=== PATIENT | female | born 1990 | race Caucasian/White ===

== ENCOUNTER 2022-04-26 15:45 | Outpatient (CLI) | payer BC, SELFPAY ==
--- OUTSIDE RECORDS SUMMARY | 2022-04-26 15:49 | XMS_ITS | Encounter Summary ---
:1990 Author Organization [facility] Address [address] [place] [address] Care Team Providers Name Role Phone Unavailable Primary Care Provider Unavailable Encounter Details Date Type Department Care Team Description 04/27/2011 Hospital Encounter HX [facility] Milton Newberry M.D. [address] [place] [address] (Wo rk) Social History Tobacco Use Types Packs/Day Years Used Date Smoking Tobacco: Never Assessed Sex Assigned at Date Recorded Not on file documented as of this encounter Progress Notes Milton Newberry M.D. - 04/27/2011 3:29 PM CDT [id number] REASON FOR VISIT Vaginal bleeding and abdominal pain. SUBJECTIVE Iinjqulk-[id number]-vnp female who presents with three day history of abdominal pain in the left lower quadrant and vaginal bleeding. This is the first episode of this nature. The pain is relatively radha the left lower quadrant. It is mildly sharp. She had vaginal bleeding that began three days ago and has decreased over the subsequent two days. It is essentially discontinued now. Her last menstrualperiod was on 04/12/2011 (two weeks ago). She denies any nausea, vomiting, diarrhea, constipation, blood in the stools, dysuria, urinary frequency or gross hematuria. She is sexually active in a monogamous relationship with the same male for the past four years. She is on oral contraceptive therapy with Deonna. She takes this religiously. She has no known history of sexually transmitted infections nordoes her partner. She denies any prior pregnancies. MENSTRUAL HISTORY Menses began at age 15. Frequency is every 28-30 days. Duration is 3-4 days, typically without much pain. Early on in her menstrual history, she did have mild headaches and abdominal cramping and within the first year of having menses was placed on oral contraceptive therapy. Since that time, has essentially been without symptoms until today. FAMILY HISTORY Patient is concerned in that her mother has apparent history of gynecologic cancer with what sounds to be a total abdominal hysterectomy in the past. Patient believes her mother had this surgery in herlate teens or early 20s. She is uncertain of the distinct diagnosis. OBJECTIVE VITAL SIGNS Weight 65.5 kg. Temperature 37.8. Pulse 91. Blood pressure 121/73. GENERAL Alert, oriented female in no acute distress. Nontoxic appearing. CHEST Heart regular rate and rhythm. Lungs clear to auscultation. ABDOMEN Soft. There is mild to moderate tenderness left lower quadrant. No guarding, no rigidity. Positive bowel sounds. No hepatosplenomegaly. GI/ Examination performed with nurse, ELKIN, in the room. Normal external vulva area without lesions. Speculum examination was performed. Cervix is well visualized. There is no blood extruding from the os. Itis a nulliparous cervix. It appears healthy. There is a normal amount of whitish clear vaginal discharge. Vaginal arango appear healthy. On bimanual examination, no cervical motion tenderness. No right adnexal tenderness. There is some mild left adnexal tenderness without finding of mass. Rectal examination deferred. DIAGNOSTICS Quantitative serum beta HCG is <1. Endovaginal ultrasound shows a normal uterus with mildly homogenous myometrium without discrete fibroids. Endometrial stripe measures 4 mm in thickness with no gestational sac in the uterus. Right ovary is normal. Left ovary is normal. There is no free fluid in the pelvis. IMPRESSION AND PLAN Left lower quadrant pain (continued) with vaginal bleeding mid cycle, which is now resolved. Etiology is not consistent with ectopic , given the negative beta HCG and ultrasound. It is somewhat consistent with ruptured ovarian cyst, despite negative free fluid in the pelvis. I did recommend to the patient that she may try intermittent ibuprofen or Tylenol for pain as desired. Given that thisis her first episode, suspicion for endometriosis is somewhat low, but does remain in the differential. Should she have further symptoms in the future, I would recommend hormonal evaluation for dysfunctional uterine bleeding. Should her pain not continue to improve, I recommended repeat evaluation in the next several days to look for bowel, urinary, or torsive pathology. Long discussion was had with the patient. She feels very comfortable and reassured, given the findings and plan. Milton Newberry MD/cjs I reviewed and concur with the history, examination, tests, diagnosis, and plan proposed by Dr. Newberry. Sophie Galeas MD, Preceptor #[id number] cc: Electronically Signed By: MILTON NEWBERRY MD On: 04/28/2011 03:51 PM Modified by and Electronically Signed by: MILTON NEWBERRY MD On: 04/28/2011 03:50 PM Co-Signed By: SOPHIE GALEAS MD On: 04/29/2011 08:20 AM Source: [facility] Document Id: [id number] documented in this encounter Miscellaneous Notes Miscellaneous - Milton Newberry M.D. - 04/27/2011 6:04 PM CDT [place] [address] Visit Information Name: NANCY ALBERTO Current Date: 04/27/2011 18:04:22 Primary Care Provider: MARIA ALEJANDRA BURRELL Your Medications Here is a list of your medications. It is important to take your medications as directed. Use a pillbox or chart to help remind you to take your medications. Please let your doctor or nurse know if you have problems taking your medications. Medication/Strength Dose Route Frequency Indications/Special Instructions/Comments drospirenone-ethinyl estradiol (Deonna oral tablet) 1 tab(s) Oral once a day Your Allergies & Intolerances Substance Reaction Symptoms Category Comments minocycline Bruising Drug minocycline gums turned blue Drug Your Problem List Problem Status Onset Comments Other Specified Intestinal Malabsorption Active 09/11/2006 Irritable Bowel Syndrome Active 02/23/2007 Your Recommendations We want to make sure you get the tests, immunizations, and guidance you need to stay healthy. Here is a customized list of recommendations, based on information we have in your medical record. Your doctor may have additional recommendations for you, based on your personal medical history and risk factors. You can help us by calling us to make an appointment when you are due for your tests. Additional information regarding recommendations: Test/Treatment Last Done Next Due Additional Information Screening Chlamydia every 1 year Females Age 16-24 04/27/2011 Vaccine: Tetanus every 10 years 12/21/2004 12/19/2014 Immunization to help prevent you from getting the serious disease Tetanus (Lockjaw). Your Upcoming Appointments Date Time Location Reason Provider No Appointments found Your Goals/Additional instructions: [facility] Id: [id number] Margaret - Milton Newberry M.D. - 04/27/2011 6:04 PM CDT [place] [address] Visit Information Name: NANCY ALBERTO Current Date: 04/27/2011 18:04:21 Primary Care Provider: MARIA ALEJANDRA BURRELL NANCY ALBERTO has been given the following list of medications: Your Medications It is important to take your medications as directed. Use a pill box or chart to help remind you to take your medications. Please let your doctor or nurse know if you have problems taking your medications. Medication/Strength Dose Route Frequency Indications/Special Instructions/Comments drospirenone-ethinyl estradiol (Deonna oral tablet) 1 tab(s) Oral once a day Additional Information: Yes - Current list of reconciled medications is provided and explained to the patient and/or family, guardian/caregiver. [facility] Document Id: [id number] Margaret - Ofelia Hess L.P.N. 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 Pt states having LT abdomenand pelvic pain. Cold all the time Temperature Core: 37.8C(Converted to: 100.0DegF) Peripheral Pulse Rate: 91/min Systolic Blood Pressure: 121mmHg Diastolic Blood Pressure: 73mmHg NIBP Mean: 89mmHg BP Location: Right upper extremity Heart Rhythm: Regular Oxygen Therapy: Room air Actual Weight: 65.500kg(Converted to: 144lb 6oz) Weight Source: Standing scale Dosing Weight Clinic: 65.50kg OFELIA HESS MA - 04/27/2011 15:48 CDT General Info Information Given By: Patient Preferred Communication Mode: Verbal Languages: Luxembourgish OFELIA HESS MA - 04/27/2011 15:48 CDT Subjective Pain Symptoms: Yes OFELIA HESS MA - 04/27/2011 15:48 CDT Pain Pain Assessment Grid Pain 1 Pain 2 Location: Abdomen Pelvic Laterality: Left Left Intensity: 6 6 Time Pattern: Acute Acute Onset: Gradual Gradual OFELIA HESS MA - 04/27/2011 15:48 CDT OFELIA HESS MA - 04/27/2011 15:48 CDT Dependent Habits Tobacco Use/Currently Using: No Exposure to Tobacco Smoke: Other: NONE OFELIA HESS MA - 04/27/2011 15:48 CDT Tobacco Use Grid Type: Other: NONE OFELIA HESS MA - 04/27/2011 15:48 CDT Allergy Latex Reaction: No OFELIA HESS MA 04/27/2011 15:48 CDT Allergies (Active) minocycline Estimated Onset Date: Unspecified ; Reactions: Bruising, gums turned blue ; Created By: OFELIA HESS MA; Reaction Status: Active ; Category: Drug ; Substance: minocycline ; Type: Allergy ; Updated By: OFELIA HESS MA; Reviewed Date: 04/27/2011 15:46 CDT [facility] Document Id: [id number] documented in this encounter Plan of Treatment Not on filedocumented as of this encounter Visit Diagnoses Not on filedocumented in this encounter
--- OUTSIDE RECORDS SUMMARY | 2022-04-26 15:49 | XMS_ITS | Encounter Summary ---
:1990 Author Organization [facility] Address [address] [place] [address] Care Team Providers Name Role Phone Unavailable Primary Care Provider Unavailable Encounter Details Date Type Department Care Team Description 08/31/2006 Hospital Encounter HX NO MAPPING Social History Tobacco Use Types Packs/Day Years Used Date Smoking Tobacco: Never Assessed Sex Assigned at Date Recorded Not on file documented as of this encounter Plan of Treatment Not on filedocumented as of this encounter Visit Diagnoses Not on filedocumented in this encounter
--- OUTSIDE RECORDS SUMMARY | 2022-04-26 15:49 | XMS_ITS | Clinical Summary ---
:1990 Author Organization [facility] Address [address] [place] [address] Care Team Providers Name Role Phone Neetu Vargas MD Primary Care Provider [phone] Allergies Active Allergy Reactions Severity Noted Date Comments Fructose GI intolerance Medium 01/18/2007 Gluten 01/18/2021 Minocycline Other (see comments), Medium 11/03/2014 bruisi ng Unknown Causes bruising Sulfa Antibiotics Hives 11/03/2014 Sulfamethoxazole-Trimet Shortness of breath High hives hopri Medications Medication Sig Dispensed Refills Start Date End Date Status magnesium oxide Take 400 mg by 0 12/08/2015 Active (MAG-OX) 400 MG mouth every night tablet Cetirizine HCl 10 MG 1 tablet 1 (one) 0 Active capsule time each day multivitamin Take 1 tablet by 30 each 0 01/18/2021 Active () 27-0.8 MG mouth 1 (one) time tablet each day promethazine TAKE 1 TABLET BY 0 02/15/2022 Active (PHENERGAN) 12.5 MG MOUTH EVERY 6 tablet HOURS NEEDED FOR NAUSEA OR VOMITING albuterol HFA Inhale 2 puffs 18 g 3 02/21/2022 Active (PROVENTIL every 6 (six) HFA;VENTOLIN HFA) hours if needed 108 (90 Base) for wheezing MCG/ACT inhalerIndications: Mild intermittent asthma without complication budesonide Inhale 1-2 puffs 2 1 each 3 02/22/2022 3 Active (PULMICORT) 180 (two) times a day MCG/ACT Rinse mouth with inhalerIndications: water after use to Mild intermittent reduce aftertaste asthma without and incidence of complication candidiasis. Do not swallow. Try 1 puff twice daily and if not controlled, then increase to 2 puffs twice daily. Active Problems Problem Noted Date Seasonal allergic conjunctivitis Asthma Last Assessment & Plan: Formatting of th is note might be different from the original. Asthma is doing well currently. Recently had a formulary change, Dulera no longer covered, Advair HFA (Fluticasone/salmeterol) is alternative, however we discussed that this is category ask wi th limited data for safety. She does not believe that she has ever tried an ICS alone inhaler, which has better studied safety data at low to moderate doses. We will try this during , using during seasons of flares as she n ormally would. Similar moderate dose to her prior Dulera component was sent to the pharmacy, budesonide ICS chosen due to formulary coverage. Patient will follow- up if this is not controlling her sympto ms and we can consider use of Advair if needed at that time. Asthma action plan completed today. Allergic rhinitis Overview: Perennial with seasonal flair Acne Estimated Date of Delivery Comments Yes 09/06/2022 Encounters Date Type Specialty Care Team Description 02/21/2022 Office Visit Family Medicine Neetu aVrgas Cons tipation, unspecified constipation type (Primary Dx); MD Patricia Mild intermitte nt asthma without complication 02/15/2022 Telephone Family Medicine Neetu Vargas MD from Last 3 Months Immunizations Name Administration Dates Next Due DTP 04/02/1998, 06/16/1993, 04/14/1993, 02/10/1993 DTaP 04/02/1998, 06/16/1993, 04/14/1993, 02/10/1993 HPV 9-Valent 06/04/2018 HPV, Quadrivalent 01/28/2008, 11/28/2007 HPV, Unspecified 01/28/2008, 11/28/2007 Hep B, Adolescent or Pediatric 06/16/1993, 02/10/1993, 12/18 Hep B, Unspecified 06/16/1993, 02/10/1993 HiB 04/02/1998, 06/17/1994, 06/16/1993, 04/15/1993 Hib (PRP-D) 04/02/1998, 06/17/1994, 06/16/1993, 04/15/1993 IPV 04/02/1998, 06/17/1993, 04/14/1993, 02/10/1993 Influenza (IM) Preservative Free 06/10/2014 Influenza 6mo-49yrs Quad Preservative 06/15/2020, 05/16/2019 , 04/07/2017, Free IM 06/13/2016, 08/27/2015, 05/07/2014, 07/23/2013 Influenza TIV (IM) 05/23/2012, 05/17/2011, 07/12/2010, 04/14/2009, 06/18/2007, 05/25/2006, 05/23/2005, 07/29/2004, 07/11/2003, 06/21/1999, 05/20/1999 Influenza, Quadrivalent 04/05/2018 Influenza, Unspecified 06/05/2017, 08/27/2015, 06/10/2014, 04/14/2009, 06/18/2007, 05/25/2006, 05/23/2005, 07/29/2004, 07/11/2003, 06/21/1999, 05/20/1999 MMR 12/21/2004, 04/02/1998, 06/17/1994 Meningococcal MCV4P 03/13/2008 Pneumococcal Polysaccharide 07/29/2004, 08/07/2003 Pneumococcal, Unspecified 07/29/2004 Td 12/21/2004 Tdap 08/23/2019, 03/30/2011 Family History Medical History Relation Comments Alcohol abuse Father Diabetes Maternal Grandfather Heart disease Maternal Grandfather Hyperlipidemia Maternal Grandfather Hypertension Maternal Grandfather Stroke Maternal Grandfather Hypothyroidism Maternal Grandmother Stroke Maternal Grandmother Hypertension Mother Cervical cancer Paternal Grandmother Hypothyroidism Paternal Grandmother Anxiety disorder Sister Asthma Sister Chiari malformation Sister Depression Sister Early puberty Sister Hydrocephalus Sister Irritable bowel syndrome Sister Tremor Sister Relation Status Comments Father Alive Maternal Grandfather Maternal Grandmother Mother Alive Paternal Grandmother Sister Social History Tobacco Use Types Packs/Day Years Used Date Never Smoker Smokeless Tobacco: Never Used Alcohol Use Standard Drinks/Week Comments Not Currently 0 (1 standard drink = 0.6 oz pure alcoho l) Alcohol Habits Answer Date Recorded How often do you have a drink containing alcohol? Monthly or less 07/04/2018 How many drinks containing alcohol do you have on a 3 or 4 07/04/2018 typical day when you are drinking? How often do you have six or more drinks on one Less than mo nthly 07/04/2018 occasion? Comment: Not asked Social Isolation Answer Date Recorded In a typical week, how many times do you More than three augusta es a week 06/04/2018 talk on the phone with family, friends, or neighbors? How often do you get together with friends Twice a week 06/04/2018 or relatives? How often do you attend catholic or More than 4 times per year 06/04/2018 anglican services? Do you belong to any clubs or Yes 06/04/2018 organizations such as catholic groups, unions, fraternal or athletic groups, or school groups? How often do you attend meetings of the More than 4 times r year 06/04/2018 clubs or organizations you belong to? Are you now , , , Not asked , never or living with a partner? Physical Activity Answer Date Recorded On average, how many days per week do you engage in moderate 0 days 06/04/2018 to strenuous exercise (like walking fast, running, jogging, dancing, swimming, biking, or other activities that cause a light or heavy sweat)? On average, how many minutes do you engage in exercise at No t asked this level? Stress Answer Date Recorded Do you feel stress - tense, restless, nervous, or anxious, N ot at all 06/04/2018 or unable to sleep at night because your mind is troubled all the time - these days? Financial Resource Strain Answer Date Recorded How hard is it for you to pay for the very basics like Not h farzana at all 06/04/2018 food, housing, medical care, and heating? Intimate Partner Violence Answer Date Recorded Within the last year, have you been afraid of your partner o r No 06/04/2018 ex-partner? Within the last year, have you been humiliated or emotionall y No 06/04/2018 abused in other ways by your partner or ex-partner? Within the last year, have you been kicked, hit, slapped, or No 06/04/2018 otherwise physically hurt by your partner or ex-partner? Within the last year, have you been raped or forced to have any No 06/04/2018 kind of sexual activity by your partner or ex-partner? Food Insecurity Answer Date Recorded Within the past 12 months, you worried that your food would Never true 06/04/2018 run out before you got money to buy more. Within the past 12 months, the food you bought just didn't N ever true 06/04/2018 last and you didn't have money to get more. Transportation Needs Answer Date Recorded In the past 12 months, has lack of transportation kept you f rom No 06/04/2018 medical appointments or from getting medications? In the past 12 months, has lack of transportation kept you f rom No 06/04/2018 meetings, work, or getting things needed for daily living? Education Answer Date Recorded What is the highest level of school Bachelor's degree (e.g., BA, AB, 06/04/2018 you have completed or the highest BS) degree you have received? Estimated Date of Delivery Comments Yes 09/06/2022 Sex Assigned at Date Recorded Not on file Last Filed Vital Signs Vital Sign Reading Time Taken Comments Blood Pressure 98/58 02/21/2022 3:27 PM CDT Pulse 99 02/21/2022 3:27 PM CDT Temperature 36.5 ??C (97.7 ??F) 02/21/2022 3:27 PM CDT Respiratory Rate 16 02/21/2022 3:27 PM CDT Oxygen Saturation 99% 02/21/2022 3:27 PM CDT Inhaled Oxygen Concentration - - Weight 86.1 kg (189 lb 12.8 oz) 02/21/2022 3:27 PM CDT Height 161.5 cm (5' 3.58) 02/21/2022 3:27 PM CDT Body Mass Index 33.01 02/21/2022 3:27 PM CDT Plan of Treatment Health Maintenance Due Date Last Done Comments Pap Smear 1990 COVID-19 Vaccine (2 - 07/16/2021 05/21/2021 Booster for Sherri series) Asthma Action Plan 02/21/2023 02/21/2022, 02/21/2022 Asthma Control Test 02/21/2023 02/21/2022 Pneumococcal Vaccine: Aged Out 07/29/2004, 07/29/2004, No longer eligible Pediatrics (0 to 5 Years) 08/07/2003 based on patient's age and At-Risk Patients (6 to to co mplete this topic 64 Years) HPV Vaccines Completed 06/04/2018, 01/28/2008, 01/28/2008, Additional history exists Insurance Payer Benefit Plan / Subscriber ID Effective Dates Phone Addre ss Type Group BCBS OF BCBS OF [id number] [address] [address] [address] [place] [address] (Home) [facility] TALISHA JUNG [id number] Care Teams Paper Mill Superintendent Relationship Specialty Start Date End Date Neetu Vargas MD PCP - General 11/23/[address] [place] [address] [address] [place] [id number]
--- OUTSIDE RECORDS SUMMARY | 2022-04-26 15:49 | XMS_ITS | Encounter Summary ---
:1990 Author Organization [facility] Address [address] [place] [address] Care Team Providers Name Role Phone Unavailable Primary Care Provider Unavailable Encounter Details Date Type Department Care Team Description 06/26/2014 Hospital Encounter HX [facility] Haider Barron M.D. [address] [place] [phone] (Wo rk) Social History Tobacco Use Types Packs/Day Years Used Date Smoking Tobacco: Never Assessed Sex Assigned at Date Recorded Not on file documented as of this encounter Last Filed Vital Signs Vital Sign Reading Time Taken Comments Blood Pressure 126/78 06/26/2014 3:11 PM AN/SYQ 13 NAV/C2 OPERATOR Pulse 92 06/26/2014 3:11 PM AN/SYQ 13 NAV/C2 OPERATOR Temperature - - Respiratory Rate - - Oxygen Saturation - - Inhaled Oxygen Concentration - - Weight 77 kg (169 lb 12.1 oz) 06/26/2014 3:11 PM AN/SYQ 13 NAV/C2 OPERATOR Height 162 cm (5' 3.78) 06/26/2014 3:11 PM AN/SYQ 13 NAV/C2 OPERATOR Body Mass Index 29.34 06/26/2014 3:11 PM AN/SYQ 13 NAV/C2 OPERATOR documented in this encounter Progress Notes Rick Feliciano M.D. - 06/26/2014 2:52 PM CST [id number] CHIEF COMPLAINT/REASON FOR VISIT Cough. HISTORY OF PRESENT ILLNESS Nancy is a 23-year-old female who presents with cough. She does have a history of seasonal allergiesas well as asthma. She states that occasionally she will get URI symptoms, but they usually get better. She reports a cough as well as fatigue for the last month. She also has some aches and pains. Shedenies any significant sore throat other than occasionally with a cough. She did initially have someleft ear pain, which has since resolved. She also states that while this started with sinus-type headaches in the maxillary and frontal sinuses, although those have now improved. Currently, denies any rhinorrhea. She denies any fevers but has felt chilled. She does report the cough seems to be worse th roughout the day. She does have it at bed, which makes it hard for her to sleep, but it does not wake her up at night. She does report usually it is a dry cough but does have some productivity in the morning. She denies any abdominal discomfort and denies any shortness of breath. Denies any changes inbowel or bladder habits. ALLERGIES 1. Minocycline. 2. Sulfadiazine. MEDICATIONS 1. Generic Zyrtec. 2. Advair Diskus. 3. Albuterol inhaler as needed. 4. Singulair. PHYSICAL EXAMINATION VITAL SIGNS: Height is 160 cm, weight is 77.0 kg, temperature is 36.8, pulse is 92, blood pressure is 126/78. She is saturating 100% on room air. GENERAL: She is awake, alert, and oriented x3, in no acute distress. HEENT: Mucous membranes are moist. Extraocular muscles are intact. Posterior oropharynx without any significant erythema. External auditory canals and tympanic membranes are clear bilaterally. Head is atraumatic, normocephalic. NECK: Supple. No significant lymphadenopathy. CARDIOVASCULAR: Regular rate and rhythm. No murmurs, rubs, or gallops. RESPIRATORY: Clear to auscultation bilaterally. No wheezes or crackles. EXTREMITIES: Warm and well perfused. No peripheral clubbing, cyanosis, or edema. IMPRESSION/REPORT/PLAN Nancy is a 23-year-old female with a 1-month history of cough and perhaps fevers, chills, and overall generalized malaise. Cough. I do have some concerns for possible acute bronchitis, viral versus bacterial. Given the timecourse of symptoms lasting at least 1 month, I think treatment with azithromycin 500 mg on day 1, 250 mg on days 2 through 5 would be reasonable. I also recommended benzonatate 100 mg 1 cap by mouth upto 3 times daily as needed for cough. I recommended following up in 1 to 2 weeks if this does not seem to improve her symptoms. At that time, consideration for chest x- ray and potentially further laboratory evaluation may be warranted. Otherwise, I recommended further conservative management with Tylenol, ibuprofen as needed for pain, fevers, and chills. Recommend staying adequately hydrated. Recommended resting when able. She is comfortable with the assessment and plan. I reviewed and concur with the history, examination, tests, diagnosis, and plan proposed by Dr. Rick Feliciano. Judith Landry MD, Preceptor Rick Feliciano M.D./garth Electronically Signed By: RICK FELICIANO MD On: 07/07/2014 07:41 AM Co-Signed By: JUDITH LANDRY MD On: 07/07/2014 08:12 AM Source: [facility] [id number] Document Id: [id number] /SYQ 13 NAV/C2 OPERATOR documented in this encounter Miscellaneous Notes Miscellaneous - Rick Feliciano M.D. - 06/26/2014 3:45 PM CST Ambulatory Patient Summary [address] [id number] Visit Information Name: NANCY ALBERTO [facility] Number: [id number] Current Date: 06/26/2014 15:45:15 Physicians Attending Provider: RICK FELICIANO MD Primary Care Provider: PCP, UNASSIGNED - NANCY BARR has been given the following list of follow-up instructions, medication list, and patient education materials: Follow-up Instructions Your Medications Here is a list of your medications. It is important to take your medications as directed. Use a pillbox or chart to help remind you to take your medications. Please let your doctor or nurse know if you have problems taking your medications. Medication/Strength How to Take Indications/Special Instructions/Comments/Notes for Patient Medication Changes/Routing albuterol (albuterol CFC free 90 mcg/inh inhalation aerosol) 2 puff(s), Inhalation, every 4 hours asneeded for Shortness of breath / Wheezing azithromycin (azithromycin 250 mg oral tablet) 2 tablets on day 1, then 1 tablet on days 2-5, Oral, as directed x 5 day(s) New Routed to [address] [id number] benzonatate (benzonatate 100 mg oral capsule) 1 cap, Oral, three times a day x 7 day(s) New Routed to [address] [id number] cetirizine (ZyrTEC) Oral, once a day drospirenone-ethinyl estradiol (Deonna oral tablet) 1 Tablet(s), Oral, once a day montelukast (Singulair 10 mg oral tablet) 1 Tablet(s), Oral, every evening Stop Taking the Following Medications: Medication list as of 06-26-14 15:45 Attention: If you have any medications at home that are not on this list, DO NOT take them until youcontact your provider for clarification. Give a copy of your medication list to your primary care provider. Update your medication list any time medications or doses are changed and carry your medication list at all times in case of emergency. Electronically Signed By: RICK FELICIANO MD Signed On:26-JUN-2014 15:45:09 Your Allergies & Intolerances Substance Reaction Symptoms Category Comments minocycline Bruising Drug minocycline gums turned blue Drug sulfADIAZINE hives Drug Your Problem List Problem Status Onset Comments Carbohydrate Intolerance Active 09/11/2006 Irritable Bowel Syndrome Active 02/23/2007 Your Upcoming Appointments Date Time Location Provider No Appointments found Attention: Contact your local Clinic if further appointment detail needed. Your Goals/Additional instructions: Source: [facility] POWERCHART Document Id: [id number] /SYQ 13 NAV/C2 OPERATOR Miscellaneous - Rick Feliciano M.D. - 06/26/2014 3:45 PM CST Ambulatory Discharge Medication List [address] [id number] Visit Information Name: NANCY ALBERTO [facility] Number: [id number] Visit Date: 06/26/2014 15:45:14 Attending Provider: RICK FELICIANO MD Primary Care Provider: PCP, UNASSIGNED - NANCY BARR has been given the following list of medications: Your Medications It is important to take your medications as directed. Use a pill box or chart to help remind you to take your medications. Please let your doctor or nurse know if you have problems taking your medications. Medication/Strength How to Take Indications/Special Instructions/Comments/Notes for Patient Medication Changes/Routing albuterol (albuterol CFC free 90 mcg/inh inhalation aerosol) 2 puff(s), Inhalation, every 4 hours asneeded for Shortness of breath / Wheezing azithromycin (azithromycin 250 mg oral tablet) 2 tablets on day 1, then 1 tablet on days 2-5, Oral, as directed x 5 day(s) New Routed to [address] [id number] benzonatate (benzonatate 100 mg oral capsule) 1 cap, Oral, three times a day x 7 day(s) New Routed to [address] [id number] cetirizine (ZyrTEC) Oral, once a day drospirenone-ethinyl estradiol (Deonna oral tablet) 1 Tablet(s), Oral, once a day montelukast (Singulair 10 mg oral tablet) 1 Tablet(s), Oral, every evening Stop Taking the Following Medications: Medication list as of 06-26-14 15:45 Attention: If you have any medications at home that are not on this list, DO NOT take them until youcontact your provider for clarification. Give a copy of your medication list to your primary care provider. Update your medication list any time medications or doses are changed and carry your medication list at all times in case of emergency. Electronically Signed By: RICK FELICIANO MD Signed On:26-JUN-2014 15:45:09 Additional Information: Source: [facility] POWERCHART Document Id: [id number] /SYQ 13 NAV/C2 OPERATOR Miscellaneous - Conversion, Historical Provider Ser - 06/26/2014 3:11 PM AN/SYQ 13 NAV/C2 OPERATOR Adult Endless Belt Finisher Intake/History Adult Endless Belt Finisher Intake/History Entered On: 06/26/2014 15:14 AN/SYQ 13 NAV/C2 OPERATOR Performed On: 06/26/2014 15:11 AN/SYQ 13 NAV/C2 OPERATOR by ALPHONSO POLANCO LPN Intake SpO2 : 100 % Oxygen Therapy : Room air ALPHONSO POLANCO LPN - 06/26/2014 15:14 AN/SYQ 13 NAV/C2 OPERATOR Chief Complaint : cough, congestion, tired and achy, headache: Hx of asthmas Onset of Symptoms : 1 month Temperature Core : 36.8 DegC(Converted to: 98.2 DegF) Peripheral Pulse Rate : 92 /min Systolic Blood Pressure : 126 mmHg Diastolic Blood Pressure : 78 mmHg NIBP Mean : 94 mmHg BP Location : Right upper extremity Blood Pressure Cuff Size : Regular Height : 162 cm(Converted to: 5 ft 4 inch(es), 64 inch(es)) Actual Weight : 77.0 kg(Converted to: 169 lb 12 oz) Weight Source : Standing scale Dosing Weight Clinic : 77 kg Clinic BSA : 1.86 Body Mass Index : 29.34 kg/m2 ALPHONSO POLANCO LPN - 06/26/2014 15:11 AN/SYQ 13 NAV/C2 OPERATOR General Info Information Given By : Patient Preferred Communication Mode : Verbal Languages : Bruneian Is Patient Female and 13-50 no hysterectomy : Yes Status : Patient denies Are you ? : No ALPHONSO POLANCO LPN - 06/26/2014 15:11 AN/SYQ 13 NAV/C2 OPERATOR Subjective Pain Symptoms : No ALPHONSO POLANCO LPN - 06/26/2014 15:11 AN/SYQ 13 NAV/C2 OPERATOR Dependent Habits Tobacco Use/Currently Using : No Exposure to Tobacco Smoke : Other: NONE Smoking Status : Never smoker ALPHONSO POLANCO LPN - 06/26/2014 15:11 AN/SYQ 13 NAV/C2 OPERATOR Tobacco Use Grid Type : Other: NONE ALPHONSO POLANCO LPN - 06/26/2014 15:11 AN/SYQ 13 NAV/C2 OPERATOR Caffeine Use Grid Caffeine Use : Current Type : Coffee Frequency : Weekly ALPHONSO POLANCO LPN - 06/26/2014 15:11 AN/SYQ 13 NAV/C2 OPERATOR Recreational Drug Use Grid Drug Use : None SHERRI ALPHONSOKARI Montejo LPN - 06/26/2014 15:11 AN/SYQ 13 NAV/C2 OPERATOR ID Screen Travel Within Last 21 Days : No SHERRI ALPHONSO Montejo LPN - 06/26/2014 15:11 AN/SYQ 13 NAV/C2 OPERATOR Source: [facility] [employer] Document Id: [id number] AN/SYQ 13 NAV/C2 OPERATOR!4 documented in this encounter Plan of Treatment Not on filedocumented as of this encounter Visit Diagnoses Not on filedocumented in this encounter
--- OUTSIDE RECORDS SUMMARY | 2022-04-26 15:49 | XMS_ITS | Encounter Summary ---
:1990 Author Organization [facility] Address [address] [place] [address] Care Team Providers Name Role Phone Unavailable Primary Care Provider Unavailable Encounter Details Date Type Department Care Team Description 09/08/2006 Hospital Encounter HX NO MAPPING Social History Tobacco Use Types Packs/Day Years Used Date Smoking Tobacco: Never Assessed Sex Assigned at Date Recorded Not on file documented as of this encounter Plan of Treatment Not on filedocumented as of this encounter Visit Diagnoses Not on filedocumented in this encounter
--- OUTSIDE RECORDS SUMMARY | 2022-04-26 15:49 | XMS_ITS | Encounter Summary ---
:1990 Author Organization [facility] Address [address] [place] [address] Care Team Providers Name Role Phone Unavailable Primary Care Provider Unavailable Encounter Details Date Type Department Care Team Description 09/30/2007 Hospital Encounter HX NO MAPPING Social History Tobacco Use Types Packs/Day Years Used Date Smoking Tobacco: Never Assessed Sex Assigned at Date Recorded Not on file documented as of this encounter Plan of Treatment Not on filedocumented as of this encounter Visit Diagnoses Not on filedocumented in this encounter
--- OUTSIDE RECORDS SUMMARY | 2022-04-26 15:49 | XMS_ITS | Encounter Summary ---
:1990 Author Organization [facility] Address [address] [place] [address] Care Team Providers Name Role Phone Unavailable Primary Care Provider Unavailable Encounter Details Date Type Department Care Team Description 07/07/2006 - 07/08/2006 Hospital Encounter HX NO MAPPING Social History Tobacco Use Types Packs/Day Years Used Date Smoking Tobacco: Never Assessed Sex Assigned at Date Recorded Not on file documented as of this encounter Plan of Treatment Not on filedocumented as of this encounter Visit Diagnoses Not on filedocumented in this encounter
--- OUTSIDE RECORDS SUMMARY | 2022-04-26 15:49 | XMS_ITS | Encounter Summary ---
:1990 Author Organization [facility] Address [address] [place] [address] Care Team Providers Name Role Phone Unavailable Primary Care Provider Unavailable Reason for Visit Reason Onset Date Comments Outpatient COVID-19 Testing 10/26/2020 Encounter Details Date Type Department Care Team Description 10/26/2020 External Outreach Department of Family Post, Ji Aguayo, Contact With [facility] Medicine, [facility] [address] M.D. (Suspected) Exposure Street Professional [address] To COVID-19 (Primary Building in [place], [place] Dx) [place] [phone] [address] [phone] [place], [place] (Work) [phone] Social History Tobacco Use Types Packs/Day Years Used Date Smoking Tobacco: Never Sex Assigned at Date Recorded Not on file documented as of this encounter Progress Notes Liliana Milligan R.N. - 10/26/2020 8:59 AM CDT Encounter created for COVID-19 screening. documented in this encounter Miscellaneous Notes Result Encounter Note - Lenore Jama APRN, C.N.P., M.S. - 10/27/2020 7:39 AM CDT The patient has been notified and provided guidance by letter, which has been sent by portal or by mail. They have been instructed to follow up with their primary care provider as needed. If the PCP has questions about managing the patient, they may: Call the [place] [facility] Team Doc of the Day Send an inbasket to P [facility] COVID-[address] a Covid Care e-consult documented in this encounter Plan of Treatment Not on filedocumented as of this encounter Procedures Procedure Name Priority Date/Time Associated Comments Diagnosis SARS CORONAVIRUS 2 Routine 10/26/2020 10:40 Contact With And R esults for this PCR DETECT, V AM CDT (Suspected) procedure are in Exposure To the results COVID-19 section. documented in this encounter Results (ABNORMAL) SARS Coronavirus 2 PCR Detect, V Asymptomatic (10/26/2020 10:40 AM CDT) [facility] Method Time Signature SARS-CoV-2 Swab, 10/26/2020 [facility] Specimen Nasopharynx 10:28 PM Source CDT SARS-CoV-2 Detected (A) Undetected 10/26/2020 [facility] RNA by PCR 10:28 PM CDT Comment: SARS-CoV-2 RNA present. ----ADDITIONAL INFORMATION---- This RT-PCR test using the nicolette SARS-Co V-2 assay ([employer] performed on the nicolette 6800/8800 S ystem has received Emergency Use Authorization (EUA) by the U.S. Food and Drug Administration, and is modified from the gear grinder's instructions wit h a bridging study. Performance characteristics were verified by [facility] inic in a manner consistent with CLIA requirements. Fact sheets for this Emergency Use Autho rization (EUA) assay can be found at the following links: For Healthcare Providers: https://www.fd a.gov/media/664556/download For Patients: https://www.fda.gov/media/ 169536/download Specimen Anatomical Collection Method Collection Time Receive d Time (Source) Location / / Volume Laterality Varies 10/26/2020 10:40 10/26/2020 2:08 (Nasopharynx) AM CDT PM CDT Ji Merida M.D. LAB MICROBIOLOGY - GENERAL O RDPRASHANT Performing Organization Address City/State/ZIP Code Phon e Number [facility] [address] [place] [address] SUPPORT [facility] [place] [address] Laboratory Medicine and Pathology [address] [place] documented in this encounter Visit Diagnoses Diagnosis Contact With And (Suspected) Exposure To COVID-19 - Primary documented in this encounter Additional Health Concerns Infection Onset Date Last Indicated Resolved Time COVID19 Pending 10/26/2020 10/26/2020 10/26/2020 10:28 PM CDT documented as of this encounter
--- OUTSIDE RECORDS SUMMARY | 2022-04-26 15:49 | XMS_ITS | Encounter Summary ---
:1990 Author Organization [facility] Address [address] [place] [address] Care Team Providers Name Role Phone Unavailable Primary Care Provider Unavailable Encounter Details Date Type Department Care Team Description 08/11/2006 Hospital Encounter HX NO MAPPING Social History Tobacco Use Types Packs/Day Years Used Date Smoking Tobacco: Never Assessed Sex Assigned at Date Recorded Not on file documented as of this encounter Plan of Treatment Not on filedocumented as of this encounter Visit Diagnoses Not on filedocumented in this encounter
--- OUTSIDE RECORDS SUMMARY | 2022-04-26 15:49 | XMS_ITS | Encounter Summary ---
:1990 Author Organization [facility] Address [address] [place] [address] Care Team Providers Name Role Phone Unavailable Primary Care Provider Unavailable Encounter Details Date Type Department Care Team Description 07/05/2006 - 07/06/2006 Hospital Encounter HX [facility] Social History Tobacco Use Types Packs/Day Years Used Date Smoking Tobacco: Never Assessed Sex Assigned at Date Recorded Not on file documented as of this encounter Plan of Treatment Not on filedocumented as of this encounter Visit Diagnoses Not on filedocumented in this encounter
--- OUTSIDE RECORDS SUMMARY | 2022-04-26 15:49 | XMS_ITS | Encounter Summary ---
:1990 Author Organization [facility] Address [address] [place] [address] Care Team Providers Name Role Phone Unavailable Primary Care Provider Unavailable Encounter Details Date Type Department Care Team Description 08/12/2006 Hospital Encounter HX NO MAPPING Social History Tobacco Use Types Packs/Day Years Used Date Smoking Tobacco: Never Assessed Sex Assigned at Date Recorded Not on file documented as of this encounter Plan of Treatment Not on filedocumented as of this encounter Visit Diagnoses Not on filedocumented in this encounter
--- OUTSIDE RECORDS SUMMARY | 2022-04-26 15:49 | XMS_ITS | Encounter Summary ---
:1990 Author Organization [facility] Address [address] [place] [address] Care Team Providers Name Role Phone Unavailable Primary Care Provider Unavailable Encounter Details Date Type Department Care Team Description 10/26/2020 Admin Visit Department of Family Medicine, [address] [phone] Social History Tobacco Use Types Packs/Day Years Used Date Smoking Tobacco: Never Sex Assigned at Date Recorded Not on file documented as of this encounter Plan of Treatment Not on filedocumented as of this encounter Visit Diagnoses Not on filedocumented in this encounter Additional Health Concerns Infection Onset Date Last Indicated Resolved Time COVID19 Pending 10/26/2020 10/26/2020 10/26/2020 10:28 PM CDT documented as of this encounter
--- OUTSIDE RECORDS SUMMARY | 2022-04-26 15:49 | XMS_ITS | Encounter Summary ---
:1990 Author Organization [facility] Address [address] [place] [address] Care Team Providers Name Role Phone Unavailable Primary Care Provider Unavailable Encounter Details Date Type Department Care Team Description 06/22/2001 Hospital Encounter HX [facility] Jocelyne Reinoso M.D. [address] [place] [address], [place] [address] (Wo rk) Social History Tobacco Use Types Packs/Day Years Used Date Smoking Tobacco: Never Assessed Sex Assigned at Date Recorded Not on file documented as of this encounter Plan of Treatment Not on filedocumented as of this encounter Visit Diagnoses Not on filedocumented in this encounter
--- OUTSIDE RECORDS SUMMARY | 2022-04-26 15:49 | XMS_ITS | Encounter Summary ---
:1990 Author Organization [facility] Address [address] [place] [address] Care Team Providers Name Role Phone Unavailable Primary Care Provider Unavailable Encounter Details Date Type Department Care Team Description 07/03/2006 - 07/04/2006 Hospital Encounter HX NO MAPPING Social History Tobacco Use Types Packs/Day Years Used Date Smoking Tobacco: Never Assessed Sex Assigned at Date Recorded Not on file documented as of this encounter Plan of Treatment Not on filedocumented as of this encounter Visit Diagnoses Not on filedocumented in this encounter
--- OUTSIDE RECORDS SUMMARY | 2022-04-26 15:49 | XMS_ITS | Encounter Summary ---
:1990 Author Organization [facility] Address [address] [place] [address] Care Team Providers Name Role Phone Unavailable Primary Care Provider Unavailable Encounter Details Date Type Department Care Team Description 04/28/2007 Hospital Encounter HX NO MAPPING Social History Tobacco Use Types Packs/Day Years Used Date Smoking Tobacco: Never Assessed Sex Assigned at Date Recorded Not on file documented as of this encounter Plan of Treatment Not on filedocumented as of this encounter Visit Diagnoses Not on filedocumented in this encounter
--- OUTSIDE RECORDS SUMMARY | 2022-04-26 15:49 | XMS_ITS | Encounter Summary ---
:1990 Author Organization [facility] Address [address] [place] [address] Care Team Providers Name Role Phone Unavailable Primary Care Provider Unavailable Reason for Visit Reason Comments COVID Nurse Line Encounter Details Date Type Department Care Team Description 10/26/2020 Clinical Communication Division of Lenore Marquez COVI D Nurse Line [facility] Internal R.N. Medicine, [facility] in [place], [place] [address] [place] [address] Social History Tobacco Use Types Packs/Day Years Used Date Smoking Tobacco: Never Sex Assigned at Date Recorded Not on file documented as of this encounter Miscellaneous Notes Telephone Encounter - Lenore Marquez, R.N. - 10/26/2020 8:12 AM CDT COVID-19 Nurse Line Screening Known Exposure 10/17 Quarantine 10/31 Asymptomatic Testing required for work ASSESSMENT Region Select appropriate region: : [place] Age Pathway Select approprite pathway: : Adult Have you had close contact* with a person who has a LABORATORY CONFIRMED case of COVID-19 in the past 14 days?: Yes- provide quarantine instructions unless exceptions met. (Continue Screening)(Aunt) In the last 48 hours, have you had a fever* OR symptoms that are unrelated to a preexisting illness?: No symptoms noted (Continue Screening) Have you tested positive for COVID-19 in the last 90 days?: No (Continue Screening) Have you been advised to undergo testing or are you requesting testing?: Yes, COVID-19 testing recommended (End Screening) Have you received a COVID-19 vaccine in the last 72 hours? : No vaccine received (Continue Screening) Do you have any of the following urgent symptoms?: No urgent symptoms noted (Continue Screening) Have you tested positive for COVID-19 in the last 45 days?: No (Continue Screening) Are ALL the following criteria met: age between 18 to 75 yrs, main symptom is a sore throat with duration of 24 hrs to 7 days, onset of sore throat not associated with new upper respiratory symptoms*? : No, COVID testing is recommended (End Screening) Testing Recommendation Endpoint Is testing recommended? : Recommended to test PLAN Endpoint recommendation: Screening negative, testing not indicated at this time and Provided instruction to quarantine for 14 days from the last contact exposure to a confirmed COVID-19 case and testing is recommended. The best time to test is 5-7 days after last contact with an infected individual inorder to have the best chance of detecting infection. If you are unsure of your last contact, or would like testing now, we can perform testing now. Even if your test is negative, you should continue to follow official public health quarantine recommendations. Contact your primary care team with any new symptoms. Care Points: -Wash hands frequently with soap and water for at least 20 seconds -If soap and water are not available, use a hand food critic -Avoid touching your eyes, nose and mouth. -Clean and disinfect high-touch surfaces routinely. -Wear a mask over your nose and mouth. A cloth face cover is not a substitute for social distancing -Continue to keep about 6 feet between yourself and others. -Avoid public areas and public transportation. -Find new ways to connect with family and friends, get support and share feelings. -Seek emergent care if any of the following occur Trouble breathing Bluish lips or face Persistent pain or pressure in the chest New confusion or inability to rouse. -Notify your regular care provider of any new or worsening symptoms. Exposure Carepoints: Continue to quarantine for 14 days from your last known exposure to someone with a laboratory confirmed case of COVID-19 regardless of a negative test result unless otherwise directed. If you have completed your COVID-19 vaccination series greater than 2 weeks ago and within the past 90 days, you do not need to quarantine as long as you remain asymptomatic. Regardless of vaccination status, If you remain asymptomatic and wish to be tested it is recommended that you wait 5-7 daysafter the exposure before testing unless otherwise directed. Testing is recommended if you become symptomatic at any point. Education: Patient/caregiver able to teach back Patient agreeable to plan of care: Yes The following references were used: [facility] novel coronavirus (COVID- 19) resources Nursing judgement documented in this encounter Plan of Treatment Not on filedocumented as of this encounter Visit Diagnoses Not on filedocumented in this encounter
--- OUTSIDE RECORDS SUMMARY | 2022-04-26 15:49 | XMS_ITS | Encounter Summary ---
:[address] [facility] Address [address] [place] [address] Care Team Providers Name Role Phone Unavailable Primary Care Provider Unavailable Encounter Details Date Type Department Care Team Description 08/01/2006 - 08/02/2006 Hospital Encounter HX NO MAPPING Social History Tobacco Use Types Packs/Day Years Used Date Smoking Tobacco: Never Assessed Sex Assigned at Date Recorded Not on file documented as of this encounter Plan of Treatment Not on filedocumented as of this encounter Visit Diagnoses Not on filedocumented in this encounter
--- OUTSIDE RECORDS SUMMARY | 2022-04-26 15:49 | XMS_ITS | Encounter Summary ---
:1990 Author Organization [facility] Address [address] [place] [address] Care Team Providers Name Role Phone Unavailable Primary Care Provider Unavailable Encounter Details Date Type Department Care Team Description 12/01/2020 Orders Only RST PCP [facility] Elan Lainez Jr., M.D. [address] [place] [address] Niko Bernabe [place] [phone] (Wo rk) Social History Tobacco Use Types Packs/Day Years Used Date Smoking Tobacco: Never Sex Assigned at Date Recorded Not on file documented as of this encounter Plan of Treatment Not on filedocumented as of this encounter Visit Diagnoses Not on filedocumented in this encounter
--- OUTSIDE RECORDS SUMMARY | 2022-04-26 15:49 | XMS_ITS | Encounter Summary ---
:1990 Author Organization [facility] Address [address] [place] [address] Care Team Providers Name Role Phone Unavailable Primary Care Provider Unavailable Encounter Details Date Type Department Care Team Description 07/04/2006 - 07/06/2006 Hospital Encounter HX NO MAPPING Social History Tobacco Use Types Packs/Day Years Used Date Smoking Tobacco: Never Assessed Sex Assigned at Date Recorded Not on file documented as of this encounter Plan of Treatment Not on filedocumented as of this encounter Visit Diagnoses Not on filedocumented in this encounter
--- OUTSIDE RECORDS SUMMARY | 2022-04-26 15:49 | XMS_ITS | Encounter Summary ---
:1990 Author Organization [facility] Address [address] [place] [address] Care Team Providers Name Role Phone Unavailable [...]
--- OUTSIDE RECORDS SUMMARY | 2022-04-26 15:49 | XMS_ITS | Encounter Summary ---
:1990 Author Organization [facility] Address [address] [place] [address] Care Team Providers Name Role Phone Unavailable Primary Care Provider Unavailable Encounter Details Date Type Department Care Team Description 10/20/2007 Hospital Encounter HX NO MAPPING Social History Tobacco Use Types Packs/Day Years Used Date Smoking Tobacco: Never Assessed Sex Assigned at Date Recorded Not on file documented as of this encounter Plan of Treatment Not on filedocumented as of this encounter Visit Diagnoses Not on filedocumented in this encounter
--- OUTSIDE RECORDS SUMMARY | 2022-04-26 15:49 | XMS_ITS | Encounter Summary ---
:1990 Author Organization [facility] Address [address] [place] [address] Care Team Providers Name Role Phone Unavailable Primary Care Provider Unavailable Encounter Details Date Type Department Care Team Description 11/12/2014 Hospital Encounter HX [facility] Sa carlos Strange P.A.-C. [address] [place] [address] [phone] (Wo rk) Social History Tobacco Use Types Packs/Day Years Used Date Smoking Tobacco: Never Assessed Sex Assigned at Date Recorded Not on file documented as of this encounter Last Filed Vital Signs Vital Sign Reading Time Taken Comments Blood Pressure 122/92 11/12/2014 9:49 AM CDT Pulse - - Temperature - - Respiratory Rate - - Oxygen Saturation - - Inhaled Oxygen Concentration - - Weight 72 kg (158 lb 11.7 oz) 11/12/2014 9:49 AM CDT Height 162 cm (5' 3.78) 11/12/2014 9:49 AM CDT Body Mass Index 27.43 11/12/2014 9:49 AM CDT documented in this encounter H&P Notes Sanford Bird, P.APauline-Ford - 11/12/2014 9:34 AM CDT [id number] CHIEF COMPLAINT/REASON FOR VISIT Annual exam. 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 Cecilio would like her contraception refilled. She on Deonna 3 mg-0.03 mg tablets. The control is working very well for her and she takes it on a regular basis. Cecilio is also being treated for urinary tract infection. It was significant enough that she had visible blood in the urine. She is somewhat nauseous on the Cipro that she is taking, but overall is doing okay and feels quite a bit better after using the Cipro. She has 2 days left of the medication. She is not currently taking her magnesium because of this, and because of that is constipated, therefore she is drinking a lot of coffee and is somewhat wired. Otherwise, she has no complaints or concerns. 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 PAST MEDICAL/SURGICAL HISTORY PAST MEDICAL HISTORY: Seasonal allergies. Asthma. Irritable bowel syndrome. PAST SURGICAL HISTORY: Tonsils and adenoids. PAST OBSTETRICS/GYNECOLOGIC HISTORY: She is nulliparous and has not had an exam and denies any othersexually transmitted infections. SOCIAL HISTORY She denies any tobacco or other drug use. She has alcohol about 1 to 2 times per month. 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 FAMILY HISTORY Reviewed and updated in the electronic medical record. REVIEW OF SYSTEMS Cecilio denies headaches, chest pain, shortness of breath, nausea, vomiting with the exception of somenausea with the Cipro, blood in her stool or urine, except recently with the urinary tract infection. PHYSICAL EXAMINATION GENERAL: This is a pleasant female, in no acute distress, who is awake, alert, and answering appropriately. VITAL SIGNS: Her height is 162. Her weight is 72 kg. Her BMI is 27.43. Blood pressure is 122/92. PHQ-9 had a score of 0. HEENT: Head is atraumatic with no scleral icterus. NECK: Supple without lymphadenopathy or thyromegaly. LUNGS: Clear to auscultation bilaterally. HEART: Regular rate and rhythm. BREASTS: Symmetric bilaterally with no palpable masses or galactorrhea. ABDOMEN: Soft, nondistended, nontender with positive bowel sounds. Negative Atkinson sign. GYNECOLOGIC: External genitalia is within normal limits. Vaginal mucosa is moist with rugation. Pap,wet prep, gonorrhea, and Chlamydia were obtained. Bimanual exam reveals midline mobile uterus that is anteflexed. No other palpable masses. IMPRESSION/REPORT/PLAN Benign gynecologic exam, contraceptive management. PLAN: Regarding health maintenance. A Pap was obtained today. We will get a cholesterol and blood sugar screen. STI screening was completed. Patient is going to be checking on her tetanus vaccination. Because she is in school, I suspect that she is up-to-date, but she is going to check at home, and she received a flu vaccination at school. With regard to her control it was refilled for 1 year. Moses Adams/garth Electronically Signed By: SANFORD BIRD PA-C On: 12/17/2014 04:15 PM Source: [facility] MHSDOLBEYNONRADSYS Document Id: [id number] documented in this encounter Miscellaneous Notes Miscellaneous - Brianna Tiwari C.M.A. - 01/13/2016 9:53 AM CDT Med Management Document Contains Addenda Addendum by SANFORD BIRD PA-C on January 13, 2016 12:14:27 CDT From: SANFORD BIRD PA-C Sent: 01/13/2016 12:14:27 CDT Subject: RE:Med Management Approved with modifications: Order:drospirenone-ethinyl estradiol (Deonna 3 mg-0.03 mg oral tablet) 1 tab(s) PO Daily Qty: 30 tab(s) Refills: 1 Substitutions Allowed Route To Pharmacy - [id number] Signed by SANFORD BIRD PA-C 01/13/2016 12:14:17 From: BRIANNA TIWARI MA To: SANFORD BIRD PA-C; Sent: 01/13/2016 09:53:31 CDT Subject: Med Management On hold pending signature Order:drospirenone-ethinyl estradiol (Deonna 3 mg-0.03 mg oral tablet) 1 tab(s) PO Daily Qty: 30 tab(s) Refills: 0 Substitutions Allowed Route To Pharmacy - [id number] Caller is: ( x ) Patient ( ) Mother ( ) Father ( ) Spouse ( ) Daughter ( ) Son ( x ) Pharmacy ( ) Other: Provider: Pharmacy: Name of Medications Needing Refill: Last Refill Date: Additional Information:pt is requesting a refill and has 3 pills left. She has moved and I told her to make an apt for an annual exam GERARD in her new area in order to get future meds. She last saw you in 11/12/14. (she's hoping to get enough pills to just get her through until she sees her new provider.) Please advise. 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 - 01/23/2015 11:15 AM CDT *Phone Message Document Contains Addenda Addendum by SANFORD BIRD PA-C on 23 January 2015 12:17:37 CDT From: SANFORD BIRD PA-C To: [facility] Obstetrics/Gynecology Nurse; Sent: 01/23/2015 12:17:37 CDT Subject: RE: *Phone Message thx From: ANUM JIMÉNEZ RN ([facility] Obstetrics/Gynecology Nurse) To: SANFORD BIRD PA-C; Sent: 01/23/2015 11:15:19 CDT Subject: *Phone Message Caller is: ( x ) Patient ( ) Mother ( ) Father ( ) Spouse ( ) Daughter ( ) Son ( ) Pharmacy ( ) Other: Physician: [facility] Patient MRN #: Reason for Call: ? UTI Message: Patient raj today and states she recently had a UTI in November when she saw Sanford Bird for her annual exam. She states she believes she has another UTI. She states since yesturday she has been having burning with urination, and frequency with hesitation to void. Also has noted blood in urine. She states she was up all night with discomfort. She states that Sanford told her she could just call and she would give her a script. Patient is currently out of town in [place]. I paged Sanford who states being that her sx we would treat with Cipro 250mg po BID for 5 days. Script was sent in for Patient. I did advise that if this happens again, Sanford will want to have a urinalysis and culture completed before we prescribe meds. Also advised that if the antibiotic doesn't help to call back as there might be a bacteria that isn't sensative to cipro. Patient understands instruction. FYI Advice/Action: Source used: ( ) Verbalizes understanding of instructions ( ) Instructed to call back if symptoms worsen or do not resolve ( ) Refused to see provider ( ) Appointment Scheduled ( ) OK to leave message on voice mail ( ) Patient told to expect return call: ( ) today ( ) tomorrow ( ) next work day ( ) Patient's email ( ) Patient told physician out of office, will call upon return call on ( ) ( ) Patient told physician out of office, routed to other physician ( ) Other ( ) Call back telephone number ( ) Call back cell phone number ( ) Source: [facility] POWERCHART Document Id: [id number] Miscellaneous - Pelon Sanford Kody Aguayo - 11/21/2014 12:24 PM CDT Custom Result Letter 21 November 2014 CECILIO ALBERTO [id number] [place] [address] [id number] Dear CECILIO ALBERTO, I hope this letter finds that you are doing well. I am pleased to report that your Pap test isnormal, a repeat Pap test would be recommended in 3 years. Although the pap test is not advised yearly, I would recommend a yearly physical to receive a complete exam, review medical concerns, and discuss ivanna mmendations. Please follow up with me as previously discussed and sooner if you have any concerns. Thank you for trusting your health care to [facility]etrics and Gyne[facility]; improving our quality and service is our highest priority for your care. We are closely monitoring our service to you. If you dont think you could rate us in the highest category of care we would truly like to know what we could do better. Feel free to contact us directly with any concerns at [phone]. Thank you for allowing me to participate in your health care. 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 Source: [employer] Document Id: [id number] Miscellaneous - Sanford Bird P.A.-C. - 11/13/2014 1:32 PM CDT Custom Result Letter 13 November 2014 CECILIO ALBERTO [address] [place] [address] [id number] Dear CECILIO ALBERTO, I hope this letter finds that you are doing well. Your Chlamydia and Gonorrhea cultures were both negative. Thank you for trusting your health care to [facility]; improving our quality and service is our highest priority for your care. We are closely monitoring our service to you. If you dont think you could rate us in the highest category of care we would truly like to know what we could do better. Feel free to contact us directly with any concerns at [phone]. Thank you for allowing me to participate in your health care. Result Name Current Result Chlamydia DNA Probe 11/12/2014 GC by Nucleic Acid Amplification 11/12/2014 Sincerely, SANFORD PELON [address] [place], [place] [id number] Electronic Signature Electronically Signed By: SANFORD BIRD PA-C On: 13 November 2014 This document has images extracted. Source: [employer] Document Id: [id number] Miscellaneous - Sanford Bird P.A.-C. - 11/12/2014 1:05 PM CDT Ambulatory Patient Summary [facility] [address] [place], [place] [phone] Visit Information Name: LIANAEMPERATRIZ CECILIO ERIN [facility] Number: [id number] Current Date: 11/12/2014 13:05:12 Physicians Attending Provider: SANFORD BIRD PA-C Primary Care Provider: PCP, UNASSIGNED - CECILIO BARR ERIN has been given the following list of [...] asneeded for Shortness of breath / Wheezing cetirizine (ZyrTEC) Oral, once a day ciprofloxacin (Cipro 500 mg oral tablet) 1 Tablet(s), Oral, two times a day drospirenone-ethinyl estradiol (Deonna 3 mg-0.03 mg oral tablet) 1 Tablet(s), Oral, once a day Routelane Garcia [address] [place], [place] [id number] [facility] Prescription ([facility] Prescription) magnesium 3 tabs at bedtime daily. montelukast (Singulair 10 mg oral tablet) 1 Tablet(s), Oral, every evening Stop Taking the Following Medications: Medication list as of 11-12-14 13:05 Attention: If you have any medications at home that are not on this list, DO NOT take them until youcontact your provider for clarification. Give a copy of your medication list to your primary care provider. Update your medication list any time medications or doses are changed and carry your medication list at all times in case of emergency. 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 LTO_cholesterol Cholesterol Test Also known as Blood cholesterol, total cholesterol Related tests HDL, LDL, Triglycerides, Lipid profile Why get tested? To screen for risk of developing heart disease When to get tested? Adults should be tested once every five years or more frequently if you are being treated for high cholesterol. Sample required A blood sample drawn from a vein in the arm or a fingerstick Note: If you are having this test performed as part of the Lipid profile, you will need to fast for at least 12 hours before the sample is collected. Test Sample What is being tested? Cholesterol is a substance (a steroid) that is essential for life. It forms the membranes for cells in all organs and tissues in your body. It is used to make hormones that are essential for development, growth and reproduction. It forms bile acids that are needed to absorb nutrients from food. A small amount of your bodys cholesterol circulates in the blood in complex particles called lipoproteins. These lipoproteins include some particles that carry excess cholesterol away for disposal and some particles that deposit cholesterol in tissues and organs. The test for cholesterol measures all cholesterol (good and bad) that is carried in the blood by lipoproteins. How is the sample collected for testing? Most often a blood sample is collected from a vein in your arm. Sometimes cholesterol is measured using a drop of blood collected by puncturing the skin on a finger. A fingerstick sample is typically used when cholesterol is being measured on a portable testing device - for example at a health fair. The Test How is it used? Cholesterol is different from most tests in that it is not used to diagnose or monitor a disease butis used to estimate risk of developing a disease - specifically heart disease. Because high blood cholesterol has been associated with hardening of the arteries, heart disease and a raised risk of from heart attacks, cholesterol testing is considered a routine part of preventive health care. When is it ordered? Cholesterol testing is recommended as a screening test to be done on all adults at least once every five years. It is frequently done in conjunction with a routine physical exam. It is usually ordered in combination with other tests including HDL, LDL, and triglycerides - often called a lipid profile. Cholesterol is tested at more frequent intervals (often several times per year) in patients who havebeen prescribed diet and/or drugs to lower their cholesterol. The test is used to track how well these measures are succeeding in lowering cholesterol to desired levels and in turn lowering the risk of developing heart disease. What does the test result mean? In a routine setting where testing is done to screen for risk, the test results are grouped in threecategories of risk: ?? Desirable : A cholesterol below 200 mg/dL (5.18 mmol/L) is considered desirable and reflects a low risk of heart disease. ?? Borderline high: A cholesterol of 200 to 240 mg/dL (5.18 to 6.22 mmol/L) is considered to reflectmoderate risk. Your doctor may decide to order a lipid profile to see if your high cholesterol is bad cholesterol or good cholesterol. Depending on the results of the lipid profile (and any other risk factors you may have) your doctor will decide what to do. ?? High Risk: A cholesterol above 240 mg/dL (6.22 mmol/L) is considered high risk. Your doctor may order a lipid profile (as well as other tests) to try to determine the cause of your high cholesterol.Once the cause is known, an appropriate treatment will be prescribed. In a treatment setting, testing is used to see how much cholesterol is decreasing as a result of treatment. The goal for the amount of change or the final (target) value will be set by your doctor. Thetarget value is usually based on LDL. Is there anything else I should know? Cholesterol should be measured when a person is healthy. Blood cholesterol is temporarily low duringacute illness, immediately following a heart attack, or during stress (like from surgery or an accident). You should wait at least 6 weeks after any illness to have cholesterol measured. There is some debate about whether very low cholesterol is bad. Low cholesterol (less than 100 mg/dL(2.59 mmol/L)) is often seen when there is an existing problem like malnutrition, liver disease, or cancer. However there is no evidence that low cholesterol causes any of these problems. Cholesterol is high during . Women should wait at least six weeks after the baby is born tohave cholesterol measured. Some drugs that are known to increase cholesterol levels include anabolic steroids, beta blockers, epinephrine, oral contraceptives, and vitamin D. Common Questions 1. Who should have a cholesterol screening test? All adults over the age of 20 should have a cholesterol test, preferably as part of a lipid profile,at least once every five years. 2. What causes high cholesterol? High cholesterol may be the result of an inherited disease or it may result from a diet high in saturated fats. For many people it is caused by a combination of both a high fat diet and an inherited tendency towards high cholesterol. 3. What treatments are recommended if my levels are too high? The preferred treatment is to adopt a diet that is low in saturated fats. A low- fat diet will usually lower cholesterol about 8%. If diet cannot lower cholesterol enough, drugs are often recommended. Sometimes two different drugs are used together to treat people with extremely high cholesterol levels. The drug of choice differs for different people. There are several classes of drugs that are commonly used. These include bile acid sequenstrants, niacin, HMG-Co reductase inhibitors and fibrates. Your doctor will need to take into account your individual situation before prescribing any cholesterol-lowering drug. 4. What is my risk of a heart attack if I have high cholesterol? High cholesterol increases your risk of a heart attack. The higher the cholesterol, the higher the risk. However, many other factors also affect your risk of a heart attack, such as smoking, diabetes, age, and high blood pressure. 5. I haven't changed my diet or exercise pattern but my cholesterol has gone up since the last time it was tested. Why? Cholesterol levels fluctuate over time. The measured cholesterol level may differby as much as 10% from one month to another. It may go up sometimes or it may go down sometimes. These changes are called biological variation and they represent normal variability inherent in human metabolism. 6. My doctor told me I had a high cholesterol test but instead of treating me he told me to wait a few months and test it again. Why? Cholesterol levels fluctuate over time. A single measurement of cholesterol may not always reflect the usual cholesterol level. For this reason, it is advisable to have at least two different measurements several weeks to several months apart before beginning any kind of treatment. Treatment is basedon the average value. <http://labtestsonline.org/pr/staywell.html> ??[id number] [employer] This document has images extracted. Please consider using [employer] for all your patient education needs. Source: [facility] POWERCHART Document Id: [id number] Miscellaneous - Sanford Bird P.A.-C. - 11/12/2014 1:05 PM CDT Ambulatory Discharge Medication List [address] [phone] Visit Information Name: CECILIO ALBERTO [facility] Number: [id number] Visit Date: 11/12/2014 13:05:11 Attending Provider: SANFORD BIRD PA-C Primary Care Provider: PCP, UNASSIGNED - CECILIO BARR has been given the following list [...] asneeded for Shortness of breath / Wheezing cetirizine (ZyrTEC) Oral, once a day ciprofloxacin (Cipro 500 mg oral tablet) 1 Tablet(s), Oral, two times a day drospirenone-ethinyl estradiol (Denona 3 mg-0.03 mg oral tablet) 1 Tablet(s), Oral, once a day [facility] [address] [place], [place] [id number] Misc Prescription ([facility] Prescription) magnesium 3 tabs at bedtime daily. montelukast (Singulair 10 mg oral tablet) 1 Tablet(s), Oral, every evening Stop Taking the Following Medications: Medication list as of 11-12-14 13:05 Attention: If you have any medications at home that are not on this list, DO NOT take them until youcontact your provider for clarification. Give a copy of your medication list to your primary care provider. Update your medication list any time medications or doses are changed and carry your medication list at all times in case of emergency. Electronically Signed By: SANFORD BIRD PA-C Signed On:12-NOV-2014 10:00:55 Additional Information: Source: [facility] POWERCHART Document Id: [id number] Miscellaneous - Sanford Bird P.A.-C. - 11/12/2014 11:15 AM CDT Custom Result Letter 12 November 2014 CECILIO ALBERTO [id number] [place] [id number] Dear CECILIO ALBERTO, I hope this letter finds that you are doing well. Your vaginal culture came back negative for infection. Your Gonorrhea and Chlamydia Screen are still pending. Your cholesterol and blood sugar results are excellent. Cholesterol should be repeated in 5 years, and blood sugar in 3 years. Please follow up with me if you have any concerns, or in 1 year for an annual exam. Thank you for trusting your health care to [facility]; improving our quality and service is our highest priority for your care. We are closely monitoring our service to you. If you dont think you could rate us in the highest category of care we would truly like to know what we could do better. Feel free to contact us directly with any concerns at [phone]. Thank you for allowing me to participate in your health care. Result Name Current Result Normal Range Glucose Fasting (mg/dL) 91 11/12/2014 70 - 99 Cholesterol (mg/dL) 137 11/12/2014 - <200 Trig (mg/dL) 90 11/12/2014 - <150 HDL (mg/dL) 71 11/12/2014 >40 - Non HDL Cholesterol (mg/dL) 66 11/12/2014 - <130 LDL Calculated (mg/dL) 48 11/12/2014 - <100 Chol/HDL Ratio 1.93 11/12/2014 CHD Risk Factor CHD CHOLESTEROL/HDL RATIO 11/12/2014 Wet Prep 11/12/2014 Sincerely, SANFORD BIRD [address] [place] [id number] Electronic Signature Electronically Signed By: SANFORD BIRD PA-C On: 12 November 2014 This document has images extracted. Source: [facility] [employer]RegistryCHART Document Id: [id number] Margaret - Nathalie Asencio - 11/12/2014 10:30 AM CDT School Excuse 12 November 2014 CECILIO ALBERTO [address] [place] [id number] Dear CECILIO ALBERTO, You were examined in my office on: 11/12/14 To return to school today: ( _ ) Yes ( _ ) No To return to regular activity: ( _ ) Yes ( _ ) No To have modified activity: ( _ ) Yes ( _ ) No As follows: ( _ ) No contact sports ( _ ) May do upper body activities ( _ ) May do lower body activities ( _ ) May do walking program ( _ ) No physical activity ( _ ) Other: _ Duration of activity restriction: ( _ ) Days ( _ ) Weeks ( _ ) Months ( _ ) Other: _ Physical Therapy referral: ( _ ) Yes ( _ ) No School Medication / Procedure Form completed: ( _ ) Yes ( _ ) Not necessary Notes: _ pt seen today for doctors appt, can return after appt Sincerely, NATHALIE ASENCIO Electronic Signature Electronically Signed By: NATHALIE ASENCIO MA On: 12 November 2014 This document has images extracted. Source: [facility] [employer]CHART Document Id: [id number] Margaret - Brianna Tiwari C.MMarla - 11/12/2014 9:52 AM CDT PHQ-9 PHQ-9 Entered On: 11/12/2014 9:52 CDT Performed On: 11/12/2014 9:52 CDT by BRIANNA TIWARI MA PHQ-9 Little interest or pleasure in doing things : Not at all Feeling down, depressed, or hopeless : Not at all Trouble falling or staying asleep, or sleeping too much : Not at all Feeling tired or having little energy : Not at all Poor appetite or overeating : Not at all Feeling bad about yourself or that you are a failure : Not at all Trouble concentrating on things : Not at all Moving or speaking slowly; restless or fidgety : Not at all Thoughts that you would be better off /hurting self : Not at all PHQ-9 Calculated Score : 0 BRIANNA TIWARI MA - 11/12/2014 9:52 CDT Source: [facility] [employer]un[employer] Document Id: [id number] CDT!12 Miscellaneous - Brianna Tiwari, C.MPaulineAPauline - 11/12/2014 9:49 AM CDT 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 Entered On: 11/12/2014 9:51 CDT Performed On: 11/12/2014 9:49 CDT by BRIANNA TIWARI MA Intake Chief Complaint : annual LMP Date : 10/18/14 Systolic Blood Pressure : 122 mmHg Diastolic Blood Pressure : 92 mmHg (>HHI) NIBP Mean : 102 mmHg BP Location : Left upper extremity Blood Pressure Cuff Size : Regular Height : 162 cm(Converted to: 5 ft 4 inch(es), 64 inch(es)) Actual Weight : 72 kg(Converted to: 158 lb 12 oz) Weight Source : Standing scale Dosing Weight Clinic : 72 kg Clinic BSA : 1.8 Body Mass Index : 27.43 kg/m2 BRIANNA TIWARI MA - 11/12/2014 9:49 CDT General Info Information Given By : Patient Languages : Malay Is Patient Female and 13-50 no hysterectomy : Yes Status : Patient denies Are you ? : No BRIANNA TIWARI MA - 11/12/2014 9:49 CDT Subjective Pain Symptoms : No LOGANWALDEMAR BRIANNA Mckeon MA - 11/12/2014 9:49 CDT Dependent Habits Tobacco Use/Currently Using : No Exposure to Tobacco Smoke : Other: NONE Smoking Status : Never smoker LOGANWALDEMARBRYANNAOlivier Mckeon MA - 11/12/2014 9:49 CDT Tobacco Use Grid Type : Other: NONE DIANNA BRIANNA Mckeon MA - 11/12/2014 9:49 CDT Caffeine Use Grid Caffeine Use : Current Type : Coffee Frequency : Daily BRIANNA TIWARI MA - 11/12/2014 9:49 CDT Recreational Drug Use Grid Drug Use : None BRIANNA TIWARI MA - 11/12/2014 9:49 CDT ID Screen Travel Within Last 21 Days : No Contact with someone with Ebola : No BRIANNA TIWARI MA - 11/12/2014 9:49 CDT Source: [employer] Document Id: [id number] CDT!41 Miscellaneous - Brianna Tiwari CPaulineMMarla - 11/12/2014 9:49 AM CDT Health Assessment Health Assessment Entered On: 11/12/2014 9:52 CDT Performed On: 11/12/2014 9:49 CDT by BRIANNA TIWARI IN Health Assessment Complete Health Assessment Complete or Modified : Annual Health Assessment Annual Health Assessment Completed : Yes BRIANNA TIWARI MA - 11/12/2014 9:49 CDT Nutrition Nutrition Risk Factors by History Adult : None LOGANWALDEMAR BRIANNA Mckeon MA - 11/12/2014 9:49 CDT Functional Current Daily Living Assistance : None BRIANNA TIWARI MA - 11/12/2014 9:49 CDT Dependent Habits Tobacco Use/Currently Using : No Exposure to Tobacco Smoke : Other: NONE Smoking Status : Never smoker BRIANNA TIWARI MA - 11/12/2014 9:49 CDT Tobacco Use Grid Type : Other: NONE BRIANNA TIWARI MA - 11/12/2014 9:49 CDT Caffeine Use Grid Caffeine Use : Current Type : Coffee Frequency : Weekly BRIANNA TIWARI MA - 11/12/2014 9:49 CDT Recreational Drug Use Grid Drug Use : None BRIANNA TIWARI MA - 11/12/2014 9:49 CDT Psychosocial Domestic Abuse Concerns : None Behavioral Health Screen/Safety Assmt : No Yazidi Preference : BRIANNA Cabrera [place] - 11/12/2014 9:49 CDT Advance Directive Advanced Directives : No Advance Directive Additional Information : No BRIANNA TIWARI MA - 11/12/2014 9:49 CDT Educ Needs Learning Style Preference Adult Grid Patient : None Family : None BRIANNA TIWARI ROHAN - 11/12/2014 9:49 CDT Source: [facility] [employer]un[employer] Document Id: [id number] CDT!34 documented in this encounter Plan of Treatment Not on filedocumented as of this encounter Procedures Procedure Name Priority Date/Time Associated Comments Diagnosis PATHOLOGY SAND CUTTER OPERATOR Routine 11/12/2014 11:34 Results fo r this CYTOLOGY AM CDT procedure are i n the results section. LIPID PANEL, S Routine 11/12/2014 10:35 Results f or this AM CDT procedure are i n the results section. GLUCOSE, FASTING, S/P Routine 11/12/2014 10:35 Re sults for this AM CDT procedure are i n the results section. CHLAMYDIA/GONORRHOEAE Routine 11/12/2014 10:31 Re sults for this AMPLIFIED RNA AM CDT procedure are in the results section. CHLAMYDIA TRACHOMATIS Routine 11/12/2014 10:31 Re sults for this AMPLIFIED RNA AM CDT procedure are in the results section. WET PREP EXAM, Routine 11/12/2014 10:31 Results f or this UROGENITAL AM CDT procedure are i n the results section. documented in this encounter Results Pathology SAND CUTTER OPERATOR Cytology (11/12/2014 11:34 AM CDT) Specimen (Source) Anatomical Collection Method Collection Time Re ceived Time Location / / Volume Laterality 11/12/2014 11:34 AM CDT Narrative SANDRA RAMACHANDRAN - 11/20/2014 1:27 PM CDT (NOTE) Patient Name: CECILIO ALBERTO MR#: [id number] Location: ??OBGYN Date Reported: ??11/20/2014 13:27 Specimen #[id number] Clinical History None Given CLINICAL INFORMATION Menstrual History: Routine Pap Source: Sure[facility] Liquid Based Pap Test - Vaginal /Cervical/Endocervical Final Diagnosis [facility] Liquid Based Pap Test - Vaginal /Cervical/Endocervical: Satisfactory for evaluation. Negative for intraepithelial lesion or m alignancy. Pertinent clinical information not provi ded (LMP, patient history, etc.). Electronically Signed Out By Diane Sin N, CT(ASCP) Date Reported:11/20/2014 13:27 [facility] [address] [facility], ??[place] [address] CPT Code(s) A: 04392 Historical Provider LAB PAP COPATH ORDERABLES Performing Organization Address [facility]/ZIP Code Phon e Number MISYS [place] [address] [place] [address] MISYS [place] Glucose, Fasting (11/12/2014 10:35 AM CDT) P athologist Signature Glucose, 91 70 - 99 MISYS [place] Fasting, S MGDL Comment: PERFORMED AT [facility], [address] [place], [place] [address] [place] [address] Specimen (Source) Anatomical Collection Method Collection Time Re ceived Time Location / / Volume Laterality Blood 11/12/2014 10:35 AM CDT Sanford Bird P.A.-C. LAB BLOOD NON ADD-ON Performing Organization Address [facility] Phon e Number MISYS [place] [address] [place] [address] MISYS [place] Lipid Panel (11/12/2014 10:35 AM CDT) Analysis Performed At Patho logist Time Signature Cholesterol, Total 137 <200 MGDL MISYS [place] HX HDL 71 >40 MGDL MISYS [place] Cholesterol, 66 <130 MGDL MISYS Non-HDL, [place] Calculated Triglycerides 90 <150 MGDL MISYS [place] Calculated LDL 48 <100 MGDL MISYS [place] Total 1.93 MISYS Cholesterol/HDL [place] Ratio Comment: PERFORMED AT [facility], [address] [place] [address] [address] [place] [address] HXCHD Risk Factor CHD CHOLESTEROL/HDL RATIO MISYS [place] Comment: RISK FACTOR ?MALES ? FEMAL ES 0.5 X AVERAGE ?3.43 ? 3 .27 1.0 X AVERAGE ?4.97 ? 4 .44 2.0 X AVERAGE ?9.55 ? 7 .05 3.0 X AVERAGE ? 23.39 ?11. 04 Specimen (Source) Anatomical Collection Method Collection Time Re ceived Time Location / / Volume Laterality Blood 11/12/2014 10:35 AM CDT Sanford Bird P.A.-C. LAB BLOOD ADD-ON Performing Organization Address [facility] Phon e Number MISYS [place] [address] [place] [address] MISYS [place] Chlamydia / Gonorrhoeae Amplified RNA (11/12/2014 10:31 AM CDT) Component Value Ref Test Analysis Performed At [facility] Flavours Range Method Time Signature HX GC by Nucleic NEGATIVE FOR MISYS Acid NEISSERIA [place] Amplification GONORRHOEAE BY NUCLEIC ACID AMPLIFICATION HXGC Specimen CERVICAL MISYS Description [place] Comment This result MISYS field has been [place] intentionally left blank. Specimen (Source) Anatomical Collection Method Collection Time Re ceived Time Location / / Volume Laterality Cervix/Endocervix 11/12/2014 10:31 AM CDT Sanford Bird P.A.-C. LAB MICROBIOLOGY - GENERAL O RDERABLES Performing Organization Address [facility] Phon e Number MISYS [place] [address] [place] [address] MISYS [place] Chlamydia Trachomatis Amplified RNA (11/12/2014 10:31 AM CDT) Component Value Ref Test Analysis Performed At [facility] gist Range Method Time Signature HXChlamydia by NEGATIVE FOR MISYS Nucleic Acid CHLAMYDIA [place] Amplification TRACHOMATIS BY NUCLEIC ACID AMPLIFICATION HXChlamydia CERVICAL MISYS Specimen [place] Description Comment This result MISYS field has been [place] intentionally left blank. Specimen (Source) Anatomical Collection Method Collection Time Re ceived Time Location / / Volume Laterality Cervix/Endocervix 11/12/2014 10:31 AM CDT [facility] Bird P.A.-C. LAB MICROBIOLOGY - GENERAL O RDERABLES Performing Organization Address [facility] Phon e Number MISYS [place] [address] [place] [address] MISYS [place] Wet Prep Exam, Urogenital (11/12/2014 10:31 AM CDT) [facility] Method Time Signature HXSPECIMAN VAGINAL MISYS DESCRIPTION [place] HXWet Prep NO CLUE CELLS MISYS SEEN [place] HXWet Prep NO TRICHOMONAS MISYS SEEN [place] HXWet Prep NO YEAST SEEN MISYS [place] HXWet Prep PERFORMED AT [facility], [address] [place] [address] S., [facility] [address] CULTURE REPORT FINAL MISYS STATUS 11/12/2014 [place] Specimen (Source) Anatomical Collection Method Collection Time Re ceived Time Location / / Volume Laterality Vagina 11/12/2014 10:31 AM CDT Sanford Bird P.A.-C. LAB MICROBIOLOGY - GENERAL O [place] Performing Organization Address [facility] Phon e Number MISYS [place] [address] [place] [address] MISYS [place] documented in this encounter Visit Diagnoses Not on filedocumented in this encounter
--- OUTSIDE RECORDS SUMMARY | 2022-04-26 15:49 | XMS_ITS | Encounter Summary ---
:1990 Author Organization [facility] Address [address] [place] [address] Care Team Providers Name Role Phone Unavailable Primary Care Provider Unavailable Encounter Details Date Type Department Care Team Description 06/09/2006 Hospital Encounter HX NO MAPPING Social History Tobacco Use Types Packs/Day Years Used Date Smoking Tobacco: Never Assessed Sex Assigned at Date Recorded Not on file documented as of this encounter Plan of Treatment Not on filedocumented as of this encounter Visit Diagnoses Not on filedocumented in this encounter
--- OUTSIDE RECORDS SUMMARY | 2022-04-26 15:49 | XMS_ITS | Encounter Summary ---
:1990 Author Organization [facility] Address [address] [place] [address] Care Team Providers Name Role Phone Unavailable Primary Care Provider Unavailable Encounter Details Date Type Department Care Team Description 04/27/2011 Hospital Encounter HX [facility] Melecio Jack M.D. Social History Tobacco Use Types Packs/Day Years Used Date Smoking Tobacco: Never Assessed Sex Assigned at Date Recorded Not on file documented as of this encounter Plan of Treatment Not on filedocumented as of this encounter Procedures Procedure Name Priority Date/Time Associated Comments Diagnosis US PELVIS Routine 04/27/2011 5:15 PM Results f or this TRANSABDOMINAL CDT procedure are in the results section. documented in this encounter Results US Pelvis Transabdominal (04/27/2011 5:15 PM CDT) Anatomical Region Laterality Modality Pelvis N/A Ultrasound Specimen (Source) Anatomical Collection Method Collection Time Re ceived Time Location / / Volume Laterality 04/27/2011 5:15 PM CDT Addenda Addendum by Provider, Stephan Patterson 04/27/2011 5:15 PM CDT RAD^^^LASF ACCIDENT INVESTIGATOR 04/27/2011 17:15:00 Impressions 04/27/2011 5:36 PM CDT ?? Uterus is normal in size measuring 6.7 x 2.7 x 4.6 cm. Mildly ?? inhomogeneous myometrium, no discrete fi broids. The endometrial ?? stripe measures 4 mm in thickness. No ge stational sac in the uterus. Right ovary is normal in appearance julienne uring 2.7 x 1.4 x 1.7 cm. ?? Left ovary is normal in appearance measu ring 2.3 x 1.2 x 2 cm. No free fluid in the pelvis. Transcribed by: ??[id number] on Apr 27 2011 ??5:49P ?? Read by: ? TOMASZ DURAN (MORY) R ??on Apr 27 2011 ??5:49P ?? Signed by: TOMASZ STEIN (MORY) on 2010 ??5:49P ? Narrative 04/27/2011 5:36 PM CDT INDICATION: ??LOWER LEFT QUAD PAIN, BLEEDING ACCESSION No: ? [id number] DATE OF EXAM: Apr 27 2011 ??17:36 EXAM CODE and DESCRIPTION: F1U ?? 8859 - ?? US TRANSVAGINAL(NON-OB) RESULT: Pelvic ultrasound 04/27/2011. ?? Transabdominal and transvaginal imaging. ?? Procedure Note Tomasz Stein M.D. / Provider, Paulie olsen M.D. - 12/28/2016 INDICATION: LOWER LEFT QUAD PAIN, BLEEDI NG ACCESSION No: [id number] DATE OF EXAM: Apr 27 2011 17:36 EXAM CODE and DESCRIPTION: F1U 8859 - US TRANSVAGINAL(NON-OB) RESULT: Pelvic ultrasound 04/27/2011. Transabdominal and transvaginal imaging. IMPRESSION: Uterus is normal in size measuring 6.7 x 2.7 x 4.6 cm. Mildly inhomogeneous myometrium, no discrete fi broids. The endometrial stripe measures 4 mm in thickness. No ge stational sac in the uterus. Right ovary is normal in appearance julienne uring 2.7 x 1.4 x 1.7 cm. Left ovary is normal in appearance measu ring 2.3 x 1.2 x 2 cm. No free fluid in the pelvis. Transcribed by: [id number] on Apr 27 2011 5: 49P Read by: TOMASZ STEIN (MORY) on Apr 27 2011 5:49P Signed by: TOMASZ STEIN (MORY) on 2010 5:49P Tomasz Stein M.D. IMG US PROCEDURES documented in this encounter Visit Diagnoses Not on filedocumented in this encounter
--- OUTSIDE RECORDS SUMMARY | 2022-04-26 15:49 | XMS_ITS | Encounter Summary ---
:1990 Author Organization [facility] Address [address] [place] [address] Care Team Providers Name Role Phone Unavailable Primary Care Provider Unavailable Encounter Details Date Type Department Care Team Description 11/23/2011 Hospital Encounter HX [facility] Provider, Histori lima Social History Tobacco Use Types Packs/Day Years Used Date Smoking Tobacco: Never Assessed Sex Assigned at Date Recorded Not on file documented as of this encounter Last Filed Vital Signs Vital Sign Reading Time Taken Comments Blood Pressure 119/58 11/23/2011 8:30 PM CDT Pulse 99 11/23/2011 8:30 PM CDT Temperature - - Respiratory Rate 20 11/23/2011 8:30 PM CDT Oxygen Saturation - - Inhaled Oxygen Concentration - - Weight - - Height - - Body Mass Index - - documented in this encounter Discharge Summaries Conversion, Historical Provider Ser - 11/23/2011 9:24 PM CDT ED Discharge Instructions [address] [address] Name: CECILIO ALBERTO Date of : 1990 12:00 PM Visit Date: 11/23/2011 8:17 PM Address: [address] [facility] [id number] Primary Care Provider: MARIA ALEJANDRA BURRELL IMPORTANT: [facility] in [place] would like to thank you for allowing us to assist you with your healthcare needs. We examined and treated you today on an emergency basis only. This was not a substitute for, or an effort to provide, complete medical care. If you had any cultures, special tests, or x-rays performed during your visit, your final reports will be reviewed and we will contact you if there are any new or significant findings other than what was discussed with you during your visit today. You have received patient education materials and information regarding your injury/illness. Follow these instructions and take all medications as prescribed. Ifsamina, ( CECILIO ALBERTO ), have any problems that we have not discussed, please call or visit your doctor right away. If you cannot reach your doctor, return to the Emergency Department. If you are being transferred to another facility your follow up plan of care will be determined by the receiving facility. Chief Complaint: Throat pain - Adult; THROAT PAIN, BODY ACHES, LIGHT HEADED & HEADACHE Follow-Up Instructions: With: Address: When: MARIA ALEJANDRA BURRELL [address] [place], [place] [id number] Business (1) Within As Needed Comments: If symptoms worsen Patient Education Materials: [id number] ALLERGIC REACTION,GENERALIZED [Other] You are having an allergic reaction. This may cause an itchy rash, dizziness, fainting, trouble breathing or swallowing, and swelling of the face or other parts of the body. This can be caused by exposure to something in your surroundings that you have become sensitive to. This could be due to medicine or food. This could also be due to something you put on your skin or inyour hair or something in the air. Often it is not possible to find out exactly what has caused yourreaction. The goal of today's treatment is to relieve symptoms. The rash will usually fade over several days, but can sometimes last up to two weeks. HOME CARE: 1) If you know what you are allergic to, avoid it because future reactions could be worse than this one. 2) Avoid tight clothing and anything that heats up your skin (hot showers/baths, direct sunlight) since heat will make itching worse. 3) An ice pack will relieve local areas of intense itching and redness. Lanacaine cream or Solarcaine spray (or other product containing benzocaine, available without a prescription) will reduce the itching. 4) Oral Benadryl (diphenhydramine) is an antihistamine available at drug and grocery stores. Unless a prescription antihistamine was given, Benadryl may be used to reduce itching if large areas of the skin are involved. Use lower doses during the daytime and higher doses at bedtime since the drug may make you sleepy. [NOTE: Do not use Benadryl if you have glaucoma or if you are a man with trouble urinating due to an enlarged prostate.] Claritin (loratidine) is an antihistamine that causes less drowsiness and is a good alternative for daytime use. FOLLOW UP with your doctor or this facility in two days if your symptoms do not continue to improve.If you had a severe reaction today, or if you have had several mild-moderate allergic reactions in the past, ask your doctor about allergy testing to find out what you are allergic to. If your reactionincluded dizziness, fainting or trouble breathing or swallowing, ask your doctor about carrying an Allergy Kit (injectable epinephrine) for home use. GET PROMPT MEDICAL ATTENTION if any of the following occur: -- Trouble breathing or swallowing -- New or worse swelling in the face, eyelids, lips, mouth, tongue or throat -- Dizziness, weakness or fainting ?? [id number] [employer], [address] [place] [address]. All rights reserved. This information is not intended as a substitute for professional medical care. Always follow your healthcare professional's instructions. [id number] PHARYNGITIS: STREP [Presumed] Your illness has the signs of a strep throat infection. Strep throat is a contagious illness. It is spread by coughing, kissing or by touching others after touching your mouth or nose. Symptoms includethroat pain worse with swallowing, aching all over, headache and fever. You will be treated with an a ntibiotic, which should make you start to feel better within 1-2 days. HOME CARE: 1. Rest at home and drink plenty of fluids to avoid dehydration. 2. No school or work for the first two days on antibiotics. You will not be contagious after this time, and if you are feeling better, you can return to school or work. 3. Take your antibiotics for a full 10 days, even if you feel better after the first few days of treatment. This is very important to prevent complications from the strep infection (such as heart or kidney disease). 4. Children: Use acetaminophen (Tylenol) for fever, fussiness or discomfort. In infants over six months of age, you may use ibuprofen (Children's Motrin) instead of Tylenol. [NOTE: If your child has chronic liver or kidney disease or ever had a stomach ulcer or GI bleeding, talk with your doctor before using these medicines.] (Aspirin should never be used in anyone under 18 years of age who is ill with a fever. It may cause severe liver damage.) Adults: You may use acetaminophen (Tylenol) or ibuprofen (Motrin, Advil) to control pain or fever, unless another medicine was prescribed for this. [NOTE: If you have chronic liver or kidney disease orever had a stomach ulcer or GI bleeding, talk with your doctor before using these medicines.] 5. Throat lozenges or sprays (Chloraseptic and others) will reduce pain. Gargling with warm salt water will also reduce throat pain. Dissolve 1/2 teaspoon of salt in 1 glass of warm water. This is especially useful just before meals. FOLLOW UP with your doctor or as directed by our staff if you are not improving over the next week. GET PROMPT MEDICAL ATTENTION if any of the following occur: ?? Fever over 100.5??F (38.0??C) oral, or over 101.5??F (38.6??C) rectal for more than three days ?? New or worsening ear pain, sinus pain or headache ?? Painful lumps in the back of your neck ?? Unable to swallow liquids or open your mouth wide due to throat pain ?? Trouble breathing or noisy breathing ?? Muffled voice New rash ?? [id number] [employer], [address] [place] [address], [place] [address]. All rights reserved. This information is not intended as a substitute for professional medical care. Always follow your healthcare professional's instructions. ED Tests and Procedures: Order Status Discharge Prescriptions & Home Medications: Medication/Strength Dose Route Frequency Indications/Special Instructions/Comments penicillin V potassium (penicillin V potassium 500 mg oral tablet) 500 mg Oral two times a day for 10 Days drospirenone-ethinyl estradiol (Deonna oral tablet) 1 tab(s) Oral once a day Comment: Attention: If you have any medications at home not on this list, DO NOT take them until you contact your provider for clarification. IMPORTANT: I, ( CECILIO ALBERTO ), have received the above patient education materials/instructions and have verbalized understanding. My questions have been answered. I understand I may receive a follow-up call from the Emergency Department staff regarding my health. If seen for an occupational injury or illness, I understand that work-related medical information may be released to my employer or employers lifeline representatives. I understand that restrictions apply both on and off duty, but do not prevent me from performing reasonable self-cares or prescribed exercises. If you are a patient that is being discharged from the Emergency Department after receiving narcotics or other medications that may impair your judgment you may be a risk to yourself or others if you operate a motor vehicle. We recommend that you arrange a ride home with a responsible alliance party. Patient Signature Date/Time Responsible Person Signature (as appropriate)/Relationship Date/Time CECILIO ALBERTO or Responsible Person has received this information and tells me that all questions have been answered. Provider Signature Date/Time IMPORTANT: I, ( CECILIO ALBERTO ), have received the above patient education materials/instructions and have verbalized understanding. My questions have been answered. I understand I may receive a follow-up call from the Emergency Department staff regarding my health. If seen for an occupational injury or illness, I understand that work-related medical information may be released to my employer or employers lifeline representatives. I understand that restrictions apply both on and off duty, but do not prevent me from performing reasonable self-cares or prescribed exercises. If you are a patient that is being discharged from the Emergency Department after receiving narcotics or other medications that may impair your judgment you may be a risk to yourself or others if you operate a motor vehicle. We recommend that you arrange a ride home with a responsible alliance party. Patient Signature Date/Time Responsible Person Signature (as appropriate)/Relationship Date/Time CECILIO ALBERTO or Responsible Person has received this information and tells me that all questions have been answered. Provider Signature Date/Time This document has images extracted. Please consider using [employer] for all your patient education needs. Source: [employer] Document Id: [id number] Conversion, Historical Provider Ser - 11/23/2011 9:24 PM CDT ED Depart Summary [facility] Emergency Department Clinical Discharge Summary PERSON INFORMATION Name BETOCECILIO LEAL Age 20 Years 1990 12:00 PM Sex Female Language Malaysian PCP MARIA ALEJANDRA BURRELL Marital Status Single Visit Id Visit Reason Throat pain - Adult; THROAT PAIN, BODY ACHES, LIGHT HEADED & HEADACHE Specialty Enc Type Emergency Med Service Emergency Medicine Referred by Track Group [facility] ED/FT Discharge 11/23/2011 9:24 PM Tracking Id [id number] Checkout 11/23/2011 9:24 PM Checkin 11/23/2011 8:17 PM Acuity 4 -Less Urgent Dispo Type * Discharged to Home or Self Care Arrival 11/23/2011 8:17 PM Reg Status LOS 000 01:07 Address: [address] [facility] [id number] Comment: PROVIDER INFORMATION Provider Role Provider Contact Time HALIMA CAICEDO ED Provider 11/23/11 20:36 WILIAN MORTON FURNITURE CRATER Nurse 11/23/11 20:54 DIAGNOSIS Comment: ORDERS INFORMATION Start Time Order Type Status Stop Time Provider 11/23/2011 9:18 PM Discharge Patient Patient Care Ordered 11/23/2011 9:18 PM HALIMA CAICEDO PATIENT EDUCATION INFORMATION Instructions: ALLERGIC REACTION, Other (General); PHARYNGITIS, Strep (Presumed) Follow up: With: Address: When: MARIA ALEJANDRA BURRELL [address] [place] [address] Business (1) Within As Needed Comments: If symptoms worsen Source: [employer] Document Id: [id number] documented in this encounter Nursing Notes Conversion, Historical Provider Ser - 11/23/2011 9:24 PM CDT ED Pain Assessment ED Pain Assessment Entered On: 11/23/2011 21:24 CDT Performed On: 11/23/2011 21:24 CDT by WILIAN MORTON RN Pain Assessment Pain Symptoms : Yes Pain Medication Requested : No WILIAN MORTON RN - 11/23/2011 21:24 CDT Source: [employer] Document Id: [id number] CDT!4 Conversion, Historical Provider Ser - 11/23/2011 8:58 PM CDT ED Primary Assessment ED Primary Assessment Entered On: 11/23/2011 20:59 CDT Performed On: 11/23/2011 20:58 CDT by WILIAN MORTON RN Reason For Visit Problems(Active) Carbohydrate Intolerance Name of Problem: Carbohydrate Intolerance ; Onset Date: 09/2006 ; Classification: Medical ; Code: 1231 ; Contributor System: OWA_HPP_SYS ; Last Updated: 02/23/2007 0:00 CDT ; Life Cycle Date: 09/11/2006 ; Life Cycle Status: Active ; Vocabulary: ICD-9-CM Irritable Bowel Syndrome Name of Problem: Irritable Bowel Syndrome ; Onset Date: 02/2007 ; Classification: Medical ; Code: 1231 ; Contributor System: RevertA_HPP_SYS ; Last Updated: 05/16/2007 0:00 CDT ; Life Cycle Date: 02/23/2007 ; Life Cycle Status: Active ; Vocabulary: ICD-9-CM Diagnoses(Active) Throat pain - Adult Date: 11/23/2011 ; Diagnosis Type: Reason For Visit ; Confirmation: Complaint of; Clinical Dx: Throat pain - Adult ; Classification: Medical ; Clinical Service: Emergency medicine ; Code: PNED ; Probability: 0 ; Diagnosis Code: [id number] Pain Assessment Pain Symptoms : Yes WILIAN MORTON RN - 11/23/2011 20:58 CDT Pain Pain Assessment Grid Pain 1 Pain 2 Location : Throat Head Laterality : Bilateral Intensity : 3 Onset : Gradual Comments (Comment: sore throat. pink, not swollen [WILIAN MORTON RN - 11/23/2011 20:58 CDT] ) WILIAN MORTON RN - 11/23/2011 20:58 CDT WILIAN MORTON RN - 11/23/2011 20:58 CDT Allergy Allergies (Active) minocycline Estimated Onset Date: Unspecified ; Reactions: Bruising, gums turned blue ; Created By: EMILY HESS MA; Reaction Status: Active ; Category: Drug ; Substance: minocycline ; Type: Allergy ; Updated By: EMILY HESS MA; Reviewed Date: 04/27/2011 15:46 CDT Respiratory Airway : Patent Respirations : Unlabored Respiratory Pattern : Regular WILIAN MORTON RN - 11/23/2011 20:58 CDT Neurological Level of Consciousness : Alert Orientation : Oriented x 3 Characteristics of Speech : Appropriate for age NONAWILIAN Shah Farzad RN - 11/23/2011 20:58 CDT Gastrointestinal Nutrition ED : Adequate NONAANGELIA ShahOlivier Panda RN - 11/23/2011 20:58 CDT EENT Eye EENT Grid Eyes, Bilateral Symptoms : Pain NONAANGELIA ShahOlivier Panda RN - 11/23/2011 20:58 CDT Source: [employer] Document Id: [id number] CDT!26 documented in this encounter ED Notes Conversion, Historical Provider Ser - 11/23/2011 9:24 PM CDT ED Disposition Summary ED Disposition Summary Entered On: 11/23/2011 21:24 CDT Performed On: 11/23/2011 21:24 CDT by WILIAN MORTON RN ED Disposition Summary Accompanied By : Alone Mode of Discharge : Ambulatory Transportation : Private vehicle Printed Discharge Instructions Given to Patient : Yes WILIAN MORTON RN - 11/23/2011 21:24 CDT Source: [employer] Document Id: [id number] CDT!6 Conversion, Historical Provider Ser - 11/23/2011 9:17 PM CDT Throat pain - Adult Patient: CECILIO ALBERTO Age: 20 years Sex: Female : 1990 Author: HALIMA CAICEDO Attachments: None Basic Information Time seen: Date & time 11/23/2011 21:18:00. History source: Patient. Arrival mode: Walking. History limitation: None. Additional information:: Chief Complaint from Nursing Triage Note : Chief Complaint Description. 11/23/2011 20:30 CDT Chief Complaint Description approx 2 days of sore throat, body aches, headache,light headed at times when standing. Hot and cold at times. Eating/drinking . No nausea/vomiting History of Present Illness The patient presents with sore throat and strep pharyngitis. The course/duration of symptoms is constant and worsening. Location: Bilateral pharynx. The degree at present is moderate. Exacerbating factors consist of speaking swallowing. Review of Systems ENMT symptoms: Ear pain, sore throat, nasal congestion, no sinus pain. Respiratory symptoms: no shortness of breath Cardiovascular symptoms: no syncope Gastrointestinal symptoms: no nausea no vomiting. Neurologic symptoms: Headache, no dizziness. Health Status Allergies: . Allergic Reactions (Selected) Severity not Documented Minocycline- Bruising and gums turned blue. Medications: (Selected). Documented Medications Documented Deonna oral tablet: 1 tab(s), PO, Daily Past Medical/ Family/ Social History Surgical history: Surgical history. No active procedure history items have been selected or recorded. Physical Examination Vital signs: Vital Signs. 11/23/2011 20:30 CDT Temperature Core 37 C Peripheral Pulse Rate 99 /min Respiratory Rate 20 /min SpO2 100 % Systolic Blood Pressure 119 mmHg Diastolic Blood Pressure 58 mmHg Mean Arterial Pressure 78 mmHg General: Alert. moderate distress. Skin: Warm. dry. Eye: Pupils are equal, round and reactive to light Ears, nose, mouth and throat: dull opaque bilaterally, pharynx with moderate erythema uvula midline Neck: Supple Cardiovascular: Regular rate and rhythm Respiratory: Lungs are clear to auscultation. respirations are non-labored. breath sounds are equal.Symmetrical chest wall expansion. Neurological: Alert and oriented to person, place, time, and situation Psychiatric: Cooperative. appropriate mood & affect. Medical Decision Making Differential Diagnosis:Streptococcal pharyngitis. Impression and Plan Discharge plan Condition: Stable. Dispositioned: To home. Prescriptions: Prescription Finance Intern. Patient Care: Discharge Patient (Order Processing): 11/23/2011 21:18 CDT, Once Pharmacy: penicillin V potassium 500 mg oral tablet (Ordered): 500 mg, 1 tab(s), PO, 2xDay, 20 tab(s) Patient was given the following educational materials: PHARYNGITIS, Strep (Presumed). Limitations: No work, No school. Follow up with: MARIA ALEJANDRA BURRELL Within As Needed If symptoms worsen, MARIA ALEJANDRA BURRELL Within As Needed If symptoms worsen. Counseled: Patient, Family, Regarding diagnostic results, Regarding treatment plan, Regarding prescription, Patient indicated understanding of instructions. Electronically Signed By: HALIMA CAICEDO On: 11/23/2011 10:46 PM Modified by and Electronically Signed by: HALIMA CAICEDO On: 11/23/2011 10:46 PM Source: [facility] POWERCHART Document Id: [id number]} Ruby Dobson RRadha - 11/23/2011 8:30 PM CDT ED Triage Assessment ED Triage Assessment Entered On: 11/23/2011 20:34 CDT Performed On: 11/23/2011 20:30 CDT by RUBY DOBSON RN Reason For Visit Problems(Active) Carbohydrate Intolerance Name of Problem: Carbohydrate Intolerance ; Onset Date: 09/2006 ; Classification: Medical ; Code: 1231 ; Contributor System: OWA_HPP_SYS ; Last Updated: 02/23/2007 0:00 CDT ; Life Cycle Date: 09/11/2006 ; Life Cycle Status: Active ; Vocabulary: ICD-9-CM Irritable Bowel Syndrome Name of Problem: Irritable Bowel Syndrome ; Onset Date: 02/2007 ; Classification: Medical ; Code: 1231 ; Contributor System: OWA_HPP_SYS ; Last Updated: 05/16/2007 0:00 CDT ; Life Cycle Date: 02/23/2007 ; Life Cycle Status: Active ; Vocabulary: ICD-9-CM Diagnoses(Active) Throat pain - Adult Date: 11/23/2011 ; Diagnosis Type: Reason For Visit ; Confirmation: Complaint of; Clinical Dx: Throat pain - Adult ; Classification: Medical ; Clinical Service: Emergency medicine ; Code: PNED ; Probability: 0 ; Diagnosis Code: [id number] Triage Chief Complaint Description : approx 2 days of sore throat, body aches, headache, light headed at times when standing. Hot and cold at times. Eating/drinking . No nausea/vomiting Information Given By : Patient Accompanied By : Alone Mode of Arrival ED : Private vehicle Track : Medical Languages : Malaysian Vital Signs Assessed : Yes RUBY DOBSON RN - 11/23/2011 20:30 CDT Vital Signs Temperature Core : 37C(Converted to: 98.6DegF) Peripheral Pulse Rate : 99/min Respiratory Rate : 20/min Systolic Blood Pressure : 119mmHg Diastolic Blood Pressure : 58mmHg NIBP Mean : 78mmHg SpO2 : 100% RUBY DOBSON RN - 11/23/2011 20:30 CDT Pain Assessment Pain Symptoms : Yes RUBY DOBSON RN - 11/23/2011 20:30 CDT Pain Pain Assessment Grid Pain 1 Pain 2 Location : Throat Head Intensity : 8 8 RUBY DOBSON RN - 11/23/2011 20:30 CDT RUBY DOBSON RN - 11/23/2011 20:30 CDT BRAEDEN DCP GENERIC CODE Tracking Acuity : 4 -Less Urgent Tracking Group : [facility] ED/FT RUBY DOBSON RN - 11/23/2011 20:30 CDT Allergy Allergies (Active) minocycline Estimated Onset Date: Unspecified ; Reactions: Bruising, gums turned blue ; Created By: EMILY HESS MA; Reaction Status: Active ; Category: Drug ; Substance: minocycline ; Type: Allergy ; Updated By: EMILY HESS MA; Reviewed Date: 04/27/2011 15:46 CDT [facility] Document Id: [id number] CDT!31 documented in this encounter Plan of Treatment Not on filedocumented as of this encounter Visit Diagnoses Not on filedocumented in this encounter
--- OUTSIDE RECORDS SUMMARY | 2022-04-26 15:49 | XMS_ITS | Encounter Summary ---
:1990 [facility] Address [address] [place] [address] Care Team Providers Name Role Phone Unavailable Primary Care Provider Unavailable Encounter Details Date Type Department Care Team Description 11/29/2012 Hospital Encounter HX [facility] Danny Vazquez P.A.-C. [address] [place] [address] [phone] (Wo rk) Social History Tobacco Use Types Packs/Day Years Used Date Smoking Tobacco: Never Assessed Sex Assigned at Date Recorded Not on file documented as of this encounter Last Filed Vital Signs Vital Sign Reading Time Taken Comments Blood Pressure 117/77 11/29/2012 3:12 PM CDT Pulse 86 11/29/2012 3:12 PM CDT Temperature - - Respiratory Rate 20 11/29/2012 3:12 PM CDT Oxygen Saturation - - Inhaled Oxygen Concentration - - Weight - - Height - - Body Mass Index - - documented in this encounter Discharge Summaries Conversion, Historical Provider Ser - 11/29/2012 3:45 PM CDT ED Discharge Instructions [address] [address] Name: CECILIO ALBERTO Date of : 1990 12:00 AM Visit Date: 11/29/2012 3:02 PM [facility] Number: [id number] Address: [address] [place] [address] [phone] Primary Care Provider: MARIA ALEJANDRA BURRELL IMPORTANT: [facility] would like to thank you for allowing [...] instructions and take all medications as prescribed. Ifyou, ( CECILIO ALBERTO ), have any problems that we have not discussed, please call or visit your doctor right away. If you cannot reach your doctor, return to the Emergency Department. If you are being transferred to another facility your follow up plan of care will be determined by the receiving facility. Chief Complaint: Upper respiratory infection; ALLERGIES, COLD, ASTHMA, FEELING BAD Follow-Up Instructions: With: Address: When: MARIA ALEJANDRA BURRELL [address] [place] [phone] Business (1) Within As Needed Comments: Patient Education Materials: [id number] SEASONAL ALLERGY Seasonal Allergy is also called Hay Fever. It may occur after a person is exposed to pollens released from grasses, weeds, trees and shrubs. This type of allergy occurs during the spring and summer when the pollen contacts the lining of the nose, eyes, eyelids, sinuses and throat. This causes histamine to be released from the tissues. This may produce a watery discharge from the eyes or nose. Violent sneezing, nasal congestion, post-nasal drip, itching of the eyes, nose, throat and mouth, scratchy throat, and dry cough may also occur. HOME CARE: Seasonal allergy cannot be cured, but symptoms can be reduced by these measures: 1) Avoid or reduce exposure to the allergen as much as you can: -- Stay indoors on hot windy days of pollen season. -- Keep windows and doors closed. -- Use an air conditioner with an electrostatic filter. 2) DECONGESTANT pills and sprays (Sudafed, NeoSynephrine, Afrin) reduce tissue swelling and watery discharge. If you use the sprays too much, the symptoms may get worse. Do not use these more often than recommended. Do not use decongestants in children unless advised by your doctor. 3) ANTIHISTAMINES block the release of histamine during the allergic response. They work better whentaken BEFORE symptoms develop. Unless a prescription antihistamine was prescribed, you may take Claritin (loratadine). This is an xuqs-dsa-jjascfz non-sedating antihistamine. It does not make you drowsy. 4) STEROID nasal sprays (Beconase, Vancenase, Nasalide) or oral steroids (Prednisone) may also be prescribed. These help to reduce the local inflammation that adds to the allergic response. 5) If you have ASTHMA, pollen season may make your asthma symptoms worse. It is important that you use your asthma medicines as directed during this time to prevent or treat attacks. Some persons with ASTHMA have asthma symptoms that get worse when they take ANTIHISTAMINES. This is due to the drying effect on the lungs. If you notice this, stop the antihistamines, drink extra fluids and notify your doctor. 6) If you have sinus congestion or drainage, a saline nasal rinse may give relief. A saline nasal rinse lessens the swelling and clears excess mucus. This allows sinuses to drain. Prepackaged kits are sold at most drug stores. These contain pre-mixed salt packets and an irrigation device. FOLLOW UP with your doctor or as directed by our staff if your symptoms do not improve with the treatment advised. GET PROMPT MEDICAL ATTENTION if any of the following occur: -- Facial, ear or sinus pain; colored drainage from the nose -- Severe headache -- Fever over 100.0?? F (37.8?? C) -- Wheezing or trouble breathing (If you know you have asthma, return if your asthma symptoms do notrespond to the usual doses of your medicine) -- Cough with lots of colored sputum (mucus) ?? [id number] [employer], [address] [place] [address], [place] [address]. All rights reserved. This information is not intended as a substitute for professional medical care. Always follow your healthcare professional's instructions. 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 I understand that restrictions apply both on [...] arrange a ride home with a responsible green party. Patient Signature or Responsible Alliance Party/Relationship Date Time CECILIO ALBERTO or Responsible Person has received this information and tells me that all questions have been answered. Provider Signature Date Time IMPORTANT: I, ( CECILIO ALBERTO ), have received the above patient education materials/instructions and have verbalized understanding. My questions have been answered. I understand I may receive a follow-up call from the Emergency Department staff regarding my health. If seen for an occupational injury or illness, I understand that work-related medical information may be released to my employer or employers software sales representative. I understand that restrictions apply both on [...] arrange a ride home with a responsible green party. Patient Signature or Responsible Alliance Party/Relationship Date Time CECILIO ALBERTO or Responsible Person has received this information and tells me that all questions have been answered. Provider Signature Date Time This document has images extracted. Please consider using [employer] for all your patient education needs. Source: [facility] Document Id: [id number] Conversion, Historical Provider Ser - 11/29/2012 3:45 PM CDT ED Depart Summary [facility] Emergency Department Clinical Discharge Summary PERSON INFORMATION Name CECILIO ALBERTO Age 21 Years 1990 12:00 AM Sex Female Language Guatemalan PCP MARIA ALEJANDRA BURRELL Marital Status Single Visit Id Visit Reason Upper respiratory infection; ALLERGIES, COLD, ASTHMA, FEELING BAD Specialty Enc Type Emergency Med Service Emergency Medicine Referred by Track Group [facility] ED/FT Discharge 11/29/2012 3:45 PM Tracking Id [id number] Checkout 11/29/2012 3:45 PM Checkin 11/29/2012 3:02 PM Acuity 4 -Less Urgent Dispo Type * Discharged to Home or Self Care Arrival 11/29/2012 3:02 PM Reg Status LOS 000 00:43 Address: [address] [place] [address] [phone] Comment: PROVIDER INFORMATION Provider Role Provider Contact Time AUGUSTO ANAYA COUNTER INTELLIGENCE Nurse 11/29/12 15:08 DANYELL VAZQUEZ PA-C ED Provider 11/29/12 15:22 DIAGNOSIS Comment: ORDERS INFORMATION Start Time Order Type Status Stop Time Provider 11/29/2012 3:38 PM Discharge Patient Patient Care Ordered 11/29/2012 3:38 PM DANYELL VAZQUEZ PA-C PATIENT EDUCATION INFORMATION Instructions: SEASONAL ALLERGY Follow up: With: Address: When: MARIA ALEJANRDA BURRELL [address] [address] Business (1) Within As Needed Comments: Source: [facility] Document Id: [id number] documented in this encounter Nursing Notes Conversion, Historical Provider Ser - 11/29/2012 3:20 PM CDT ED Primary Assessment Document Has Been Updated ED Primary Assessment Entered On: 11/29/2012 15:21 CDT Performed On: 11/29/2012 15:20 CDT by AUGUSTO ANAYA RN Reason For Visit (As Of: 11/29/2012 15:21:01 CDT) Problems(Active) Carbohydrate Intolerance (ICD-9-CM :579.8 ) Name of Problem: Carbohydrate Intolerance ; Onset Date: 09/2006 ; Classification: Medical ; Code: 579.8 ; Contributor System: OWA_HPP_SYS ; Last Updated: 02/23/2007 0:00 CDT ; Life Cycle Date: 09/11/2006 ; Life Cycle Status: Active ; Vocabulary: ICD-9-CM Irritable Bowel Syndrome (ICD-9-CM :564.1 ) Name of Problem: Irritable Bowel Syndrome ; Onset Date: 02/2007 ; Classification: Medical ; Code: 564.1 ; Contributor System: OWA_HPP_SYS ; Last Updated: 05/16/2007 0:00 CDT ; Life Cycle Date: 02/23/2007 ; Life Cycle Status: Active ; Vocabulary: ICD-9-CM Diagnoses(Active) Upper respiratory infection Date: 11/29/2012 ; Diagnosis Type: Reason For Visit ; Confirmation: Complaint of ; Clinical Dx: Upper respiratory infection ; Classification: Medical ; Clinical Service: Emergency medicine ; Code: PNED ; Probability: 0 ; Diagnosis Code: [id number] Triage Mode of Arrival ED : Private vehicle Track : Medical Languages : Guatemalan AUGUSTO ANAYA RN - 11/29/2012 15:20 CDT Pain Assessment Pain Symptoms : Yes AUGUSTO ANAYA RN - 11/29/2012 15:20 CDT Respiratory Airway : Patent Respirations : Unlabored Respiratory Pattern : Regular Respiratory Detailed Assessment : Yes AUGUSTO ANAYA RN - 11/29/2012 15:20 CDT Resp Detailed Respiratory Patient Stated Symptoms : None Respiratory Note : t has had sinus pain see triage note. w/p/d. steady gait. AUGUSTO ANAYA RN - 11/29/2012 15:20 CDT Cardiovascular Heart Rhythm : Regular Skin Color : Normal for ethnicity Skin Description : Dry Skin Temperature : Warm AUGUSTO ANAYA RN - 11/29/2012 15:20 CDT Neurological Last Well Time Known : Not applicable Level of Consciousness : Alert Orientation : Oriented x 3 Characteristics of Speech : Appropriate for age AUGUSTO ANAYA RN - 11/29/2012 15:20 CDT ED Psychosocial Affect/Behavior : Calm Domestic Abuse Concerns : None AUGUSTO ANAYA RN - 11/29/2012 15:20 CDT Gastrointestinal Nutrition ED : Adequate AUGUSTO ANAYA RN - 11/29/2012 15:20 CDT Musculoskeletal Fall Prevention Education Provided : Yes AUGUSTO ANAYA RN - 11/29/2012 15:20 CDT Social Habits Tobacco Use/Currently Using : No Exposure to Tobacco Smoke : Other: NONE Smoking Status : Unknown if ever smoke AUGUSTO ANAYA RN - 11/29/2012 15:20 CDT Tobacco Use Grid Type : Other: NONE AUGUSTO ANAYA RN - 11/29/2012 15:20 CDT [facility] Document Id: [id number] CDT!39 documented in this encounter ED Notes Conversion, Yesenia Provider Ser - 11/29/2012 3:42 PM CDT ED Disposition Summary ED Disposition Summary Entered On: 11/29/2012 15:43 CDT Performed On: 11/29/2012 15:42 CDT by AUGUSTO ANAYA RN ED Disposition Summary Accompanied By : Alone Mode of Discharge : Ambulatory Transportation : Private vehicle Printed Discharge Instructions Given to Patient : Yes Patient Status at Discharge from ED : AUGUSTO Reese Lisa RN - 11/29/2012 15:42 CDT Source: [facility] Document Id: [id number] CDT!7 Yogesh Madrigal R.N. - 11/29/2012 3:12 PM CDT ED Triage Assessment Document Has Been Updated ED Triage Assessment Entered On: 11/29/2012 15:17 CDT Performed On: 11/29/2012 15:12 CDT by YOGESH MADRIGAL RN Reason For Visit (As Of: 11/29/2012 15:17:02 CDT) Problems(Active) Carbohydrate Intolerance (ICD-9-CM :579.8 ) Name of Problem: Carbohydrate Intolerance ; Onset Date: 09/2006 ; Classification: Medical ; Code: 579.8 ; Contributor System: OWA_HPP_SYS ; Last Updated: 02/23/2007 0:00 CDT ; Life Cycle Date: 09/11/2006 ; Life Cycle Status: Active ; Vocabulary: ICD-9-CM Irritable Bowel Syndrome (ICD-9-CM :564.1 ) Name of Problem: Irritable Bowel Syndrome ; Onset Date: 02/2007 ; Classification: Medical ; Code: 564.1 ; Contributor System: OWA_HPP_SYS ; Last Updated: 05/16/2007 0:00 CDT ; Life Cycle Date: 02/23/2007 ; Life Cycle Status: Active ; Vocabulary: ICD-9-CM Diagnoses(Active) Upper respiratory infection Date: 11/29/2012 ; Diagnosis Type: Reason For Visit ; Confirmation: Complaint of ; Clinical Dx: Upper respiratory infection ; Classification: Medical ; Clinical Service: Emergency medicine ; Code: PNED ; Probability: 0 ; Diagnosis Code: [id number] Triage Chief Complaint Description : Pt c/o runny nose, cough and congestion for a few weeks. c/o frequent headaches and the chills. Hx. of asthma, but denies SOB. Stated I did need my rescue inhaler last week though. Information Given By : Patient Mode of Arrival ED : Private vehicle Track : Medical Languages : Guatemalan Vital Signs Assessed : Yes GCS Assessed : Yes YOGESH MADRIGAL RN - 11/29/2012 15:12 CDT Vital Signs Temperature Core : 36.8 DegC(Converted to: 98.2 DegF) Peripheral Pulse Rate : 86 /min Respiratory Rate : 20 /min Systolic Blood Pressure : 117 mmHg Diastolic Blood Pressure : 77 mmHg NIBP Mean : 90 mmHg BP Location : Right upper extremity SpO2 : 100 % YOGESH MADRIGAL RN - 11/29/2012 15:12 CDT [place] Coma Eye Opening Response [place] : Spontaneously Best Verbal Response [place] : Oriented Best Motor Response [place] : Obeys simple commands [place] Coma Score : 15 YOGESH MADRIGAL RN - 11/29/2012 15:12 CDT Pain Assessment Pain Symptoms : Yes YOGESH MADRIGAL RN - 11/29/2012 15:12 CDT Pain Pain Assessment Grid Pain 1 Location : Head Intensity : 7 YOGESH MADRIGAL RN - 11/29/2012 15:12 CDT BRAEDEN DCP GENERIC CODE Tracking Acuity : 4 -Less Urgent Tracking Group : [facility] ED/FT YOGESH MADRIGAL RN - 11/29/2012 15:12 CDT Allergy (As Of: 11/29/2012 15:17:02 CDT) Allergies (Active) minocycline Estimated Onset Date: Unspecified ; Reactions: Bruising, gums turned blue ; Created By: EMILY HESS MA; Reaction Status: Active ; Category: Drug ; Substance: minocycline ; Type: Allergy ; Updated By: EMILY HESS MA; Reviewed Date: 11/23/2011 21:17 CDT sulfADIAZINE Estimated Onset Date: Unspecified ; Reactions: hives ; Created By: YOGESH MADRIGAL RN; Reaction Status: Active ; Category: Drug ; Substance: sulfADIAZINE ; Type: Allergy ; Updated By: YOGESH MADRIGAL RN; Reviewed Date: 11/29/2012 15:16 CDT Source: [facility] Document Id: [id number] CDT!34 Danyell Vazquez P.A.-C. - 11/29/2012 3:02 PM CDT 1-16EUCC MR# [id number] [facility] DATE: 11/29/2012 PRIMARY CARE PROVIDER PCP, JENNIFER LEONARD CHIEF COMPLAINT/REASON FOR VISIT This is 21-year-old female with a chief complaint of cough, congestion, and runny nose. She says that she feels like her allergies are flaring up. HISTORY OF PRESENT ILLNESS She says normally she takes nslp-zuj-ydwerxp Zyrtec but sometimes has to come in and get additional medication to help control her allergies now that the allergy season is starting. Denies nausea, vomiting. Denies fevers. PHYSICAL EXAMINATION GENERAL: Well-developed female, alert and oriented, pleasant. HEAD: Nasal passage is erythematous and boggy, decreased patency. She does sound congested. Oropharynx pink. Tongue moist. TMs pearly ayala. NECK: Neck soft without lymphadenopathy. [id number] CHEST: Lungs clear to auscultation. Heart regular rate. SKIN: Skin is warm and dry without diaphoresis, lesion or rash. IMPRESSION/REPORT/PLAN IMPRESSION: Seasonal allergies. PLAN: Continue her oral Zyrtec, and we will start her also on Flonase nasal spray, 2 sprays each nostril daily over the course of a month. Follow up with her primary for further evaluation and workup as deemed necessary. Danyell Vazquez PA-C//lynnette #[id number] cc: Electronically Signed By: DANYELL VAZQUEZ PA-C On: 12/08/2012 01:57 PM Source: [facility] Document Id: [id number] documented in this encounter Plan of Treatment Not on filedocumented as of this encounter Visit Diagnoses Not on filedocumented in this encounter
--- OUTSIDE RECORDS SUMMARY | 2022-04-26 15:49 | XMS_ITS | Clinical Summary ---
:1990 Author Organization [facility] Address [address] [place] [address] Care Team Providers Name Role Phone Unavailable Primary Care Provider Unavailable Source Comments Patient records contain information from all sites at [facility]. For routine questions regarding patient records, call [phone] during business hours, M-F 8:00 AM - 5:00 PM Central Time. Record requests for emergency care only can be directed to [phone] at any time.[facility] Immunizations Name Administration Dates Next Due 4vHPV (discontinued) 01/28/2008, 11/28/2007 DTaP (Infanrix, Tripedia) 04/02/1998 Influenza, Unspecified 04/14/2009, 06/18/2007, 05/25/2006, 05/23/2005, 07/29/2004, 07/11/2003, 06/21/1999, 05/20/1999 MCV4 (Menactra) 03/13/2008 MMR 12/21/2004 PPSV23 07/29/2004 Td (Adult), adsorbed 12/21/2004 influenza vaccine quad 07/23/2013 (FLUZONE/FLUARIX) (6 months and older)(PF) Family History Medical History Relation Name Comments Coronary artery disease Grandfather maternal Diabetes Grandfather maternal Ovarian cancer Grandmother paternal Polycystic ovarian syndrome Mother Hydrocephalus Sister Relation Name Status Comments Grandfather maternal Grandmother paternal Mother Sister Social History Tobacco Use Types Packs/Day Years Used Date Smoking Tobacco: Never Sex Assigned at Date Recorded Not on file Last Filed Vital Signs Vital Sign Reading Time Taken Comments Blood Pressure 122/92 11/12/2014 9:49 AM CDT Pulse 92 06/26/2014 3:11 PM RESORT KEEPER Temperature - - Respiratory Rate 20 11/29/2012 3:12 PM CDT Oxygen Saturation - - Inhaled Oxygen Concentration - - Weight 72 kg (158 lb 11.7 oz) 11/12/2014 9:49 AM CDT Height 162 cm (5' 3.78) 11/12/2014 9:49 AM CDT Body Mass Index 27.43 11/12/2014 9:49 AM CDT Plan of Treatment Health Maintenance Due Date Last Done Comments HIV Screening 1990 Hepatitis C Screening 1990 COVID-19 Vaccine (#1) 06/12/1993 Cervical Cancer Screening 11/12/2017 11/12/2014 DTaP,Tdap,and Td Vaccines 03/30/2021 03/30/2011, 12/21/2004 , (6 - Td or Tdap) 12/21/2004, Additional history exists Depression Screening 08/07/2021 (Annual PHQ-2) Influenza Vaccine (#1) 2022 04/05/2018, 06/05/2017, 04/07/2017, Additional history exists Hepatitis B Vaccines Completed 06/16/1993, 02/10/1993, 1990, Additional history exists Pneumococcal vaccine (0-64 Aged Out 07/29/2004, 4, No longer eligible years) 08/07/2003 based on patient 's age to complete this topic Insurance Payer Benefit Plan Subscriber ID Effective Phone Address Typ e / Group Dates NORA MELENDEZ [id number] 2019-Pres [phone] [place] [id number] [place] [id number]
--- OUTSIDE RECORDS SUMMARY | 2022-04-26 15:49 | XMS_ITS | Encounter Summary ---
:1990 Author Organization [facility] Address [address] [place] [address] Care Team Providers Name Role Phone Neetu Vargas MD Primary Care Provider Reason for Visit Reason Comments Establish Care Medication check Encounter Details Date Type Department Care Team Description 02/21/2022 Office Visit Clark Poyen, Constipation, unspecified co nstipation type (Primary Dx); [address] Neetu Gomez MD Mild intermittent [place] [address] [address] [facility] [address] [place] [address] Social History Tobacco Use Types Packs/Day Years [...] or relatives? How often do you attend jehovah's witness or More than 4 times per year 06/04/2018 pentecostalism services? Do you belong to any clubs or Yes 06/04/2018 organizations such as jehovah's witness groups, unions, fraternal or athletic groups, or school groups? How often do you attend meetings of the More than 4 times pe r year 06/04/2018 clubs or organizations you [...] the highest BS) degree you have received? Sex Assigned at Date Recorded Not on [...] Mass Index 33.01 02/21/2022 3:27 PM CDT documented in this encounter Progress Notes Neetu Vargas MD - 02/21/2022 3:20 PM CDT Subjective Patient ID: Nancy Ferris is a 31 y.o. female here for: Chief Complaint Patient presents with ??? Establish Care Medication check Patient presents today for medication check. She is 12 weeks , following with a [facility]. She has been struggling with some morning sickness throughout the day for which she has been prescribed Phenergan. Occasional constipation due to , when she treats this with magnesium oxide, she then develops diarrhea which seems to make her morning sickness vomiting worse. Today she is here to discuss her chronic asthma medications. She feels like her asthma is fairly well controlled, score 21 today. She uses her albuterol inhaler when needed, which has been rare lately. Usually her asthma is worse in the fall in the spring during allergy season. She only uses Dulera when needed during the seasons, and she stopped when found out she was . Symptoms are occasionally triggered by humidity/heat. Objective Physical Exam Constitutional: Appearance: Normal appearance. HENT: Head: Normocephalic and atraumatic. Eyes: Conjunctiva/sclera: Conjunctivae normal. Pupils: Pupils are equal, round, and reactive to light. Cardiovascular: Rate and Rhythm: Normal rate and regular rhythm. Heart sounds: Normal heart sounds. Pulmonary: Effort: Pulmonary effort is normal. Breath sounds: Normal breath sounds. Skin: General: Skin is warm and dry. Neurological: General: No focal deficit present. Mental Status: She is alert. Psychiatric: Mood and Affect: Mood normal. Behavior: Behavior normal. Assessment/Plan Problem List Items Addressed This Visit Pulmonary and Pneumonias Asthma Asthma is doing well currently. Recently had a formulary change, Dulera no longer covered, Advair HFA (Fluticasone/salmeterol) is alternative, however we discussed that this is category ask with limited data for safety. She does not believe that she has ever tried an ICS alone inhaler, which has better studied safety data at low to moderate doses. We will try this during , using during seasons of flares as she normally would. Similar moderate dose to her prior Dulera component was sent to the pharmacy, budesonide ICS chosen due to formulary coverage. Patient will follow-up if this is not controlling her symptoms and we can consider use of Advair if needed at that time. Asthma action plan completed today. Relevant Medications albuterol HFA (PROVENTIL HFA;VENTOLIN HFA) 108 (90 Base) MCG/ACT inhaler budesonide (PULMICORT) 180 MCG/ACT inhaler Other Visit Diagnoses Constipation, unspecified constipation type - Primary Recommend half capful of MiraLAX daily to keep stools more balanced, can still use mag if needed butgoal would be to have soft easy bowel movements every 1 to 2 days during without having diarrhea to worsen vomiting. documented in this encounter Miscellaneous Notes Assessment & Plan Note - Neetu Vargas MD - 02/22/2022 12:33 PM CDT Associated Problem(s): Asthma Asthma is doing well currently. Recently had a formulary change, Dulera no longer covered, Advair HFA (Fluticasone/salmeterol) is alternative, however we discussed that this is category ask with limited data for safety. She does not believe that she has ever tried an ICS alone inhaler, whichhas better studied safety data at low to moderate doses. We will try this during , using during seasons of flares as she normally would. Similar moderate dose to her prior Dulera component was sent to the pharmacy, budesonide ICS chosen due to formulary coverage. Patient will follow-up if this is not controlling her symptoms and we can consider use of Advair if needed at that time.Asthma action plan completed today. documented in this encounter Plan of Treatment Not on filedocumented as of this encounter Visit Diagnoses Diagnosis Constipation, unspecified constipation t ype - Primary Mild intermittent asthma without complic ation documented in this encounter Care Teams Doffer Relationship Specialty Start Date End Date Neetu Vargas MD PCP - General 11/23/[address] [place] [phone] documented as of this encounter
--- OUTSIDE RECORDS SUMMARY | 2022-04-26 15:49 | XMS_ITS | Clinical Summary ---
:1990 Author Organization [facility] [place] [address] Care Team Providers Name Role Phone Myla Beltran Primary Care Provider [phone] Allergies Active Allergy Reactions Severity Noted Date Comments Fructose GI Upset 01/18/2007 Minocycline Ecchymosis 09/27/2006 Sulfa (Sulfonamide Rash, Other - Describe 06/05/2017 Bruising on gums Antibiotics) In Comment Field Medications Medication Sig Dispensed Refills Start Date End Date Status PONSTEL 250 MG 2 pills at onset 50 0 03/20/2007 Active CAPIndications: of cramps, 1 pill Dysmenorrhea every 6 hours as needed for painful periods, max 6 days ZYRTEC 10 MG take 1 tablet 90 3 03/20/2007 Ac tive TABIndications: (10mg) by oral Allergic rhinitis, route once daily cause unspecified as needed for allergies MAGNESIUM GLUCONATE 0 10/15/2007 Active 500 MG TAB PROAIR HFA 90 One puff every 4 2 6 04/03/2008 Active MCG/ACTUATION AEROSOL to 6 hours as INHALERIndications: needed Unspecified asthma(493.90) fluticasone (50 mcg Inhale 1 Byron 1 Bottle 0 06/05/2017 Active per actuation) nasal into both nostrils solution (FLONASE) once daily. drospirenone-ethinyl Take 1 tablet by 84 tablet 3 06/05/2017 Active estradiol (JUDY) mouth once daily. 3-0.03 mg tabletIndications: Encounter for other contraceptive management montelukast Take 1 tablet by 90 tablet 3 06/05/2017 Active (SINGULAIR) 10 mg mouth once daily. tabletIndications: Chronic seasonal allergic rhinitis, unspecified trigger mometasone-formoterol Inhale 1 Puff by 3 Inhaler 1 06/05/2017 Active (DULERA) 100-5 mouth once daily. mcg/actuation inhalerIndications: Chronic seasonal allergic rhinitis, unspecified trigger Active Problems Problem Noted Date Subluxation of patella, acquired 10/31/2008 Dysmenorrhea 03/20/2007 Headache(784.0) 03/20/2007 Irritable bowel syndrome 10/01/2006 Overview: slow transit, fructose intolerance ([facility]) Unspecified asthma(493.90) 10/01/2006 Other acne 06/15/2006 Allergic rhinitis, cause unspecified 06/15/2006 Immunizations Name Administration Dates Next Due DTP 04/02/1998, 06/16/1993, 04/14/1993, 02/10/1993 DTaP 04/02/1998, 06/16/1993, 04/14/1993, 02/10/1993 HIB PRP-D (ProHIBIT) 04/02/1998, 06/17/1994, 06/16/1993, 04/15/1993 Hepatitis B (Peds) 06/16/1993, 02/10/1993, 1992 Hepatitis B, Unspecified 06/16/1993, 02/10/1993 Hib Conjugate, Unspecified 04/02/1998, 06/17/1994, 3, 04/15/1993 Human Papilloma Virus Vaccine 01/28/2008, 11/28/2007 Human Papilloma Virus Vaccine, 01/28/2008, 11/28/2007 Unspecified Inactivated Polio Vaccine 04/02/1998, 06/17/1993, 04/14/1993 , 02/10/1993 Influenza Virus, Unspecified 08/27/2015, 06/10/2014 Influenza, IIV3 (Age 6-35 mos) 06/10/2014 Influenza, IIV3 (Age >=3 years) 05/23/2012, 05/17/2011, 12/01/2010, 04/14/2009, 06/18/2007, 05/25/2006, 05/23/2005, 07/29/2004, 07/11/2003, 06/21/1999, 05/20/1999 Influenza, IIV4 06/13/2016, 08/27/2015, 05/07/2014, 07/23/2013 Influenza, IIV4 (=>6mos) MDV 06/05/2017 MMR 12/21/2004, 04/02/1998, 06/17/1994 Meningococcal Vaccine (Menactra) 03/13/2008 Pneumococcal Poly,23-Valent 07/29/2004, 08/07/2003 (Pneumovax) Pneumococcal, Unspecified 07/29/2004 Td (Age >=7 Years) 12/21/2004 Tdap 03/30/2011 Family History Medical History Relation Name Comments Diabetes Maternal Grandfather Other Mother PCOS Other Sister 2 PRECOCIOUS PUBER TY AND ARACHNOID CYST and hydrocephalus Relation Name Status Comments Father Alive Maternal Grandfather Alive Maternal Grandmother Alive Mother Alive Paternal Grandfather Alive Paternal Grandmother Alive Sister 1 Alive x1 Sister 2 Social History Tobacco Use Types Packs/Day Years Used Date Never Smoker Smokeless Tobacco: Never Used Tobacco Cessation: Counseling Given: Yes Alcohol Use Standard Drinks/Week Comments Yes 0 (1 standard drink = 0.6 oz pure alcoho l) casual use Alcohol Habits Answer Date Recorded How often do you have a drink containing alcohol? Not asked How many drinks containing alcohol do you have on a typical Not asked day when you are drinking? How often do you have six or more drinks on one occasion? No t asked Comment: casual use 06/05/2017 Sex Assigned at Date Recorded Not on file Obstetrics History Last Filed Vital Signs Vital Sign Reading Time Taken Comments Blood Pressure 126/84 06/05/2017 4:25 PM CDT Pulse 83 06/05/2017 4:25 PM CDT Temperature 36.4 ??C (97.6 ??F) 06/05/2017 4:25 PM CDT Respiratory Rate 12 03/20/2007 11:14 AM CDT Oxygen Saturation 100% 06/05/2017 4:25 PM CDT Inhaled Oxygen Concentration - - Weight 82.2 kg (181 lb 3.2 oz) 06/05/2017 4:25 PM CDT Height 161.3 cm (5' 3.5) 06/05/2017 4:25 PM CDT Body Mass Index 31.59 06/05/2017 4:25 PM CDT Plan of Treatment Health Maintenance Due Date Last Done Comments COVID-19 vaccine series (#1) 06/12/1993 Hepatitis C screening for age 0512/10/2010 18-79 Depression screening for age 12+ 02/01/2017 02/02/2016 BMI (ht and wt on same day) for 06/05/2018 06/05/2017, 01/06 age 18+ Pap test for age 21-65 06/05/2020 06/05/2017 Tetanus booster 03/30/2021 03/30/2011, 12/21/2004 Influenza for age 9-49 04/07/2022 06/05/2017, 06/13/2016, 08/27/2015, Additional history exists Tdap Completed 03/30/2011 Results Not on filefrom Last 3 Months Insurance Payer Benefit Plan / Subscriber ID Effective Dates Phone Addre ss Type Group BLUE [employer]OSS BLUE CROSS OF [id number] 2017-Present [address] [place] [address] BLUE [employer]OSS BLUE CROSS OF [id number] 2020-Presen [address] [place] [address] [phone] ([address]) TALISHA WELLER [id number] Care Teams Internet Marketing Executive Relationship Specialty Start Date End Date Myla Beltran PA PCP - General Family Practice 01/25/16 [address] [place] [address]
--- OUTSIDE RECORDS SUMMARY | 2022-04-26 15:49 | XMS_ITS | Encounter Summary ---
:1990 Author Organization [facility] Address [address] [place] [address] Care Team Providers Name Role Phone Unavailable Primary Care Provider Unavailable Reason for Visit Reason Comments COVID Inquiry Encounter Details Date Type Department Care Team Description 10/26/2020 Clinical Communication Central Appointment [facility] Office in [address] [address] Social History Tobacco Use Types Packs/Day Years Used Date Smoking Tobacco: Never Sex Assigned at Date Recorded Not on file documented as of this encounter Miscellaneous Notes Telephone Encounter - Massiel Schultz - 10/26/2020 8:03 AM CDT What is the purpose of the call?: Requesting Testing Only Request Testing In the past 14 days are any of the following symptoms new to you and not related to an existing health condition?: New cough, New shortness of breath, New headache Because of symptoms, transfer patient to: : [facility] COVID Nurse Line (End Screening) In the past 14 days have you had close contact* with a person who has a LABORATORY CONFIRMED case ofCOVID-19?: Yes exposure noted. [facility] patient, instruct to quarantine, testing indicated (End Screening) Symptom Onset Date of symptom onset: 10/19/20 Testing Recommendation [facility] Is testing recommended? : Transferred to nursing call line Plan: [facility]point recommendation: Transferred to Nursing/COVID Line/Care Team *Reminder if sending patient for testing in [facility] or [facility], route encounter to the correct testing pool. documented in this encounter Plan of Treatment Not on filedocumented as of this encounter Visit Diagnoses Not on filedocumented in this encounter
--- OUTSIDE RECORDS SUMMARY | 2022-04-26 15:49 | XMS_ITS | Encounter Summary ---
:1990 Author Organization [facility] Address [address] [place] [address] Care Team Providers Name Role Phone Unavailable Primary Care Provider Unavailable Encounter Details Date Type Department Care Team Description 08/16/2006 Hospital Encounter HX NO MAPPING Social History Tobacco Use Types Packs/Day Years Used Date Smoking Tobacco: Never Assessed Sex Assigned at Date Recorded Not on file documented as of this encounter Plan of Treatment Not on filedocumented as of this encounter Visit Diagnoses Not on filedocumented in this encounter
--- OUTSIDE RECORDS SUMMARY | 2022-04-26 15:50 | XMS_ITS | Encounter Summary ---
:1990 Author Organization [facility] Address [address] [place] [address] Care Team Providers Name Role Phone Heidi Corona MD Primary Care Provider Unavailable Reason for Visit Reason Onset Date Comments ACT and PHQ-9 questionaires 11/23/2020 Encounter Details Date Type Department Care Team Description 11/23/2020 Telephone Heidi Loco ACT and PHQ-[address] [place] [address] MD [place] [address] Social History Tobacco Use Types Packs/Day Years Used Date Never Smoker Smokeless Tobacco: Never Used Alcohol Use Standard Drinks/Week Comments Yes 0 [...] or relatives? How often do you attend mandaen or More than 4 times per year 06/04/2018 baptism services? Do you belong to any clubs or Yes 06/04/2018 organizations such as mandaen groups, unions, fraternal or athletic groups, or [...] this encounter Miscellaneous Notes Telephone Encounter - Bethanie Barber MA - 01/20/2021 11:27 AM CDT PHQ-9 performed over the phone, results 0. Screenings in chart filled out to reflect this. Telephone Encounter - Bethanie Barber MA - 01/19/2021 10:46 AM CDT Patient in on 01/18/2021, ACT performed at time of visit, but not the PHQ-9 for a follow up screeningdue to a telephone visit for depression in 05/2020. Left message for patient to call us back to do over the phone with her. Telephone Encounter - Jessika Galvan - 12/21/2020 8:42 AM CDT Pt scheduled apt on 01/18 Telephone Encounter - Evangelina Lake RN - 12/15/2020 1:58 PM CDT PHQ-9 and ACT forms mailed to the patient-Pt to let us know if another provider is following her depression and asthma Telephone Encounter - Evangelina Lake RN - 11/30/2020 9:15 AM CDT Left message for patient to see my chart message or return call to fill out PHQ- 9 and ACT. Pt also needs address updated. documented in this encounter Plan of Treatment Not on filedocumented as of this encounter Visit Diagnoses Not on filedocumented in this encounter Care Teams Ship Unloader Relationship Specialty Start Date End Date Heidi Corona MD PCP - General Family Medicine 03/23/20 documented as of this encounter
--- OUTSIDE RECORDS SUMMARY | 2022-04-26 15:50 | XMS_ITS | Encounter Summary ---
:1990 Author Organization [facility] Address [address] [place] [address] Care Team Providers Name Role Phone Neetu Vargas MD Primary Care Provider [phone] Reason for Visit Reason Onset Date Comments Dulera 100-5MCG/ACT aerosol 01/12/2022 Med pa Encounter Details Date Type Department Care Team Description 01/12/2022 Telephone [place] Nusrat Vargas 100-5MCG/ACT [address] Neetu Gomez MD aerosol (Med pa) [place], [place] [address] [address] [place] [address] (Wo rk) Social History Tobacco Use Types [...] or relatives? How often do you attend episcopalian or More than 4 times per year 06/04/2018 pentecostal services? Do you belong to any clubs or Yes 06/04/2018 organizations such as episcopalian groups, unions, fraternal or athletic groups, or [...] this encounter Miscellaneous Notes Telephone Encounter - Kailee Kerns RN - 02/08/2022 9:31 AM CDT LMTRC to establish care and discuss other option for Dulera that is no longer covered by her insurance. Telephone Encounter - Nadiya Teixeira - 02/04/2022 10:39 AM CDT No response from patient. Please advise. Telephone Encounter - Nadiya Teixeira - 01/26/2022 10:50 AM CDT lmtc Telephone Encounter - Kailee Kerns RN - 01/24/2022 1:51 PM CDT Please call patient to schedule asthma check and pap, need to discuss alternative to Dulera inhaler. Telephone Encounter - Kailee Kerns RN - 01/13/2022 8:11 AM CDT LMTRC. Telephone Encounter - Joan Cee RN - 01/12/2022 10:15 AM CDT LMTRC on secured voicemail. Telephone Encounter - Nancy Mata LPN - 01/12/2022 8:12 AM CDT Images from the original note were not included. Per insurance, this has been denied. Telephone Encounter - Nadia Tsai MA - 01/12/2022 6:14 AM CDT Dulera 100-5MCG/ACT aerosol ?? BIN: [id number] PCN: claimcr GROUP: [id number] PLAN: [employer] PHONE: [phone] ID: [id number] ?? PA completed per [facility], sent to plan. [place]: [id number] documented in this encounter Plan of Treatment Not on filedocumented as of this encounter Visit Diagnoses Not on filedocumented in this encounter Care Teams Hydroblaster Relationship Specialty Start Date End Date Neetu Vargas MD PCP - General 11/23/[address] [place] [phone] documented as of this encounter
--- OUTSIDE RECORDS SUMMARY | 2022-04-26 15:50 | XMS_ITS | Encounter Summary ---
:1990 Author Organization [facility] Address [address] [place] [address] Care Team Providers Name Role Phone Meghan Hernandez PA-C Primary Care Provider Encounter Details Date Type Department Care Team Description 11/09/2018 Abstract SE Family Med Meghan Hernandez PA-C [address] [facility] [address] [place] [address] [place] [address] (Wo rk) Social History Tobacco Use Types [...] or relatives? How often do you attend taoist or More than 4 times per year 06/04/2018 restoration services? Do you belong to any clubs or Yes 06/04/2018 organizations such as taoist groups, unions, fraternal or athletic groups, or [...] on filedocumented in this encounter Care Teams E Business Specialist Relationship Specialty Start Date End Date Meghan Hernandez PA-C PCP - General Family Medicine 05/03/18 03/22/[address] [place] [address] documented as of this encounter
--- OUTSIDE RECORDS SUMMARY | 2022-04-26 15:50 | XMS_ITS | Encounter Summary ---
:1990 Author Organization [facility] Address [address] [place] [address] Care Team Providers Name Role Phone Meghan Hernandez PA-C Primary Care Provider Encounter Details Date Type Department Care Team Description 07/17/2018 Lab [place] Abnormal blood chemistry dea t [address] [place] [address] Social History Tobacco Use Types Packs/Day Years [...] or relatives? How often do you attend worship or More than 4 times per year 06/04/2018 episcopalian services? Do you belong to any clubs or Yes 06/04/2018 organizations such as worship groups, unions, fraternal or athletic groups, or [...] encounter Procedures Procedure Name Priority Date/Time Associated Diagnosis Comme nts HEPATIC FUNCTION Routine 07/17/2018 3:37 PM Abnormal blood Res ults for this PANEL HVAC REFRIGERATION TECHNICIAN chemistry test procedure are in the results section. documented in this encounter Results (ABNORMAL) Liver panel (07/17/2018 3:37 PM HVAC REFRIGERATION TECHNICIAN) Analysis Performed At Patho logist Time Signature Total Protein 7.7 6.3 - 8.2 07/18/2018 [place] g/dL 12:55 PM [facility] Albumin, Serum 4.7 3.5 - 5.0 07/18/2018 [place] g/dL 12:55 PM [facility] Total Bilirubin <0.7 0.1 - 1.0 07/18/2018 [place] mg/dL 12:55 PM [facility] Bilirubin, <0.1 0.0 - 0.3 07/18/2018 [place] Direct mg/dL 12:55 PM [facility] AST 32 8 - 43 U/L 07/18/2018 [place] 12:55 PM [facility] Alkaline 51 38 - 128 07/18/2018 [place] Phosphatase U/L 12:55 PM [facility] ALT (SGPT) 71 (H) 25 - 45 07/18/2018 [place] U/L 12:55 PM [facility] Comment: . Specimen Anatomical Collection Method Collection Time Receive d Time (Source) Location / / Volume Laterality Blood 07/17/2018 3:37 PM 8 HVAC REFRIGERATION TECHNICIAN 12:32 PM HVAC REFRIGERATION TECHNICIAN Meghan Hernandez PA-C LAB BLOOD ORDERABLES Performing Organization Address City/State/ZIP Code Phon e Number [facility] [address] [place] [address] documented in this encounter Visit Diagnoses Diagnosis Abnormal blood chemistry test documented in this encounter Care Teams Internal Salesperson Relationship Specialty Start Date End Date Meghan Hernandez PA-C PCP - General Family Medicine 05/03/18 03/22/[address] [place] [address] documented as of this encounter
--- OUTSIDE RECORDS SUMMARY | 2022-04-26 15:50 | XMS_ITS | Encounter Summary ---
:1990 Author Organization [facility] Address [address] [place] [address] Care Team Providers Name Role Phone Heidi Corona MD Primary Care Provider Unavailable Reason for Visit Reason Onset Date Comments medication prior auth. 01/19/2021 Dulera 100-5MCG/A CT aerosol Encounter Details Date Type Department Care Team Description 01/19/2021 Telephone Heidi Loco, medication prior auth. [address] [facility] CHAN (Dulera 100-5MCG/[place] [address] aerosol) [phone] Social History Tobacco Use Types Packs/Day Years [...] or relatives? How often do you attend restoration or More than 4 times per year 06/04/2018 mormon services? Do you belong to any clubs or Yes 06/04/2018 organizations such as restoration groups, unions, fraternal or athletic groups, or [...] this encounter Miscellaneous Notes Telephone Encounter - Nadia Tsai MA - 01/19/2021 6:15 AM CDT PA approved through 01/19/2022. Pharmacy notified. PA # [id number]. Telephone Encounter - Nadia Tsai MA - 01/19/2021 6:08 AM CDT Nusrat 100-5MCG/ACT aerosol BIN: [id number] PCN: claimcr GROUP: [id number] PLAN: [employer] PHONE: [phone] ID: [id number] PA [facility], sent to plan. [place]: [id number] documented in this encounter Plan of Treatment Not on filedocumented as of this encounter Visit Diagnoses Not on filedocumented in this encounter Care Teams Collision Worker Relationship Specialty Start Date End Date Heidi Corona MD PCP - General Family Medicine 03/23/20 documented as of this encounter
--- OUTSIDE RECORDS SUMMARY | 2022-04-26 15:50 | XMS_ITS | Encounter Summary ---
:1990 Author Organization [facility] Address [address] [place] [address] Care Team Providers Name Role Phone Heidi Corona MD Primary Care Provider Unavailable Reason for Visit Reason Comments Asthma Encounter Details Date Type Department Care Team Description 01/18/2021 Office Visit Heidi Loco Mild intermittent asthma wit hout complication (Primary Dx); [address] Hitesh Ayala MD Iron deficiency anemia, unsp ecified iron deficiency anemia type; [place] [address] Diabetes mellitus screening; [phone] Family history of thyroid disease Social History Tobacco Use Types Packs/Day Years [...] or relatives? How often do you attend spiritism or More than 4 times per year 06/04/2018 yazidi services? Do you belong to any clubs or Yes 06/04/2018 organizations such as spiritism groups, unions, fraternal or athletic groups, or [...] Sign Reading Time Taken Comments Blood Pressure 100/64 01/18/2021 8:20 AM CDT Pulse 88 01/18/2021 8:20 AM CDT Temperature 36.7 ??C (98 ??F) 01/18/2021 8:20 AM CDT Respiratory Rate 16 01/18/2021 8:20 AM CDT Oxygen Saturation 99% 01/18/2021 8:20 AM CDT Inhaled Oxygen Concentration - - Weight 82.9 kg (182 lb 12.2 oz) 01/18/2021 8:20 AM CDT Height 162 cm (5' 3.78) 01/18/2021 8:20 AM CDT Body Mass Index 31.59 01/18/2021 8:20 AM CDT documented in this encounter Progress Notes Heidi Corona MD - 01/18/2021 8:20 AM CDT Estab Patient Visit Subjective Patient ID: Nancy Ferris is a 30 y.o. female. Chief Complaint Patient presents with ??? Asthma HPI Patient is a 30-year-old P1 who presents for follow-up. This is her first odai-qx-utvg visit as we had met via telehealth visit a year ago. She has asthma and here to discuss that. Also, has had some mood symptoms that have been improving. She shares with me that her daughter, Rosendo, is now 15 months and she says that her mood symptoms did gradually improve after she talk to me over a year ago. She says she is feeling better now with less anxiety. 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 She shares with me that she and her will be planning another in the near future. She gets her OB care through [facility] and planning to have her IUD removed this summer. She says that her breathing has been overall good in the last year but admits in the last several weeks it has worsened which she cites the hot weather and activity outdoors as triggering factors. She was diagnosed with asthma when she did sports and it was initially exercise-induced. She was on Dulera which she stopped during her and has not resumed it. She has needed her albuterol inhalermore lately and using at least once a week. She is also limiting her activity because of the tightness in her chest. She has never been hospitalized for her asthma but has had bronchitis and pneumonia in the past. Current Outpatient Medications on File Prior to Visit Medication Sig Dispense Refill ??? albuterol HFA (PROVENTIL HFA;VENTOLIN HFA) 108 (90 Base) MCG/ACT inhaler Inhale 2 puffs every 6 (six) hours if needed for wheezing 18 g 3 ??? Cetirizine HCl (ZyrTEC ALLERGY) 10 MG capsule 1 tablet 1 (one) time each day ??? cholecalciferol, vitamin D3, 5,000 Units tablet tablet ??? fluticasone (FLONASE) 50 MCG/ACT nasal spray Administer 1 spray into affected nostril(s) if needed ??? magnesium oxide (MAG-OX) 400 MG tablet Take 400 mg by mouth every night ??? Lactobacillus (ACIDOPHILUS PROBIOTIC) tablet Take by mouth 1 (one) time each day ??? Mefenamic Acid (PONSTEL) 250 MG capsule Take 1 tablet by mouth 2 (two) times a day if needed (menstrual cramps) 30 each 0 ??? mometasone-formoterol (DULERA 100) 100-5 MCG/ACT inhaler Inhale 2 puffs 2 (two) times a day Rinse mouth with water after use to reduce aftertaste and incidence of candidiasis. Do not swallow. (Patient not taking: Reported on 01/18/2021) 13 g 11 ??? montelukast (SINGULAIR) 10 MG tablet Take 1 tablet (10 mg total) by mouth daily 90 tablet 3 ??? Multiple Vitamins-Minerals (MULTIVITAMIN ADULT EXTRA C) chewable tablet Chew 2 tablets 1 (one) time each day No current facility-administered medications on file prior to visit. Sulfamethoxazole-trimethoprim, Fructose, Minocycline, Gluten, and Sulfa antibiotics The following portions of the patient's chart were reviewed in this encounter and updated as appropriate: Tobacco Allergies Meds Med Hx Surg Hx OB Status Fam Hx Review of Systems See HPI. Objective Physical Exam Blood pressure 100/64, pulse 88, temperature 36.7 ??C (98 ??F), temperature source Temporal, resp. rate 16, height 1.62 m (5' 3.78), weight 82.9 kg (182 lb 12.2 oz), SpO2 99 %, not currently . Generally, well-appearing not in acute distress. Pupils equal round reactive to light, sclera nonicteric. Oropharynx is clear. Neck is supple without lymphadenopathy or thyromegaly. Heart regular rate and rhythm without murmurs rubs or gallops. Lungs clear to auscultation bilaterally. Lower extremities without edema. Intact pedal pulses. ACT equals 20 Assessment/Plan Diagnoses and all orders for this visit: Mild intermittent asthma without complication - albuterol HFA (PROVENTIL HFA;VENTOLIN HFA) 108 (90 Base) MCG/ACT inhaler; Inhale 2 puffs every 6 (six) hours if needed for wheezing - mometasone-formoterol (DULERA 100) 100-5 MCG/ACT inhaler; Inhale 2 puffs 2 (two) times a day [place] with water after use to reduce aftertaste and incidence of candidiasis. Do not swallow. Iron deficiency anemia, unspecified iron deficiency anemia type - CBC Branch Off w/Diff; Future Diabetes mellitus screening - Comprehensive metabolic panel; Future Family history of thyroid disease - TSH; Future We discussed resuming Dulera during the warmer season as she has had difficulty recently. I refilledDulera and albuterol inhaler. She will also have labs done today for rechecking iron deficiency anemia that she had during . She remains on a vitamin. Also family history of thyroid disease and with planning to get in the near future, we will recheck that today. Also will check fasting glucose metabolic panel. I will send her a message via SMART regarding the lab results. I urged her to follow-up and discuss with her OB about her anxiety. Discussed that this can happen again but it with good support and monitoring, can reduce this risk. This dictation was created with voice recognition software and therefore may contain errors that went unnoticed. There are no Patient Instructions on file for this visit. documented in this encounter Plan of Treatment Not on filedocumented as of this encounter Results Comprehensive metabolic panel (01/18/2021 9:14 AM CDT) athologist Signature Total Protein 7.7 6.3 - 8.2 01/18/2021 [place] g/dL 1:08 PM [facility] Albumin, Serum 4.5 3.5 - 5.0 01/18/2021 [place] g/dL 1:08 PM [facility] Total Bilirubin <0.7 0.1 - 1.0 01/18/2021 [place] mg/dL 1:08 PM [facility] AST 25 8 - 43 U/L 01/18/2021 [place] 1:08 PM [facility] Alkaline 53 38 - 128 01/18/2021 [place] Phosphatase U/L 1:08 PM [facility] ALT (SGPT) 18 0 - 34 U/L 01/18/2021 [place] 1:08 PM [facility] Sodium 139 135 - 145 01/18/2021 [place] mEq/L 1:08 PM [facility] Potassium 4.4 3.5 - 5.1 01/18/2021 [place] mEq/L 1:08 PM [facility] Chloride 106 98 - 107 01/18/2021 [place] mEq/L 1:08 PM [facility] CO2 28 22 - 29 01/18/2021 [place] mmol/L 1:08 PM [facility] BUN 16 5 - 25 01/18/2021 [place] mg/dL 1:08 PM [facility] Creatinine 0.7 0.4 - 1.2 01/18/2021 [place] mg/dL 1:08 PM [facility] Glucose 96 70 - 100 01/18/2021 [place] mg/dL 1:08 PM [facility] Calcium, Total,S 9.5 8.4 - 10.2 01/18/2021 [place] mg/dL 1:08 PM [facility] Fasting? Yes 01/18/2021 [place] 9:14 AM [facility] Specimen Anatomical Collection Method Collection Time Receive d Time (Source) Location / / Volume Laterality Blood 01/18/2021 9:14 AM 1 CDT 12:27 PM CDT Heidi Corona MD LAB BLOOD ORDERABLES Performing Organization Address [facility] Phon e Number [facility] [address] [place] [address] TSH (01/18/2021 9:14 AM CDT) athologist Signature TSH, Sensitive 3.00 0.46 - 01/18/2021 [place] [facility] 4.68 mIU/L 1:37 PM CDT [facility] Comment: The results from this or any other diagn ostic test should be used and interpreted only in the context of the overall clinical picture. Biotin levels in serum remain elevated f or up to 24 hours after oral or intravenous biotin adminis tration and may interfere with this assay to produce unr eliable results. Heterophilic antibodies in serum or plas ma samples may cause interference in immunoassays. ??Exposure to animal antigens, either in the environment or as part of treatment or imaging procedures, may have circulating anti-an imal antibodies present. These antibodies may interfere with the assay reagents to produce unreliable results. ??Results which are inconsistent with clinical observations indicate the need for additional testing. Specimen Anatomical Collection Method Collection Time Receive d Time (Source) Location / / Volume Laterality Blood 01/18/2021 9:14 AM 1 CDT 12:27 PM CDT Heidi Corona MD LAB BLOOD ORDERABLES Performing Organization Address City/[facility]/ZIP Code Phon e Number [facility] [address] [place] [phone] CBC Branch Off w/Diff (01/18/2021 9:14 AM CDT) athologist Signature WBC 4.3 3.5 - 10.5 01/18/2021 [facility] [place] K/uL 9:57 AM CDT LAB RBC 4.19 3.90 - 01/18/2021 [facility] [place] 5.00 M/uL 9:57 AM CDT LAB Hemoglobin 13.1 12.0 - 01/18/2021 [facility] [place] 15.5 g/dL 9:57 AM CDT LAB Hematocrit 39.2 35.0 - 01/18/2021 [facility] [place] 44.0 % 9:57 AM CDT LAB Platelets 248 150 - 450 01/18/2021 [facility] [place] K/uL 9:57 AM CDT LAB MCV 93.6 81.6 - 01/18/2021 [facility] [place] 98.3 fL 9:57 AM CDT LAB MCH 31.3 26.0 - 01/18/2021 [facility] [place] 32.0 pg 9:57 AM CDT LAB MCHC 33.4 32.0 - 01/18/2021 [facility] [place] 36.0 g/dL 9:57 AM CDT LAB RDW 12.6 11.9 - 01/18/2021 [facility] [place] 15.5 % 9:57 AM CDT LAB Lymphocytes % 34.6 % 01/18/2021 [facility] [place] 9:57 AM CDT LAB Mid-size Cells 11.1 % 01/18/2021 [facility] [place] 9:57 AM CDT LAB Granulocytes/Omar 54.3 % 01/18/2021 [facility] [place] O trophils 9:57 AM CDT LAB Lymphocytes 1.5 0.9 - 2.9 01/18/2021 [facility] [place] Absolute K/uL 9:57 AM CDT LAB MIDS Absolute 0.5 0.4 - 1.5 01/18/2021 [facility] [place] K/uL 9:57 AM CDT LAB Granulocytes/Omar 2.3 1.7 - 7.0 01/18/2021 [facility] O trophils K/uL 9:57 AM CDT LAB Absolute Specimen Anatomical Collection Method Collection Time Receive d Time (Source) Location / / Volume Laterality Blood 01/18/2021 9:14 AM 9:14 CDT AM CDT Heidi Corona MD LAB BLOOD ORDERABLES Performing Organization Address City/State/ZIP Code Phon e Number [facility] [place] [facility] [address] [place] [place] [address] documented in this encounter Visit Diagnoses Diagnosis Mild intermittent asthma without complic ation - Primary Iron deficiency anemia, unspecified iron deficiency anemia type Diabetes mellitus screening Screening for diabetes mellitus Family history of thyroid disease Family history of other endocrine and me tabolic diseases documented in this encounter Care Teams [employer] Superintendent Relationship Specialty Start Date End Date Heidi Corona MD PCP - General Family Medicine 03/23/20 documented as of this encounter
--- OUTSIDE RECORDS SUMMARY | 2022-04-26 15:50 | XMS_ITS | Encounter Summary ---
:1990 Author Organization [facility] Address [address] [place] [address] Care Team Providers Name Role Phone Heidi Corona MD Primary Care Provider Unavailable Encounter Details Date Type Department Care Team Description 01/18/2021 [place] Borderline abnormal thyroid function test (Primary Dx); [address] Diabetes mellitus screening; [place] [address] Family history of thyroid di sease; [phone] Iron deficiency anemia, unspecified iron deficiency anemia type Social History Tobacco Use Types Packs/Day Years [...] or relatives? How often do you attend anglican or More than 4 times per year 06/04/2018 taoism services? Do you belong to any clubs or Yes 06/04/2018 organizations such as anglican groups, unions, fraternal or athletic groups, or [...] Procedure Name Priority Date/Time Associated Comments Diagnosis ADD-ON TEST REQUEST Routine 01/18/2021 1:42 Borderline abnorma l Results for this PM CDT thyroid function procedure a re in test the results section. GLOMERULAR FILTRATION Routine 01/18/2021 9:14 Diabetes mellitu s Results for this RATE AM CDT screening procedure are i n the results section. THYROPEROXIDASE (TPO) Routine 01/18/2021 9:14 Res ults for this AB AM CDT procedure are i n the results section. CBC BRANCH OFFICE Routine 01/18/2021 9:14 Iron deficiency Resu lts for this W/DIFF AM CDT anemia, unspecified procedur e are in iron deficiency the results anemia type section. TSH Routine 01/18/2021 9:14 Family history of Results for this AM CDT thyroid disease procedure ar e in the results section. COMPREHENSIVE METABOLIC Routine 01/18/2021 9:14 Diabetes melli tus Results for this PANEL AM CDT screening procedure are i n the results section. documented in this encounter Results Add-On Test Request (01/18/2021 1:42 PM CDT) Patholo gist Method Time Signature Add-on Testing SEE BELOW 01/18/2021 [place] 2:48 PM CDT [facility] Comment: TPO added. Specimen Anatomical Collection Method Collection Time Receive d Time (Source) Location / / Volume Laterality 01/18/2021 1:42 PM 1:42 CDT PM CDT Heidi Corona MD LAB BLOOD ORDERABLES Performing Organization Address City/State/ZIP Code Phon e Number [facility] [address] [place] [address] Thyroperoxidase (TPO) Ab (01/18/2021 9:14 AM CDT) Analysis Performed At Path logist Time Signature Thyroid 0.3 <9.0 IU/mL 01/19/2021 [facility] 9:35 AM CDT LABORATORIES (TPO) Ab Comment: Test Performed by: [facility] [address] [place], [place] [address] Neurology Technologist: Nash Torres M.D. Ph. D.; CLIA# [id number] Specimen Anatomical Collection Method Collection Time Receive d Time (Source) Location / / Volume Laterality 01/18/2021 9:14 AM 2:51 CDT PM CDT Heidi Corona MD LAB BLOOD ORDERABLES Performing Organization Address City/State/ZIP Code Phon e Number [facility] see result attachment for specific address Glomerular filtration rate (GFR) (01/18/2021 9:14 AM CDT) athologist Signature GFR >60 01/18/2021 [facility] 1:08 PM CDT [facility] >60 01/18/2021 [facility] Stateless GFR 1:08 PM CDT [facility] Comment: GFR calculated from serum creatinine v alue Chronic Kidney Disease less than 60 mL/m in/1.73 m2 Kidney Failure less than 15 mL/min/1.73 m2 Note: effective 12/20/06 IDMS-Traceable MDRD Study Equation used. Specimen Anatomical Collection Method Collection Time Receive d Time (Source) Location / / Volume Laterality 01/18/2021 9:14 AM 9:14 CDT AM CDT Heidi Corona MD LAB BLOOD ORDERABLES Performing Organization Address City/State/ZIP Code Phon e Number [facility] [address] [place] [phone] CBC Branch Off w/Diff (01/18/2021 9:14 AM CDT) athologist Signature WBC 4.3 3.5 - 10.5 01/18/2021 [facility] [place] K/uL 9:57 AM CDT LAB RBC 4.19 3.90 - 01/18/2021 [facility] [place] 5.00 M/uL 9:57 AM CDT LAB Hemoglobin 13.1 12.0 - 01/18/2021 [facility] [place] 15.5 g/dL 9:57 AM CDT LAB Hematocrit 39.2 35.0 - 01/18/2021 [facility] [place] 44.0 % 9:57 AM CDT LAB Platelets 248 150 - 450 01/18/2021 [facility] [place] K/uL 9:57 AM CDT LAB MCV 93.6 81.6 - 01/18/2021 [facility] [place] 98.3 fL 9:57 AM CDT LAB MCH 31.3 26.0 - 01/18/2021 [facility] [place] 32.0 pg 9:57 AM CDT LAB MCHC 33.4 32.0 - 01/18/2021 [facility] [place] 36.0 g/dL 9:57 AM CDT LAB RDW 12.6 11.9 - 01/18/2021 [facility] [place] 15.5 % 9:57 AM CDT LAB Lymphocytes % 34.6 % 01/18/2021 [facility] 9[facility]57 AM CDT LAB Mid-size Cells 11.1 % 01/18/2021 [facility] [place] 9:57 AM CDT LAB Granulocytes/Omar 54.3 % 01/18/2021 [facility] O trophils 9:57 AM CDT LAB Lymphocytes 1.5 0.9 - 2.9 01/18/2021 [facility] [place] Absolute K/uL 9:57 AM CDT LAB MIDS Absolute 0.5 0.4 - 1.5 01/18/2021 [facility] K/uL 9:57 AM CDT LAB Granulocytes/Omar 2.3 1.7 - 7.0 01/18/2021 [facility] O trophils K/uL 9:57 AM CDT LAB Absolute Specimen Anatomical Collection Method Collection Time Receive d Time (Source) Location / / Volume Laterality Blood 01/18/2021 9:14 AM 9:14 CDT AM CDT Heidi Corona MD LAB BLOOD ORDERABLES Performing Organization Address City/State/ZIP Code Phon e Number [facility] [address] [place] [address] [place] [address] TSH (01/18/2021 9:14 AM CDT) P athologist Signature TSH, Sensitive 3.00 0.46 - [...] / Volume Laterality Blood 01/18/2021 9:14 AM CDT 12:27 PM CDT Heidi Corona MD LAB BLOOD ORDERABLES Performing Organization Address City/State/ZIP Code Phon e Number [facility] [address] [place] [address] Comprehensive metabolic panel (01/18/2021 9:14 AM CDT) athologist Signature Total Protein 7.7 6.3 - 8.2 01/18/2021 [place] g/dL 1:[address] [facility] Albumin, Serum 4.5 3.5 - 5.0 01/18/2021 [place] g/dL 1:[address] [facility] Total Bilirubin <0.7 0.1 - 1.0 01/18/2021 [place] mg/dL 1:[address] [facility] AST 25 8 - 43 U/L 01/18/2021 [place] 1:[address] [facility] Alkaline 53 38 - 128 01/18/2021 [place] Phosphatase U/L 1:[address] [facility] ALT (SGPT) 18 0 - 34 U/L 01/18/2021 [place] 1:[address] [facility] Sodium 139 135 - 145 01/18/2021 [place] mEq/L 1:[address] [facility] Potassium 4.4 3.5 - 5.1 01/18/2021 [place] mEq/L 1:[address] [facility] Chloride 106 98 - 107 01/18/2021 [place] mEq/L 1:[address] [facility] CO2 28 22 - 29 01/18/2021 [place] mmol/L 1:[address] [facility] BUN 16 5 - 25 01/18/2021 [place] mg/dL 1:[address] [facility] Creatinine 0.7 0.4 - 1.2 01/18/2021 [place] mg/dL 1:[address] [facility] Glucose 96 70 - 100 01/18/2021 [place] mg/dL 1:[address] [facility] Calcium, Total,S 9.5 8.4 - 10.2 01/18/2021 [place] mg/dL 1:[address] [facility] Fasting? Yes 01/18/2021 [place] 9:[address] [facility] Specimen Anatomical Collection Method Collection Time Receive d Time (Source) Location / / Volume Laterality Blood 01/18/2021 9:14 AM CDT 12:27 PM CDT Heidi Corona MD LAB BLOOD ORDERABLES Performing Organization Address City/State/ZIP Code Phon e Number [facility] [address] [place] [address] documented in this encounter Visit Diagnoses Diagnosis Borderline abnormal thyroid function dea t - Primary Diabetes mellitus screening Screening for diabetes mellitus Family history of thyroid disease Family history of other endocrine and me tabolic diseases Iron deficiency anemia, unspecified iron deficiency anemia type documented in this encounter Care Teams Building Maintenance Worker Relationship Specialty Start Date End Date Hiedi Corona MD PCP - General Family Medicine 03/23/20 documented as of this encounter
--- OUTSIDE RECORDS SUMMARY | 2022-04-26 15:50 | XMS_ITS | Encounter Summary ---
:1990 Author Organization [facility] Address [address] [place] [address] Care Team Providers Name Role Phone Meghan Hernandez PA-C Primary Care Provider Reason for Visit Reason Onset Date Comments test results 07/09/2018 Encounter Details Date Type Department Care Team Description 07/09/2018 Telephone Meghan Dean PA-C test results [address] [place] [address] [place] [address] [place] [address] [phone] (Wo rk) Social History Tobacco Use Types [...] or relatives? How often do you attend holiness or More than 4 times per year 06/04/2018 religion services? Do you belong to any clubs or Yes 06/04/2018 organizations such as holiness groups, unions, fraternal or athletic groups, or [...] this encounter Miscellaneous Notes Telephone Encounter - Beatrice Villalobos LPN - 07/20/2018 12:41 PM CST Pt informed of the above. CATION ANALYST Telephone Encounter - Arti Preston MA - 07/20/2018 12:04 PM CST LMTCB CATION ANALYST Telephone Encounter - Dennys Garcia MD - 07/20/2018 10:45 AM CST If a cyst burst, then pain usually improves. Ovarian cysts usually don't lead to heavy menses. Sounds like she has a resolved viral gastroenteritis with diarrhea, hot/cold sxs. CATION ANALYST Telephone Encounter - Arti Preston MA - 07/10/2018 3:39 PM CST Pt calls back stating she is still having severe pain that starts in her right abdomen and moves around to her lower back. She is still having diarrhea but states it is getting better. She did get her menses this morning. She states it is very heavy with clotting. She also feels that she goes back andforth between hot and cold. She remembers Meghan mentioned a possible ovarian cyst and wonders if that could be the reasoning for her clotting and if a cyst burst, would she still have the pain? Please advise. CATION ANALYST Telephone Encounter - Arti Preston MA - 07/10/2018 1:42 PM CST Left detailed message. CATION ANALYST Telephone Encounter - Dennys Garcia MD - 07/10/2018 1:11 PM CST Please notify pt that her CT was normal. Some fluid in her colon consistent with the diarrhea she was experiencing. CATION ANALYST Telephone Encounter - Amparo Vargas MA - 07/10/2018 12:25 PM CST Please review lab and CT results and advise in PCP absence. CATION ANALYST Telephone Encounter - Mary Ansari - 07/09/2018 3:20 PM CST Pt calling for test results. 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 CATION ANALYST documented in this encounter Plan of Treatment Not on filedocumented as of this encounter Visit Diagnoses Not on filedocumented in this encounter Care Teams Director Of Content And Programming Relationship Specialty Start Date End Date Meghan Hernandez PA-C PCP - General Family Medicine 05/03/18 03/22/[address] [place] [address] documented as of this encounter
--- OUTSIDE RECORDS SUMMARY | 2022-04-26 15:50 | XMS_ITS | Encounter Summary ---
:1990 Author Organization [facility] Address [address] [place] [address] Care Team Providers Name Role Phone Heidi Corona MD Primary Care Provider Unavailable Reason for Visit Reason Onset Date Comments Survey 01/19/2021 Encounter Details Date Type Department Care Team Description 01/19/2021 Telephone [place] Heidi Corona MD Survey [address] [place] [address] Social History Tobacco Use Types Packs/Day Years [...] or relatives? How often do you attend yazdanism or More than 4 times per year 06/04/2018 samaritan services? Do you belong to any clubs or Yes 06/04/2018 organizations such as yazdanism groups, unions, fraternal or athletic groups, or [...] Encounter - Bethanie Barber MA - 01/20/2021 3:42 PM CDT Contacted patient on separate telephone encounter. Completed call. Telephone Encounter - Felipa Kendall - 01/19/2021 3:55 PM CDT Patient returned call about taking a survey. Please call patient back tomorrow. documented in this encounter Plan of Treatment Not on filedocumented as of this encounter Visit Diagnoses Not on filedocumented in this encounter Care Teams Plasterer Helper Relationship Specialty Start Date End Date Heidi Corona MD PCP - General Family Medicine 03/23/20 documented as of this encounter
--- OUTSIDE RECORDS SUMMARY | 2022-04-26 15:50 | XMS_ITS | Encounter Summary ---
:1990 Author Organization [facility] Address [address] [place] [address] Care Team Providers Name Role Phone Neetu Vargas MD Primary Care Provider Encounter Details Date Type Department Care Team Description 02/15/2022 Telephone [place] Neetu Vargas, [address] [place] [address] [address] [place], [place] [address] [place] [address] [address] [place] [phone] (Wo rk) Social History Tobacco Use Types [...] or relatives? How often do you attend orthodox or More than 4 times per year 06/04/2018 mormon services? Do you belong to any clubs or Yes 06/04/2018 organizations such as orthodox groups, unions, fraternal or athletic groups, or [...] this encounter Miscellaneous Notes Telephone Encounter - Perla Russo - 02/15/2022 12:35 PM CDT Patient has appt. On 02/21 Telephone Encounter - Neda Franklin RN - 02/15/2022 12:29 PM CDT Due for annual exam and med refill. Was seen by Dr Corona and switched automatically to Dr Vargas. Can change if desired. Can discuss if labs needed at visit. documented in this encounter Plan of Treatment Not on filedocumented as of this encounter Visit Diagnoses Not on filedocumented in this encounter Care Teams Seam Rubbing Machine Operator Relationship Specialty Start Date End Date Neetu Vargas MD PCP - General 11/23/[address] [place] [phone] documented as of this encounter
--- OUTSIDE RECORDS SUMMARY | 2022-04-26 15:50 | XMS_ITS | Encounter Summary ---
:1990 Author Organization [facility] Address [address] [place] [address] Care Team Providers Name Role Phone Heidi Corona MD Primary Care Provider Unavailable Encounter Details Date Type Department Care Team Description 11/05/2020 Orders Only [facility] Heidi Corona MD [address] [place], [place] [id number] Social History Tobacco Use Types Packs/Day Years [...] or relatives? How often do you attend uatsdin or More than 4 times per year 06/04/2018 jehovah's witness services? Do you belong to any clubs or Yes 06/04/2018 organizations such as uatsdin groups, unions, fraternal or athletic groups, or [...] on filedocumented in this encounter Care Teams Stone Rougher Relationship Specialty Start Date End Date Heidi Corona MD PCP - General Family Medicine 03/23/20 documented as of this encounter
--- OUTSIDE RECORDS SUMMARY | 2022-04-26 15:50 | XMS_ITS | Encounter Summary ---
:1990 Author Organization [facility] Address [address] [place] [address] Care Team Providers Name Role Phone Meghan Hernandez PA-C Primary Care Provider Encounter Details Date Type Department Care Team Description 07/04/2018 Lab [facility] [address] [place] [address] Social History Tobacco Use Types Packs/Day Years [...] or relatives? How often do you attend congregational or More than 4 times per year 06/04/2018 taoist services? Do you belong to any clubs or Yes 06/04/2018 organizations such as congregational groups, unions, fraternal or athletic groups, or [...] on filedocumented in this encounter Care Teams Aviation Manager Relationship Specialty Start Date End Date Meghan Hernandez PA-C PCP - General Family Medicine 05/03/18 03/22/20 [address] [facility] [place] [phone] documented as of this encounter
--- OUTSIDE RECORDS SUMMARY | 2022-04-26 15:50 | XMS_ITS | Encounter Summary ---
:1990 Author Organization [facility] Address [address] [place] [address] Care Team Providers Name Role Phone Meghan Hernandez PA-C Primary Care Provider Encounter Details Date Type Department Care Team Description 07/05/2018 Lab [place] Diarrhea, unspecified type [address] [place] [address] Social History Tobacco Use Types Packs/Day Years [...] or relatives? How often do you attend jew or More than 4 times per year 06/04/2018 pentecostalism services? Do you belong to any clubs or Yes 06/04/2018 organizations such as jew groups, unions, fraternal or athletic groups, or [...] Procedure Name Priority Date/Time Associated Comments Diagnosis OVA AND PARASITE, Routine 07/04/2018 7:00 Diarrhea, Results for this CONCENTRATE & SMEAR, PM LABOR DELIVERY SPECIALIST unspecified type pro cedure are in MICROSCOPY, FECES the result s section. GIARDIA / Routine 07/04/2018 7:00 Diarrhea, Results for this CRYPTOSPORIDIUM PM LABOR DELIVERY SPECIALIST unspecified type procedur e are in ANTIGENS, FECES the results section. CLOSTRIDIUM DIFFICILE Routine 07/04/2018 7:00 Diarrhea, Res ults for this TOXIN PM LABOR DELIVERY SPECIALIST unspecified type procedure a re in the results section. STOOL CULTURE Routine 07/04/2018 7:00 Diarrhea, Results for this PM LABOR DELIVERY SPECIALIST unspecified type procedure a re in the results section. documented in this encounter Results Stool culture (07/04/2018 7:00 PM [facility] [[email or web address] gist Method Time Signature Stool Culture Negative for Salmonella, Shigella, Campy lobacter, E coli O157:H7, 07/08/2018 [place] Yersinia. Negative for other Shiga toxin producing E. coli . 7:09 AM [facility] . [facility] (Expected result is negative in the absence of Shiga toxin p roducing E. coli). Specimen Anatomical Collection Method Collection Time Receive d Time (Source) Location / / Volume Laterality Stool 07/04/2018 7:00 PM 8 LABOR DELIVERY SPECIALIST 12:31 PM LABOR DELIVERY SPECIALIST Narrative [facility] - 09/2017 7:09 AM LABOR DELIVERY SPECIALIST Patient does not have an Amoxicillin or PCN allergy Meghan Hernandez PA-C LAB MICROBIOLOGY - GENERAL O RDERABLES Performing Organization Address City/State/ZIP Code Phon e Number [facility] [address] [place] [address] Parasitic Evaluation (07/04/2018 7:00 PM [facility] [[email or web address] P athologist Signature Ova + Parasite =- 07/07/2018 [facility] Exam 10:02 AM [facility] [[email or web address]] LABORATORIES Comment: SOURCE: STOOL PARASITIC EXAMINATION ?FINAL No parasites seen. Cryptosporidium, Cyclospora, and microsp oridia are not readily detected by this method. Single negative specimen does not rule o ut parasitic infection. Test Performed by: [facility] [address] [place] [address] Source STOOL 07/05/2018 1:45 PM LABOR DELIVERY SPECIALIST [facility] Specimen Anatomical Collection Method Collection Time Receive d Time (Source) Location / / Volume Laterality Stool 07/04/2018 7:00 PM 8 1:47 LABOR DELIVERY SPECIALIST PM LABOR DELIVERY SPECIALIST Meghan BURROWSC LAB BODY FLUIDS AND STOOLS O RDERABLES Performing Organization Address City/State/ZIP Code Phon e Number [facility] see result attachment for specific address Clostridium difficile toxin (07/04/2018 7:00 PM LABOR DELIVERY SPECIALIST) Analysis Performed At Patho logist Time Signature Toxigenic C. NEGATIVE Negative 07/06/2018 [place] Diff 4:56 PM [facility] Comment: Test performed using Subblime GeneXpert (real-time PCR targeting the Toxin B gen e) Specimen Anatomical Collection Method Collection Time Receive d Time (Source) Location / / Volume Laterality Stool 07/04/2018 7:00 PM 8 LABOR DELIVERY SPECIALIST 12:47 PM LABOR DELIVERY SPECIALIST Meghan MARTI-C LAB BODY FLUIDS AND STOOLS O RDERABLES Performing Organization Address City/[facility]/ZIP Code Phon e Number [facility] [address] [place] [phone] Cryptosporidium/Giardia antigen, feces (07/04/2018 7:00 PM LABOR DELIVERY SPECIALIST) Patholo gist Method Time Signature Cryptosporidium NEGATIVE Negative 07/06/2018 [place] 4:07 PM [facility] Comment: . Giardia lamblia NEGATIVE Negative 07/06/2018 4:07 PM C [facility] Comment: . Specimen Anatomical Collection Method Collection Time Receive d Time (Source) Location / / Volume Laterality Stool 07/04/2018 7:00 PM 8 LABOR DELIVERY SPECIALIST 12:31 PM LABOR DELIVERY SPECIALIST Meghan MARTI-C LAB BODY FLUIDS AND STOOLS O RDERABLES Performing Organization Address City/State/ZIP Code Phon e Number [facility] [address] [place] [address] documented in this encounter Visit Diagnoses Diagnosis Diarrhea, unspecified type documented in this encounter Care Teams Viscosity Worker Relationship Specialty Start Date End Date Meghan Hernandez PA-C PCP - General Family Medicine 05/03/18 03/22/[address] [place] [phone] documented as of this encounter
--- OUTSIDE RECORDS SUMMARY | 2022-04-26 15:50 | XMS_ITS | Encounter Summary ---
:1990 Author Organization [facility] Address [address] [place] [address] Care Team Providers Name Role Phone Heidi Corona MD Primary Care Provider Unavailable Encounter Details Date Type Department Care Team Description 03/25/2020 Telemedicine Heidi Loco mood disturbance (Primary Dx); [address] Hitesh Ayala MD Mild intermittent [place] [address] Social History Tobacco Use Types Packs/Day Years [...] or relatives? How often do you attend yarsani or More than 4 times per year 06/04/2018 hindu services? Do you belong to any clubs or Yes 06/04/2018 organizations such as yarsani groups, unions, fraternal or athletic groups, or [...] documented as of this encounter Progress Notes Heidi Corona MD - 03/25/2020 10:20 AM CDT Estab Patient Telehealth Subjective Patient ID: Nancy Ferris is a 29 y.o. female. No chief complaint on file. HPI Patient is a 29-year-old P1 who presents for telehealth visit for follow-up of asthma and also to discuss some mood symptoms. She is 5 months and is noticed in the last few weeks that she has had more anxiety, tearfulness and feeling guilty and worried. She says that things have been stressful because of planning for the upcoming school year. 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 Her daughter, Rosendo, has been healthy though has had frequent visits to regional operations director for some possible allergies. She is doing fine. However, mom has had some anxiety related to not only work but also possible move and her , Henry, works long hours. She says she is sleeping about 6 hours per night which she says is better than earlier when her daughter was more frequent breast-feeding. She does say that she has difficulty falling asleep because that is whenher mind turns on and she has worries about things. She also feels bad if she does not get houseworkdone. She has no prior history of mental health concerns aside from some normal stress around the time of start of school. Her sister does have some anxiety however. Patient has never taken medication for mood symptoms. She says her asthma has been well controlled and she did not take her controller inhaler during her . However, her symptoms tend to flare in the late summer, early spring so she would like a refill of that. She has been avoiding potential allergens as she is mostly been staying at home and says she is only used her albuterol inhaler couple times in the last several weeks. Current Outpatient Medications on File Prior to Visit Medication Sig Dispense Refill ??? Cetirizine HCl (ZyrTEC ALLERGY) 10 MG capsule 1 tablet 1 (one) time each day ??? magnesium oxide (MAG-OX) 400 MG tablet Take 400 mg by mouth every night ??? fluticasone (FLONASE) 50 MCG/ACT nasal spray Administer 1 spray into affected nostril(s) if needed ??? Lactobacillus (ACIDOPHILUS PROBIOTIC) tablet Take by mouth 1 (one) time each day ??? Mefenamic Acid (PONSTEL) 250 MG capsule Take 1 tablet by mouth 2 (two) times a day if needed (menstrual cramps) 30 each 0 ??? montelukast (SINGULAIR) 10 MG tablet Take 1 tablet (10 mg total) by mouth daily 90 tablet 3 ??? Multiple Vitamins-Minerals (MULTIVITAMIN ADULT EXTRA C) chewable tablet Chew 2 tablets 1 (one) time each day No current facility-administered medications on file prior to visit. Sulfamethoxazole-trimethoprim; Fructose; and Minocycline The following portions of the patient's chart were reviewed in this encounter and updated as appropriate: Meds Review of Systems See HPI. Objective Physical Exam not currently . Patient is currently pumping breast milk. PHQ 9 equals 5, traci 7 equals 5. She denies suicidal or homicidal ideation. She is visible through the camera and she has times when she is somewhat tearful but thought processis logical and linear. Her mood and affect are congruent. Assessment/Plan Diagnoses and all orders for this visit: mood disturbance Mild intermittent asthma without complication - mometasone-formoterol (DULERA 100) 100-5 MCG/ACT inhaler; Inhale 2 puffs 2 (two) times a day [place] with water after use to reduce aftertaste and incidence of candidiasis. Do not swallow. - albuterol HFA (PROVENTIL HFA;VENTOLIN HFA) 108 (90 Base) MCG/ACT inhaler; Inhale 2 puffs every 6 (six) hours if needed for wheezing I am concerned about patient's mood as this has been onset in the period and I think given the duration of her symptoms, she is certainly at risk for depression and I discussed the importance of her having adequate sleep and we discussed that ideally she would be sleeping 8 to 9 hours per night. She feels that she could try to do this as she has support systems in place. Discussed that if her mood symptoms worsen or certainly she is not sleeping, would consider medication but would have to consider with the fact that she is pumping breast milk and feeding that to her 5-month-old . She is not too keen on the idea of medication at this time. I would like to see her back in follow-up in 2 weeks. I renewed her asthma medications and she has been stable as far as asthma but was not able to examine her lungs today. 20 minutes spent with patient with 15 minutes spent counseling and/or coordinating care. We discussed self-care as far as ways to address mood symptoms and also reasons to follow-up. This dictation was created with voice recognition software and therefore may contain errors that went unnoticed. There are no Patient Instructions on file for this visit. documented in this encounter Plan of Treatment Not on filedocumented as of this encounter Visit Diagnoses Diagnosis mood disturbance - Primary Mild intermittent asthma without complic ation documented in this encounter Care Teams Business Operations Manager Relationship Specialty Start Date End Date Heidi Corona MD PCP - General Family Medicine 03/23/20 documented as of this encounter
--- OUTSIDE RECORDS SUMMARY | 2022-04-26 15:50 | XMS_ITS | Encounter Summary ---
:1990 Author Organization [facility] Address [address] [place] [address] Care Team Providers Name Role Phone Meghan Hernandez PA-C Primary Care Provider Encounter Details Date Type Department Care Team Description 07/15/2018 Orders Only Meghan Dean, Abnormal blood [address] [place] GARCIA chemistry test (Primary [place] [address] [address] [place]) [phone] [place] [phone] Social History Tobacco Use Types Packs/Day Years [...] More than 4 times per year 06/04/2018 presybeterian services? Do you belong to any clubs [...] documented as of this encounter Progress Notes Meghan Hernandez PA-C - 07/15/2018 5:53 PM CST Please advise patient her stool tests for culture, O&P, Cdiff, Giardia, Cryptosporidium, TSH, and lipids were all normal. Her C14 showed mild elevations in AST and ALT. Recommend LFT panel. Is she still having symptoms? OGRAPHER Sergio Wasserman RN - 07/15/2018 5:53 PM CST LMTCB OGRAPHER Kar Batres LPN - 07/15/2018 5:53 PM CST LMTCB at home number. OGRAPHER Arti Preston MA - 07/15/2018 5:53 PM CST Pt notified and agrees. She is not having pain as often but is still having light headedness and diarrhea. She is having a BM about 1 hr after eating every meal. Pt will try to come in tomorrow for LFTpanel. OGRAPHER documented in this encounter Plan of Treatment Not on filedocumented as of this encounter Results (ABNORMAL) Liver panel (07/17/2018 3:37 PM ETHNOGRAPHER) Analysis Performed At Patho logist Time Signature Total Protein 7.7 6.3 - 8.2 07/18/2018 [place] g/dL 12:55 PM [facility] Albumin, Serum 4.7 3.5 - 5.0 07/18/2018 [place] g/dL 12:55 PM [facility] Total Bilirubin <0.7 0.1 - 1.0 07/18/2018 [place] mg/dL 12:55 PM [facility] Bilirubin, <0.1 0.0 - 0.3 07/18/2018 [place] Direct mg/dL 12:55 PM [facility] AST 32 8 - 43 U/L 07/18/2018 [place] 12:55 PM [facility] Alkaline 51 38 - 128 07/18/2018 [place] Phosphatase U/L 12:55 PM [facility] ALT (SGPT) 71 (H) 25 - 45 07/18/2018 [place] U/L 12:55 PM [facility] Comment: . Specimen Anatomical Collection Method Collection Time Receive d Time (Source) Location / / Volume Laterality Blood 07/17/2018 3:37 PM 8 ETHNOGRAPHER 12:32 PM ETHNOGRAPHER Meghan Hernandez PA-C LAB BLOOD ORDERABLES Performing Organization Address City/State/ZIP Code Phon e Number [facility] [address] [place] [phone] documented in this encounter Visit Diagnoses Diagnosis Abnormal blood chemistry test - Primary documented in this encounter Care Teams Donor Services Specialist Relationship Specialty Start Date End Date Meghan Hernandez PA-C PCP - General Family Medicine 05/03/18 03/22/[address] [place] [phone] documented as of this encounter
--- OUTSIDE RECORDS SUMMARY | 2022-04-26 15:51 | XMS_ITS | Encounter Summary ---
:1990 Author Organization [facility] Address [address] [place] [address] Care Team Providers Name Role Phone Meghan Hernandez PA-C Primary Care Provider Reason for Visit Reason Comments Annual Exam Encounter Details Date Type Department Care Team Description 06/04/2018 Office Visit Meghan Dean Well adult exam (Primary Dx) ; [address] JEREMIAH Aguayo PA-C Immunization due; [place] [phone] Encounter for lipid screenin g for cardiovascular disease; [phone] Abnormal laboratory test result; [place] Moderate persis tent asthma without complication; [id number] Dysmenorrhea Social History Tobacco Use Types Packs/Day Years [...] or relatives? How often do you attend baptism or More than 4 times per year 06/04/2018 uatsdin services? Do you belong to any clubs or Yes 06/04/2018 organizations such as baptism groups, unions, fraternal or athletic groups, or [...] Sign Reading Time Taken Comments Blood Pressure 110/72 06/04/2018 4:02 PM CDT Pulse 88 06/04/2018 4:02 PM CDT Temperature 36.8 ??C (98.2 ??F) 06/04/2018 4:02 PM CDT Respiratory Rate 16 06/04/2018 4:02 PM CDT Oxygen Saturation - - Inhaled Oxygen Concentration - - Weight 84.3 kg (185 lb 12.8 oz) 06/04/2018 4:02 PM CDT Height 161.8 cm (5' 3.7) 06/04/2018 4:02 PM CDT Body Mass Index 32.19 06/04/2018 4:02 PM CDT documented in this encounter Progress Notes KAIA Womack - 06/04/2018 4:00 PM CDT Well Adult - Estab Well Adult - Estab Subjective Patient ID: Nancy Alberto is a 27 y.o. female. Chief Complaint Patient presents with ??? Annual Exam HPI 27-year-old female, new to myself but having been seen by other providers and [facility], is in today for physical examination. She has some questions in regards to conception. 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 LMP 05/30/2018 Patient was previously on Julissa. She has been off of it over the last month. She uses for contraception as well as control of her acne. She is thinking of conceiving a child. She has been with her partner for 11 years. She has no history of abnormal Paps or STDs. Last Pap outside facility 2017. Current Outpatient Medications: ??? albuterol HFA (PROAIR HFA) 108 (90 Base) MCG/ACT inhaler, Inhale 2 puffs if needed for wheezing Every 4-6 hours, Disp: 18 g, Rfl: 1 ??? Cetirizine HCl (ZyrTEC ALLERGY) 10 MG capsule, 1 tablet 1 (one) time each day, Disp: , Rfl: ??? fluticasone (FLONASE) 50 MCG/ACT nasal spray, Administer 1 spray into affected nostril(s) if needed, Disp: , Rfl: ??? Lactobacillus (ACIDOPHILUS PROBIOTIC) tablet, Take by mouth 1 (one) time each day, Disp: , Rfl: ??? magnesium oxide (MAG-OX) 400 MG tablet, Take 400 mg by mouth every night, Disp: , Rfl: ??? Mefenamic Acid (PONSTEL) 250 MG capsule, Take 1 tablet by mouth 2 (two) times a day if needed (menstrual cramps), Disp: 30 each, Rfl: 0 ??? mometasone-formoterol (DULERA) 100-5 MCG/ACT inhaler, Inhale 2 puffs 2 (two) times a day, Disp: 13 g, Rfl: 11 ??? montelukast (SINGULAIR) 10 MG tablet, Take 1 tablet (10 mg total) by mouth daily, Disp: 90 tablet, Rfl: 3 ??? Multiple Vitamins-Minerals (MULTIVITAMIN ADULT EXTRA C) chewable tablet, Chew 2 tablets 1 (one) time each day, Disp: , Rfl: Allergies as of 06/04/2018 - Reviewed 06/04/2018 Allergen Reaction Noted ??? Sulfamethoxazole-trimethoprim Shortness of breath ??? Fructose GI intolerance 01/18/2007 ??? Minocycline Other (see comments) Patient Active Problem List Diagnosis Date Noted ??? Seasonal allergic conjunctivitis ??? Asthma ??? Allergic rhinitis ??? Acne Past Medical History: Diagnosis Date ??? Acne ??? Allergic rhinitis Perennial with seasonal flair ??? Asthma ??? History of varicella childhood ??? IBS (irritable bowel syndrome) alternating constipation and diarrhea ??? Puberty Menarche age 13 ??? Seasonal allergic conjunctivitis Past Surgical History: Procedure Laterality Date ??? TONSILLECTOMY ??? WISDOM TOOTH EXTRACTION x 4 Family History Problem Relation Age of Onset ??? Hypertension Mother ??? Alcohol abuse Father ??? Asthma Sister ??? Hydrocephalus Sister ??? Chiari malformation Sister ??? Early puberty Sister ??? Tremor Sister ??? Anxiety disorder Sister ??? Depression Sister ??? Irritable bowel syndrome Sister ??? Diabetes Maternal Grandfather ??? Heart disease Maternal Grandfather ??? Hyperlipidemia Maternal Grandfather ??? Hypertension Maternal Grandfather ??? Stroke Maternal Grandfather ??? Stroke Maternal Grandmother ??? Hypothyroidism Maternal Grandmother ??? Hypothyroidism Paternal Grandmother ??? Cervical cancer Paternal Grandmother Social History Socioeconomic History ??? Marital status: Life Partner Spouse name: Josh ??? Number of children: 0 ??? Years of education: None ??? Highest education level: Bachelor's degree (e.g., BA, AB, BS) Social Needs ??? Financial resource strain: Not hard at all ??? Food insecurity - worry: Never true ??? Food insecurity - inability: Never true ??? Transportation needs - medical: No ??? 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 Smoking status: Never Smoker ??? Smokeless tobacco: Never Used Substance and Sexual Activity ??? Alcohol use: Yes Frequency: Monthly or less Drinks per session: 3 or 4 Binge frequency: Less than monthly ??? Drug use: No ??? Sexual activity: Yes Partners: Male Other Topics Concern ??? None Social History Narrative ??? None Review of Systems Completed and negative other than some headaches from her allergies and around her menstrual cycle. Immunization History Administered Date(s) Administered ??? DTP 02/10/1993, 04/14/1993, 06/16/1993, 04/02/1998 ??? DTaP 02/10/1993, 04/14/1993, 06/16/1993, 04/02/1998 ??? HPV 9-Valent 06/04/2018 ??? HPV, Quadrivalent 11/28/2007, 01/28/2008 ??? HPV, Unspecified 11/28/2007, 01/28/2008 ??? Hep B, Adolescent or Pediatric 1992, 02/10/1993, 06/16/1993 ??? Hep B, Unspecified 02/10/1993, 06/16/1993 ??? HiB 04/15/1993, 06/16/1993, 06/17/1994, 04/02/1998 ??? Hib (PRP-D) 04/15/1993, 06/16/1993, 06/17/1994, 04/02/1998 ??? IPV 02/10/1993, 04/14/1993, 06/17/1993, 04/02/1998 ??? Influenza (IM) Preservative Free 06/10/2014 ? ? Influenza (IM)>3yr Quadrivalent Preservative Free 07/23/2013, 05/07/2014, 08/27/2015, 06/13/2016, 04/07/2017 ??? Influenza TIV (IM) 05/20/1999, 06/21/1999, 07/11/2003, 07/29/2004, 05/23/2005, 05/25/2006, 06/18/2007, 04/14/2009, 07/12/2010, 05/17/2011, 05/23/2012 ??? Influenza, Quadrivalent 04/05/2018 ??? Influenza, Unspecified 06/10/2014, 08/27/2015, 06/05/2017 ??? MMR 06/17/1994, 04/02/1998, 12/21/2004 ??? Meningococcal MCV4P 03/13/2008 ??? Pneumococcal Polysaccharide 08/07/2003, 07/29/2004 ??? Pneumococcal, Unspecified 07/29/2004 ??? Td 12/21/2004 ??? Tdap 03/30/2011 Health Maintenance Topic Date Due ??? Pap Smear 1992 Objective Visit Vitals BP 110/72 (BP Location: Left arm, Patient Position: Sitting) Pulse 88 Temp 36.8 ??C (98.2 ??F) (Temporal) Resp 16 Ht 1.618 m (5' 3.7) Wt 84.3 kg (185 lb 12.8 oz) BMI 32.19 kg/m?? Smoking Status Never Smoker BSA 1.95 m?? Physical Exam GENERAL: Alert, well-developed, well-groomed woman, no acute distress. HEENT: Sclerae and conjunctivae are clear without erythema, no discharge. External canals and TMs are clear bilaterally. Nasal mucosa clear. Oropharynx clear. NECK: Without adenopathy, no thyromegaly, nodules, or bruits. HEART: Regular rate and rhythm, no murmur. Normal S1 and S2. No S3 or S4. LUNGS: Clear to auscultation, no adventitious breath sounds. BREASTS: Symmetric, nontender, without mass, galactorrhea or skin changes. Axilla nontender without mass. ABDOMEN: Soft, nontender and nondistended. No HSM, masses, or bruits. GENITOURINARY: Normal female external genitalia. BUS normal. Vaginal mucosa unremarkable. Cervix nulliparous, no erythema or lesions. Uterus anteverted, normal size, no nodularity or tenderness. Adnexanontender without mass. RECTAL: With good rectal tone. No palpable lesions in the rectal mucosa. EXTREMITIES: Lower extremities are without edema. Assessment/Plan Diagnoses and all orders for this visit: Well adult exam Immunization due - HPV vaccine 9-valent IM Encounter for lipid screening for cardiovascular disease - Lipid panel; Future Abnormal laboratory test result - TSH; Future Moderate persistent asthma without complication - albuterol HFA (PROAIR HFA) 108 (90 Base) MCG/ACT inhaler; Inhale 2 puffs if needed for wheezing Every 4-6 hours - mometasone-formoterol (DULERA) 100-5 MCG/ACT inhaler; Inhale 2 puffs 2 (two) times a day - montelukast (SINGULAIR) 10 MG tablet; Take 1 tablet (10 mg total) by mouth daily Dysmenorrhea - Mefenamic Acid (PONSTEL) 250 MG capsule; Take 1 tablet by mouth 2 (two) times a day if needed (menstrual cramps) Patient will sign an MILTON to obtain her previous Pap smear. Encouraged her on healthy diet regular physical activity. Discussed insurance she is on a vitamin that contains folic acid and B supplements. HPV 30 immunization administered today. She will return fasting for lipid panel. At that time we willalso obtain a TSH as she had this elevated and testing a year ago. All questions answered. documented in this encounter Plan of Treatment Not on filedocumented as of this encounter Results Lipid panel (07/04/2018 1:00 PM INTERNATIONAL OPERATIONS MANAGER) P athologist Signature Cholesterol 140 0 - 199 07/05/2018 [facility] mg/dL 1:53 PM INTERNATIONAL OPERATIONS MANAGER [facility] Comment: Recommended by National Cholesterol Education Program (ATP III) -------- Cholesterol Ranges -------- <200 ? Desirable 200-239 ? Borderline high >=240 ? High Triglycerides 49 0 - 149 mg/dL 07/05/2018 1:[address] [facility] Comment: -------- TRIG Ranges -------- <150 ?Normal 150-199 ? Borderline high 200-499 ? High >=500 ? Very high HDL 60 40 - 60 mg/dL 07/05/2018 1:53 PM [facility] Comment: -------- HDL Ranges -------- <40 ?Low 40-59 ?Normal >=60 ? Optimal LDL Calculated 70 0 - 99 mg/dL 07/05/2018 1:[address] [facility] Comment: -------- LDL Ranges -------- <100 ? Optimal 100-129 ?Near optimal/above op timal 130-159 ?Borderline high 160-189 ?High >=190 ?Very high Specimen Anatomical Collection Method Collection Time Receive d Time (Source) Location / / Volume Laterality Blood 07/04/2018 1:00 PM 8 1:02 INTERNATIONAL OPERATIONS MANAGER PM INTERNATIONAL OPERATIONS MANAGER Meghan Hernandez PA-C LAB BLOOD ORDERABLES Performing Organization Address City/State/ZIP Code Phon e Number [facility] [address] [place] [address] TSH (07/04/2018 1:00 PM INTERNATIONAL OPERATIONS MANAGER) athologist Signature TSH, Sensitive 2.30 0.46 - 07/05/2018 [facility] 4.68 mIU/L 4:31 PM [email or web address] Comment: The results from this [...] (Source) Location / / Volume Laterality Blood 07/04/2018 1:00 PM 8 1:03 INTERNATIONAL OPERATIONS MANAGER PM INTERNATIONAL OPERATIONS MANAGER Meghan Hernandez PA-C LAB BLOOD ORDERABLES Performing Organization Address City/State/ZIP Code Phon e Number [facility] [address] [place] [address] documented in this encounter Visit Diagnoses Diagnosis Well adult exam - Primary Routine general medical examination at a health care facility Immunization due Encounter for lipid screening for cardio vascular disease Abnormal laboratory test result Other abnormal clinical finding Moderate persistent asthma without compl ication Dysmenorrhea documented in this encounter Care Teams Laborer Plumbing Relationship Specialty Start Date End Date Meghan Hernandez PA-C PCP - General Family Medicine 05/03/18 03/22/20 [address] [place] [address] documented as of this encounter
--- OUTSIDE RECORDS SUMMARY | 2022-04-26 15:51 | XMS_ITS | Encounter Summary ---
:1990 Author Organization [facility] Address [address] [place] [address] Care Team Providers Name Role Phone Meghan Hernandez PA-C Primary Care Provider Encounter Details Date Type Department Care Team Description 07/04/2018 Lab [facility] OP Lab RLQ abdominal pain [address] [place] [address] Social History Tobacco Use Types [...] or relatives? How often do you attend anabaptism or More than 4 times per year 06/04/2018 orthodoxy services? Do you belong to any clubs or Yes 06/04/2018 organizations such as anabaptism groups, unions, fraternal or athletic groups, or [...] Procedure Name Priority Date/Time Associated Comments Diagnosis GLOMERULAR Routine 07/04/2018 2:04 PM RLQ abdominal pain Res ults for this FILTRATION RATE FOREST LAW AND POLICY PROFESSOR procedure ar e in the results section. CREATININE, SERUM Routine 07/04/2018 2:04 PM RLQ abdominal rodolfo n Results for this FOREST LAW AND POLICY PROFESSOR procedure are i n the results section. documented in this encounter Results Glomerular filtration rate (GFR) (07/04/2018 2:04 PM FOREST LAW AND POLICY PROFESSOR) athologist Signature GFR >60 07/04/2018 [facility] 3:08 PM FOREST LAW AND POLICY PROFESSOR CENTER [facility] >60 07/04/2018 [facility] [place] GFR 3:08 PM [facility] Comment: GFR calculated from serum creatinine v alue Chronic Kidney Disease less than 60 mL/m in/1.73 m2 Kidney Failure less than 15 mL/min/1.73 m2 Note: effective 12/20/06 IDMS-Traceable MDRD Study Equation used. Specimen Anatomical Collection Method Collection Time Receive d Time (Source) Location / / Volume Laterality 07/04/2018 2:04 PM 8 2:04 FOREST LAW AND POLICY PROFESSOR PM FOREST LAW AND POLICY PROFESSOR Meghan Hernandez PA-C LAB BLOOD ORDERABLES Performing Organization Address City/[facility]/ZIP Code Phon e Number [facility] [address] [place], [place] [id number] Creatinine, Serum (07/04/2018 2:04 PM FOREST LAW AND POLICY PROFESSOR) athologist Signature Creatinine 0.6 0.4 - 1.2 07/04/2018 [facility] mg/dL 3:08 PM FOREST LAW AND POLICY PROFESSOR [facility]ENTER [facility] Specimen Anatomical Collection Method Collection Time Receive d Time (Source) Location / / Volume Laterality Blood 07/04/2018 2:04 PM 8 2:04 FOREST LAW AND POLICY PROFESSOR PM FOREST LAW AND POLICY PROFESSOR Meghan Hernandez PA-C LAB BLOOD ORDERABLES Performing Organization Address City/[facility]/ZIP Code Phon e Number [facility] [address] [place] [phone] documented in this encounter Visit Diagnoses Diagnosis RLQ abdominal pain Abdominal pain, right lower quadrant documented in this encounter Care Teams Antique Collector Relationship Specialty Start Date End Date Meghan Hernandez PA-C PCP - General Family Medicine 05/03/18 03/22/[address] [place] [phone] documented as of this encounter
--- OUTSIDE RECORDS SUMMARY | 2022-04-26 15:51 | XMS_ITS | Encounter Summary ---
:1990 Author Organization [facility] Address [address] [place] [address] Care Team Providers Name Role Phone Meghan Hernandez PA-C Primary Care Provider Reason for Referral Imaging (Routine) - Closed Specialty Diagnoses / Procedures Referred By Contact Refer red To Contact Radiology Diagnoses RLQ abdominal pain Meghan Hernandez PA-C Procedures CT abdomen pelvis w and wo IV contrast [address] [place] [address] Referral ID Status Reason Start Date Expiration Date Visits Requ ested Visits Authorized [id number] Closed 07/04/2018 12/31/2018 1 1 WASHER Reason for Visit Reason Comments Abdominal Pain Back Pain Encounter Details Date Type Department Care Team Description 07/04/2018 Office Visit Meghan Dean, RLQ abdominal pain (Primary Dx); [address] JEREMIAH GARCIA Diarrhea, unspecified type [place] [id number] [phone] [place] [address] Social History Tobacco Use [...] or relatives? How often do you attend zoroastrian or More than 4 times per year 06/04/2018 jewish services? Do you belong to any clubs or Yes 06/04/2018 organizations such as zoroastrian groups, unions, fraternal or athletic groups, or [...] Sign Reading Time Taken Comments Blood Pressure 110/68 07/04/2018 12:37 PM SKIN WASHER Pulse 72 07/04/2018 12:37 PM SKIN WASHER Temperature 37.3 ??C (99.2 ??F) 07/04/2018 12:37 PM SKIN WASHER Respiratory Rate 12 07/04/2018 12:37 PM SKIN WASHER Oxygen Saturation - - Inhaled Oxygen Concentration - - Weight 82.5 kg (181 lb 12.8 oz) 07/04/2018 12:37 PM SKIN WASHER Height - - Body Mass Index 31.5 06/04/2018 4:02 PM CDT documented in this encounter Progress Notes Meghan Hernandez PA-C - 07/04/2018 1:20 PM CST Estab Patient Visit Subjective Patient ID: Nancy Alberto is a 27 y.o. female. Chief Complaint Patient presents with ??? Abdominal Pain ??? Back Pain HPI 27 year old female in for a evaluation of acute abdominal pain and diarrhea. On 06/27/2018, did not feel overall very well. On 06/28/2018, developed abd pain, bloating, decreased appetite, loose stools. Pain naggy 5/10 ranging to sharp 10/10. Pain progressively getting worse. Stools now watery. Now with chills. Eating minimal. No family or friends with similar symptoms. No recent travel. No urine or upper respiratory symptoms. LMP 05/30/2018. Off OCP. Uses condoms. Home preg test x 2 are both negative. Current Outpatient Medications: ??? albuterol HFA (PROAIR [...] day, Disp: , Rfl: Allergies as of 07/04/2018 - Reviewed 07/04/2018 Allergen Reaction Noted ??? Sulfamethoxazole-trimethoprim Shortness of [...] TONSILLECTOMY ??? WISDOM TOOTH EXTRACTION x 4 Objective Visit Vitals BP 110/68 (BP Location: Right arm, Patient Position: Sitting) Pulse 72 Temp 37.3 ??C (99.2 ??F) (Temporal) Resp 12 Wt 82.5 kg (181 lb 12.8 oz) ? No BMI 31.50 kg/m?? OB Status Having periods Smoking Status Never Smoker BSA 1.93 m?? Physical Exam Constitutional: She appears well-developed and well-nourished. She appears distressed. Appears uncomfortable HENT: Head: Normocephalic. Right Ear: Tympanic membrane and external ear normal. Left Ear: Tympanic membrane and external ear normal. Nose: Nose normal. Mouth/Throat: Oropharynx is clear and moist. Eyes: Conjunctivae are normal. Right eye exhibits no discharge. Left eye exhibits no discharge. Neck: Normal range of motion. No thyromegaly present. Cardiovascular: Normal rate, regular rhythm and normal heart sounds. Exam reveals no gallop and no friction rub. No murmur heard. Pulmonary/Chest: Effort normal and breath sounds normal. No respiratory distress. She has no wheezes. Abdominal: Soft. She exhibits no distension and no mass. There is tenderness (Most in RLQ. Referred pain from LLQ to RLQ.). There is guarding (mild). There is no rebound. No hernia. Lymphadenopathy: She has no cervical adenopathy. Skin: Skin is warm and dry. She is not diaphoretic. No pallor. CBC today reviewed. Assessment/Plan Diagnoses and all orders for this visit: RLQ abdominal pain - Comprehensive metabolic panel; Future - CBC Branch Off w/Diff; Future - CT abdomen pelvis w and wo IV contrast; Future - , urine; Future - Creatinine, Serum; Future Diarrhea, unspecified type - Stool culture; Future - Parasitic Evaluation; Future - Clostridium difficile toxin; Future - Cryptosporidium/Giardia antigen, feces; Future Other orders - CT abdomen pelvis w IV contrast To the abdomen was unremarkable. Patient did do stool studies. Increase fluid intake. Further follow-up pending test results. WASHER documented in this encounter Plan of Treatment Not on filedocumented as of this encounter Procedures Procedure Name Priority Date/Time Associated Diagnosis Comme nts CT ABDOMEN PELVIS W STAT 07/04/2018 3:43 PM Re sults for this CONTRAST SKIN WASHER procedure are i n the results section. documented in this encounter Results Cryptosporidium/Giardia antigen, feces (07/04/2018 7:00 PM SKIN WASHER) Patholo gist Method Time Signature Cryptosporidium NEGATIVE Negative 07/06/2018 [place] 4:07 PM [facility] Comment: . Giardia lamblia NEGATIVE Negative 07/06/2018 4:07 PM C [facility] Comment: . Specimen Anatomical Collection Method Collection Time Receive d Time (Source) Location / / Volume Laterality Stool 07/04/2018 7:00 PM 8 SKIN WASHER 12:31 PM SKIN WASHER Meghan Hernandez PA-C LAB BODY FLUIDS AND STOOLS O RDERABLES Performing Organization Address City/State/ZIP Code Phon e Number [facility] [address] [place] [phone] Clostridium difficile toxin (07/04/2018 7:00 PM SKIN WASHER) Analysis Performed At Patho logist Time Signature Toxigenic C. NEGATIVE Negative 07/06/2018 [place] Diff 4:56 PM [facility] Comment: Test performed using [employer] GeneXpert (real-time PCR targeting the Toxin B gen e) Specimen Anatomical Collection Method Collection Time Receive d Time (Source) Location / / Volume Laterality Stool 07/04/2018 7:00 PM 8 SKIN WASHER 12:47 PM SKIN WASHER Meghan Hernandez PA-C LAB BODY FLUIDS AND STOOLS O RDERABLES Performing Organization Address City/State/ZIP Code Phon e Number [facility] [address] [place] [address] Parasitic Evaluation (07/04/2018 7:00 PM SKIN WASHER) P athologist Signature Ova + Parasite =- 07/07/2018 [facility] 10:02 AM [facility] Comment: SOURCE: STOOL PARASITIC EXAMINATION ?FINAL No parasites seen. Cryptosporidium, Cyclospora, and microsp oridia are not readily detected by this method. Single negative specimen does not rule o ut parasitic infection. Test Performed by: [facility] [address] [place] [address] Source STOOL 07/05/2018 1:45 PM SKIN WASHER [facility] Specimen Anatomical Collection Method Collection Time Receive d Time (Source) Location / / Volume Laterality Stool 07/04/2018 7:00 PM 8 1:47 SKIN WASHER PM SKIN WASHER Meghan Hernandez PA-C LAB BODY FLUIDS AND STOOLS O RDPRASHANT Performing Organization Address City/State/ZIP Code Phon e Number [facility] see result attachment for specific address Stool culture (07/04/2018 7:00 PM SKIN WASHER) [facility] gist Method Time Signature Stool Culture Negative for Salmonella, Shigella, Campy lobacter, E coli O157:H7, 07/08/2018 [place] Yersinia. Negative for other Shiga toxin producing E. coli . 7:09 AM [facility] (Expected result is negative in the absence of Shiga toxin p roducing E. coli). Specimen Anatomical Collection Method Collection Time Receive d Time (Source) Location / / Volume Laterality Stool 07/04/2018 7:00 PM 8 SKIN WASHER 12:31 PM SKIN WASHER Narrative [facility] - 09/2017 7:09 AM SKIN WASHER Patient does not have an Amoxicillin or PCN allergy Meghan Hernandez PA-C LAB MICROBIOLOGY - GENERAL O [place] Performing Organization Address City/[facility]/ZIP Code Phon e Number [facility] [address] [place] [id number] abdomen pelvis w IV contrast (07/04/2018 3:43 PM SKIN WASHER) Anatomical Region Laterality Modality Body Computed Tomography Specimen (Source) Anatomical Collection Method Collection Time Re ceived Time Location / / Volume Laterality 07/04/2018 3:43 PM SKIN WASHER Impressions 07/04/2018 4:09 PM SKIN WASHER IMPRESSION: Normal appendix. Fluid in the left colon consistent with diarrheal illness. Remainder of the exam is unremarkable. These findings were called to Meghan Adam at 4:07 p.m. on July 04, 2018. Please note that all CT scans at this [facility] use dose modulation, iterative reconstruction, and/or weight- based dosing when appropriate to reduce radiation dose to as low as reaso nably achievable. Dictated by Hortensia Larose MD @ Jul 04 2018 ??4:09PM Signed by Dr. Hortensia Larose @ Jul 04 2018 ??4:09PM Narrative 07/04/2018 4:09 PM SKIN WASHER INDICATION: Decreased appetite, right lower quadrant pain TECHNIQUE: CT abdomen and pelvis acquired with oral contrast and 94 cc Omnipaque 350 IV contrast. COMPARISON: May 04, 2011 ?? FINDINGS: Lower chest: Unremarkable. ?? Liver: Unremarkable. ?? Spleen: Unremarkable. ?? Pancreas: Unremarkable. ?? Gallbladder and bile ducts: Unremarkable . ?? Adrenal glands: Unremarkable. ?? Kidneys: Unremarkable. ?? GI tract: Oral contrast reaches the mid ascending colon. Appendix is normal. There is some fluid within other wagner normal appearing descending and sigmoid colon. Vascular structures: Unremarkable. ?? Lymph nodes: Unremarkable. ?? Miscellaneous: Unremarkable. ??No free a ir or significant free fluid. ?? Pelvic Organs: Unremarkable. ?? Bones: Unremarkable for age. ?? Procedure Note Hortensia Larose MD - 07/04/2018Formattin g of this note might be different from the original. INDICATION: Decreased appetite, right lower quadrant pain TECHNIQUE: CT abdomen and pelvis acquired with oral contrast and 94 cc Omnipaque 350 IV contrast. COMPARISON: May 04, 2011 FINDINGS: Lower chest: Unremarkable. Liver: Unremarkable. Spleen: Unremarkable. Pancreas: Unremarkable. Gallbladder and bile ducts: Unremarkable . Adrenal glands: Unremarkable. Kidneys: Unremarkable. GI tract: Oral contrast reaches the mid ascending colon. Appendix is normal. There is some fluid within other wagner normal appearing descending and sigmoid colon. Vascular structures: Unremarkable. Lymph nodes: Unremarkable. Miscellaneous: Unremarkable. No free air or significant free fluid. Pelvic Organs: Unremarkable. Bones: Unremarkable for age. IMPRESSION: Normal appendix. Fluid in the left colon consistent with diarrheal illness. Remainder of the exam is unremarkable. These findings were called to Meghan Adam at 4:07 p.m. on July 04, 2018. Please note that all CT scans at this [facility] use dose modulation, iterative reconstruction, and/or weight- based dosing when appropriate to reduce radiation dose to as low as reaso nably achievable. Dictated by Hortensia Larose MD @ Jul 04 2018 4:09PM Signed by Dr. Hortensia Larose @ Jul 04 2018 4:09PM Meghan Hernandez PA-C IMG CT PROCEDURES Creatinine, Serum (07/04/2018 2:04 PM SKIN WASHER) athologist Signature Creatinine 0.6 0.4 - 1.2 07/04/2018 [facility] mg/dL 3:08 PM [facility] Specimen Anatomical Collection Method Collection Time Receive d Time (Source) Location / / Volume Laterality Blood 07/04/2018 2:04 PM 8 2:04 SKIN WASHER PM SKIN WASHER Meghan Hernandez PA-C LAB BLOOD ORDERABLES Performing Organization Address City/State/ZIP Code Phon e Number [facility] [address] [place] [phone] , urine (07/04/2018 1:17 PM SKIN WASHER) athologist Signature NEGATIVE Negative 07/04/2018 [facility] Test, Urine 1:20 PM [facility] Specimen Anatomical Collection Method Collection Time Receive d Time (Source) Location / / Volume Laterality Urine 07/04/2018 1:17 PM 8 1:18 SKIN WASHER PM SKIN WASHER Meghan Hernandez PA-C LAB URINE ORDERABLES Performing Organization Address City/State/ZIP Code Phon e Number [facility] [address] [place] [address] CBC Branch Off w/Diff (07/04/2018 1:00 PM SKIN WASHER) athologist Signature WBC 5.5 3.5 - 10.5 07/04/2018 [facility] K/uL 1:10 PM [facility] RBC 4.27 3.90 - 07/04/2018 [facility] 5.00 M/uL 1:10 PM [facility] Hemoglobin 12.8 12.0 - 07/04/2018 [facility] 15.5 g/dL 1:10 PM [facility] Hematocrit 38.3 35.0 - 07/04/2018 [facility] 44.0 % 1:10 PM [facility] Platelets 248 150 - 450 07/04/2018 [facility] K/uL 1:10 PM [facility] MCV 89.7 81.6 - 07/04/2018 [facility] 98.3 fL 1:10 PM [facility] MCH 30.0 26.0 - 07/04/2018 [facility] 32.0 pg 1:10 PM [facility] MCHC 33.4 32.0 - 07/04/2018 [facility] 36.0 g/dL 1:10 PM [facility] RDW 12.0 11.9 - 07/04/2018 [facility] 15.5 % 1:10 PM [facility] Lymphocytes % 40.0 18.0 - 07/04/2018 [facility] 45.0 % 1:10 PM [facility] Mid-size Cells 9.6 3.3 - 10.1 07/04/2018 [facility] % 1:10 PM [facility] Granulocytes/Omar 50.4 45.8 - 07/04/2018 [facility] trophils 73.7 % 1:10 PM [facility] Lymphocytes 2.2 0.9 - 2.9 07/04/2018 [facility] Absolute K/uL 1:10 PM [facility] MIDS Absolute 0.5 0.2 - 0.8 07/04/2018 [facility] K/uL 1:10 PM [facility] Granulocytes/Omar 2.8 2.1 - 8.7 07/04/2018 [facility] trophils K/uL 1:10 PM [facility] Absolute Specimen Anatomical Collection Method Collection Time Receive d Time (Source) Location / / Volume Laterality Blood 07/04/2018 1:00 PM 8 1:03 SKIN WASHER PM SKIN WASHER Meghan Hernandez PA-C LAB BLOOD ORDERABLES Performing Organization Address City/State/ZIP Code Phon e Number [facility] [address] [place] [address] (ABNORMAL) Comprehensive metabolic panel (07/04/2018 1:00 PM SKIN WASHER) [facility] gist Method Time Signature Total Protein 8.2 6.3 - 8.2 07/05/2018 [place] g/dL 1:53 PM [facility] Albumin, Serum 5.0 3.5 - 5.0 07/05/2018 [place] g/dL 1:53 PM [facility] Total Bilirubin <0.7 0.1 - 1.0 07/05/2018 [place] mg/dL 1:53 PM [facility] AST 59 (H) 8 - 43 U/L 07/05/2018 [place] 1:53 PM [facility] Alkaline 56 38 - 128 07/05/2018 [place] Phosphatase U/L 1:53 PM [facility] ALT (SGPT) 148 (H) 25 - 45 07/05/2018 [place] U/L 1:53 PM [facility] Comment: . Sodium 140 135 - 145 mEq/L 07/05/2018 1:53 PM [facility] Potassium 4.0 3.5 - 5.1 mEq/L 07/05/2018 1:53 PM [facility] Chloride 104 98 - 107 mEq/L 07/05/2018 1:53 PM [facility] CO2 24 22 - 29 mmol/L 07/05/2018 1:53 PM [facility] BUN 9 5 - 25 mg/dL 07/05/2018 1:53 PM [facility] Creatinine 0.6 0.4 - 1.2 mg/dL 07/05/2018 1:53 PM [facility] Glucose 90 70 - 100 mg/dL 07/05/2018 1:53 PM [facility] Calcium, Total,S 9.6 8.4 - 10.2 mg/dL 07/05/2018 1:53 PM [facility] Fasting? Yes 07/04/2018 1:03 PM [facility] Specimen Anatomical Collection Method Collection Time Receive d Time (Source) Location / / Volume Laterality Blood 07/04/2018 1:00 PM 8 1:02 SKIN WASHER PM SKIN WASHER Meghan Hernandez PA-C LAB BLOOD ORDERABLES Performing Organization Address City/State/ZIP Code Phon e Number [facility] [address] [place] [address] documented in this encounter Visit Diagnoses Diagnosis RLQ abdominal pain - Primary Abdominal pain, right lower quadrant Diarrhea, unspecified type Diarrhea, unspecified type documented in this encounter Care Teams Cisco Network Architect Relationship Specialty Start Date End Date Meghan Hernandez PA-C PCP - General Family Medicine 05/03/18 03/22/[address] [place] [address] documented as of this encounter
--- OUTSIDE RECORDS SUMMARY | 2022-04-26 15:51 | XMS_ITS | Encounter Summary ---
:1990 Author Organization [facility] Address [address] [place] [address] Care Team Providers Name Role Phone Meghan Hernandez PA-C Primary Care Provider Reason for Visit Imaging (Routine) - Closed Specialty Diagnoses / Procedures Referred By Contact Refer red To Contact Radiology Diagnoses RLQ abdominal pain Meghan Hernandez PA-C Procedures CT abdomen pelvis w and wo IV contrast [address] [place] [address] Referral ID Status Reason Start Date Expiration Date Visits Requ ested Visits Authorized [id number] Closed 07/04/2018 12/31/2018 1 1 Encounter Details Date Type Department Care Team Description 07/04/2018 Hospital Encounter [facility] Hospital CT Scan [address] [place], [place] [id number] Social History Tobacco Use Types Packs/Day Years [...] or relatives? How often do you attend sabianist or More than 4 times per year 06/04/2018 denominational services? Do you belong to any clubs or Yes 06/04/2018 organizations such as sabianist groups, unions, fraternal or athletic groups, or [...] on file documented as of this encounter Medications at Time of Discharge Medication Sig Dispensed Refills Start Date End Date Cetirizine HCl 10 MG 1 tablet 1 (one) time 0 capsule each day magnesium oxide (MAG-OX) Take 400 mg by mouth 0 0 12/08/2015 400 MG tablet every night albuterol HFA (PROAIR Inhale 2 puffs if 18 g 1 018 03/25/2020 HFA) 108 (90 Base) needed for wheezing MCG/ACT Every 4-6 hours inhalerIndications: Moderate persistent asthma without complication fluticasone (FLONASE) 50 Administer 1 spray 0 01/18/2021 MCG/ACT nasal spray into affected nostril(s) if needed Lactobacillus Take by mouth 1 (one) 0 01/18/2021 (ACIDOPHILUS PROBIOTIC) time each day tablet Mefenamic Acid (PONSTEL) Take 1 tablet by 30 each 0 06/0401/18/2021 250 MG mouth 2 (two) times a capsuleIndications: day if needed Dysmenorrhea (menstrual cramps) mometasone-formoterol Inhale 2 puffs 2 13 g 11 06/04/20 18 03/25/2020 (DULERA) 100-5 MCG/ACT (two) times a day inhalerIndications: Moderate persistent asthma without complication montelukast (SINGULAIR) Take 1 tablet (10 mg 90 tablet 3 01/18/2021 10 MG tabletIndications: total) by mouth daily Moderate persistent asthma without complication Multiple Chew 2 tablets 1 0 01/19/20 21 Vitamins-Minerals (one) time each day (MULTIVITAMIN ADULT EXTRA C) chewable tablet documented as of this encounter Plan of Treatment Not on filedocumented as of this encounter Procedures Procedure Name Priority Date/Time Associated Diagnosis Comme nts CT ABDOMEN PELVIS W STAT 07/04/2018 3:43 PM Re sults for this CONTRAST METAL ROLLING MILL OPERATOR procedure are i n the results section. documented in this encounter Results CT abdomen pelvis w IV contrast (07/04/2018 3:43 PM METAL ROLLING MILL OPERATOR) Anatomical Region Laterality Modality Body Computed Tomography Specimen (Source) Anatomical Collection Method Collection Time Re ceived Time Location / / Volume Laterality 07/04/2018 3:43 PM METAL ROLLING MILL OPERATOR Impressions 07/04/2018 4:09 PM METAL ROLLING MILL OPERATOR IMPRESSION: Normal appendix. Fluid in the left colon consistent with diarrheal illness. Remainder of the exam is unremarkable. These findings were called to Meghan Adam at 4:07 p.m. on July 04, 2018. Please note that all CT scans at this [facility] use dose modulation, iterative reconstruction, and/or weight- based dosing when appropriate to reduce radiation dose to as low as reaso nably achievable. Dictated by Hortensia Larose MD @ Jul 04 2018 ??4:09PM Signed by Dr. Hortensia Larose @ Jul 04 2018 ??4:09PM Narrative 07/04/2018 4:09 PM METAL ROLLING MILL OPERATOR INDICATION: Decreased appetite, right lower quadrant pain [...] note that all CT scans at this fa cility use dose modulation, iterative reconstruction, and/or weight- based dosing when appropriate to reduce radiation dose to as low as reaso nably achievable. Dictated by Hortensia Larose MD @ Jul 04 2018 4:09PM Signed by Dr. Hortensia Larose @ Jul 04 2018 4:09PM Meghan Hernandez PA-C IMG CT PROCEDURES documented in this encounter Visit Diagnoses Not on filedocumented in this encounter Care Teams Gyroscopic Instrument Tester Relationship Specialty Start Date End Date Meghan Hernandez PA-C PCP - General Family Medicine 05/03/18 03/22/20 [address] [place] [address] documented as of this encounter
--- OUTSIDE RECORDS SUMMARY | 2022-04-26 15:51 | XMS_ITS | Encounter Summary ---
:1990 Author Organization [facility] Address [address] [place] [address] Care Team Providers Name Role Phone Meghan Hernandez PA-C Primary Care Provider Encounter Details Date Type Department Care Team Description 07/04/2018 Lab [facility] RLQ abdominal pain; [address] [place] Encounter for lipid screenin g for cardiovascular disease; [place] [address] Abnormal laboratory test res ult [phone] Social History Tobacco Use Types Packs/Day Years [...] or relatives? How often do you attend scientologist or More than 4 times per year 06/04/2018 confucianist services? Do you belong to any clubs or Yes 06/04/2018 organizations such as scientologist groups, unions, fraternal or athletic groups, or [...] Name Priority Date/Time Associated Diagnosis Comme nts , URINE Routine 07/04/2018 1:17 RLQ abdominal pain Re sults for this PM WEB ENGINEER procedure are i n the results section. GLOMERULAR FILTRATION Routine 07/04/2018 1:00 RLQ abdominal pa in Results for this RATE PM WEB ENGINEER procedure are i n the results section. CBC BRANCH OFFICE Routine 07/04/2018 1:00 RLQ abdominal pain R esults for this W/DIFF PM WEB ENGINEER procedure are i n the results section. TSH Routine 07/04/2018 1:00 Abnormal laboratory Resul ts for this PM WEB ENGINEER test result procedure are i n the results section. LIPID PANEL Routine 07/04/2018 1:00 Encounter for lipid Resul ts for this PM WEB ENGINEER screening for procedure are in cardiovascular disease the r esults section. COMPREHENSIVE Routine 07/04/2018 1:00 RLQ abdominal pain Resul ts for this METABOLIC PANEL PM WEB ENGINEER procedure ar e in the results section. documented in this encounter Results , urine (07/04/2018 1:17 PM WEB ENGINEER) athologist Signature NEGATIVE Negative 07/04/2018 [facility] Test, Urine 1:20 PM [facility] Specimen Anatomical Collection Method Collection Time Receive d Time (Source) Location / / Volume Laterality Urine 07/04/2018 1:17 PM 8 1:18 WEB ENGINEER PM WEB ENGINEER Meghan Hernandez PA-C LAB URINE ORDERABLES Performing Organization Address City/State/ZIP Code Phon e Number [facility] [address] [address] Glomerular filtration rate (GFR) (07/04/2018 1:00 PM WEB ENGINEER) athologist Signature GFR >60 07/05/2018 [facility] 1:53 PM [facility] >60 07/05/2018 [facility] Dominican GFR 1:53 PM [facility] Comment: GFR calculated from serum creatinine v alue Chronic Kidney Disease less than 60 mL/m in/1.73 m2 Kidney Failure less than 15 mL/min/1.73 m2 Note: effective 12/20/06 IDMS-Traceable MDRD Study Equation used. Specimen Anatomical Collection Method Collection Time Receive d Time (Source) Location / / Volume Laterality 07/04/2018 1:00 PM 8 1:00 WEB ENGINEER PM WEB ENGINEER Meghan Hernandez PA-C LAB BLOOD ORDERABLES Performing Organization Address [facility] e Number [facility] [address] [place] [id number] TSH (07/04/2018 1:00 PM WEB ENGINEER) athologist Signature TSH, Sensitive 2.30 0.46 - 07/05/2018 [facility] 4.68 mIU/L 4:31 PM [facility] Comment: The results from this [...] Laterality Blood 07/04/2018 1:00 PM 8 1:03 WEB ENGINEER PM WEB ENGINEER Meghan Hernandez PA-C LAB BLOOD ORDERABLES Performing Organization Address City/[facility] Phon e Number [facility] [address] [place] [address] Lipid panel (07/04/2018 1:00 PM WEB ENGINEER) athologist Signature Cholesterol 140 0 - 199 07/05/2018 [facility] mg/dL 1:53 PM [facility] Comment: Recommended by National Cholesterol Education Program (ATP III) -------- Cholesterol Ranges -------- <200 ? Desirable 200-239 ? Borderline high >=240 ? High Triglycerides 49 0 - 149 mg/dL 07/05/2018 1:53 PM [facility] Comment: -------- TRIG Ranges -------- <150 ?Normal 150-199 ? Borderline high 200-499 ? High >=500 ? Very high HDL 60 40 - 60 mg/dL 07/05/2018 1:53 PM [facility] Comment: -------- HDL Ranges -------- <40 ?Low 40-59 ?Normal >=60 ? Optimal LDL Calculated 70 0 - 99 mg/dL 07/05/2018 1:53 PM [facility] Comment: -------- LDL Ranges -------- <100 ? Optimal 100-129 ?Near optimal/above op timal 130-159 ?Borderline high 160-189 ?High >=190 ?Very high Specimen Anatomical Collection Method Collection Time Receive d Time (Source) Location / / Volume Laterality Blood 07/04/2018 1:00 PM 8 1:02 WEB ENGINEER PM WEB ENGINEER Meghan Hernandez PA-C LAB BLOOD ORDERABLES Performing Organization Address City/State/ZIP Code Phon e Number [facility] [address] [place] [address] (ABNORMAL) Comprehensive metabolic panel (07/04/2018 1:00 PM WEB ENGINEER) [facility] gist Method Time Signature Total Protein 8.2 6.3 - 8.2 07/05/2018 [place] g/dL 1:53 PM [facility] Albumin, Serum 5.0 3.5 - 5.0 07/05/2018 [place] g/dL 1:53 PM [facility] Total Bilirubin <0.7 0.1 - 1.0 07/05/2018 [place] mg/dL 1:53 PM [facility] AST 59 (H) 8 - 43 U/L 07/05/2018 [place] 1:53 PM [facility] Alkaline 56 38 - 128 07/05/2018 [place] Phosphatase U/L 1:53 PM [facility] ALT (SGPT) 148 (H) 25 - 45 07/05/2018 [place] U/L 1:53 PM [facility] Comment: . Sodium 140 135 - 145 mEq/L 07/05/2018 1:53 PM [facility] Potassium 4.0 3.5 - 5.1 mEq/L 07/05/2018 1:53 PM [facility] Chloride 104 98 - 107 mEq/L 07/05/2018 1:53 PM [facility] CO2 24 22 - 29 mmol/L 07/05/2018 1:53 PM [facility] BUN 9 5 - 25 mg/dL 07/05/2018 1:53 PM [facility] Creatinine 0.6 0.4 - 1.2 mg/dL 07/05/2018 1:53 PM [facility] Glucose 90 70 - 100 mg/dL 07/05/2018 1:53 PM [facility] Calcium, Total,S 9.6 8.4 - 10.2 mg/dL 07/05/2018 1:53 PM [facility] Fasting? Yes 07/04/2018 1:03 PM [facility] Specimen Anatomical Collection Method Collection Time Receive d Time (Source) Location / / Volume Laterality Blood 07/04/2018 1:00 PM 8 1:02 WEB ENGINEER PM WEB ENGINEER Meghan Hernandez PA-C LAB BLOOD ORDERABLES Performing Organization Address City/State/ZIP Code Phon e Number [facility] [address] [place] [address] CBC Branch Off w/Diff (07/04/2018 1:00 PM [facility]) P athologist Signature WBC 5.5 3.5 - 10.5 07/04/2018 [facility] K/uL 1:10 PM [facility] RBC 4.27 3.90 - 07/04/2018 [facility] 5.00 M/uL 1:10 PM [facility] Hemoglobin 12.8 12.0 - 07/04/2018 [facility] 15.5 g/dL 1:10 PM [facility] Hematocrit 38.3 35.0 - 07/04/2018 [facility] 44.0 % 1:10 PM [facility] Platelets 248 150 - 450 07/04/2018 [facility] K/uL 1:10 PM [facility] MCV 89.7 81.6 - 07/04/2018 [facility] 98.3 fL 1:10 PM [facility] MCH 30.0 26.0 - 07/04/2018 [facility] 32.0 pg 1:10 PM [facility] MCHC 33.4 32.0 - 07/04/2018 [facility] 36.0 g/dL 1:10 PM [facility] RDW 12.0 11.9 - 07/04/2018 [facility] 15.5 % 1:10 PM [facility] Lymphocytes % 40.0 18.0 - 07/04/2018 [facility] 45.0 % 1:10 PM [facility] Mid-size Cells 9.6 3.3 - 10.1 07/04/2018 [facility] % 1:10 PM [facility] Granulocytes/Omar 50.4 45.8 - 07/04/2018 [facility] trophils 73.7 % 1:10 PM [facility] Lymphocytes 2.2 0.9 - 2.9 07/04/2018 [facility] Absolute K/uL 1:10 PM [facility] MIDS Absolute 0.5 0.2 - 0.8 07/04/2018 [facility] K/uL 1:10 PM [facility] Granulocytes/Omar 2.8 2.1 - 8.7 07/04/2018 [facility] trophils K/uL 1:10 PM [facility] Absolute Specimen Anatomical Collection Method Collection Time Receive d Time (Source) Location / / Volume Laterality Blood 07/04/2018 1:00 PM 8 1:03 WEB ENGINEER PM WEB ENGINEER Meghan Hernandez PA-C LAB BLOOD ORDERABLES Performing Organization Address City/State/ZIP Code Phon e Number [facility] [address] [place] [address] documented in this encounter Visit Diagnoses Diagnosis RLQ abdominal pain Abdominal pain, right lower quadrant Encounter for lipid screening for cardio vascular disease Abnormal laboratory test result Other abnormal clinical finding documented in this encounter Care Teams Road Freight Brake Coupler Relationship Specialty Start Date End Date Meghan Hernandez PA-C PCP - General Family Medicine 05/03/18 03/22/[address] [facility] [place] [address] documented as of this encounter
--- OUTSIDE RECORDS SUMMARY | 2022-04-26 15:51 | XMS_ITS | Encounter Summary ---
:1990 Author Organization [facility] Address [address] [place] [address] Care Team Providers Name Role Phone Meghan Hernandez PA-C Primary Care Provider Encounter Details Date Type Department Care Team Description 05/30/2018 Abstract Meghan Dean PA-C [address] [place] [address] [place] [address] [place] [address] [phone] (Wo rk) Social History Tobacco Use Types Packs/Day Years Used Date Never Assessed Alcohol Habits Answer Date Recorded How often [...] or relatives? How often do you attend christianity or More than 4 times per year 06/04/2018 nondenominational services? Do you belong to any clubs or Yes 06/04/2018 organizations such as christianity groups, unions, fraternal or athletic groups, or [...] or getting things needed for daily living? Sex Assigned at Date Recorded Not on file documented as of this encounter Plan of Treatment Not on filedocumented as of this encounter Visit Diagnoses Not on filedocumented in this encounter Care Teams Dermatology Physician Assistant Relationship Specialty Start Date End Date Meghan Hernandez PA-C PCP - General Family Medicine 05/03/18 03/22/[address] [place] [address] documented as of this encounter
--- NOTE | 2022-04-26 16:00 | CRLHL7_ITS ---
For Patients: As a result of the Century Cures Act, medical imaging exams and procedure reports are released immediately into your electronic medical record. You may view this report before your referring provider. If you have questions, please contact your health care provider. INDICATION: Evaluate anatomy. COMPARISON: 01.26.22 TECHNIQUE: Real time ayala scale imaging of the fetus was performed as well as color Doppler analysis of the umbilical vessels. FINDINGS: Sonographic imaging demonstrates a single living intrauterine gestation. Fetus demonstrates a regular cardiac rate of 146 beats per minute. Fetus has a breech position. The placenta lies posteriorly without evidence of placenta previa. The edge of the placenta is located 5.9 cm from the internal cervical os. Amniotic fluid volume appears normal. Single deepest vertical pocket: 4.8 cm. The cervix is closed and measures 3.7 cm in length. The composite ultrasound gestational age is calculated at 21 weeks 0 days with an estimated sonographic due date of 09/06/2022. The estimated weight is 433 grams which lies at the 75th %. The following biometric measurements were obtained: Biparietal diameter: 4.7 cm/20 weeks 2 days 20th% Head circumference: 18.2 cm/20 weeks 4 days 24th% Abdominal circumference: 17.3 cm/22 weeks 2 days 82nd% Femur length: 3.5 cm/21 weeks 0 days 43rd% The HC/AC ratio measures: 1.05 range (1.06-1.25) On anatomic survey, there is a normal appearance of the cerebral ventricles, cavum septi pellucidi, cisterna magna and cerebellum. The nose, lips, and facial profile appear normal. The cervical, thoracic and lumbar spine are well visualized and appear normal. There is a normal four-chamber heart view and the left and right ventricular outflow tracts appear normal. The diaphragm and stomach appear normal. The kidneys and bladder also appear normal. There is a normal three-vessel cord and cord insertion site. The four extremities appear normal. IMPRESSION: Normal OB ultrasound exam with concordance of clinical and sonographic dating. No intrinsic abnormalities noted on anatomic survey. Dictated by Tuan Gutierrez MD @ 04/27/2022 9:22:47 AM (Electronically Signed)
== END 2022-04-26 15:46 | disposition home or self-care (01) ==
LOC: US 15:45
PROVIDERS: Visit Provider Obstetrics & Gynecology
DX: Z34.92 Encounter for supervision of normal pregnancy, unspecified, second trimester (principal); Z3A.21 21 weeks gestation of pregnancy
CPT/HCPCS: 76805

== ENCOUNTER 2022-06-14 15:16 | Outpatient (CLI) | payer BC, SELFPAY ==
--- OUTSIDE RECORDS SUMMARY | 2022-06-14 15:18 | XMS_ITS | Encounter Summary ---
:1990 Author Organization [facility] Address [address] [place] [address] Care Team Providers Name Role Phone Meghan Hernandez PA-C Primary Care Provider Encounter Details Date Type Department Care Team Description 07/04/2018 Lab [facility] [address] [place] [address] Social History Tobacco Use Types [...] or relatives? How often do you attend rastafari or More than 4 times per year 06/04/2018 episcopal services? Do you belong to any clubs or Yes 06/04/2018 organizations such as rastafari groups, unions, fraternal or athletic groups, or [...] on filedocumented in this encounter Care Teams Print Room Worker Relationship Specialty Start Date End Date Meghan Hernandez PA-C PCP - General Family Medicine 05/03/18 03/22/20 [address] [facility] [place] [place] [phone] documented as of this encounter
--- OUTSIDE RECORDS SUMMARY | 2022-06-14 15:18 | XMS_ITS | Encounter Summary ---
:1990 Author Organization [facility] Address [address] [place] [address] Care Team Providers Name Role Phone Heidi Corona MD Primary Care Provider Unavailable Reason for Visit Reason Comments Asthma Encounter Details Date Type Department Care Team Description 01/18/2021 Office Visit Heidi Loco Mild intermittent asthma wit hout complication (Primary Dx); [address] Hitesh Ayala MD Iron deficiency anemia, unsp ecified iron deficiency anemia type; [place] [address] Diabetes mellitus screening; [phone] Family history of thyroid disease Social History [...] or relatives? How often do you attend mosque or More than 4 times per year 06/04/2018 samaritan services? Do you belong to any clubs or Yes 06/04/2018 organizations such as mosque groups, unions, fraternal or athletic groups, or [...] presents for follow-up. This is her first [id number] visit as we had met via telehealth [...] future. She gets her OB care through [facility] and planning to have her IUD removed [...] I will send her a message via [employer] regarding the lab results. I urged her [...] - 8.2 01/18/2021 [place] g/dL 1:08 PM [facility] Albumin, Serum 4.5 3.5 - 5.0 01/18/2021 [place] g/dL 1:08 PM [facility] Total Bilirubin <0.7 0.1 - 1.0 01/18/2021 [place] mg/dL 1:08 PM [facility] AST 25 8 - 43 U/L 01/18/2021 [place] 1:08 PM [facility] Alkaline 53 38 - 128 01/18/2021 [place] Phosphatase U/L 1:08 PM [facility] ALT (SGPT) 18 0 - 34 U/L 01/18/2021 [place] 1:08 PM [facility] Sodium 139 135 - 145 01/18/2021 [place] mEq/L 1:08 PM [facility] Potassium 4.4 3.5 - 5.1 01/18/2021 [place] mEq/L 1:08 PM [facility] Chloride 106 98 - 107 01/18/2021 [place] mEq/L 1:08 PM [facility] CO2 28 22 - 29 01/18/2021 [place] mmol/L 1:08 PM [facility] BUN 16 5 - 25 01/18/2021 [place] mg/dL 1:08 PM [facility] Creatinine 0.7 0.4 - 1.2 01/18/2021 [place] mg/dL 1:08 PM [facility] Glucose 96 70 - 100 01/18/2021 [place] mg/dL 1:08 PM [facility] Calcium, Total,S 9.5 8.4 - 10.2 01/18/2021 [place] mg/dL 1:08 PM [facility] Fasting? Yes 01/18/2021 [place] 9:14 AM [facility] Specimen Anatomical Collection Method Collection Time Receive d Time (Source) Location / / Volume Laterality Blood 01/18/2021 9:14 AM 1 CDT 12:27 PM CDT Heidi Corona MD LAB BLOOD ORDERABLES Performing Organization Address [facility] Phon e Number [facility] [address] [place] [phone] TSH (01/18/2021 9:14 AM CDT) athologist Signature [...] MD LAB BLOOD ORDERABLES Performing Organization Address City/[facility]/ZIP Code Phon e Number [facility] [address] [place] [address] CBC Branch Off w/Diff (01/18/2021 9:14 AM CDT) athologist Signature WBC 4.3 3.5 - 10.5 01/18/2021 [facility] K/uL 9:57 AM CDT LAB RBC 4.19 3.90 - 01/18/2021 [facility] 5.00 M/uL 9:57 AM CDT LAB Hemoglobin 13.1 12.0 - 01/18/2021 [facility] 15.5 g/dL 9:57 AM CDT LAB Hematocrit 39.2 35.0 - 01/18/2021 [facility] 44.0 % 9:57 AM CDT LAB Platelets 248 150 - 450 01/18/2021 [facility] K/uL 9:57 AM CDT LAB MCV 93.6 81.6 - 01/18/2021 [facility] 98.3 fL 9:57 AM CDT LAB MCH 31.3 26.0 - 01/18/2021 [facility] 32.0 pg 9:57 AM CDT LAB MCHC 33.4 32.0 - 01/18/2021 [facility] 36.0 g/dL 9:57 AM CDT LAB RDW 12.6 11.9 - 01/18/2021 [facility] 15.5 % 9:57 AM CDT LAB Lymphocytes % 34.6 % 01/18/2021 [facility] 9:57 AM CDT LAB Mid-size Cells 11.1 % 01/18/2021 [facility] 9:57 AM CDT LAB Granulocytes/Omar 54.3 % 01/18/2021 [facility] O trophils 9:57 AM CDT LAB Lymphocytes 1.5 0.9 - 2.9 01/18/2021 [facility] Absolute K/uL 9:57 AM CDT LAB MIDS Absolute 0.5 0.4 - 1.5 01/18/2021 [facility] K/uL 9:57 AM CDT LAB Granulocytes/Omar 2.3 1.7 - 7.0 01[facility]18[facility]20[facility] troph[facility] K/uL 9:57 AM CDT LAB Absolute Specimen Anatomical Collection Method Collection Time Receive d Time (Source) Location / / Volume Laterality Blood 01/18/2021 9:14 AM 9:14 CDT AM CDT Heidi Corona MD LAB BLOOD ORDERABLES Performing Organization Address City/State/ZIP Code Phon e Number [facility] [address] [place] [address] documented in this encounter Visit Diagnoses Diagnosis Mild intermittent asthma without complic ation - Primary Iron deficiency anemia, unspecified iron deficiency anemia type Diabetes mellitus screening Screening for diabetes mellitus Family history of thyroid disease Family history of other endocrine and me tabolic diseases documented in this encounter Care Teams Product Safety Lead Relationship Specialty Start Date End Date Heidi Corona MD PCP - General Family Medicine 03/23/20 documented as of this encounter
--- OUTSIDE RECORDS SUMMARY | 2022-06-14 15:18 | XMS_ITS | Encounter Summary ---
:1990 Author Organization [facility] Address [address] [place] [address] Care Team Providers Name Role Phone Heidi Corona MD Primary Care Provider Unavailable Reason for Visit Reason Onset Date Comments medication prior auth. 01/19/2021 Dulera 100-5MCG/A CT aerosol Encounter Details Date Type Department Care Team Description 01/19/2021 Telephone Heidi Loco, medication prior auth. [address] [facility] CHAN (Dulera 100-5MCG/[place] [address] aerosol) [phone] Social History Tobacco Use Types Packs/Day Years [...] or relatives? How often do you attend latter day or More than 4 times per year 06/04/2018 amish services? Do you belong to any clubs or Yes 06/04/2018 organizations such as latter day groups, unions, fraternal or athletic groups, or [...] approved through 01/19/2022. Pharmacy notified. PA # [id number]. Telephone Encounter - Nadia Tsai MA - 01/19/2021 6:08 AM CDT Nusrat 100-5MCG/ACT aerosol BIN: [id number] PCN: [id number] GROUP: [id number] PLAN: [id number] PHONE: [phone] ID: [id number] PA completed per [facility], sent to plan. [place]: [id number] documented in this encounter Plan of Treatment Not on filedocumented as of this encounter Visit Diagnoses Not on filedocumented in this encounter Care Teams Information Technology Assistant Relationship Specialty Start Date End Date Heidi Corona MD PCP - General Family Medicine 03/23/20 documented as of this encounter
--- OUTSIDE RECORDS SUMMARY | 2022-06-14 15:18 | XMS_ITS | Encounter Summary ---
:1990 Author Organization [facility] Address [address] [place] [address] Care Team Providers Name Role Phone Meghan Hernandez PA-C Primary Care Provider Reason for Visit Reason Onset Date Comments test results 07/09/2018 Encounter Details Date Type Department Care Team Description 07/09/2018 Telephone Meghan Dean PA-C test results [address] [place] [address] [place] [address] [place] [address] [phone] (Wo rk) Social History Tobacco Use Types [...] or relatives? How often do you attend muslim or More than 4 times per year 06/04/2018 gnosticism services? Do you belong to any clubs or Yes 06/04/2018 organizations such as muslim groups, unions, fraternal or athletic groups, or [...] for the very basics like Not h farazna at all 06/04/2018 food, housing, medical care, [...] PM CST Pt informed of the above. WARE SALES EXECUTIVE Telephone Encounter - Arti Preston MA - 07/20/2018 12:04 PM CST LMTCB WARE SALES EXECUTIVE Telephone Encounter - Dennys Garcia MD - 07/20/2018 10:45 AM CST If a cyst burst, then pain usually improves. Ovarian cysts usually don't lead to heavy menses. Sounds like she has a resolved viral gastroenteritis with diarrhea, hot/cold sxs. WARE SALES EXECUTIVE Telephone Encounter - Arti Preston MA - [...] she still have the pain? Please advise. WARE SALES EXECUTIVE Telephone Encounter - Arti Preston MA - 07/10/2018 1:42 PM CST Left detailed message. WARE SALES EXECUTIVE Telephone Encounter - Dennys Garcia MD - 07/10/2018 1:11 PM CST Please notify pt that her CT was normal. Some fluid in her colon consistent with the diarrhea she was experiencing. WARE SALES EXECUTIVE Telephone Encounter - Amparo Vargas MA - 07/10/2018 12:25 PM CST Please review lab and CT results and advise in PCP absence. WARE SALES EXECUTIVE Telephone Encounter - Mary Ansari - 07/09/2018 3:20 PM CST Pt calling for test results. 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 WARE SALES EXECUTIVE documented in this encounter Plan of Treatment Not on filedocumented as of this encounter Visit Diagnoses Not on filedocumented in this encounter Care Teams Senior Director Creative Services Relationship Specialty Start Date End Date Meghan Hernandez PA-C PCP - General Family Medicine 05/03/18 03/22/[address] [place] [address] documented as of this encounter
--- OUTSIDE RECORDS SUMMARY | 2022-06-14 15:18 | XMS_ITS | Encounter Summary ---
:1990 Author Organization [facility] Address [address] [place] [address] Care Team Providers Name Role Phone Heidi Corona MD Primary Care Provider Unavailable Reason for Visit Reason Onset Date Comments Survey 01/19/2021 Encounter Details Date Type Department Care Team Description 01/19/2021 Telephone [place] Heidi Corona MD Survey [address] [place] [address] Social History Tobacco Use Types Packs/Day Years [...] or relatives? How often do you attend episcopal or More than 4 times per year 06/04/2018 voodoo services? Do you belong to any clubs or Yes 06/04/2018 organizations such as episcopal groups, unions, fraternal or athletic groups, or [...] on filedocumented in this encounter Care Teams Utility Helicopter Repairer Relationship Specialty Start Date End Date Heidi Corona MD PCP - General Family Medicine 03/23/20 documented as of this encounter
--- OUTSIDE RECORDS SUMMARY | 2022-06-14 15:18 | XMS_ITS | Encounter Summary ---
:1990 Author Organization [facility] Address [address] [place] [address] Care Team Providers Name Role Phone Meghan Hernandez PA-C Primary Care Provider Encounter Details Date Type Department Care Team Description 07/04/2018 Lab [facility] OP Lab RLQ abdominal pain [address] [place] [address] Social History Tobacco Use Types [...] More than 4 times per year 06/04/2018 spiritism services? Do you belong to any clubs [...] pain Res ults for this FILTRATION RATE EARLY EDUCATION TEACHER procedure ar e in the results section. CREATININE, SERUM Routine 07/04/2018 2:04 PM RLQ abdominal rodolfo n Results for this EARLY EDUCATION TEACHER procedure are i n the results section. documented in this encounter Results Glomerular filtration rate (GFR) (07/04/2018 2:04 PM EARLY EDUCATION TEACHER) athologist Signature GFR >60 07/04/2018 [facility] 3:08 PM EARLY EDUCATION TEACHER CENTER LAB[facility]ATORY >60 07/04/2018 [facility] Swazi GFR 3:08 PM [facility] Comment: GFR calculated from serum creatinine v alue Chronic Kidney Disease less than 60 mL/m in/1.73 m2 Kidney Failure less than 15 mL/min/1.73 m2 Note: effective 12/20/06 IDMS-Traceable MDRD Study Equation used. Specimen Anatomical Collection Method Collection Time Receive d Time (Source) Location / / Volume Laterality 07/04/2018 2:04 PM 8 2:04 EARLY EDUCATION TEACHER PM EARLY EDUCATION TEACHER Meghan Hernandez PA-C LAB BLOOD ORDERABLES Performing Organization Address City/Va Hospital/ZIP Code Phon e Number [facility] [address] [place], [place] [id number] Creatinine, Serum (07/04/2018 2:04 PM EARLY EDUCATION TEACHER) athologist Signature Creatinine 0.6 0.4 - 1.2 07/04/2018 [facility] mg/dL 3:08 PM EARLY EDUCATION TEACHER CENTER LAB[facility]ATORY Specimen Anatomical Collection Method Collection Time Receive d Time (Source) Location / / Volume Laterality Blood 07/04/2018 2:04 PM 8 2:04 EARLY EDUCATION TEACHER PM EARLY EDUCATION TEACHER Meghan Hernandez PA-C LAB BLOOD ORDERABLES Performing Organization Address City/Va Hospital/ZIP Code Phon e Number [facility] [address] [place] [address] documented in this encounter Visit Diagnoses Diagnosis RLQ abdominal pain Abdominal pain, right lower quadrant documented in this encounter Care Teams Lead Nuclear Medicine Technologist Relationship Specialty Start Date End Date Meghan Hernandez PA-C PCP - General Family Medicine 05/03/18 03/22/[address] [place] [address] documented as of this encounter
--- OUTSIDE RECORDS SUMMARY | 2022-06-14 15:18 | XMS_ITS | Clinical Summary ---
:1990 Author Organization [facility] Address [address] [place] [address] Care Team Providers Name Role Phone Neetu Vargas MD Primary Care Provider [phone] Allergies Active Allergy Reactions Severity Noted Date [...] Estimated Date of Delivery Comments Yes 09/06/2022 Immunizations Name Administration Dates Next Due DTP [...] ss Type Group BCBS OF BCBS OF [id number] 2019-[place] [address] [place] [address] (Home) [facility] [place] JUNG [address] Care Teams Morphologist Relationship Specialty Start Date End Date Neetu Vargas MD PCP - General 11/23/[address] [place] [address] [address] [place] [address]
--- OUTSIDE RECORDS SUMMARY | 2022-06-14 15:18 | XMS_ITS | Encounter Summary ---
:1990 Author Organization [facility] Address [address] [place] [address] Care Team Providers Name Role Phone Meghan Hernandez PA-C Primary Care Provider Encounter Details Date Type Department Care Team Description 07/04/2018 Lab [place] RLQ abdominal pain; [address] DANIELS Encounter for lipid screenin g for cardiovascular disease; [place] [address] Abnormal laboratory test res ult [phone] Social History Tobacco Use Types Packs/Day Years [...] More than 4 times per year 06/04/2018 muslim services? Do you belong to any clubs [...] abdominal pain Re sults for this PM FITNESS SALES ASSOCIATE procedure are i n the results section. GLOMERULAR FILTRATION Routine 07/04/2018 1:00 RLQ abdominal pa in Results for this RATE PM FITNESS SALES ASSOCIATE procedure are i n the results section. CBC BRANCH OFFICE Routine 07/04/2018 1:00 RLQ abdominal pain R esults for this W/DIFF PM FITNESS SALES ASSOCIATE procedure are i n the results section. TSH Routine 07/04/2018 1:00 Abnormal laboratory Resul ts for this PM FITNESS SALES ASSOCIATE test result procedure are i n the results section. LIPID PANEL Routine 07/04/2018 1:00 Encounter for lipid Resul ts for this PM FITNESS SALES ASSOCIATE screening for procedure are in cardiovascular disease the r esults section. COMPREHENSIVE Routine 07/04/2018 1:00 RLQ abdominal pain Resul ts for this METABOLIC PANEL PM FITNESS SALES ASSOCIATE procedure ar e in the results section. documented in this encounter Results , urine (07/04/2018 1:17 PM FITNESS SALES ASSOCIATE) athologist Signature NEGATIVE Negative 07/04/2018 [facility] Test, Urine 1:20 PM FITNESS SALES ASSOCIATE CLINIC LAB Specimen Anatomical Collection Method Collection Time Receive d Time (Source) Location / / Volume Laterality Urine 07/04/2018 1:17 PM 8 1:18 FITNESS SALES ASSOCIATE PM FITNESS SALES ASSOCIATE Meghan Hernandez PA-C LAB URINE ORDERABLES Performing Organization Address City/State/ZIP Code Phon e Number [facility] [address] [place] [address] Glomerular filtration rate (GFR) (07/04/2018 1:00 PM FITNESS SALES ASSOCIATE) athologist Signature GFR >60 07/05/2018 [facility] 1:53 PM FITNESS SALES ASSOCIATE CENTER LAB[facility]ATORY >60 07/05/2018 [facility] Maltese GFR 1:53 PM FITNESS SALES ASSOCIATE [facility] Comment: GFR calculated from serum creatinine v alue Chronic Kidney Disease less than 60 mL/m in/1.73 m2 Kidney Failure less than 15 mL/min/1.73 m2 Note: effective 12/20/06 IDMS-Traceable MDRD Study Equation used. Specimen Anatomical Collection Method Collection Time Receive d Time (Source) Location / / Volume Laterality 07/04/2018 1:00 PM 8 1:00 FITNESS SALES ASSOCIATE PM FITNESS SALES ASSOCIATE Meghan Hernandez PA-C LAB BLOOD ORDERABLES Performing Organization Address [facility] e Number [facility] [address] [place] [address] TSH (07/04/2018 1:00 PM FITNESS SALES ASSOCIATE) athologist Signature TSH, Sensitive 2.30 0.46 - 07/05/2018 [facility] 4.68 mIU/L 4:31 PM FITNESS SALES ASSOCIATE [facility] Comment: The results from this [...] Laterality Blood 07/04/2018 1:00 PM 8 1:03 FITNESS SALES ASSOCIATE PM FITNESS SALES ASSOCIATE Meghan Hernandez PA-C LAB BLOOD ORDERABLES Performing Organization Address City/[facility] Phon e Number [facility] [address] [place] [address] Lipid panel (07/04/2018 1:00 PM FITNESS SALES ASSOCIATE) athologist Signature Cholesterol 140 0 - 199 07/05/2018 [facility] mg/dL 1:53 PM FITNESS SALES ASSOCIATE [facility] Comment: Recommended by National Cholesterol Education Program (ATP III) -------- Cholesterol Ranges -------- <200 ? Desirable 200-239 ? Borderline high >=240 ? High Triglycerides 49 0 - 149 mg/dL 07/05/2018 1:53 PM [facility] Comment: -------- TRIG Ranges -------- <150 ?Normal 150-199 ? Borderline high 200-499 ? High >=500 ? Very high HDL 60 40 - 60 mg/dL 07/05/2018 1:53 PM [facility] Comment: -------- HDL Ranges -------- <40 ?Low 40-59 ?Normal >=60 ? Optimal LDL Calculated 70 0 - 99 mg/dL 07/05/2018 1:53 PM [facility] Comment: -------- LDL Ranges -------- <100 ? Optimal 100-129 ?Near optimal/above op timal 130-159 ?Borderline high 160-189 ?High >=190 ?Very high Specimen Anatomical Collection Method Collection Time Receive d Time (Source) Location / / Volume Laterality Blood 07/04/2018 1:00 PM 8 1:02 FITNESS SALES ASSOCIATE PM FITNESS SALES ASSOCIATE Meghan Hernandez PA-C LAB BLOOD ORDERABLES Performing Organization Address City/State/ZIP Code Phon e Number [facility] [address] [place] [address] (ABNORMAL) Comprehensive metabolic panel (07/04/2018 1:00 PM FITNESS SALES ASSOCIATE) [facility] gist Method Time Signature Total Protein 8.2 6.3 - 8.2 07/05/2018 [facility] g/dL 1:53 PM [facility] Albumin, Serum 5.0 3.5 - 5.0 07/05/2018 [facility] g/dL 1:53 PM [facility] Total Bilirubin <0.7 0.1 - 1.0 07/05/2018 [facility] mg/dL 1:53 PM [facility] AST 59 (H) 8 - 43 U/L 07/05/2018 [facility] 1:53 PM [facility] Alkaline 56 38 - 128 07/05/2018 [facility] Phosphatase U/L 1:53 PM [facility] ALT (SGPT) 148 (H) 25 - 45 07/05/2018 [facility] U/L 1:53 PM [facility] Comment: . Sodium 140 135 - 145 mEq/L 07/05/2018 1:53 PM [facility] Potassium 4.0 3.5 - 5.1 mEq/L 07/05/2018 1:53 PM [facility] Chloride 104 98 - 107 mEq/L 07/05/2018 1:53 PM [facility] CO2 24 22 - 29 mmol/L 07/05/2018 1:53 PM [facility] BUN 9 5 - 25 mg/dL 07/05/2018 1:53 PM [facility] Creatinine 0.6 0.4 - 1.2 mg/dL 07/05/2018 1:53 PM [facility] Glucose 90 70 - 100 mg/dL 07/05/2018 1:53 PM [facility] Calcium, Total,S 9.6 8.4 - 10.2 mg/dL 07/05/2018 1:53 PM [facility] Fasting? Yes 07/04/2018 1:03 PM [facility] Specimen Anatomical Collection Method Collection Time Receive d Time (Source) Location / / Volume Laterality Blood 07/04/2018 1:00 PM 8 1:02 FITNESS SALES ASSOCIATE PM FITNESS SALES ASSOCIATE Meghan Hernandez PA-C LAB BLOOD ORDERABLES Performing Organization Address City/State/ZIP Code Phon e Number [facility] [address] [place] [address] CBC Branch Off w/Diff (07/04/2018 1:00 PM [facility]) P athologist Signature WBC 5.5 3.5 - 10.5 07/04/2018 [facility] K/uL 1:10 PM [facility] RBC 4.27 3.90 - 07/04/2018 [facility] 5.00 M/uL 1:10 PM FITNESS SALES ASSOCIATE CLINIC LAB Hemoglobin 12.8 12.0 - 07/04/2018 [facility] 15.5 g/dL 1:10 PM FITNESS SALES ASSOCIATE [facility] LAB Hematocrit 38.3 35.0 - 07/04/2018 [facility] 44.0 % 1:10 PM FITNESS SALES ASSOCIATE CLINIC LAB Platelets 248 150 - 450 07/04/2018 [facility] K/uL 1:10 PM FITNESS SALES ASSOCIATE CLINIC LAB MCV 89.7 81.6 - 07/04/2018 [facility] 98.3 fL 1:10 PM FITNESS SALES ASSOCIATE CLINIC LAB MCH 30.0 26.0 - 07/04/2018 [facility] 32.0 pg 1:10 PM FITNESS SALES ASSOCIATE [facility] LAB MCHC 33.4 32.0 - 07/04/2018 [facility] 36.0 g/dL 1:10 PM [facility] SALES ASSOCIATE [facility] LAB RDW 12.0 11.9 - 07/04/2018 [facility] 15.5 % 1:10 PM [facility] SALES ASSOCIATE [facility] LAB Lymphocytes % 40.0 18.0 - 07/04/2018 [facility] 45.0 % 1:10 PM FITNESS SALES ASSOCIATE CLINIC LAB Mid-size Cells 9.6 3.3 - 10.1 07/04/2018 [facility] % 1:10 PM FITNESS SALES ASSOCIATE [facility]IN[facility] LAB Granulocytes/Omar 50.4 45.8 - 07/04/2018 [facility] trophils 73.7 % 1:10 PM [facility] SALES ASSOCIATE [facility]IN[facility] LAB Lymphocytes 2.2 0.9 - 2.9 07/04/2018 [facility] Absolute K/uL 1:10 PM [facility] SALES ASSOCIATE [facility]IN[facility] LAB MIDS Absolute 0.5 0.2 - 0.8 07/04/2018 [facility] K/uL 1:10 PM FITNESS SALES ASSOCIATE [facility]IN[facility] LAB Granulocytes/Omar 2.8 2.1 - 8.7 07/04/2018 [facility] trophils K/uL 1:10 PM FITNESS SALES ASSOCIATE [facility]IN[facility] LAB Absolute Specimen Anatomical Collection Method Collection Time Receive d Time (Source) Location / / Volume Laterality Blood 07/04/2018 1:00 PM 8 1:03 FITNESS SALES ASSOCIATE PM FITNESS SALES ASSOCIATE Meghan Hernandez PA-C LAB BLOOD ORDERABLES Performing Organization Address City/State/ZIP Code Phon e Number [facility] [address] [place] [address] documented in this encounter Visit Diagnoses Diagnosis RLQ abdominal pain Abdominal pain, right lower quadrant Encounter for lipid screening for cardio vascular disease Abnormal laboratory test result Other abnormal clinical finding documented in this encounter Care Teams Pottery Striper Relationship Specialty Start Date End Date Meghan Hernandez PA-C PCP - General Family Medicine 05/03/18 03/22/[address] [facility] [place] [address] documented as of this encounter
--- OUTSIDE RECORDS SUMMARY | 2022-06-14 15:18 | XMS_ITS | Encounter Summary ---
:1990 Author Organization [facility] Address [address] [place] [address] Care Team Providers Name Role Phone Meghan Hernandez PA-C Primary Care Provider Encounter Details Date Type Department Care Team Description 07/17/2018 Lab Nate Abnormal blood chemistry dea t [address] [place] [address] Social History Tobacco Use Types Packs/Day Years [...] or relatives? How often do you attend scientology or More than 4 times per year 06/04/2018 shinto services? Do you belong to any clubs or Yes 06/04/2018 organizations such as scientology groups, unions, fraternal or athletic groups, or [...] Abnormal blood Res ults for this PANEL HUMAN SERVICES WORKER chemistry test procedure are in the results section. documented in this encounter Results (ABNORMAL) Liver panel (07/17/2018 3:37 PM HUMAN SERVICES WORKER) Analysis Performed At Patho logist Time Signature Total Protein 7.7 6.3 - 8.2 07/18/2018 [facility] g/dL 12:55 PM [facility] Albumin, Serum 4.7 3.5 - 5.0 07/18/2018 [place] g/dL 12:55 PM [facility] Total Bilirubin <0.7 0.1 - 1.0 07/18/2018 [place] mg/dL 12:55 PM [facility] Bilirubin, <0.1 0.0 - 0.3 07/18/2018 [facility] Direct mg/dL 12:55 PM [facility] AST 32 8 - 43 U/L 07/18/2018 [facility] 12:55 PM [facility] Alkaline 51 38 - 128 07/18/2018 [place] Phosphatase U/L 12:55 PM [facility] ALT (SGPT) 71 (H) 25 - 45 07/18/2018 [place] U/L 12:55 PM [facility] Comment: . Specimen Anatomical Collection Method Collection Time Receive d Time (Source) Location / / Volume Laterality Blood 07/17/2018 3:37 PM 8 HUMAN SERVICES WORKER 12:32 PM HUMAN SERVICES WORKER Meghan Hernandez PA-C LAB BLOOD ORDERABLES Performing Organization Address City/State/ZIP Code Phon e Number [facility] [address] [place] [address] documented in this encounter Visit Diagnoses Diagnosis Abnormal blood chemistry test documented in this encounter Care Teams Director Radio Relationship Specialty Start Date End Date Meghan Hernandez PA-C PCP - General Family Medicine 05/03/18 03/22/[address] [place] [address] documented as of this encounter
--- OUTSIDE RECORDS SUMMARY | 2022-06-14 15:18 | XMS_ITS | Encounter Summary ---
:1990 Author Organization [facility] Address [address] [place] [address] Care Team Providers Name Role Phone Neetu Vargas MD Primary Care Provider [phone] Reason for Visit Reason Comments Establish Care Medication check Encounter Details Date Type Department Care Team Description 02/21/2022 Office Visit [place], Constipation, unspecified co nstipation type (Primary Dx); [address] Neetu Gomez MD Mild intermittent asthma without [place], [place] [address] [address] [facility] [address] [place] [address] Social History Tobacco Use Types [...] or relatives? How often do you attend cheondoism or More than 4 times per year 06/04/2018 mandaen services? Do you belong to any clubs or Yes 06/04/2018 organizations such as cheondoism groups, unions, fraternal or athletic groups, or [...] is 12 weeks , following with a [facility]. She has been struggling with some morning [...] ation documented in this encounter Care Teams Fruit Loader Relationship Specialty Start Date End Date Neetu Vargas MD PCP - General 11/23/[address] [place] [address] documented as of this encounter
--- OUTSIDE RECORDS SUMMARY | 2022-06-14 15:18 | XMS_ITS | Encounter Summary ---
:1990 Author Organization [facility] Address [address] [place] [address] Care Team Providers Name Role Phone Heidi Corona MD Primary Care Provider Unavailable Encounter Details Date Type Department Care Team Description 01/18/2021 Lab [place] Borderline abnormal thyroid function test (Primary Dx); [address] Diabetes mellitus screening; [place] [address] Family history of thyroid di sease; [phone] Iron deficiency anemia, unspecified iron deficiency anemia [...] or relatives? How often do you attend amish or More than 4 times per year 06/04/2018 mormonism services? Do you belong to any clubs or Yes 06/04/2018 organizations such as amish groups, unions, fraternal or athletic groups, or [...] Time Signature Add-on Testing SEE BELOW 01/18/2021 [place] 2:48 PM CDT [facility] Comment: TPO added. Specimen Anatomical Collection Method Collection Time Receive d Time (Source) Location / / Volume Laterality 01/18/2021 1:42 PM 1:42 CDT PM CDT Heidi Corona MD LAB BLOOD ORDERABLES Performing Organization Address City/State/ZIP Code Phon e Number [facility] [address] [place] [address] Thyroperoxidase (TPO) Ab (01/18/2021 9:14 AM CDT) Analysis Performed At Path logist Time Signature Thyroid 0.3 <9.0 IU/mL 01/19/2021 [facility] 9:35 AM CDT LABORATORIES (TPO) Ab Comment: Test Performed by: [facility] [address] [place], [place] [address] Gas Utility Worker: Nash Torres M.D. Ph. D.; CLIA# [id number] Specimen Anatomical Collection Method Collection Time Receive d Time (Source) Location / / Volume Laterality 01/18/2021 9:14 AM 2:51 CDT PM CDT Heidi Corona MD LAB BLOOD ORDERABLES Performing Organization Address City/State/ZIP Code Phon e Number [facility] see result attachment for specific address Glomerular filtration rate (GFR) (01/18/2021 9:14 AM CDT) athologist Signature GFR >60 01/18/2021 [facility] 1:08 PM CDT CENTER LAB[facility]ATORY >60 01/18/2021 [facility] [place] GFR 1:08 PM CDT CENTER LABORATORY Comment: [...] Organization Address City/State/ZIP Code Phon e Number [facility] [address] [place] [phone] CBC Branch Off w/Diff (01/18/2021 9:14 AM CDT) athologist Signature WBC 4.3 3.5 - 10.5 01/18/2021 [facility] [place] K/uL 9:57 AM CDT LAB RBC 4.19 3.90 - 01/18/2021 [facility] [place] 5.00 M/uL 9:57 AM CDT LAB Hemoglobin 13.1 12.0 - 01/18/2021 [facility] [place] 15.5 g/dL 9:57 AM CDT LAB Hematocrit 39.2 35.0 - 01/18/2021 [facility] [place] 44.0 % 9:57 AM CDT LAB Platelets 248 150 - 450 01/18/2021 [facility] [place] K/uL 9:57 AM CDT LAB MCV 93.6 81.6 - 01/18/2021 [facility] 98.3 fL 9:57 AM CDT LAB MCH 31.3 26.0 - 01/18/2021 [facility] [place] 32.0 pg 9:57 AM CDT LAB MCHC 33.4 32.0 - 01/18/2021 [facility] 36.0 g/dL 9:57 AM CDT LAB RDW 12.6 11.9 - 01/18/2021 [facility] 15.5 % 9:57 AM CDT LAB Lymphocytes % 34.6 % 01/18/2021 [facility] 9:57 AM CDT LAB Mid-size Cells 11.1 % 01/18/2021 [facility] 9:57 AM CDT LAB Granulocytes/Omar 54.3 % 01/18/2021 [facility] O trophils 9:57 AM CDT LAB Lymphocytes 1.5 0.9 - 2.9 01/18/2021 [facility] Absolute K/uL 9:57 AM CDT LAB MIDS Absolute 0.5 0.4 - 1.5 01/18/2021 [facility] K/uL 9:57 AM CDT LAB Granulocytes/Omar 2.3 1.7 - 7.0 01/18/2021 [facility] O trophils K/uL 9:57 AM CDT LAB Absolute Specimen Anatomical Collection Method Collection Time Receive d Time (Source) Location / / Volume Laterality Blood 01/18/2021 9:14 AM 9:14 CDT AM CDT Heidi Corona MD LAB BLOOD ORDERABLES Performing Organization Address City/State/ZIP Code Phon e Number [facility] [place] [facility] [address] [place] [address] [place] [address] TSH (01/18/2021 9:14 AM CDT) P athologist [...] Organization Address City/State/ZIP Code Phon e Number [facility] [address] [place] [address] Comprehensive metabolic panel (01/18/2021 9:14 AM CDT) [...] Organization Address City/State/ZIP Code Phon e Number [facility] [address] [place] [address] documented in this encounter Visit Diagnoses Diagnosis Borderline abnormal thyroid function dea t - Primary Diabetes mellitus screening Screening for diabetes mellitus Family history of thyroid disease Family history of other endocrine and me tabolic diseases Iron deficiency anemia, unspecified iron deficiency anemia type documented in this encounter Care Teams Automotive Electrical Fitter Relationship Specialty Start Date End Date Heidi Corona MD PCP - General Family Medicine 03/23/20 documented as of this encounter
--- OUTSIDE RECORDS SUMMARY | 2022-06-14 15:18 | XMS_ITS | Encounter Summary ---
:1990 Author Organization [facility] Address [address] [place] [address] Care Team Providers Name Role Phone Meghan Hernandez PA-C Primary Care Provider Reason for Visit Imaging (Routine) - Closed Specialty Diagnoses / Procedures Referred By Contact Refer red To Contact Radiology Diagnoses RLQ abdominal pain Meghan Hernandez PA-C Procedures CT abdomen pelvis w and wo IV contrast [address] [place] [address] Referral ID Status Reason Start Date Expiration Date Visits Requ ested Visits Authorized [id number] Closed 07/04/2018 12/31/2018 1 1 Encounter Details Date Type Department Care Team Description 07/04/2018 Hospital Encounter [facility] CT Scan [address] [place], [place] [address] Social History Tobacco Use Types Packs/Day Years [...] or relatives? How often do you attend judaism or More than 4 times per year 06/04/2018 faith services? Do you belong to any clubs or Yes 06/04/2018 organizations such as judaism groups, unions, fraternal or athletic groups, or [...] 0 12/08/2015 400 MG tablet every night fluticasone (FLONASE) 50 Administer 1 spray 0 01/18/2021 MCG/ACT nasal spray into affected nostril(s) if needed albuterol HFA (PROAIR Inhale 2 puffs if 18 g 1 018 03/25/2020 HFA) 108 (90 Base) needed for wheezing MCG/ACT Every 4-6 hours inhalerIndications: Moderate persistent asthma without complication Lactobacillus Take by mouth 1 (one) 0 [...] 3:43 PM Re sults for this CONTRAST COMMUNITY DEVELOPMENT TECHNICIAN procedure are i n the results section. documented in this encounter Results CT abdomen pelvis w IV contrast (07/04/2018 3:43 PM COMMUNITY DEVELOPMENT TECHNICIAN) Anatomical Region Laterality Modality Body Computed Tomography Specimen (Source) Anatomical Collection Method Collection Time Re ceived Time Location / / Volume Laterality 07/04/2018 3:43 PM COMMUNITY DEVELOPMENT TECHNICIAN Impressions 07/04/2018 4:09 PM COMMUNITY DEVELOPMENT TECHNICIAN IMPRESSION: Normal appendix. Fluid in the left colon consistent with diarrheal illness. Remainder of the exam is unremarkable. These findings were called to Meghan Adam at 4:07 p.m. on July 04, 2018. Please note that all CT scans at this [facility] use dose modulation, iterative reconstruction, and/or weight- based dosing when appropriate to reduce radiation dose to as low as reaso nably achievable. Dictated by Hortensia Larose MD @ Jul 04 2018 ??4:09PM Signed by Dr. Hortensia Larose @ Jul 04 2018 ??4:09PM Narrative 07/04/2018 4:09 PM COMMUNITY DEVELOPMENT TECHNICIAN INDICATION: Decreased appetite, right lower quadrant pain [...] on filedocumented in this encounter Care Teams Vineyard Supervisor Relationship Specialty Start Date End Date Meghan Hernandez PA-C PCP - General Family Medicine 05/03/18 03/22/20 [address] [place] [address] documented as of this encounter
--- OUTSIDE RECORDS SUMMARY | 2022-06-14 15:18 | XMS_ITS | Encounter Summary ---
:1990 Author Organization [facility] Address [address] [place] [address] Care Team Providers Name Role Phone Meghan Hernandez PA-C Primary Care Provider Encounter Details Date Type Department Care Team Description 11/09/2018 Abstract SE Family Med Meghan Hernandez PA-C [address] [facility] [address] [place] [address] [place] [address] (Wo rk) Social History Tobacco Use Types [...] or relatives? How often do you attend pentecostal or More than 4 times per year 06/04/2018 caodaism services? Do you belong to any clubs or Yes 06/04/2018 organizations such as pentecostal groups, unions, fraternal or athletic groups, or [...] on filedocumented in this encounter Care Teams Oracle Database Architect Relationship Specialty Start Date End Date Meghan Hernandez PA-C PCP - General Family Medicine 05/03/18 03/22/[address] [place] [address] documented as of this encounter
--- OUTSIDE RECORDS SUMMARY | 2022-06-14 15:18 | XMS_ITS | Encounter Summary ---
:1990 Author Organization [facility] Address [address] [place] [address] Care Team Providers Name Role Phone Meghan Hernandez PA-C Primary Care Provider Encounter Details Date Type Department Care Team Description 07/05/2018 Lab [place] Diarrhea, unspecified type [address] [place] [address] Social History Tobacco Use Types Packs/Day Years [...] More than 4 times per year 06/04/2018 sikh services? Do you belong to any clubs [...] Results for this CONCENTRATE & SMEAR, PM MANAGER TECHNICAL SALES unspecified type pro cedure are in MICROSCOPY, FECES the result s section. GIARDIA / Routine 07/04/2018 7:00 Diarrhea, Results for this CRYPTOSPORIDIUM PM MANAGER TECHNICAL SALES unspecified type procedur e are in ANTIGENS, FECES the results section. CLOSTRIDIUM DIFFICILE Routine 07/04/2018 7:00 Diarrhea, Res ults for this TOXIN PM MANAGER TECHNICAL SALES unspecified type procedure a re in the results section. STOOL CULTURE Routine 07/04/2018 7:00 Diarrhea, Results for this PM MANAGER TECHNICAL SALES unspecified type procedure a re in the results section. documented in this encounter Results Stool culture (07/04/2018 7:00 PM [facility]) [facility] gist Method Time Signature Stool Culture Negative for Salmonella, Shigella, Campy lobacter, E coli O157:H7, 07/08/2018 [facility] Yersinia. Negative for other Shiga toxin producing E. coli . 7:09 AM [facility] . [facility] (Expected result is negative in the absence of Shiga toxin p roducing E. coli). Specimen Anatomical Collection Method Collection Time Receive d Time (Source) Location / / Volume Laterality Stool 07/04/2018 7:00 PM 8 MANAGER TECHNICAL SALES 12:31 PM MANAGER TECHNICAL SALES Narrative [facility] - 09/2017 7:09 AM MANAGER TECHNICAL SALES Patient does not have an Amoxicillin or PCN allergy Meghan Hernandez PA-C LAB MICROBIOLOGY - GENERAL O RDERABLES Performing Organization Address City/State/ZIP Code Phon e Number [facility] [address] [place] [address] Parasitic Evaluation (07/04/2018 7:00 PM [facility]) P athologist Signature Ova + Parasite =- 07/07/2018 [facility] Exam 10:02 AM [facility] Comment: SOURCE: STOOL PARASITIC EXAMINATION ?FINAL No parasites seen. Cryptosporidium, Cyclospora, and microsp oridia are not readily detected by this method. Single negative specimen does not rule o ut parasitic infection. Test Performed by: [facility] [address] [place] [address] Source STOOL 07/05/2018 1:45 PM MANAGER TECHNICAL SALES [facility] Specimen Anatomical Collection Method Collection Time Receive d Time (Source) Location / / Volume Laterality Stool 07/04/2018 7:00 PM 8 1:47 MANAGER TECHNICAL SALES PM MANAGER TECHNICAL SALES Meghan BURROWSC LAB BODY FLUIDS AND STOOLS O RDERABLES Performing Organization Address City/State/ZIP Code Phon e Number [facility] see result attachment for specific address Clostridium difficile toxin (07/04/2018 7:00 PM MANAGER TECHNICAL SALES) Analysis Performed At Patho logist Time Signature Toxigenic C. NEGATIVE Negative 07/06/2018 [facility] Diff 4:56 PM [facility] Comment: Test performed using [employer] GeneXpert (real-time PCR targeting the Toxin B gen e) Specimen Anatomical Collection Method Collection Time Receive d Time (Source) Location / / Volume Laterality Stool 07/04/2018 7:00 PM 8 MANAGER TECHNICAL SALES 12:47 PM MANAGER TECHNICAL SALES Meghan MARTI-C LAB BODY FLUIDS AND STOOLS O RDERABLES Performing Organization Address City/[facility]/ZIP Code Phon e Number [facility] [address] [place] [phone] Cryptosporidium/Giardia antigen, feces (07/04/2018 7:00 PM MANAGER TECHNICAL SALES) Patholo gist Method Time Signature Cryptosporidium NEGATIVE Negative 07/06/2018 [facility] 4:07 PM [facility] Comment: . Giardia lamblia NEGATIVE Negative 07/06/2018 4:07 PM [facility] Comment: . Specimen Anatomical Collection Method Collection Time Receive d Time (Source) Location / / Volume Laterality Stool 07/04/2018 7:00 PM 8 MANAGER TECHNICAL SALES 12:31 PM MANAGER TECHNICAL SALES Meghan MARTI-C LAB BODY FLUIDS AND STOOLS O RDERABLES Performing Organization Address City/State/ZIP Code Phon e Number [facility] [address] [place] [address] documented in this encounter Visit Diagnoses Diagnosis Diarrhea, unspecified type documented in this encounter Care Teams Wood Piler Relationship Specialty Start Date End Date Meghan Hernandez PA-C PCP - General Family Medicine 05/03/18 03/22/[address] [place] [address] [place] [address] documented as of this encounter
--- OUTSIDE RECORDS SUMMARY | 2022-06-14 15:18 | XMS_ITS | Encounter Summary ---
:1990 Author Organization [facility] Address [address] [place] [address] Care Team Providers Name Role Phone Neetu Vargas MD Primary Care Provider [phone] Reason for Visit Reason Onset Date Comments Dulera 100-5MCG/ACT aerosol 01/12/2022 Med pa Encounter Details Date Type Department Care Team Description 01/12/2022 Telephone [place] Nusrat Vargas 100-5MCG/ACT [address] Neetu Gomez MD aerosol (Med pa) [place], [place] [address] [address] [place] [address] (Wo rk) Social History Tobacco [...] or relatives? How often do you attend sabianism or More than 4 times per year 06/04/2018 jehovah's witness services? Do you belong to any clubs or Yes 06/04/2018 organizations such as sabianism groups, unions, fraternal or athletic groups, or [...] AM CDT Dulera 100-5MCG/ACT aerosol ?? BIN: [id number] PCN: [id number] GROUP: [id number] PLAN: [id number] PHONE: [phone] ID: [id number] ?? PA completed per [facility], sent to plan. [place]: [id number] documented in this encounter Plan of Treatment Not on filedocumented as of this encounter Visit Diagnoses Not on filedocumented in this encounter Care Teams Seed Potato Arranger Relationship Specialty Start Date End Date Neetu Vargas MD PCP - General 11/23/[address] [place] [phone] documented as of this encounter
--- OUTSIDE RECORDS SUMMARY | 2022-06-14 15:18 | XMS_ITS | Encounter Summary ---
:1990 Author Organization [facility] Address [address] [place] [address] Care Team Providers Name Role Phone Neetu Vargas MD Primary Care Provider Encounter Details Date Type Department Care Team Description 02/15/2022 Telephone [place] Neetu Vargas, [address] [place] [address] [address] [place], [place] [address] [place] [address] [address] [place] [phone] (Wo rk) Social History Tobacco Use Types [...] or relatives? How often do you attend hinduism or More than 4 times per year 06/04/2018 yazdanism services? Do you belong to any clubs or Yes 06/04/2018 organizations such as hinduism groups, unions, fraternal or athletic groups, or [...] on filedocumented in this encounter Care Teams Lock Technician Relationship Specialty Start Date End Date Neetu Vargas MD PCP - General 11/23/[address] [place] [phone] documented as of this encounter
--- OUTSIDE RECORDS SUMMARY | 2022-06-14 15:18 | XMS_ITS | Encounter Summary ---
:1990 Author Organization [facility] Address [address] [place] [address] Care Team Providers Name Role Phone Heidi Corona MD Primary Care Provider Unavailable Encounter Details Date Type Department Care Team Description 03/25/2020 Telemedicine Heidi Loco mood disturbance (Primary Dx); [address] Hitesh Ayala MD Mild intermittent [place] [address] Social History Tobacco Use Types Packs/Day Years [...] More than 4 times per year 06/04/2018 lutheran services? Do you belong to any clubs [...] the upcoming school year. 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 Her daughter, Rosendo, has been healthy though has had frequent visits to ways operator for some possible allergies. She is doing [...] milk and feeding that to her 5-month-old infant. She is not too keen on the [...] ation documented in this encounter Care Teams Circular Knitter Relationship Specialty Start Date End Date Heidi Corona MD PCP - General Family Medicine 03/23/20 documented as of this encounter
--- OUTSIDE RECORDS SUMMARY | 2022-06-14 15:18 | XMS_ITS | Encounter Summary ---
:1990 Author Organization [facility] Address [address] [place] [address] Care Team Providers Name Role Phone Heidi Corona MD Primary Care Provider Unavailable Encounter Details Date Type Department Care Team Description 11/05/2020 Orders Only SE Family Med Heidi Corona MD [address] [place], [place] [address] Social History Tobacco Use Types Packs/Day Years [...] or relatives? How often do you attend restorationist or More than 4 times per year 06/04/2018 restorationist services? Do you belong to any clubs or Yes 06/04/2018 organizations such as restorationist groups, unions, fraternal or athletic groups, or [...] on filedocumented in this encounter Care Teams Casino Accountant Relationship Specialty Start Date End Date Heidi Corona MD PCP - General Family Medicine 03/23/20 documented as of this encounter
--- OUTSIDE RECORDS SUMMARY | 2022-06-14 15:18 | XMS_ITS | Encounter Summary ---
:1990 Author Organization [facility] Address [address] [place] [address] Care Team Providers Name Role Phone Heidi Corona MD Primary Care Provider Unavailable Reason for Visit Reason Onset Date Comments ACT and PHQ-9 questionaires 11/23/2020 Encounter Details Date Type Department Care Team Description 11/23/2020 Telephone Heidi Loco ACT and PHQ-[address] [place] [address] [place] [address] Social History Tobacco Use Types Packs/Day Years [...] on filedocumented in this encounter Care Teams Airbrush Artist Relationship Specialty Start Date End Date Heidi Corona MD PCP - General Family Medicine 03/23/20 documented as of this encounter
--- OUTSIDE RECORDS SUMMARY | 2022-06-14 15:18 | XMS_ITS | Encounter Summary ---
:1990 Author Organization [facility] Address [address] [place] [address] Care Team Providers Name Role Phone Meghan Hernandez PA-C Primary Care Provider Encounter Details Date Type Department Care Team Description 07/15/2018 Orders Only Meghan Dean, Abnormal blood [address] [place] GARCIA chemistry test (Primary [place] [address] [address]) [phone] [place] [phone] Social History Tobacco Use Types Packs/Day Years [...] More than 4 times per year 06/04/2018 hoahaoism services? Do you belong to any clubs [...] LFT panel. Is she still having symptoms? E WATER OPERATOR Sergio Wasserman RN - 07/15/2018 5:53 PM CST LMTCB E WATER OPERATOR Kar Batres LPN - 07/15/2018 5:53 PM CST LMTCB at home number. E WATER OPERATOR Arti Preston MA - 07/15/2018 5:53 PM CST Pt notified and agrees. She is not having pain as often but is still having light headedness and diarrhea. She is having a BM about 1 hr after eating every meal. Pt will try to come in tomorrow for LFTpanel. E WATER OPERATOR documented in this encounter Plan of Treatment Not on filedocumented as of this encounter Results (ABNORMAL) Liver panel (07/17/2018 3:37 PM WASTE WATER OPERATOR) Analysis Performed At Patho logist Time Signature Total Protein 7.7 6.3 - 8.2 07/18/2018 [place] g/dL 12:55 PM [facility]AST[facility] WATER [facility] Albumin, Serum 4.7 3.5 - 5.0 07/18/2018 [place] g/dL 12:55 PM [facility] Total Bilirubin <0.7 0.1 - 1.0 07/18/2018 [place] mg/dL 12:55 PM [facility] Bilirubin, <0.1 0.0 - 0.3 07/18/2018 [place] Direct mg/dL 12:55 PM [facility] AST 32 8 - 43 U/L 07/18/2018 [place] 12:55 PM [facility] Alkaline 51 38 - 128 07/18/2018 [place] Phosphatase U/L 12:55 PM [facility] ALT (SGPT) 71 (H) 25 - 45 07/18/2018 [place] U/L 12:55 PM [facility] Comment: . Specimen Anatomical Collection Method Collection Time Receive d Time (Source) Location / / Volume Laterality Blood 07/17/2018 3:37 PM 8 WASTE WATER OPERATOR 12:32 PM WASTE WATER OPERATOR Meghan Hernandez PA-C LAB BLOOD ORDERABLES Performing Organization Address City/State/ZIP Code Phon e Number [facility] [address] [place] [phone] documented in this encounter Visit Diagnoses Diagnosis Abnormal blood chemistry test - Primary documented in this encounter Care Teams Credit Analyst Relationship Specialty Start Date End Date Meghan Hernandez PA-C PCP - General Family Medicine 05/03/18 03/22/[address] [place] [address] documented as of this encounter
--- OUTSIDE RECORDS SUMMARY | 2022-06-14 15:18 | XMS_ITS | Encounter Summary ---
:1990 Author Organization [facility] Address [address] [place] [address] Care Team Providers Name Role Phone Meghan Hernandez PA-C Primary Care Provider Reason for Referral Imaging (Routine) - Closed Specialty Diagnoses / Procedures Referred By Contact Refer red To Contact Radiology Diagnoses RLQ abdominal pain Meghan Hernandez PA-C Procedures CT abdomen pelvis w and wo IV contrast [address] [place] [address] Referral ID Status Reason Start Date Expiration Date Visits Requ ested Visits Authorized [id number] Closed 07/04/2018 12/31/2018 1 1 AIN WORKER Reason for Visit Reason Comments Abdominal Pain Back Pain Encounter Details Date Type Department Care Team Description 07/04/2018 Office Visit Meghan Dean, RLQ abdominal pain (Primary Dx); [address] JEREMIAH GARCIA Diarrhea, unspecified type [place] [phone] [place] [address] Social History [...] or relatives? How often do you attend jain or More than 4 times per year 06/04/2018 [employer] services? Do you belong to any clubs or Yes 06/04/2018 organizations such as jain groups, unions, fraternal or athletic groups, or [...] Comments Blood Pressure 110/68 07/04/2018 12:37 PM CURTAIN WORKER Pulse 72 07/04/2018 12:37 PM CURTAIN WORKER Temperature 37.3 ??C (99.2 ??F) 07/04/2018 12:37 PM CURTAIN WORKER Respiratory Rate 12 07/04/2018 12:37 PM CURTAIN WORKER Oxygen Saturation - - Inhaled Oxygen Concentration - - Weight 82.5 kg (181 lb 12.8 oz) 07/04/2018 12:37 PM CURTAIN WORKER Height - - Body Mass Index 31.5 [...] fluid intake. Further follow-up pending test results. AIN WORKER documented in this encounter Plan of Treatment Not on filedocumented as of this encounter Procedures Procedure Name Priority Date/Time Associated Diagnosis Comme nts CT ABDOMEN PELVIS W STAT 07/04/2018 3:43 PM Re sults for this CONTRAST CURTAIN WORKER procedure are i n the results section. documented in this encounter Results Cryptosporidium/Giardia antigen, feces (07/04/2018 7:00 PM CURTAIN WORKER) Patholo gist Method Time Signature Cryptosporidium NEGATIVE Negative 07/06/2018 [place] 4:07 PM [facility] Comment: . Giardia lamblia NEGATIVE Negative 07/06/2018 4:07 PM [facility] Comment: . Specimen Anatomical Collection Method Collection Time Receive d Time (Source) Location / / Volume Laterality Stool 07/04/2018 7:00 PM 8 CURTAIN WORKER 12:31 PM CURTAIN WORKER Meghan Hernandez PA-C LAB BODY FLUIDS AND STOOLS O RDERABLES Performing Organization Address City/State/ZIP Code Phon e Number [facility] [address] [place] [phone] Clostridium difficile toxin (07/04/2018 7:00 PM CURTAIN WORKER) Analysis Performed At Patho logist Time Signature Toxigenic C. NEGATIVE Negative 07/06/2018 [place] Diff 4:56 PM [facility] Comment: Test performed using [place] GeneXpert (real-time PCR targeting the Toxin B gen e) Specimen Anatomical Collection Method Collection Time Receive d Time (Source) Location / / Volume Laterality Stool 07/04/2018 7:00 PM 8 CURTAIN WORKER 12:47 PM CURTAIN WORKER Meghan Hernandez PA-C LAB BODY FLUIDS AND STOOLS O RDERABLES Performing Organization Address City/State/ZIP Code Phon e Number [facility] [address] [place] [address] Parasitic Evaluation (07/04/2018 7:00 PM CURTAIN WORKER) P athologist Signature Ova + Parasite =- 07/07/2018 [facility] Ex[facility] 10:02 AM [facility] Comment: SOURCE: STOOL PARASITIC EXAMINATION ?FINAL No parasites seen. Cryptosporidium, Cyclospora, and microsp oridia are not readily detected by this method. Single negative specimen does not rule o ut parasitic infection. Test Performed by: [facility] [address] [place] [address] Source STOOL 07/05/2018 1:45 PM CURTAIN WORKER [facility] Specimen Anatomical Collection Method Collection Time Receive d Time (Source) Location / / Volume Laterality Stool 07/04/2018 7:00 PM 8 1:47 CURTAIN WORKER PM CURTAIN WORKER Meghan Hernandez PA-C LAB BODY FLUIDS AND STOOLS O RDPRASHANT Performing Organization Address City/State/ZIP Code Phon e Number [facility] see result attachment for specific address Stool culture (07/04/2018 7:00 PM CURTAIN WORKER) [facility] Method Time Signature Stool Culture Negative for Salmonella, Shigella, Campy lobacter, E coli O157:H7, 07/08/2018 [place] Yersinia. Negative for other Shiga toxin producing E. coli . 7:09 AM [facility] . [facility] (Expected result is negative in the absence of Shiga toxin p roducing E. coli). Specimen Anatomical Collection Method Collection Time Receive d Time (Source) Location / / Volume Laterality Stool 07/04/2018 7:00 PM 8 CURTAIN WORKER 12:31 PM CURTAIN WORKER Narrative [facility] - 09/2017 7:09 AM CURTAIN WORKER Patient does not have an Amoxicillin or PCN allergy Meghan Hernandez PA-C LAB MICROBIOLOGY - GENERAL O [place] Performing Organization Address City/[facility]/ZIP Code Phon e Number [facility] [address] [place] [phone] abdomen pelvis w IV contrast (07/04/2018 3:43 PM CURTAIN WORKER) Anatomical Region Laterality Modality Body Computed Tomography Specimen (Source) Anatomical Collection Method Collection Time Re ceived Time Location / / Volume Laterality 07/04/2018 3:43 PM CURTAIN WORKER Impressions 07/04/2018 4:09 PM CURTAIN WORKER IMPRESSION: Normal appendix. Fluid in the left colon consistent with diarrheal illness. Remainder of the exam is unremarkable. These findings were called to Meghan Adam at 4:07 p.m. on July 04, 2018. Please note that all CT scans at this [facility] use dose modulation, iterative reconstruction, and/or weight- based dosing when appropriate to reduce radiation dose to as low as reaso nably achievable. Dictated by Hortensia Larose MD @ Jul 04 2018 ??4:09PM Signed by Dr. Hortensia Larose @ Jul 04 2018 ??4:09PM Narrative 07/04/2018 4:09 PM CURTAIN WORKER INDICATION: Decreased appetite, right lower quadrant pain [...] note that all CT scans at this [facility] use dose modulation, iterative reconstruction, and/or weight- based dosing when appropriate to reduce radiation dose to as low as reaso nably achievable. Dictated by Hortensia Larose MD @ Jul 04 2018 4:09PM Signed by Dr. Hortensia Larose @ Jul 04 2018 4:09PM Meghan Hernandez PA-C IMG CT PROCEDURES Creatinine, Serum (07/04/2018 2:04 PM CURTAIN WORKER) athologist Signature Creatinine 0.6 0.4 - 1.2 07/04/2018 [facility] mg/dL 3:08 PM [facility] Specimen Anatomical Collection Method Collection Time Receive d Time (Source) Location / / Volume Laterality Blood 07/04/2018 2:04 PM 8 2:04 CURTAIN WORKER PM CURTAIN WORKER Meghan Hernandez PA-C LAB BLOOD ORDERABLES Performing Organization Address City/State/ZIP Code Phon e Number [facility] [address] [place] [phone] , urine (07/04/2018 1:17 PM CURTAIN WORKER) athologist Signature NEGATIVE Negative 07/04/2018 [facility] Test, Urine 1:20 PM [facility] Specimen Anatomical Collection Method Collection Time Receive d Time (Source) Location / / Volume Laterality Urine 07/04/2018 1:17 PM 8 1:18 CURTAIN WORKER PM CURTAIN WORKER Meghan Hernandez PA-C LAB URINE ORDERABLES Performing Organization Address City/State/ZIP Code Phon e Number [facility] [address] [place] [address] CBC Branch Off w/Diff (07/04/2018 1:00 PM CURTAIN WORKER) athologist Signature WBC 5.5 3.5 - 10.5 07/04/2018 [facility] K/uL 1:10 PM [facility] RBC 4.27 3.90 - 07/04/2018 [facility] 5.00 M/uL 1:10 PM [facility] Hemoglobin 12.8 12.0 - 07/04/2018 [facility] 15.5 g/dL 1:10 PM [facility] Hematocrit 38.3 35.0 - 07/04/2018 [facility] 44.0 % 1:10 PM [facility] Platelets 248 150 - 450 07/04/2018 [facility] K/uL 1:10 PM [facility] MCV 89.7 81.6 - 07/04/2018 [facility] 98.3 fL 1:10 PM [facility] MCH 30.0 26.0 - 07/04/2018 [facility] 32.0 pg 1:10 PM [facility] MCHC 33.4 32.0 - 07/04/2018 [facility] 36.0 g/dL 1:10 PM [facility] RDW 12.0 11.9 - 07/04/2018 [facility] 15.5 % 1:10 PM [facility] Lymphocytes % 40.0 18.0 - 07/04/2018 [facility] 45.0 % 1:10 PM [facility] Mid-size Cells 9.6 3.3 - 10.1 07/04/2018 [facility] % 1:10 PM [facility] Granulocytes/Omar 50.4 45.8 - 07/04/2018 [facility] trophils 73.7 % 1:10 PM [facility] Lymphocytes 2.2 0.9 - 2.9 07/04/2018 [facility] Absolute K/uL 1:10 PM [facility] MIDS Absolute 0.5 0.2 - 0.8 07/04/2018 [facility] K/uL 1:10 PM [facility] Granulocytes/Omar 2.8 2.1 - 8.7 07/04/2018 [facility] trophils K/uL 1:10 PM [facility] Absolute Specimen Anatomical Collection Method Collection Time Receive d Time (Source) Location / / Volume Laterality Blood 07/04/2018 1:00 PM 8 1:03 CURTAIN WORKER PM CURTAIN WORKER Meghan Hernandez PA-C LAB BLOOD ORDERABLES Performing Organization Address City/State/ZIP Code Phon e Number [facility] [address] [place] [address] (ABNORMAL) Comprehensive metabolic panel (07/04/2018 1:00 PM CURTAIN WORKER) [facility] Method Time Signature Total Protein 8.2 6.3 - 8.2 07/05/2018 [place] g/dL 1:53 PM [facility] Albumin, Serum 5.0 3.5 - 5.0 07/05/2018 [place] g/dL 1:53 PM [facility] Total Bilirubin <0.7 0.1 - 1.0 07/05/2018 [place] mg/dL 1:53 PM [facility] AST 59 (H) 8 - 43 U/L 07/05/2018 [place] 1:53 PM [facility] Alkaline 56 38 - 128 07/05/2018 [place] Phosphatase U/L 1:53 PM [facility] ALT (SGPT) 148 (H) 25 - 45 07/05/2018 [place] U/L 1:53 PM [facility] Comment: . Sodium 140 135 - 145 mEq/L 07/05/2018 1:53 PM [facility] Potassium 4.0 3.5 - 5.1 mEq/L 07/05/2018 1:53 PM [facility] Chloride 104 98 - 107 mEq/L 07/05/2018 1:[address] [facility] CO2 24 22 - 29 mmol/L 07/05/2018 1:[address] [facility] BUN 9 5 - 25 mg/dL 07/05/2018 1:53 PM [facility] Creatinine 0.6 0.4 - 1.2 mg/dL 07/05/2018 1:53 PM [facility] Glucose 90 70 - 100 mg/dL 07/05/2018 1:[address] [facility] Calcium, Total,S 9.6 8.4 - 10.2 mg/dL 07/05/2018 1:53 PM [facility] Fasting? Yes 07/04/2018 1:03 PM [facility] Specimen Anatomical Collection Method Collection Time Receive d Time (Source) Location / / Volume Laterality Blood 07/04/2018 1:00 PM 8 1:02 CURTAIN WORKER PM CURTAIN WORKER Meghan Hernandez PA-C LAB BLOOD ORDERABLES Performing Organization Address City/State/ZIP Code Phon e Number [facility] [address] [place] [address] documented in this encounter Visit Diagnoses Diagnosis RLQ abdominal pain - Primary Abdominal pain, right lower quadrant Diarrhea, unspecified type Diarrhea, unspecified type documented in this encounter Care Teams Certified Pest Control Technician Relationship Specialty Start Date End Date Meghan Hernandez PA-C PCP - General Family Medicine 05/03/18 03/22/[address] [place] [address] documented as of this encounter
--- OUTSIDE RECORDS SUMMARY | 2022-06-14 15:19 | XMS_ITS | Encounter Summary ---
:1990 Author Organization [facility] Address [address] [place] [address] Care Team Providers Name Role Phone Unavailable Primary Care Provider Unavailable Reason for Visit Reason Comments COVID Inquiry Encounter Details Date Type Department Care Team Description 10/26/2020 Clinical Communication Central Appointment AndiedRUSS estrada Office in [facility] [address] [place], [place] [phone] Social History Tobacco Use Types Packs/Day Years [...] Because of symptoms, transfer patient to: : [facility] (End Screening) In the past 14 days have you had close contact* with a person who has a LABORATORY CONFIRMED case ofCOVID-19?: Yes exposure noted. [place] patient, instruct to quarantine, testing indicated (End Screening) Symptom Onset Date of symptom onset: 10/19/20 Testing Recommendation Endpoint Is testing recommended? : Transferred to nursing call line Plan: Endpoint recommendation: Transferred to Nursing/COVID Line/Care Team *Reminder if sending patient for testing in [facility] or [facility], route encounter to the correct testing pool. documented in this encounter Plan of Treatment Not on filedocumented as of this encounter Visit Diagnoses Not on filedocumented in this encounter
--- OUTSIDE RECORDS SUMMARY | 2022-06-14 15:19 | XMS_ITS | Clinical Summary ---
:1990 Author Organization [facility] Address [address] [place] [address] Care Team Providers Name Role Phone Unavailable Primary Care Provider Unavailable Source Comments Patient records contain information from all sites at [facility]. For routine questions regarding patient records, call [phone] during business hours, M-F 8:00 AM - 5:00 PM Central Time. 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
--- OUTSIDE RECORDS SUMMARY | 2022-06-14 15:19 | XMS_ITS | Encounter Summary ---
:1990 Author Organization [facility] Address [address] [place] [address] Care Team Providers Name Role Phone Unavailable Primary Care Provider Unavailable Encounter Details Date Type Department Care Team Description 11/12/2014 Hospital Encounter HX [facility] Sa carlos Strange P.A.-C. [address] [address] [phone] (Wo rk) Social History Tobacco Use [...] documented in this encounter H&P Notes Sanford Bird PTomi - 11/12/2014 9:34 AM CDT [id number] CHIEF COMPLAINT/REASON FOR VISIT Annual exam. HISTORY OF PRESENT ILLNESS This is a 23-year-old, nulliparous female, who presents today for an annual ELECTRICIAN YARD exam. Cecilio would like her contraception refilled. [...] screen and this will be her first ELECTRICIAN YARD exam. PAST MEDICAL/SURGICAL HISTORY PAST MEDICAL HISTORY: Seasonal allergies. Asthma. Irritable bowel syndrome. PAST SURGICAL HISTORY: Tonsils and adenoids. PAST OBSTETRICS/GYNECOLOGIC HISTORY: She is nulliparous and has not had an exam and denies any othersexually transmitted infections. SOCIAL HISTORY She denies any tobacco or other drug use. She has alcohol about 1 to 2 times per month. 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 FAMILY HISTORY Reviewed and updated in [...] BIRD PA-C On: 12/17/2014 04:15 PM Source: [facility] MHSDOLBEYNONRADSYS Document Id: [id number] documented in this encounter Miscellaneous Notes Miscellaneous [...] 1 Substitutions Allowed Route To Pharmacy - [facility] [address] Signed by SANFORD BIRD PA-C 01/13/2016 12:14:17 From: BRIANNA TIWARI MA To: SANFORD BIRD PA-C; Sent: 01/13/2016 09:53:31 CDT Subject: Med Management On hold pending signature Order:drospirenone-ethinyl estradiol (Deonna 3 mg-0.03 mg oral tablet) 1 tab(s) PO Daily Qty: 30 tab(s) Refills: 0 Substitutions Allowed Route To Pharmacy - [facility] [address] Caller is: ( x ) Patient ( [...] Call to Pharmacy ( ) Patient will cook pickled meat Script ( ) Mail Rx to Patient Source: [facility] POWERCHART Document Id: [id number] Telephone Encounter - Anum Jiménez R.N. - 01/23/2015 11:15 AM CDT *Phone Message Document Contains Addenda Addendum by SANFORD BIRD PA-C on 23 January 2015 12:17:37 CDT From: SANFORD BIRD PA-C To: [facility] Obstetrics/Gynecology Nurse; Sent: 01/23/2015 12:17:37 CDT Subject: RE: *Phone Message thx From: ANUM JIMÉNEZ RN ([facility] Obstetrics/Gynecology Nurse) To: SANFORD BIRD PA-C; Sent: [...] Patient is currently [place] of town in [place]. I paged Sanford who states being that [...] back cell phone number ( ) Source: [facility] [employer]unch[employer] Fun Document Id: [id number] Miscellaneous - BirdNattyah Kody Aguayo - 11/21/2014 12:24 PM CDT Custom Result Letter 21 November 2014 CECILIO ALBERTO [address] [place] [address] [id number] Dear CECILIO ALBERTO, I hope this letter [...] you for trusting your health care to [facility] Obstetrics and Gynecology; improving our quality and service is our highest priority for your care. We are closely monitoring our service to you. If you dont think you could rate us in the highest category of care we would truly like to know what we could do better. Feel free to contact us directly with any concerns at [phone]. Thank you for allowing me to participate in your health care. Result Name Current Result ELECTRICIAN YARD Cytology 11/12/2014 Sincerely, SANFORD PELON [address] [place] [address] [id number] Electronic Signature Electronically Signed By: SANFORD BIRD PA-C On: 21 November 2014 This document has images extracted. Source: [employer] Document Id: [id number] Miscellaneous - Sanford Bird P.A.-C. - 11/13/2014 1:32 PM CDT Custom Result Letter 13 November 2014 CECILIO ALBERTO [address] [place] [address] [id number] Dear CECILIO ALBERTO, I hope this letter finds that you are doing well. Your Chlamydia and Gonorrhea cultures were both negative. Thank you for trusting your health care to [facility] Obstetrics and Gynecology; improving our quality and service is our highest priority for your care. We are closely monitoring our service to you. If you dont think you could rate us in the highest category of care we would truly like to know what we could do better. Feel free to contact us directly with any concerns at [phone]. Thank you for allowing me to participate in your health care. Result Name Current Result Chlamydia DNA Probe 11/12/2014 GC by Nucleic Acid Amplification 11/12/2014 Sincerely, SANFORD PELON [address] [place] [address] [id number] Electronic Signature Electronically Signed By: SANFORD BIRD PA-C On: 13 November 2014 This document has images extracted. Source: [employer] Document Id: [id number] Miscellaneous - Sanford Bird P.A.-C. - 11/12/2014 1:05 PM CDT Ambulatory Patient Summary [facility] [address] [facility] [place] [phone] Visit Information Name: BETOCECILIO LEAL [facility] Number: [id number] Current Date: 11/12/2014 13:05:12 Physicians Attending Provider: SANFORD BIRD PA-C Primary Care Provider: PCP, UNASSIGNED - AISHA ALBERTOCECILIO has been given the following list of [...] tablet) 1 Tablet(s), Oral, once a day Routedto Jose [address] [place], [place] [id number] [facility] Prescription ([facility] Prescription) magnesium 3 tabs at bedtime daily. [...] Treatment is basedon the average value. <http://labtestsonline.org/pr/staywell.html> ??6510-3489 [employer] [employer] This document has images extracted. Please consider using [employer] for all your patient education needs. Source: [facility] POWERCHART Document Id: [id number] Miscellaneous - Sanford Bird P.A.-C. - 11/12/2014 1:05 PM CDT Ambulatory Discharge Medication List [address] [phone] Visit Information Name: CECILIO ALBERTO [facility] Number: [id number] Visit Date: 11/12/2014 13:05:11 Attending [...] tablet) 1 Tablet(s), Oral, once a day [facility] [address] [place], [place] [id number] Misc Prescription (Misc Prescription) magnesium 3 tabs at bedtime daily. [...] PA-C Signed On:12-NOV-2014 10:00:55 Additional Information: Source: [facility] POWERCHART Document Id: [id number] Miscellaneous - Sanford Bird P.A.-C. - 11/12/2014 11:15 AM CDT Custom Result Letter 12 November 2014 CECILIO ALBERTO [address] [place] [address] [id number] Dear CECILIO ALBERTO, I hope this letter [...] you for trusting your health care to [facility] Obstetrics and Gynecology; improving our quality and service is our highest priority for your care. We are closely monitoring our service to you. If you dont think you could rate us in the highest category of care we would truly like to know what we could do better. Feel free to contact us directly with any concerns at [phone]. Thank you for allowing me to participate [...] 11/12/2014 Wet Prep 11/12/2014 Sincerely, SANFORD BIRD [address] [place] [address], [place] [address] Electronic Signature Electronically Signed By: SANFODR BIRD PA-C On: 12 November 2014 This document has images extracted. Source: [facility] TX. com. cnCHART Document Id: [id number] Margaret - Nathalie Asencio - 11/12/2014 10:30 AM CDT School Excuse 12 November 2014 CECILIO ALBERTO [address] [place] [address] [id number] Dear CECILIO ALBERTO, You were examined in [...] 2014 This document has images extracted. Source: [facility] [place]. com. cnCHART Document Id: [id number] Margaret - Brianna Tiwari C.M.A. - 11/12/2014 9:52 AM CDT PHQ-9 PHQ-9 [...] TIWARI MA - 11/12/2014 9:52 CDT Source: [facility] [employer] Document Id: [id number] CDT!12 Miscellaneous - Brianna Tiwari, C.M.A. 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 : No BRIANNA TIWARI MA - 11/12/2014 9:49 CDT Subjective Pain Symptoms : No LOGANWALDEMARBRYANNAOlivier Mckeon MA - 11/12/2014 9:49 CDT Dependent Habits Tobacco Use/Currently Using : No Exposure to Tobacco Smoke : Other: NONE Smoking Status : Never smoker LOGANWALDEMARBRIANNA Linda MADRIGAL - 11/12/2014 9:49 CDT Tobacco Use Grid Type : Other: NONE DIANNABRYANNAOlivier Mckeon MA - 11/12/2014 9:49 CDT Caffeine Use Grid Caffeine Use : Current Type : Coffee Frequency : Daily DIANNA BRIANNA Mckeon MA - 11/12/2014 9:49 CDT Recreational Drug Use Grid Drug Use : None BRIANNA TIWARI MA - 11/12/2014 9:49 CDT ID Screen Travel Within Last 21 Days : No Contact with someone with Ebola : No DIANNA BRIANNA Mckeon MA - 11/12/2014 9:49 CDT Source: [employer] Document Id: [id number] CDT!41 Miscellaneous - Brianna Tiwari CPaulineMMarla - 11/12/2014 9:49 AM CDT Health Assessment Health Assessment Entered On: 11/12/2014 9:52 CDT Performed On: 11/12/2014 9:49 CDT by BRIANNA TIWAIR MS Health Assessment Complete Health Assessment Complete or Modified : Annual Health Assessment Annual Health Assessment Completed : Yes BRIANNA TIWARI MA - 11/12/2014 9:49 CDT Nutrition Nutrition Risk Factors by History Adult : None LOGANWALDEMARBRYANNAOlivier Mckeon MA - 11/12/2014 9:49 CDT Functional Current Daily Living Assistance : None BRIANNA TIWARI MA - 11/12/2014 9:49 CDT Dependent Habits Tobacco Use/Currently Using : No Exposure to Tobacco Smoke : Other: NONE Smoking Status : Never smoker BRIANNA TIWARI MA - 11/12/2014 9:49 CDT Tobacco Use Grid Type : Other: NONE RBIANNA TIWARI MA - 11/12/2014 9:49 CDT Caffeine Use Grid Caffeine Use : Current Type : Coffee Frequency : Weekly BRIANNA TIWARI ROHAN - 11/12/2014 9:49 CDT Recreational Drug Use Grid Drug Use : None BRIANNA TIWARI MA - 11/12/2014 9:49 CDT Psychosocial Domestic Abuse Concerns : None Behavioral Health Screen/Safety Assmt : No Holiness Preference : BRIANNA Cabrera ROHAN - 11/12/2014 9:49 CDT Advance Directive Advanced Directives : No Advance Directive Additional Information : No BRIANNA TIWARI MA - 11/12/2014 9:49 CDT Educ Needs Learning Style Preference Adult Grid Patient : None Family : None BRIANNA TIWARI ROHAN - 11/12/2014 9:49 CDT Source: [facility] [employer] Document Id: [id number] CDT!34 documented in this encounter Plan of Treatment Not on filedocumented as of this encounter Procedures Procedure Name Priority Date/Time Associated Comments Diagnosis PATHOLOGY ELECTRICIAN YARD Routine 11/12/2014 11:34 Results fo r this [...] section. documented in this encounter Results Pathology ELECTRICIAN YARD Cytology (11/12/2014 11:34 AM CDT) Specimen (Source) Anatomical Collection Method Collection Time Re ceived Time Location / / Volume Laterality 11/12/2014 11:34 AM CDT Narrative SANDRA RAMACHANDRAN - 11/20/2014 1:27 PM CDT (NOTE) Patient Name: CECILIO ALBERTO MR#: [id number] Location: ??OBGYN Date Reported: ??11/20/2014 13:27 Specimen #[id number] Clinical History None Given CLINICAL INFORMATION Menstrual History: Routine Pap Source: SurePath Liquid Based Pap Test - Vaginal /Cervical/Endocervical Final Diagnosis SurePath Liquid Based Pap Test - Vaginal /Cervical/Endocervical: Satisfactory for evaluation. Negative for intraepithelial lesion or m alignancy. Pertinent clinical information not provi ded (LMP, patient history, etc.). Electronically Signed Out By Diane Sin N, CT(ASCP) Date Reported:11/20/2014 13:27 [facility] [address] [facility] [place], ??[place] [address] CPT Code(s) A: 79780 Historical Provider LAB PAP COPATH ORDERABLES Performing Organization Address City/[facility]/ZIP Code Phon e Number MISYS [place] [address] [place] [address] MISYS [place] Glucose, Fasting (11/12/2014 10:35 AM CDT) athologist Signature Glucose, 91 70 - 99 MISYS [place] Fasting, S MGDL Comment: PERFORMED AT [facility], [address] [place] [address] [address] [place] [address] Specimen (Source) Anatomical Collection Method Collection Time Re ceived Time Location / / Volume Laterality Blood 11/12/2014 10:35 AM CDT Sanford Bird P.A.-C. LAB BLOOD NON ADD-ON Performing Organization Address [facility]/ZIP [facility] Phon e Number MISYS [place] [address] [place] [address] MISYS [place] Lipid Panel (11/12/2014 10:35 AM CDT) Analysis Performed At Patho logist Time Signature Cholesterol, Total 137 <200 MGDL MISYS [place] HX HDL 71 >40 MGDL MISYS [place] Cholesterol, 66 <130 MGDL MISYS Non-HDL, [place] Calculated Triglycerides 90 <150 MGDL MISYS [place] Calculated LDL 48 <100 MGDL MISYS [place] Total 1.93 MISYS Cholesterol/HDL [place] Ratio Comment: PERFORMED AT [facility], [address] [place] [address] [address] [place] [address] HXCHD Risk Factor CHD CHOLESTEROL/HDL RATIO MISYS [...] P.A.-C. LAB BLOOD ADD-ON Performing Organization Address City/[facility] Phon e Number MISYS [place] [address] [place] [address] MISYS [place] Chlamydia / Gonorrhoeae Amplified RNA (11/12/2014 10:31 AM CDT) Component Value Ref Test Analysis Performed At [facility] Method Time Signature HX GC by [...] - GENERAL O RDERABLES Performing Organization Address City/[facility]/ZIP Code Phon e Number MISYS [place] [address] [place] [address] MISYS [place] Chlamydia Trachomatis Amplified RNA (11/12/2014 10:31 AM CDT) Component Value Ref Test Analysis Performed At [facility] [place] Method Time Signature HXChlamydia by NEGATIVE [...] - GENERAL O RDERABLES Performing Organization Address [facility] Phon e Number CLAIREYS [place] [address] [place] [address] MISSANAM [place] Wet Prep Exam, Urogenital (11/12/2014 10:31 AM CDT) [facility] Method Time Signature HXSPECIMAN VAGINAL MISYS DESCRIPTION [place] HXWet Prep NO CLUE CELLS MISYS SEEN [place] HXWet Prep NO TRICHOMONAS MISYS SEEN [place] HXWet Prep NO YEAST SEEN MISYS [place] HXWet Prep PERFORMED AT [facility], [address] [place] [address] [address]., [place] [address] CULTURE REPORT FINAL MISYS STATUS 11/12/2014 [place] Specimen (Source) Anatomical Collection Method Collection Time Re ceived Time Location / / Volume Laterality Vagina 11/12/2014 10:31 AM CDT Sanford Bird P.A.-C. LAB MICROBIOLOGY - GENERAL O RDERABLES Performing Organization Address [facility] Phon e Number SANDRA [place] [address] [place] [address] MISYS [place] documented in this encounter Visit Diagnoses Not on filedocumented in this encounter
--- OUTSIDE RECORDS SUMMARY | 2022-06-14 15:19 | XMS_ITS | Encounter Summary ---
:1990 Author Organization [facility] Address [address] [place] [address] Care Team Providers Name Role Phone Unavailable Primary Care Provider Unavailable Encounter Details Date Type Department Care Team Description 04/27/2011 Hospital Encounter [facility] Milton Newberry M.D. [address] [place] [address] (Wo rk) Social History Tobacco Use Types Packs/Day Years Used Date Smoking Tobacco: Never Assessed Sex Assigned at Date Recorded Not on file documented as of this encounter Progress Notes Milton Newberry M.D. - 04/27/2011 3:29 PM CDT [id number] REASON FOR VISIT Vaginal bleeding and abdominal pain. SUBJECTIVE Kozgujpw-ccks-[id number] female who presents with three day history [...] given the findings and plan. Milton Newberry MD/s I reviewed and concur with the history, examination, tests, diagnosis, and plan proposed by Dr. Newberry. Sophie Galeas MD, Preceptor #[id number] cc: Electronically Signed By: MILTON NEWBERRY MD On: 04/28/2011 03:51 PM Modified by and Electronically Signed by: MILTON NEWBERRY MD On: 04/28/2011 03:50 PM Co-Signed By: SOPHIE GALEAS MD On: 04/29/2011 08:20 AM Source: [facility] FSHDICTAPHONESYS Document Id: [id number] documented in this encounter Miscellaneous Notes Miscellaneous - Milton Newberry M.D. - 04/27/2011 6:04 PM CDT Ambulatory Patient Summary [address] [address] Visit Information Name: NANCY ALBERTO Current Date: [...] No Appointments found Your Goals/Additional instructions: Source: [facility]ILITY[facility]Analytical Systems Document Id: [id number] Margaret - Milton Newberry M.D. - 04/27/2011 6:04 PM CDT Ambulatory [place] [address] Visit Information Name: NANCY ALBERTO Current Date: [...] to the patient and/or family, guardian/caregiver. Source: [facility] Document Id: [id number] Margaret - Ofelia Hess L.P.N. 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 Intake/History Entered On: 04/27/2011 15:51 CDT Performed [...] By: Patient Preferred Communication Mode: Verbal Languages: Guyanese OFELIA HESS MA - 04/27/2011 15:48 CDT [...] Tobacco Smoke: Other: NONE OFELIA HESS MA 04/27/2011 15:48 CDT Tobacco Use Grid Type: Other: NONE OFELIA HESS MA 04/27/2011 15:48 CDT Allergy Latex Reaction: No OFELIA HESS MA 04/27/2011 15:48 CDT Allergies (Active) minocycline Estimated Onset Date: Unspecified ; Reactions: Bruising, gums turned blue ; Created By: OFELIA HESS MA; Reaction Status: Active ; Category: Drug ; Substance: minocycline ; Type: Allergy ; Updated By: OFELIA HESS MA; Reviewed Date: 04/27/2011 15:46 CDT Source: [employer] Document Id: [id number] CDT!42 documented in this encounter Plan of Treatment Not on filedocumented as of this encounter Visit Diagnoses Not on filedocumented in this encounter
--- OUTSIDE RECORDS SUMMARY | 2022-06-14 15:19 | XMS_ITS | Encounter Summary ---
:1990 Author Organization [facility] Address [address] [place] [address] Care Team Providers Name Role Phone Unavailable Primary Care Provider Unavailable Reason for Visit Reason Onset Date Comments Outpatient COVID-19 Testing 10/26/2020 Encounter Details Date Type Department Care Team Description 10/26/2020 External Outreach Department of Family Post, Ji Aguayo, Contact With And Medicine, [place] [address] M.D. (Suspected) Exposure Street Professional [address] To COVID-19 (Primary Building in [place], [place] Dx) [place] [address] [address] [phone] [place], [place] (Work) [address] Social History Tobacco Use [...] managing the patient, they may: Call the [facility] Covid Care Team Doc of the Day [...] Detect, V Asymptomatic (10/26/2020 10:40 AM CDT) [facility] Method Time Signature SARS-CoV-2 Swab, 10/26/2020 [facility] Specimen Nasopharynx 10:28 PM Source CDT SARS-CoV-2 Detected (A) Undetected 10/26/2020 [facility] RNA by PCR 10:28 PM CDT Comment: SARS-CoV-2 RNA present. ----ADDITIONAL INFORMATION---- This RT-PCR test using the nicolette SARS-Co V-2 assay ([employer] performed on the nicolette 6800/8800 S ystem has received Emergency Use Authorization (EUA) by the U.S. Food and Drug Administration, and is modified from the graduate student's instructions wit h a bridging study. Performance characteristics were verified by [facility] inic in a manner consistent with CLIA requirements. Fact sheets for this Emergency Use Autho rization (EUA) assay can be found at the following links: For Healthcare Providers: https://www.fd a.gov/media/116670/download For Patients: https://www.fda.gov/media/ 475179/download Specimen Anatomical Collection Method Collection Time Receive d Time (Source) Location / / Volume Laterality Varies 10/26/2020 10:40 10/26/2020 2:08 (Nasopharynx) AM CDT PM CDT Ji Merida M.D. LAB MICROBIOLOGY - GENERAL O CHLOE Performing Organization Address City/State/ZIP Code Phon e Number [facility] [address] [place] [address] SUPPORT CENTER [facility] [place] [address] Laboratory Medicine and Pathology [address] [place] documented in this encounter Visit Diagnoses Diagnosis Contact With And (Suspected) Exposure To COVID-19 - Primary documented in this encounter Additional Health Concerns Infection Onset Date Last Indicated Resolved Time COVID19 Pending 10/26/2020 10/26/2020 10/26/2020 10:28 PM CDT documented as of this encounter
--- OUTSIDE RECORDS SUMMARY | 2022-06-14 15:19 | XMS_ITS | Encounter Summary ---
:1990 Author Organization [facility] Address [address] [place] [address] Care Team Providers Name Role Phone Unavailable [...]
--- OUTSIDE RECORDS SUMMARY | 2022-06-14 15:19 | XMS_ITS | Encounter Summary ---
:1990 Author Organization [facility] Address [address] [place] [address] Care Team Providers Name Role Phone Unavailable [...]
--- OUTSIDE RECORDS SUMMARY | 2022-06-14 15:19 | XMS_ITS | Encounter Summary ---
:1990 Author Organization [facility] Address [address] [place] [address] Care Team Providers Name Role Phone Unavailable Primary Care Provider Unavailable Encounter Details Date Type Department Care Team Description 10/26/2020 Admin Visit Department of Family Medicine, [address] [address] Social History Tobacco Use Types Packs/Day Years [...]
--- OUTSIDE RECORDS SUMMARY | 2022-06-14 15:19 | XMS_ITS | Encounter Summary ---
:1990 Author Organization [facility] Address [address] [place] [address] Care Team Providers Name Role Phone Unavailable [...]
--- OUTSIDE RECORDS SUMMARY | 2022-06-14 15:19 | XMS_ITS | Encounter Summary ---
:1990 Author Organization [facility] Address [address] [place] [address] Care Team Providers Name Role Phone Unavailable Primary Care Provider Unavailable Encounter Details Date Type Department Care Team Description 04/27/2011 Hospital Encounter HX [facility] Melecio Deleon M.D. 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 Transcribed by: ??[id number] on Apr 27 2011 ??5:49P ?? Read by: ? TOMASZ Delgado (MORY) ??on Apr 27 2011 ??5:49P ?? Signed by: TOMASZ STEIN (MORY) on 2010 ??5:49P ? Narrative 04/27/2011 5:36 PM CDT INDICATION: ??LOWER LEFT QUAD PAIN, BLEEDING ACCESSION No: ? [id number] DATE OF EXAM: Apr 27 2011 ??17:36 EXAM CODE and DESCRIPTION: F1U ?? 8859 - ?? US TRANSVAGINAL(NON-OB) RESULT: Pelvic ultrasound 04/27/2011. ?? Transabdominal and transvaginal imaging. ?? Procedure Note Tomasz Stein M.D. / Provider, Paulie olsen M.D. - 12/28/2016 INDICATION: LOWER LEFT QUAD PAIN, BLEEDI NG ACCESSION No: [id number] DATE OF EXAM: Apr 27 2011 17:36 [...] free fluid in the pelvis. Transcribed by: [id number] on Apr 27 2011 5: 49P Read by: TOMASZ STEIN (MORY) on Apr 27 2011 5:49P Signed by: TOMASZ STEIN (MORY) on 2010 5:49P Tomasz Stein M.D. IMG US PROCEDURES documented in this encounter Visit Diagnoses Not on filedocumented in this encounter
--- OUTSIDE RECORDS SUMMARY | 2022-06-14 15:19 | XMS_ITS | Encounter Summary ---
:1990 Author Organization [facility] Address [address] [place] [address] Care Team Providers Name Role Phone Unavailable [...]
--- OUTSIDE RECORDS SUMMARY | 2022-06-14 15:19 | XMS_ITS | Encounter Summary ---
:1990 Author Organization [facility] Address [address] [place] [address] Care Team Providers Name Role Phone Unavailable Primary Care Provider Unavailable Encounter Details Date Type Department Care Team Description 06/26/2014 Hospital Encounter HX [facility] Haider Barron M.D. [address] [place] [address] [phone] (Wo rk) Social History Tobacco Use Types Packs/Day Years Used Date Smoking Tobacco: Never Assessed Sex Assigned at Date Recorded Not on file documented as of this encounter Last Filed Vital Signs Vital Sign Reading Time Taken Comments Blood Pressure 126/78 06/26/2014 3:11 PM ENGINE COWLING INSTALLER Pulse 92 06/26/2014 3:11 PM ENGINE COWLING INSTALLER Temperature - - Respiratory Rate - - Oxygen Saturation - - Inhaled Oxygen Concentration - - Weight 77 kg (169 lb 12.1 oz) 06/26/2014 3:11 PM ENGINE COWLING INSTALLER Height 162 cm (5' 3.78) 06/26/2014 3:11 PM ENGINE COWLING INSTALLER Body Mass Index 29.34 06/26/2014 3:11 PM ENGINE COWLING INSTALLER documented in this encounter Progress Notes Rick Feliciano M.D. - 06/26/2014 2:52 PM CST [id number] CHIEF COMPLAINT/REASON FOR VISIT Cough. HISTORY OF [...] LANDRY MD On: 07/07/2014 08:12 AM Source: [facility] MHSDOLBEYNONRADSYS Document Id: [id number] NE COWLING INSTALLER documented in this encounter Miscellaneous Notes Miscellaneous - Rick Feliciano M.D. - 06/26/2014 3:45 PM CST Ambulatory Patient Summary [address] [id number] Visit Information Name: NANCY ALBERTO [facility] Number: [id number] Current Date: 06/26/2014 15:45:15 Physicians [...] directed x 5 day(s) New Routed to [address] [id number] benzonatate (benzonatate 100 mg oral capsule) 1 cap, Oral, three times a day x 7 day(s) New Routed to [facility] [address] [place], [place] [phone] cetirizine (ZyrTEC) Oral, once a day drospirenone-ethinyl [...] appointment detail needed. Your Goals/Additional instructions: Source: [facility] POWERCHART Document Id: [id number] NE COWLING INSTALLER Miscellaneous - Rick Feliciano M.D. - 06/26/2014 3:45 PM CST Ambulatory Discharge Medication List [address] [id number] Visit Information Name: NANCY ALBERTO [facility] Number: [id number] Visit Date: 06/26/2014 15:45:14 Attending [...] directed x 5 day(s) New Routed to [address] [id number] benzonatate (benzonatate 100 mg oral capsule) 1 cap, Oral, three times a day x 7 day(s) New Routed to [address] [id number] cetirizine (ZyrTEC) Oral, once a day drospirenone-ethinyl [...] MD Signed On:26-JUN-2014 15:45:09 Additional Information: Source: [facility] POWERCHART Document Id: [id number] NE COWLING INSTALLER Miscellaneous - Conversion, Historical Provider Ser - 06/26/2014 3:11 PM ENGINE COWLING INSTALLER Adult Software Engineer Kernel Intake/History Adult Software Engineer Kernel Intake/History Entered On: 06/26/2014 15:14 ENGINE COWLING INSTALLER Performed On: 06/26/2014 15:11 ENGINE COWLING INSTALLER by ALPHONSO POLANCO LPN Intake SpO2 : 100 % Oxygen Therapy : Room air ALPHONSO POLANCO LPN - 06/26/2014 15:14 ENGINE COWLING INSTALLER Chief Complaint : cough, congestion, tired and [...] kg/m2 ALPHONSO POLANCO LPN - 06/26/2014 15:11 ENGINE COWLING INSTALLER General Info Information Given By : Patient Preferred Communication Mode : Verbal Languages : Guyanese Is Patient Female and 13-50 no hysterectomy : Yes Status : Patient denies Are you ? : No ALPHONSO POLANCO LPN - 06/26/2014 15:11 ENGINE COWLING INSTALLER Subjective Pain Symptoms : No ALPHONSO POLANCO LPN - 06/26/2014 15:11 ENGINE COWLING INSTALLER Dependent Habits Tobacco Use/Currently Using : No Exposure to Tobacco Smoke : Other: NONE Smoking Status : Never smoker ALPHONSO POLANCO LPN - 06/26/2014 15:11 ENGINE COWLING INSTALLER Tobacco Use Grid Type : Other: NONE ALPHONSO POLANCO LPN - 06/26/2014 15:11 ENGINE COWLING INSTALLER Caffeine Use Grid Caffeine Use : Current Type : Coffee Frequency : Weekly ALPHONSO POLANCO LPN - 06/26/2014 15:11 ENGINE COWLING INSTALLER Recreational Drug Use Grid Drug Use : None PERLAALPHONSO BARBA Gustabo VIRGEN - 06/26/2014 15:11 ENGINE COWLING INSTALLER ID Screen Travel Within Last 21 Days : No PERLAALPHONSO BARBA PARAM - 06/26/2014 15:11 ENGINE COWLING INSTALLER Source: [facility] [employer] Document Id: [id number] ENGINE COWLING INSTALLER!4 documented in this encounter Plan of Treatment Not on filedocumented as of this encounter Visit Diagnoses Not on filedocumented in this encounter
--- OUTSIDE RECORDS SUMMARY | 2022-06-14 15:19 | XMS_ITS | Encounter Summary ---
:1990 Author Organization [facility] Address [address] [place] [address] Care Team Providers Name Role Phone Unavailable [...]
--- OUTSIDE RECORDS SUMMARY | 2022-06-14 15:19 | XMS_ITS | Encounter Summary ---
:1990 Author Organization [facility] Address [address] [place] [address] Care Team Providers Name Role Phone Unavailable Primary Care Provider Unavailable Encounter Details Date Type Department Care Team Description 11/23/2011 Hospital Encounter HX [facility] Provider, Histori lima Social History [...] 11/23/2011 9:24 PM CDT ED Discharge Instructions [address] [address] Name: CECILIO ALBERTO Date of : 1990 12:00 PM Visit Date: 11/23/2011 8:17 PM [facility]: [address] [facility] [phone] Primary Care Provider: MARIA ALEJANDRA BURRELL IMPORTANT: [facility] in [place] would like to thank you for allowing [...] With: Address: When: MARIA ALEJANDRA BURRELL [address] [place] [address] Business (1) Within As Needed Comments: If symptoms worsen Patient Education Materials: [id number] ALLERGIC REACTION,GENERALIZED [Other] You are having an [...] throat -- Dizziness, weakness or fainting ?? [phone] [employer], [address] [place] [address]. All rights reserved. This information is not intended as a substitute for professional medical care. Always follow your healthcare professional's instructions. [id number] PHARYNGITIS: STREP [Presumed] Your illness has the [...] breathing ?? Muffled voice New rash ?? [id number] [employer], [address] [place] [address], [place] [address]. All rights reserved. This information is not [...] be released to my employer or employers community health program representative. I understand that restrictions apply both [...] arrange a ride home with a responsible republican. Patient Signature Date/Time Responsible Person Signature (as [...] be released to my employer or employers community health program representative. I understand that restrictions apply both [...] arrange a ride home with a responsible republican. Patient Signature Date/Time Responsible Person Signature (as appropriate)/Relationship Date/Time BETOMEL CECILIO ERIN or Responsible Person has received this information and tells me that all questions have been answered. Provider Signature Date/Time This document has images extracted. Please consider using [employer] for all your patient education needs. Source: deliciousCHART Document Id: [id number] Conversion, Historical Provider Ser - 11/23/2011 9:24 PM CDT ED Depart Summary [facility] Emergency Department Clinical Discharge Summary PERSON INFORMATION Name CECILIO ALBERTO Age 20 Years 1990 12:00 PM Sex Female Language Latvian PCP MARIA ALEJANDRA BURRELL Marital Status Single Visit Id Visit Reason Throat pain - Adult; THROAT PAIN, BODY ACHES, LIGHT HEADED & HEADACHE Specialty Enc Type Emergency Med Service Emergency Medicine Referred by Track Group LAS ED/FT Discharge 11/23/2011 9:24 PM Tracking Id [id number] Checkout 11/23/2011 9:24 PM Checkin 11/23/2011 8:17 PM Acuity 4 -Less Urgent Dispo Type * Discharged to Home or Self Care Arrival 11/23/2011 8:17 PM Reg Status LOS 000 01:07 Address: [address] [place] [phone] Comment: PROVIDER INFORMATION Provider Role Provider Contact Time HALIMA CAICEDO ED Provider 11/23/11 20:36 WILIAN MORTON FLIGHT CONTROL SPECIALIST Nurse 11/23/11 20:54 DIAGNOSIS Comment: ORDERS INFORMATION Start Time Order Type Status Stop Time Provider 11/23/2011 9:18 PM Discharge Patient Patient Care Ordered 11/23/2011 9:18 PM HALIMA CAICEDO PATIENT EDUCATION INFORMATION Instructions: ALLERGIC REACTION, Other (General); PHARYNGITIS, Strep (Presumed) Follow up: With: Address: When: MARIA ALEJANDRA BURRELL [address] [place], [place] [phone] Business (1) Within As Needed Comments: If symptoms worsen Source: [employer] Document Id: [id number] documented in this encounter Nursing Notes Conversion, Historical Provider Ser - 11/23/2011 9:24 PM CDT ED Pain Assessment ED Pain Assessment Entered On: 11/23/2011 21:24 CDT Performed On: 11/23/2011 21:24 CDT by WILIAN MORTON RN Pain Assessment Pain Symptoms : Yes Pain Medication Requested : No WILIAN MORTON RN - 11/23/2011 21:24 CDT Source: [employer] Document Id: [id number] CDT!4 Conversion, Historical Provider Ser - 11/23/2011 [...] Medical ; Code: 1231 ; Contributor System: PlanspotA_HPP_SYS ; Last Updated: 05/16/2007 0:00 CDT ; Life Cycle Date: 02/23/2007 ; Life Cycle Status: Active ; Vocabulary: ICD-9-CM Diagnoses(Active) Throat pain - Adult Date: 11/23/2011 ; Diagnosis Type: Reason For Visit ; Confirmation: Complaint of; Clinical Dx: Throat pain - Adult ; Classification: Medical ; Clinical Service: Emergency medicine ; Code: PNED ; Probability: 0 ; Diagnosis Code: [id number] Pain Assessment Pain Symptoms : Yes WILIAN [...] Characteristics of Speech : Appropriate for age NONAANGELIA ShahOlivier Panda RN - 11/23/2011 20:58 CDT Gastrointestinal Nutrition ED : Adequate NONAANGELIA ShahOlivier Panda RN - 11/23/2011 20:58 CDT EENT Eye EENT Grid Eyes, Bilateral Symptoms : Pain NONAWILIAN Shah Farzad RN - 11/23/2011 20:58 CDT Source: [employer] Document Id: [id number] CDT!26 documented in this encounter ED Notes [...] MORTON RN - 11/23/2011 21:24 CDT Source: [employer] Document Id: [id number] CDT!6 Conversion, Historical Provider Ser - 11/23/2011 [...] Condition: Stable. Dispositioned: To home. Prescriptions: Prescription Special Trackwork Blacksmith. Patient Care: Discharge Patient (Order Processing): 11/23/2011 [...] HALIMA CAICEDO On: 11/23/2011 10:46 PM Source: [facility] POWERCHART Document Id: [id number]} Ruby Dobson RRadha - 11/23/2011 8:30 PM [...] PNED ; Probability: 0 ; Diagnosis Code: [id number] Triage Chief Complaint Description : approx 2 days of sore throat, body aches, headache, light headed at times when standing. Hot and cold at times. Eating/drinking . No nausea/vomiting Information Given By : Patient Accompanied By : Alone Mode of Arrival ED : Private vehicle Track : Medical Languages : Latvian Vital Signs Assessed : Yes RUBY DOBSON [...] Group : LASF ED/FT RUBY DOBSON RN 11/23/2011 20:30 CDT Allergy Allergies (Active) minocycline Estimated Onset Date: Unspecified ; Reactions: Bruising, gums turned blue ; Created By: EMILY HESS MA; Reaction Status: Active ; Category: Drug ; Substance: minocycline ; Type: Allergy ; Updated By: EMILY HESS MA; Reviewed Date: 04/27/2011 15:46 CDT [facility] Document Id: [id number] CDT!31 documented in this encounter Plan of Treatment Not on filedocumented as of this encounter Visit Diagnoses Not on filedocumented in this encounter
--- OUTSIDE RECORDS SUMMARY | 2022-06-14 15:19 | XMS_ITS | Encounter Summary ---
:1990 Author Organization [facility] Address [address] [place] [address] Care Team Providers Name Role Phone Unavailable Primary Care Provider Unavailable Encounter Details Date Type Department Care Team Description 11/29/2012 Hospital Encounter HX [facility] Danny Vazquez PPaulineALogan. [address] [place] [address] [phone] (Wo rk) Social History Tobacco [...] 11/29/2012 3:45 PM CDT ED Discharge Instructions [address] [address] Name: CECILIO ALBERTO Date of : 1990 12:00 AM Visit Date: 11/29/2012 3:02 PM [facility] Number: [id number] Address: [address] [place] [phone] Primary Care Provider: MARIA ALEJANDRA BURRELL IMPORTANT: [facility] would like to thank you for allowing [...] Instructions: With: Address: When: MARIA ALEJANDRA BURRELL [address] [place], [place] [phone] Business (1) Within As Needed Comments: Patient Education Materials: [id number] SEASONAL ALLERGY Seasonal Allergy is also called [...] may take Claritin (loratadine). This is an rpqr-vth-ahyumie non-sedating antihistamine. It does not make you [...] with lots of colored sputum (mucus) ?? [phone] The [employer], [address] [place] [address], [place] [address]. All rights reserved. This information is not [...] be released to my employer or employers solar manufacturer's representative. I understand that restrictions apply both [...] be released to my employer or employers solar manufacturer's representative. I understand that restrictions apply both [...] document has images extracted. Please consider using [employer] for all your patient education needs. Source: [facility] JumpIn Document Id: [id number] Conversion, Historical Provider Ser - 11/29/2012 3:45 PM CDT ED Depart Summary [facility] Emergency Department Clinical Discharge Summary PERSON INFORMATION Name CECILIO ALBERTO Age 21 Years 1990 12:00 AM Sex Female Language Northern Irish PCP MARIA ALEJANDRA BURRELL Marital Status Single Visit Id Visit Reason Upper respiratory infection; ALLERGIES, COLD, ASTHMA, FEELING BAD Specialty Enc Type Emergency Med Service Emergency Medicine Referred by Track Group [facility] ED/FT Discharge 11/29/2012 3:45 PM Tracking Id [id number] Checkout 11/29/2012 3:45 PM Checkin 11/29/2012 3:02 PM Acuity 4 -Less Urgent Dispo Type * Discharged to Home or Self Care Arrival 11/29/2012 3:02 PM Reg Status LOS 000 00:43 Address: [address] [place] [phone] Comment: PROVIDER INFORMATION Provider Role Provider Contact Time AUGUSTO ANAYA FINISHING SUPERVISOR PLASTIC SHEETS Nurse 11/29/12 15:08 DANYELL VAZQUEZ PA-C ED Provider 11/29/12 15:22 DIAGNOSIS Comment: ORDERS INFORMATION Start Time Order Type Status Stop Time Provider 11/29/2012 3:38 PM Discharge Patient Patient Care Ordered 11/29/2012 3:38 PM DANYELL VAZQUEZ PA-C PATIENT EDUCATION INFORMATION Instructions: SEASONAL ALLERGY Follow up: With: Address: When: MARIA ALEJANDRA BURRELL [address] [address] Business (1) Within As Needed Comments: Source: [facility] POWERCHART Document Id: [id number] documented in this encounter Nursing Notes Conversion, [...] PNED ; Probability: 0 ; Diagnosis Code: [id number] Triage Mode of Arrival ED : Private vehicle Track : Medical Languages : Northern Irish AUGUSTO ANAYA RN - 11/29/2012 15:20 CDT [...] ANAYA RN - 11/29/2012 15:20 CDT Source: [facility] POWERCHART Document Id: [id number] CDT!39 documented in this encounter ED Notes Franca, Yesenia Provider Shahid - 11/29/2012 3:42 PM CDT ED Disposition [...] Lisa RN - 11/29/2012 15:42 CDT Source: [facility] [employer] Document Id: [id number] CDT!7 Yogesh Madrigal RRadha - 11/29/2012 3:12 PM CDT ED Triage [...] PNED ; Probability: 0 ; Diagnosis Code: [id number] Triage Chief Complaint Description : Pt c/o runny nose, cough and congestion for a few weeks. c/o frequent headaches and the chills. Hx. of asthma, but denies SOB. Stated I did need my rescue inhaler last week though. Information Given By : Patient Mode of Arrival ED : Private vehicle Track : Medical Languages : Northern Irish Vital Signs Assessed : Yes GCS Assessed [...] YOGESH MADRIGAL RN - 11/29/2012 15:12 CDT Hulett Coma Eye Opening Response Orquidea : Spontaneously Best Verbal Response Orquidea : Oriented Best Motor Response Hulett : Obeys simple commands Hulett Coma Score : 15 YOGESH MADRIGAL RN [...] RN; Reviewed Date: 11/29/2012 15:16 CDT Source: [facility] JumpIn Document Id: [id number] CDT!34 Danyell Vazquez P.A.-C. - 11/29/2012 3:02 PM CDT 1-16EUCC MR# [id number] [facility] DATE: 11/29/2012 PRIMARY CARE PROVIDER PCP, JENNIFER LEONARD CHIEF COMPLAINT/REASON FOR VISIT This is 21-year-old female with a chief complaint of cough, congestion, and runny nose. She says that she feels like her allergies are flaring up. HISTORY OF PRESENT ILLNESS She says normally she takes pkhv-sgj-sxvxfii Zyrtec but sometimes has to come in and get additional medication to help control her allergies now that the allergy season is starting. Denies nausea, vomiting. Denies fevers. PHYSICAL EXAMINATION GENERAL: Well-developed female, alert and oriented, pleasant. HEAD: Nasal passage is erythematous and boggy, decreased patency. She does sound congested. Oropharynx pink. Tongue moist. TMs pearly ayala. NECK: Neck soft without lymphadenopathy. [id number] CHEST: Lungs clear to auscultation. Heart regular [...] workup as deemed necessary. Danyell Vazquez PA-C//lynnette #[id number] cc: Electronically Signed By: DANYELL VAZQUEZ PA-C On: 12/08/2012 01:57 PM Source: [facility] FSHDICTAPHONESYS Document Id: [id number] documented in this encounter Plan of Treatment Not on filedocumented as of this encounter Visit Diagnoses Not on filedocumented in this encounter
--- OUTSIDE RECORDS SUMMARY | 2022-06-14 15:19 | XMS_ITS | Encounter Summary ---
:1990 Author Organization [facility] Address [address] [place] [address] Care Team Providers Name Role Phone Meghan Hernandez PA-C Primary Care Provider Reason for Visit Reason Comments Annual Exam Encounter Details Date Type Department Care Team Description 06/04/2018 Office Visit Meghan Dean Well adult exam (Primary Dx) ; [address] JEREMIAH Aguayo PA-C Immunization due; [place] [id number] [address] Encounter for lipid screenin g for cardiovascular disease; [phone] Abnormal laboratory test result; TAL[place]HA [place] Moderate persis tent asthma without complication; [phone] Dysmenorrhea Social History Tobacco Use Types Packs/Day [...] having been seen by other providers and [facility], is in today for physical examination. She has some questions in regards to conception. RESIDENT CARE AID history . 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 Smoking status: Never [...] encounter Results Lipid panel (07/04/2018 1:00 PM VENEER STOCK GRADER) P athologist Signature Cholesterol 140 0 - 199 07/05/2018 [facility] mg/dL 1:53 PM [facility] Comment: Recommended by National Cholesterol Education Program (ATP III) -------- Cholesterol Ranges -------- <200 ? Desirable 200-239 ? Borderline high >=240 ? High Triglycerides 49 0 - 149 mg/dL 07/05/2018 1:53 PM [facility] Comment: -------- TRIG Ranges -------- <150 ?Normal 150-199 ? Borderline high 200-499 ? High >=500 ? Very high HDL 60 40 - 60 mg/dL 07/05/2018 1:53 PM [facility] Comment: -------- HDL Ranges -------- <40 ?Low 40-59 ?Normal >=60 ? Optimal LDL Calculated 70 0 - 99 mg/dL 07/05/2018 1:53 PM [facility] Comment: -------- LDL Ranges -------- <100 ? Optimal 100-129 ?Near optimal/above op timal 130-159 ?Borderline high 160-189 ?High >=190 ?Very high Specimen Anatomical Collection Method Collection Time Receive d Time (Source) Location / / Volume Laterality Blood 07/04/2018 1:00 PM 8 1:02 VENEER STOCK GRADER PM VENEER STOCK GRADER Meghan Hernandez PA-C LAB BLOOD ORDERABLES Performing Organization Address City/State/ZIP Code Phon e Number [facility] [address] [place] [address] TSH (07/04/2018 1:00 PM VENEER STOCK GRADER) athologist Signature TSH, Sensitive 2.30 0.46 - 07/05/2018 [facility] 4.68 mIU/L 4:31 PM [facility] Comment: The results from this [...] Laterality Blood 07/04/2018 1:00 PM 8 1:03 VENEER STOCK GRADER PM VENEER STOCK GRADER Meghan Hernandez PA-C LAB BLOOD ORDERABLES Performing Organization Address City/State/ZIP Code Phon e Number [facility] [address] [place] [address] documented in this encounter Visit Diagnoses Diagnosis Well adult exam - Primary Routine general medical examination at a health care facility Immunization due Encounter for lipid screening for cardio vascular disease Abnormal laboratory test result Other abnormal clinical finding Moderate persistent asthma without compl ication Dysmenorrhea documented in this encounter Care Teams Plant Scientist Relationship Specialty Start Date End Date Meghan Hernandez PA-C PCP - General Family Medicine 05/03/18 03/22/20 [address] [place] [address] documented as of this encounter
--- OUTSIDE RECORDS SUMMARY | 2022-06-14 15:19 | XMS_ITS | Encounter Summary ---
:1990 Author Organization [facility] Address [address] [place] [address] Care Team Providers Name Role Phone Unavailable [...]
--- OUTSIDE RECORDS SUMMARY | 2022-06-14 15:19 | XMS_ITS | Encounter Summary ---
:1990 Author Organization [facility] Address [address] [place] [address] Care Team Providers Name Role Phone Unavailable [...]
--- OUTSIDE RECORDS SUMMARY | 2022-06-14 15:19 | XMS_ITS | Encounter Summary ---
:1990 Author Organization [facility] Address [address] [place] [address] Care Team Providers Name Role Phone Unavailable [...]
--- OUTSIDE RECORDS SUMMARY | 2022-06-14 15:19 | XMS_ITS | Encounter Summary ---
:1990 Author Organization [facility] Address [address] [place] [address] Care Team Providers Name Role Phone Unavailable [...]
--- OUTSIDE RECORDS SUMMARY | 2022-06-14 15:19 | XMS_ITS | Encounter Summary ---
:1990 Author Organization [facility] Address [address] [place] [address] Care Team Providers Name Role Phone Unavailable [...]
--- OUTSIDE RECORDS SUMMARY | 2022-06-14 15:19 | XMS_ITS | Encounter Summary ---
:1990 Author Organization [facility] Address [address] [place] [address] Care Team Providers Name Role Phone Unavailable [...]
--- OUTSIDE RECORDS SUMMARY | 2022-06-14 15:19 | XMS_ITS | Encounter Summary ---
:1990 Author Organization [facility] Address [address] [place] [address] Care Team Providers Name Role Phone Unavailable [...]
--- OUTSIDE RECORDS SUMMARY | 2022-06-14 15:19 | XMS_ITS | Encounter Summary ---
:1990 Author Organization [facility] Address [address] [place] [address] Care Team Providers Name Role Phone Unavailable [...]
--- OUTSIDE RECORDS SUMMARY | 2022-06-14 15:19 | XMS_ITS | Encounter Summary ---
:1990 Author Organization [facility] Address [address] [place] [address] Care Team Providers Name Role Phone Unavailable [...]
--- OUTSIDE RECORDS SUMMARY | 2022-06-14 15:19 | XMS_ITS | Encounter Summary ---
:1990 Author Organization [facility] Address [address] [place] [address] Care Team Providers Name Role Phone Unavailable [...]
--- OUTSIDE RECORDS SUMMARY | 2022-06-14 15:19 | XMS_ITS | Encounter Summary ---
:1990 Author Organization [facility] Address [address] [place] [address] Care Team Providers Name Role Phone Unavailable Primary Care Provider Unavailable Reason for Visit Reason Comments COVID Nurse Line Encounter Details Date Type Department Care Team Description 10/26/2020 Clinical Communication Division of Lenore Marquez COVI D Nurse Line [facility] Internal R.N. Medicine, [facility], in [place], [place] [address] [place] [address] Social History Tobacco Use Types Packs/Day Years Used Date Smoking Tobacco: Never Sex Assigned at Date Recorded Not on file documented as of this encounter Miscellaneous Notes Telephone Encounter - Lenore Marquez, R.N. - 10/26/2020 8:12 AM CDT COVID-19 Nurse Line Screening Known Exposure 10/17 Quarantine 10/31 Asymptomatic Testing required for work ASSESSMENT Region Select appropriate region: : [place] Age Pathway Select approprite pathway: : Adult [...] water are not available, use a hand dry starch supervisor -Avoid touching your eyes, nose and mouth. [...] care: Yes The following references were used: [facility] novel coronavirus (COVID- 19) resources Nursing judgement documented in this encounter Plan of Treatment Not on filedocumented as of this encounter Visit Diagnoses Not on filedocumented in this encounter
--- OUTSIDE RECORDS SUMMARY | 2022-06-14 15:19 | XMS_ITS | Encounter Summary ---
:1990 Author Organization [facility] Address [address] [place] [address] Care Team Providers Name Role Phone Meghan Hernandez PA-C Primary Care Provider Encounter Details Date Type Department Care Team Description 05/30/2018 Abstract Meghan Dean PA-C [address] DANIELS [address] [place] [address] [place] [address] [phone] (Wo rk) Social History Tobacco Use Types [...] More than 4 times per year 06/04/2018 zoroastrian services? Do you belong to any clubs [...] on filedocumented in this encounter Care Teams Railroad Crossing Protection Maintainer Relationship Specialty Start Date End Date Meghan Hernandez PA-C PCP - General Family Medicine 05/03/18 03/22/[address] [place] [address] documented as of this encounter
--- OUTSIDE RECORDS SUMMARY | 2022-06-14 15:19 | XMS_ITS | Encounter Summary ---
:1990 Author Organization [facility] Address [address] [place] [address] Care Team Providers Name Role Phone Unavailable Primary Care Provider Unavailable Encounter Details Date Type Department Care Team Description 12/01/2020 Orders Only RST PCP [facility] Elan Lainez Jr., M.D. [address] [place], [place] [phone] (Wo rk) Social History Tobacco Use Types Packs/Day Years Used Date Smoking Tobacco: Never Sex Assigned at Date Recorded Not on file documented as of this encounter Plan of Treatment Not on filedocumented as of this encounter Visit Diagnoses Not on filedocumented in this encounter
--- OUTSIDE RECORDS SUMMARY | 2022-06-14 15:20 | XMS_ITS | Encounter Summary ---
:1990 Author Organization [facility] Address [address] [place] [address] Care Team Providers Name Role Phone Unavailable Primary Care Provider Unavailable Encounter Details Date Type Department Care Team Description 06/22/2001 Hospital Encounter HX [facility] Jocelyne Reinoso M.D. [address] [facility], [place] [address] (Wo rk) Social History Tobacco Use Types Packs/Day Years Used Date Smoking Tobacco: Never Assessed Sex Assigned at Date Recorded Not on file documented as of this encounter Plan of Treatment Not on filedocumented as of this encounter Visit Diagnoses Not on filedocumented in this encounter
--- OUTSIDE RECORDS SUMMARY | 2022-06-14 15:21 | XMS_ITS | Clinical Summary ---
:1990 Author Organization [facility] [place] [address] Care Team Providers Name Role Phone Myla Beltran Primary Care Provider [phone] Allergies Active Allergy Reactions Severity Noted Date [...] Unspecified asthma(493.90) fluticasone (50 mcg Inhale 1 [place] 1 Bottle 0 06/05/2017 Active per actuation) [...] syndrome 10/01/2006 Overview: slow transit, fructose intolerance ([facility]) Unspecified asthma(493.90) 10/01/2006 Other acne [...] Type Group BLUE CROSS BLUE CROSS OF [id number] 2017-Present [address] [place] [address] BLUE CROSS BLUE CROSS OF [id number] 2020-Presen [address] [place] [address] [phone] (Home) [place] [address] Care Teams Pole Truck Driver Relationship Specialty Start Date End Date Myla Beltran PA PCP - General Family Practice 01/25/16 [address] [place] [address]
[2022-06-16 10:21] LABS: Rapid Plasma Reagin (RPR) Non Reactive (Non Reactive)
== END 2022-06-14 15:17 | disposition home or self-care (01) ==
LOC: NFLDREF 15:16
PROVIDERS: Visit Provider Physician Assistant
DX: Z34.93 Encounter for supervision of normal pregnancy, unspecified, third trimester (principal); Z3A.28 28 weeks gestation of pregnancy
CPT/HCPCS: 86592

== ENCOUNTER 2022-06-17 15:38 | Outpatient (CLI) | payer BC, SELFPAY ==
--- OUTSIDE RECORDS SUMMARY | 2022-06-17 08:34 | XMS_ITS | Clinical Summary ---
:1990 Author Organization [facility] Address [address] [place] [address] Care Team Providers Name Role Phone Neetu Vargas MD Primary Care Provider [phone] Allergies Active Allergy Reactions Severity Noted Date [...] or relatives? How often do you attend orthodoxy or More than 4 times per year 06/04/2018 uatsdin services? Do you belong to any clubs or Yes 06/04/2018 organizations such as orthodoxy groups, unions, fraternal or athletic groups, or [...] ss Type Group BCBS OF BCBS OF [id number] [address] [address] [place] [address] (Home) [facility] [place] [address] Care Teams Complaint Clerk Relationship Specialty Start Date End Date Neetu Vargas MD PCP - General 11/23/[address] [place] [address] 11 [place] [address]
--- OUTSIDE RECORDS SUMMARY | 2022-06-17 08:34 | XMS_ITS | Encounter Summary ---
:1990 Author Organization [facility] Address [address] [place] [address] Care Team Providers Name Role Phone Neetu Vargas MD Primary Care Provider [phone] Reason for Visit Reason Onset Date Comments Dulera 100-5MCG/ACT aerosol 01/12/2022 Med pa Encounter Details Date Type Department Care Team Description 01/12/2022 Telephone [place] Nusrat Vargas 100-5MCG/ACT [address] Neetu Gomez MD aerosol (Med pa) [place], [place] [address] [place] [address] (Wo rk) Social History Tobacco [...] or relatives? How often do you attend zoroastrianism or More than 4 times per year 06/04/2018 christianity services? Do you belong to any clubs or Yes 06/04/2018 organizations such as zoroastrianism groups, unions, fraternal or athletic groups, or [...] AM CDT Dulera 100-5MCG/ACT aerosol ?? 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 PA completed per [facility], sent to plan. [place]: [id number] documented in this encounter Plan of Treatment Not on filedocumented as of this encounter Visit Diagnoses Not on filedocumented in this encounter Care Teams Skip Pit Worker Relationship Specialty Start Date End Date Neetu Vargas MD PCP - General 11/23/[address] [place] [phone] documented as of this encounter
--- OUTSIDE RECORDS SUMMARY | 2022-06-17 08:34 | XMS_ITS | Encounter Summary ---
:1990 Author Organization [facility] Address [address] [place] [address] Care Team Providers Name Role Phone Heidi Corona MD Primary Care Provider Unavailable Reason for Visit Reason Onset Date Comments medication prior auth. 01/19/2021 Dulera 100-5MCG/A CT aerosol Encounter Details Date Type Department Care Team Description 01/19/2021 Telephone Heidi Loco, medication prior auth. [address] [facility] [place] CHAN (Dulera 100-5MCG/[place] [address] aerosol) [phone] Social History Tobacco Use Types Packs/Day Years [...] or relatives? How often do you attend buddhism or More than 4 times per year 06/04/2018 uatsdin services? Do you belong to any clubs or Yes 06/04/2018 organizations such as buddhism groups, unions, fraternal or athletic groups, or [...] approved through 01/19/2022. Pharmacy notified. PA # [id number]. Telephone Encounter - Nadia Tsai MA - 01/19/2021 6:08 AM CDT Nusrat 100-5MCG/ACT aerosol BIN: [id number] PCN: claimcr GROUP: [id number] PLAN: [employer] PHONE: [phone] ID: [id number] PA completed per [facility], sent to plan. [place]: [id number] documented in this encounter Plan of Treatment Not on filedocumented as of this encounter Visit Diagnoses Not on filedocumented in this encounter Care Teams Steam Tank Operator Relationship Specialty Start Date End Date Heidi Corona MD PCP - General Family Medicine 03/23/20 documented as of this encounter
--- OUTSIDE RECORDS SUMMARY | 2022-06-17 08:34 | XMS_ITS | Encounter Summary ---
:1990 Author Organization [facility] Address [address] [place] [address] Care Team Providers Name Role Phone Neetu Vargas MD Primary Care Provider [phone] Reason for Visit Reason Comments Establish Care Medication check Encounter Details Date Type Department Care Team Description 02/21/2022 Office Visit [place], Constipation, unspecified co nstipation type (Primary Dx); [address] Neetu Gomez MD Mild [place] [address] [address] [facility] 11 [place] [address] Social History Tobacco Use Types [...] or relatives? How often do you attend roman catholic or More than 4 times per year 06/04/2018 muslim services? Do you belong to any clubs or Yes 06/04/2018 organizations such as roman catholic groups, unions, fraternal or athletic groups, [...] is 12 weeks , following with a [facility]. She has been struggling with some [...] ation documented in this encounter Care Teams Mcat Tutor Relationship Specialty Start Date End Date Neetu Vargas MD PCP - General 11/23/[address] [place] [phone] documented as of this encounter
--- OUTSIDE RECORDS SUMMARY | 2022-06-17 08:34 | XMS_ITS | Encounter Summary ---
:1990 Author Organization [facility] Address [address] [place] [address] Care Team Providers Name Role Phone Neetu Vargas MD Primary Care Provider [phone] Encounter Details Date Type Department Care Team Description 02/15/2022 Telephone [place] Neetu Vargas, [address] [place] [address] [address] [place], [place] [address] [place] [address] 11 [place] [phone] (Wo rk) Social History Tobacco Use Types [...] on filedocumented in this encounter Care Teams Pulp Grinder Feeder Relationship Specialty Start Date End Date Neetu Vargas MD PCP - General 11/23/[address] [place] [phone] documented as of this encounter
--- OUTSIDE RECORDS SUMMARY | 2022-06-17 08:34 | XMS_ITS | Encounter Summary ---
:1990 Author Organization [facility] [place] [facility] Address [address] [place] [address] Care Team Providers Name Role Phone Heidi Corona MD Primary Care Provider Unavailable Reason for Visit Reason Onset Date Comments Survey 01/19/2021 Encounter Details Date Type Department Care Team Description 01/19/2021 Telephone [place] Heidi Corona MD Survey [address] [place] [address] Social History Tobacco Use Types Packs/Day Years [...] or relatives? How often do you attend pentecostalism or More than 4 times per year 06/04/2018 mosque services? Do you belong to any clubs or Yes 06/04/2018 organizations such as pentecostalism groups, unions, fraternal or athletic groups, or [...] on filedocumented in this encounter Care Teams Ic Designer Standard Cells Relationship Specialty Start Date End Date Heidi Corona MD PCP - General Family Medicine 03/23/20 documented as of this encounter
--- OUTSIDE RECORDS SUMMARY | 2022-06-17 08:34 | XMS_ITS | Encounter Summary ---
:1990 Author Organization [facility] Address [address] [place] [address] Care Team Providers Name Role Phone Heidi Corona MD Primary Care Provider Unavailable Encounter Details Date Type Department Care Team Description 01/18/2021 Lab [place] Borderline abnormal thyroid function test (Primary Dx); [address] [place] Diabetes mellitus screening; [place] [address] Family history of thyroid di sease; [phone] Iron deficiency anemia, unspecified iron deficiency anemia [...] Time Signature Add-on Testing SEE BELOW 01/18/2021 [place] 2:48 PM CDT [facility] Comment: TPO added. Specimen Anatomical Collection Method Collection Time Receive d Time (Source) Location / / Volume Laterality 01/18/2021 1:42 PM 1:42 CDT PM CDT Heidi Corona MD LAB BLOOD ORDERABLES Performing Organization Address City/State/ZIP Code Phon e Number [facility] [address] [place] [address] Thyroperoxidase (TPO) Ab (01/18/2021 9:14 AM CDT) Analysis Performed At Path logist Time Signature Thyroid 0.3 <9.0 IU/mL 01/19/2021 [facility] 9:35 AM CDT LABORATORIES (TPO) Ab Comment: Test Performed by: [facility] [address] [place], [place] [address] Insulation Professional: Nash Torres M.D. Ph. D.; CLIA# [id number] Specimen Anatomical Collection Method Collection Time Receive d Time (Source) Location / / Volume Laterality 01/18/2021 9:14 AM 2:51 CDT PM CDT Heidi Corona MD LAB BLOOD ORDERABLES Performing Organization Address City/State/ZIP Code Phon e Number [facility] see result attachment for specific address Glomerular filtration rate (GFR) (01/18/2021 9:14 AM CDT) athologist Signature GFR >60 01/18/2021 [facility] 1:08 PM CDT [facility]ENTER LAB[facility]ORY >60 01/18/2021 [facility] [place] GFR 1:08 PM CDT [facility]ENTER LAB[facility]ORY Comment: [...] Address City/State/ZIP Code Phon e Number [facility] [address] [place] [address] CBC Branch Off w/Diff (01/18/2021 9:14 AM CDT) athologist Signature WBC 4.3 3.5 - 10.5 01/18/2021 [facility] [place] K/uL 9:57 AM CDT LAB RBC 4.19 3.90 - 01/18/2021 [facility] [place] 5.00 M/uL 9:57 AM CDT LAB Hemoglobin 13.1 12.0 - 01/18/2021 [facility] [place] 15.5 g/dL 9:57 AM CDT LAB Hematocrit 39.2 35.0 - 01/18/2021 [facility] [place] 44.0 % 9:57 AM CDT LAB Platelets 248 150 - 450 01/18/2021 [facility] [place] K/uL 9:57 AM CDT LAB MCV 93.6 81.6 - 01/18/2021 [facility] [place] 98.3 fL 9:57 AM CDT LAB MCH 31.3 26.0 - 01/18/2021 [facility] [place] 32.0 pg 9:57 AM CDT LAB MCHC 33.4 32.0 - 01/18/2021 [facility] [place] 36.0 g/dL 9:57 AM CDT LAB RDW 12.6 11.9 - 01/18/2021 [facility] [place] 15.5 % 9:57 AM CDT LAB Lymphocytes % 34.6 % 01/18/2021 [facility] 9:57 AM CDT LAB Mid-size Cells 11.1 % 01/18/2021 [facility] [place] 9:57 AM CDT LAB Granulocytes/Omar 54.3 % 01/18/2021 [facility] O trophils 9:57 AM CDT LAB Lymphocytes 1.5 0.9 - 2.9 01/18/2021 [facility] [place] Absolute K/uL 9:57 AM CDT LAB MIDS Absolute 0.5 0.4 - 1.5 01/18/2021 [facility] K/uL 9:57 AM CDT LAB Granulocytes/Omar 2.3 1.7 - 7.0 01/18/2021 [facility] O trophils K/uL 9:57 AM CDT LAB Absolute Specimen Anatomical Collection Method Collection Time Receive d Time (Source) Location / / Volume Laterality Blood 01/18/2021 9:14 AM 9:14 CDT AM CDT Heidi Corona MD LAB BLOOD ORDERABLES Performing Organization Address City/State/ZIP Code Phon e Number [facility] [place] [facility] [address] [place] [address] [place] [address] TSH (01/18/2021 9:14 AM CDT) P athologist [...] Address City/State/ZIP Code Phon e Number [facility] [address] [place] [address] Comprehensive metabolic panel (01/18/2021 9:14 AM CDT) athologist Signature Total Protein 7.7 6.3 - 8.2 01/18/2021 [place] g/dL 1:08 PM [facility] Albumin, Serum 4.5 3.5 - 5.0 01/18/2021 [place] g/dL 1:08 PM [facility] Total Bilirubin <0.7 0.1 - 1.0 01/18/2021 [place] mg/dL 1:08 PM [facility] AST 25 8 - 43 U/L 01/18/2021 [place] 1:08 PM [facility] Alkaline 53 38 - 128 01/18/2021 [place] Phosphatase U/L 1:08 PM [facility] ALT (SGPT) 18 0 - 34 U/L 01/18/2021 [place] 1:08 PM [facility] Sodium 139 135 - 145 01/18/2021 [place] mEq/L 1:08 PM [facility] Potassium 4.4 3.5 - 5.1 01/18/2021 [place] mEq/L 1:08 PM [facility] Chloride 106 98 - 107 01/18/2021 [place] mEq/L 1:08 PM [facility] CO2 28 22 - 29 01/18/2021 [place] mmol/L 1:08 PM [facility] BUN 16 5 - 25 01/18/2021 [place] mg/dL 1:08 PM [facility] Creatinine 0.7 0.4 - 1.2 01/18/2021 [place] mg/dL 1:08 PM [facility] Glucose 96 70 - 100 01/18/2021 [place] mg/dL 1:08 PM [facility] Calcium, Total,S 9.5 8.4 - 10.2 01/18/2021 [place] mg/dL 1:08 PM [facility] Fasting? Yes 01/18/2021 [place] 9:14 AM [facility] Specimen Anatomical Collection Method Collection Time Receive d Time (Source) Location / / Volume Laterality Blood 01/18/2021 9:14 AM CDT 12:27 PM CDT Heidi Corona MD LAB BLOOD ORDERABLES Performing Organization Address City/State/ZIP Code Phon e Number [facility] [address] [place] [address] documented in this encounter Visit Diagnoses Diagnosis Borderline abnormal thyroid function dea t - Primary Diabetes mellitus screening Screening for diabetes mellitus Family history of thyroid disease Family history of other endocrine and me tabolic diseases Iron deficiency anemia, unspecified iron deficiency anemia type documented in this encounter Care Teams Account Manager Forest Service Relationship Specialty Start Date End Date Heidi Corona MD PCP - General Family Medicine 03/23/20 documented as of this encounter
--- OUTSIDE RECORDS SUMMARY | 2022-06-17 08:35 | XMS_ITS | Encounter Summary ---
:1990 Author Organization [facility] Address [address] [place] [address] Care Team Providers Name Role Phone Heidi Cornoa MD Primary Care Provider Unavailable Encounter Details Date Type Department Care Team Description 11/05/2020 Orders Only SE Family Med Heidi Corona MD [address] [place], [place] [address] Social History Tobacco Use Types Packs/Day Years [...] or relatives? How often do you attend samaritan or More than 4 times per year 06/04/2018 yazidi services? Do you belong to any clubs or Yes 06/04/2018 organizations such as samaritan groups, unions, fraternal or athletic groups, or [...] on filedocumented in this encounter Care Teams Medical Physics Teacher Relationship Specialty Start Date End Date Heidi Corona MD PCP - General Family Medicine 03/23/20 documented as of this encounter
--- OUTSIDE RECORDS SUMMARY | 2022-06-17 08:35 | XMS_ITS | Encounter Summary ---
:1990 Author Organization [facility] Address [address] [place] [address] Care Team Providers Name Role Phone Unavailable Primary Care Provider Unavailable Encounter Details Date Type Department Care Team Description 11/12/2014 Hospital Encounter HX [facility] Sa carlos Strange P.A.-C. [address] [address] [phone] (Wo rk) Social History Tobacco Use [...] Bird PTomi - 11/12/2014 9:34 AM CDT [id number] CHIEF COMPLAINT/REASON FOR VISIT Annual exam. HISTORY OF PRESENT ILLNESS This is a 23-year-old, nulliparous female, who presents today for an annual STONE BANKER exam. Cecilio would like her contraception refilled. [...] screen and this will be her first STONE BANKER exam. PAST MEDICAL/SURGICAL HISTORY PAST MEDICAL HISTORY: Seasonal allergies. Asthma. Irritable bowel syndrome. PAST SURGICAL HISTORY: Tonsils and adenoids. PAST OBSTETRICS/GYNECOLOGIC HISTORY: She is nulliparous and has not had an exam and denies any othersexually transmitted infections. SOCIAL HISTORY She denies any tobacco or other drug use. She has alcohol about 1 to 2 times per month. 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 FAMILY HISTORY Reviewed and updated in [...] BIRD PA-C On: 12/17/2014 04:15 PM Source: [facility] MHSDOLBEYNONRADSYS Document Id: [id number] documented in this encounter Miscellaneous Notes Miscellaneous [...] 1 Substitutions Allowed Route To Pharmacy - [facility] [address] Signed by SANFORD BIRD PA-C 01/13/2016 12:14:17 From: BRIANNA TIWARI MA To: SANFORD BIRD PA-C; Sent: 01/13/2016 09:53:31 CDT Subject: Med Management On hold pending signature Order:drospirenone-ethinyl estradiol (Deonna 3 mg-0.03 mg oral tablet) 1 tab(s) PO Daily Qty: 30 tab(s) Refills: 0 Substitutions Allowed Route To Pharmacy - [facility] [address] Caller is: ( x ) Patient ( [...] Call to Pharmacy ( ) Patient will pickling grader Script ( ) Mail Rx to Patient Source: [facility] POWERCHART Document Id: [id number] Telephone Encounter - Anum Jiménez R.N. - 01/23/2015 11:15 AM CDT *Phone Message Document Contains Addenda Addendum by SANFORD BIRD PA-C on 23 January 2015 12:17:37 CDT From: SANFORD BIRD PA-C To: [facility] Nurse; Sent: 01/23/2015 12:17:37 CDT Subject: RE: *Phone Message thx From: ANUM JIMÉNEZ RN ([facility] Nurse) To: SANFORD BIRD PA-C; Sent: [...] Patient is currently out of town in [place]. I paged Sanford who states being that [...] back cell phone number ( ) Source: [facility] [employer] Document Id: [id number] Miscellaneous - BirdNattyah Kody Aguayo - 11/21/2014 12:24 PM CDT Custom Result Letter 21 November 2014 CECILIO ALBERTO [address] [place] [address] [id number] Dear CECILIO ALBERTO, I hope this letter [...] you for trusting your health care to [facility]; improving our quality and service is our highest priority for your care. We are closely monitoring our service to you. If you dont think you could rate us in the highest category of care we would truly like to know what we could do better. Feel free to contact us directly with any concerns at [phone]. Thank you for allowing me to participate in your health care. Result Name Current Result STONE BANKER Cytology 11/12/2014 Sincerely, SANFORD PELON [address] [place] [address] [id number] Electronic Signature Electronically Signed By: SANFORD BIRD PA-C On: 21 November 2014 This document has images extracted. Source: [employer] Document Id: [id number] Miscellaneous - Sanford Bird P.A.-C. - 11/13/2014 1:32 PM CDT Custom Result Letter 13 November 2014 CECILIO ALBERTO [address] [place] [address] [id number] Dear CECILIO ALBERTO, I hope this letter finds that you are doing well. Your Chlamydia and Gonorrhea cultures were both negative. Thank you for trusting your health care to [facility]; improving our quality and service is our highest priority for your care. We are closely monitoring our service to you. If you dont think you could rate us in the highest category of care we would truly like to know what we could do better. Feel free to contact us directly with any concerns at [phone]. Thank you for allowing me to participate in your health care. Result Name Current Result Chlamydia DNA Probe 11/12/2014 GC by Nucleic Acid Amplification 11/12/2014 Sincerely, SANFORD PELON [address] [place] [address] [id number] Electronic Signature Electronically Signed By: SANFORD BIRD PA-C On: 13 November 2014 This document has images extracted. Source: [employer] Document Id: [id number] Miscellaneous - Sanford Bird P.A.-C. - 11/12/2014 1:05 PM CDT Ambulatory Patient Summary [facility] [address] [facility] [place] [phone] Visit Information Name: BETOCECILIO LEAL [facility] Number: [id number] Current Date: 11/12/2014 13:05:12 Physicians [...] Oral, once a day Routedto Jose [address] [place], [place] [phone] [facility] Pres[facility] ([facility] Prescription) magnesium 3 tabs at bedtime daily. [...] Treatment is basedon the average value. <[email or web address].org/pr/staywell.[email or web address]> ??5621-9005 [employer] This document has images extracted. Please consider using [employer] for all your patient education needs. Source: [facility] POWERCHART Document Id: [id number] Miscellaneous - Sanford Bird P.A.-C. - 11/12/2014 1:05 PM CDT Ambulatory Discharge Medication List [address] [id number] Visit Information Name: CECILIO ALBERTO [facility] Number: [id number] Visit Date: 11/12/2014 13:05:11 Attending [...] 1 Tablet(s), Oral, [facility] [address] [place], [place] [phone] Misc Prescription (Misc Prescription) magnesium 3 tabs [...] PA-C Signed On:12-NOV-2014 10:00:55 Additional Information: Source: [facility] POWERCHART Document Id: [id number] Miscellaneous - Sanford Bird P.A.-C. - 11/12/2014 11:15 AM CDT Custom Result Letter 12 November 2014 CECILIO ALBERTO [address] [place] [address] [id number] Dear CECILIO ALBERTO, I hope this letter [...] you for trusting your health care to [facility]; improving our quality and service is our highest priority for your care. We are closely monitoring our service to you. If you dont think you could rate us in the highest category of care we would truly like to know what we could do better. Feel free to contact us directly with any concerns at [phone]. Thank you for allowing me to participate [...] 11/12/2014 Wet Prep 11/12/2014 Sincerely, SANFORD BIRD [address] [place] [address], [place] [address] Electronic Signature Electronically Signed By: SANFORD BIRD PA-C On: 12 November 2014 This document has images extracted. Source: [facility] MedialiveCHART Document Id: [id number] Margaret - Nathalie Asencio - 11/12/2014 10:30 AM CDT School Excuse 12 November 2014 CECILIO ALBERTO [address] [place] [address] [id number] Dear CECILIO ALBERTO, You were examined in [...] 2014 This document has images extracted. Source: [facility] MedialiveCHART Document Id: [id number] Margaret - Brianna Tiwari C.M.A. - 11/12/2014 [...] TIWARI MA - 11/12/2014 9:52 CDT Source: [facility] [employer] Document Id: [id number] CDT!12 Miscellaneous - Brianna Tiwari, C.M.A. - 11/12/2014 9:49 AM CDT Adult Contact Center Assistant Intake/History Adult Contact Center Assistant Intake/History Entered On: 11/12/2014 9:51 CDT Performed [...] Information Given By : Patient Languages : Yoruba Is Patient Female and 13-50 no hysterectomy [...] Mckeon MA - 11/12/2014 9:49 CDT Source: [employer] Document Id: [id number] CDT!41 Miscellaneous - Brianna Tiwari CPaulineMMarla - 11/12/2014 9:49 AM CDT Health Assessment Health Assessment Entered On: 11/12/2014 9:52 CDT Performed On: 11/12/2014 9:49 CDT by BRIANNA TIWARI NE Health Assessment Complete Health Assessment Complete or [...] None Behavioral Health Screen/Safety Assmt : No Baptism Preference : BRIANNA Cabrera ROHAN - 11/12/2014 9:49 CDT Advance Directive Advanced Directives : No Advance Directive Additional Information : No BRIANNA TIWARI MA - 11/12/2014 9:49 CDT Educ Needs Learning Style Preference Adult Grid Patient : None Family : None BRIANNA TIWARI ROHAN - 11/12/2014 9:49 CDT Source: [facility] [employer] Document Id: [id number] CDT!34 documented in this encounter Plan of Treatment Not on filedocumented as of this encounter Procedures Procedure Name Priority Date/Time Associated Comments Diagnosis PATHOLOGY STONE BANKER Routine 11/12/2014 11:34 Results fo r this [...] section. documented in this encounter Results Pathology STONE BANKER Cytology (11/12/2014 11:34 AM CDT) Specimen (Source) Anatomical Collection Method Collection Time Re ceived Time Location / / Volume Laterality 11/12/2014 11:34 AM CDT Narrative SANDRA RAMACHANDRAN - 11/20/2014 1:27 PM CDT (NOTE) Patient Name: CECILIO ALBERTO MR#: [id number] Location: ??OBGYN Date Reported: ??11/20/2014 13:27 Specimen #[id number] Clinical History None Given CLINICAL INFORMATION Menstrual History: Routine Pap Source: SurePath Liquid Based Pap Test - Vaginal /Cervical/Endocervical Final Diagnosis [facility] Liquid Based Pap Test - Vaginal /Cervical/Endocervical: Satisfactory for evaluation. Negative for intraepithelial lesion or m alignancy. Pertinent clinical information not provi ded (LMP, patient history, etc.). Electronically Signed Out By Diane Sin N, CT(ASCP) Date Reported:11/20/2014 13:27 [facility] [address] [facility], ??[place] [address] CPT Code(s) A: 14956 Historical Provider LAB PAP COPATH ORDERABLES Performing Organization Address City/[facility]/ZIP Code Phon e Number MISYS [place] [address] [place] [address] MISYS [place] Glucose, Fasting (11/12/2014 10:35 AM CDT) athologist Signature Glucose, 91 70 - 99 MISYS [place] Fasting, S MGDL Comment: PERFORMED AT [facility], [address] [place] [address] [address] [place] [address] Specimen (Source) Anatomical Collection Method Collection Time Re ceived Time Location / / Volume Laterality Blood 11/12/2014 10:35 AM CDT Sanford Bird P.A.-C. LAB BLOOD NON ADD-ON Performing Organization Address [facility]/ZIP [facility] Phon e Number MISYS [place] [address] [place] [address] MISYS [place] Lipid Panel (11/12/2014 10:35 AM CDT) Analysis Performed At Patho logist Time Signature Cholesterol, Total 137 <200 MGDL MISYS [place] HX HDL 71 >40 MGDL MISYS [place] Cholesterol, 66 <130 MGDL MISYS Non-HDL, [place] Calculated Triglycerides 90 <150 MGDL MISYS [place] Calculated LDL 48 <100 MGDL MISYS [place] Total 1.93 MISYS Cholesterol/HDL [place] Ratio Comment: PERFORMED AT [facility], [address] [place] [address] [address] [place] [address] HXCHD Risk Factor CHD CHOLESTEROL/HDL RATIO MISYS [...] P.A.-C. LAB BLOOD ADD-ON Performing Organization Address City/[facility] Phon e Number MISYS [place] [address] [place] [address] MISYS [place] Chlamydia / Gonorrhoeae Amplified RNA (11/12/2014 10:31 AM CDT) Component Value Ref Test Analysis Performed At [facility] [employer] Range Method Time Signature HX GC by [...] - GENERAL O RDERABLES Performing Organization Address City/[facility]/ZIP Code Phon e Number MISYS [place] [address] [place] [address] MISYS [place] Chlamydia Trachomatis Amplified RNA (11/12/2014 10:31 AM CDT) Component Value Ref Test Analysis Performed At [facility] [employer] Range Method Time Signature HXChlamydia by NEGATIVE [...] - GENERAL O RDERABLES Performing Organization Address [facility] Phon e Number CLAIREYS [place] [address] [place] [address] MISSANAM [place] Wet Prep Exam, Urogenital (11/12/2014 10:31 AM CDT) [facility] Method Time Signature HXSPECIMAN VAGINAL MISYS DESCRIPTION [place] HXWet Prep NO CLUE CELLS MISYS SEEN [place] HXWet Prep NO TRICHOMONAS MISYS SEEN [place] HXWet Prep NO YEAST SEEN MISYS [place] HXWet Prep PERFORMED AT [facility], [address] [place] [address] [address]., [place] [address] CULTURE REPORT FINAL MISYS STATUS 11/12/2014 [place] Specimen (Source) Anatomical Collection Method Collection Time Re ceived Time Location / / Volume Laterality Vagina 11/12/2014 10:31 AM CDT Sanford Bird P.A.-C. LAB MICROBIOLOGY - GENERAL O RDERABLES Performing Organization Address [facility] Phon e Number SANDRA [place] [address] [place] [address] MISYS [place] documented in this encounter Visit Diagnoses Not on filedocumented in this encounter
--- OUTSIDE RECORDS SUMMARY | 2022-06-17 08:35 | XMS_ITS | Encounter Summary ---
:1990 Author Organization [facility] Address [address] [place] [address] Care Team Providers Name Role Phone Meghan Hernandez PA-C Primary Care Provider Encounter Details Date Type Department Care Team Description 07/04/2018 Lab [facility] OP Lab RLQ abdominal pain [address] [place] [address] Social History Tobacco Use Types [...] pain Res ults for this FILTRATION RATE POT LINING SUPERVISOR procedure ar e in the results section. CREATININE, SERUM Routine 07/04/2018 2:04 PM RLQ abdominal rodolfo n Results for this POT LINING SUPERVISOR procedure are i n the results section. documented in this encounter Results Glomerular filtration rate (GFR) (07/04/2018 2:04 PM POT LINING SUPERVISOR) athologist Signature GFR >60 07/04/2018 [facility] 3:08 PM POT LINING SUPERVISOR CENTER LAB[facility] >60 07/04/2018 [facility] Vietnamese GFR 3:08 PM [facility] Comment: GFR calculated from serum creatinine v alue Chronic Kidney Disease less than 60 mL/m in/1.73 m2 Kidney Failure less than 15 mL/min/1.73 m2 Note: effective 12/20/06 IDMS-Traceable MDRD Study Equation used. Specimen Anatomical Collection Method Collection Time Receive d Time (Source) Location / / Volume Laterality 07/04/2018 2:04 PM 8 2:04 POT LINING SUPERVISOR PM POT LINING SUPERVISOR Meghan Hernandez PA-C LAB BLOOD ORDERABLES Performing Organization Address City/[facility]/ZIP Code Phon e Number [facility] [address] [place], [place] [id number] Creatinine, Serum (07/04/2018 2:04 PM POT LINING SUPERVISOR) athologist Signature Creatinine 0.6 0.4 - 1.2 07/04/2018 [facility] mg/dL 3:08 PM POT LINING SUPERVISOR CENTER [facility] Specimen Anatomical Collection Method Collection Time Receive d Time (Source) Location / / Volume Laterality Blood 07/04/2018 2:04 PM 8 2:04 POT LINING SUPERVISOR PM POT LINING SUPERVISOR Meghan Hernandez PA-C LAB BLOOD ORDERABLES Performing Organization Address City/[facility]/ZIP Code Phon e Number [facility] [address] [place] [address] documented in this encounter Visit Diagnoses Diagnosis RLQ abdominal pain Abdominal pain, right lower quadrant documented in this encounter Care Teams Boats Renter Relationship Specialty Start Date End Date Meghan Hernandez PA-C PCP - General Family Medicine 05/03/18 03/22/[address] [place] [phone] documented as of this encounter
--- OUTSIDE RECORDS SUMMARY | 2022-06-17 08:35 | XMS_ITS | Encounter Summary ---
:1990 Author Organization [facility] Address [address] [place] [address] Care Team Providers Name Role Phone Unavailable Primary Care Provider Unavailable Reason for Visit Reason Onset Date Comments Outpatient COVID-19 Testing 10/26/2020 Encounter Details Date Type Department Care Team Description 10/26/2020 External Outreach Department of Family Post, Ji Aguayo, Contact With And Medicine, [facility] [address] M.D. (Suspected) Exposure Street Professional [address] To COVID-19 (Primary Building in [place], [place] Dx) [place] [address] [address] [phone] [place], [place] (Work) [address] Social History Tobacco Use [...] managing the patient, they may: Call the [place] Covid Care Team Doc of the Day [...] Detect, V Asymptomatic (10/26/2020 10:40 AM CDT) [facility] Method Time Signature SARS-CoV-2 Swab, 10/26/2020 [facility] Specimen Nasopharynx 10:28 PM Source CDT SARS-CoV-2 Detected (A) Undetected 10/26/2020 [facility] RNA by PCR 10:28 PM CDT Comment: SARS-CoV-2 RNA present. ----ADDITIONAL INFORMATION---- This RT-PCR test using the nicolette SARS-Co V-2 assay ([employer] performed on the nicolette 6800/8800 S ystem has received Emergency Use Authorization (EUA) by the U.S. Food and Drug Administration, and is modified from the 911 operator's instructions wit h a bridging study. Performance characteristics were verified by [facility] inic in a manner consistent with CLIA requirements. Fact sheets for this Emergency Use Autho rization (EUA) assay can be found at the following links: For Healthcare Providers: https://www.fd a.gov/media/150129/download For Patients: https://www.fda.gov/media/ 271821/download Specimen Anatomical Collection Method Collection Time Receive d Time (Source) Location / / Volume Laterality Varies 10/26/2020 10:40 10/26/2020 2:08 (Nasopharynx) AM CDT PM CDT Ji Merida M.D. LAB MICROBIOLOGY - GENERAL O CHLOE Performing Organization Address City/State/ZIP Code Phon e Number [facility] [address] [place] [address] SUPPORT CENTER [facility] [place] [address] Laboratory Medicine and Pathology [address] [place] documented in this encounter Visit Diagnoses Diagnosis Contact With And (Suspected) Exposure To COVID-19 - Primary documented in this encounter Additional Health Concerns Infection Onset Date Last Indicated Resolved Time COVID19 Pending 10/26/2020 10/26/2020 10/26/2020 10:28 PM CDT documented as of this encounter
--- OUTSIDE RECORDS SUMMARY | 2022-06-17 08:35 | XMS_ITS | Encounter Summary ---
:1990 Author Organization [facility] Address [address] [place] [address] Care Team Providers Name Role Phone Unavailable Primary Care Provider Unavailable Reason for Visit Reason Comments COVID Inquiry Encounter Details Date Type Department Care Team Description 10/26/2020 Clinical Communication Central Appointment AndiedRUSS estrada Office in [facility] [address] [place], [place] [id number] Social History Tobacco Use Types Packs/Day Years [...] Because of symptoms, [facility] In the past 14 days have you had close contact* with a person who has a LABORATORY CONFIRMED case ofCOVID-19?: Yes exposure noted. [place] patient, instruct to quarantine, testing indicated (End Screening) Symptom Onset Date of symptom onset: 10/19/20 Testing Recommendation Endpoint Is testing recommended? : Transferred to nursing call line Plan: Endpoint recommendation: Transferred to Nursing/COVID Line/Care Team *Reminder if sending patient for testing in [facility] or [facility], route encounter to the correct testing pool. documented in this encounter Plan of Treatment Not on filedocumented as of this encounter Visit Diagnoses Not on filedocumented in this encounter
--- OUTSIDE RECORDS SUMMARY | 2022-06-17 08:35 | XMS_ITS | Encounter Summary ---
:1990 Author Organization [facility] Address [address] [place] [address] Care Team Providers Name Role Phone eHidi Corona MD Primary Care Provider Unavailable Reason for Visit Reason Comments Asthma Encounter Details Date Type Department Care Team Description 01/18/2021 Office Visit Heidi Loco Mild intermittent asthma wit hout complication (Primary Dx); 217 Hitesh Ayala MD Iron deficiency anemia, unsp ecified iron deficiency anemia type; [place] [address] Diabetes mellitus screening; [phone] Family history of thyroid disease Social History [...] or relatives? How often do you attend hoahaoism or More than 4 times per year 06/04/2018 latter day services? Do you belong to any clubs or Yes 06/04/2018 organizations such as hoahaoism groups, unions, fraternal or athletic groups, or [...] presents for follow-up. This is her first [id number] visit as we had met via telehealth [...] future. She gets her OB care through [place] and planning to have her IUD removed [...] I will send her a message via [employer] regarding the lab results. I urged her [...] - 8.2 01/18/2021 [place] g/dL 1:08 PM [facility] Albumin, Serum 4.5 3.5 - 5.0 01/18/2021 [place] g/dL 1:08 PM [facility] Total Bilirubin <0.7 0.1 - 1.0 01/18/2021 [place] mg/dL 1:08 PM [facility] AST 25 8 - 43 U/L 01/18/2021 [place] 1:08 PM [facility] Alkaline 53 38 - 128 01/18/2021 [place] Phosphatase U/L 1:08 PM [facility] ALT (SGPT) 18 0 - 34 U/L 01/18/2021 [place] 1:08 PM [facility] Sodium 139 135 - 145 01/18/2021 [place] mEq/L 1:08 PM [facility] Potassium 4.4 3.5 - 5.1 01/18/2021 [place] mEq/L 1:08 PM [facility] Chloride 106 98 - 107 01/18/2021 [place] mEq/L 1:08 PM [facility] CO2 28 22 - 29 01/18/2021 [place] mmol/L 1:08 PM [facility] BUN 16 5 - 25 01/18/2021 [place] mg/dL 1:08 PM [facility] Creatinine 0.7 0.4 - 1.2 01/18/2021 [place] mg/dL 1:08 PM [facility] Glucose 96 70 - 100 01/18/2021 [place] mg/dL 1:08 PM [facility] Calcium, Total,S 9.5 8.4 - 10.2 01/18/2021 [place] mg/dL 1:08 PM [facility] Fasting? Yes 01/18/2021 [place] 9:14 AM [facility] Specimen Anatomical Collection Method Collection Time Receive d Time (Source) Location / / Volume Laterality Blood 01/18/2021 9:14 AM 1 CDT 12:27 PM CDT Heidi Corona MD LAB BLOOD ORDERABLES Performing Organization Address [facility] Phon e Number [facility] [address] [place] [phone] TSH (01/18/2021 9:14 AM CDT) athologist Signature [...] MD LAB BLOOD ORDERABLES Performing Organization Address City/[facility]/ZIP Code Phon e Number [facility] [address] [place] [phone] CBC Branch Off w/Diff (01/18/2021 9:14 AM CDT) athologist Signature WBC 4.3 3.5 - 10.5 01/18/2021 [facility] [place] K/uL 9:57 AM CDT LAB RBC 4.19 3.90 - 01/18/2021 [facility] [place] 5.00 M/uL 9:57 AM CDT LAB Hemoglobin 13.1 12.0 - 01/18/2021 [facility] 15.5 g/dL 9:57 AM CDT LAB Hematocrit 39.2 35.0 - 01/18/2021 [facility] [place] 44.0 % 9:57 AM CDT LAB Platelets 248 150 - 450 01/18/2021 [facility] [place] K/uL 9:57 AM CDT LAB MCV 93.6 81.6 - 01/18/2021 [facility] 98.3 fL 9:57 AM CDT LAB MCH 31.3 26.0 - 01/18/2021 [facility] [place] 32.0 pg 9:57 AM CDT LAB MCHC 33.4 32.0 - 01/18/2021 [facility] [place] 36.0 g/dL 9:57 AM CDT LAB RDW 12.6 11.9 - 01/18/2021 [facility] [place] 15.5 % 9:57 AM CDT LAB Lymphocytes % 34.6 % 01/18/2021 [facility] [place] 9:57 AM CDT LAB Mid-size Cells 11.1 % 01/18/2021 [facility] [place] 9:57 AM CDT LAB Granulocytes/Omar 54.3 % 01/18/2021 [facility] O trophils 9:57 AM CDT LAB Lymphocytes 1.5 0.9 - 2.9 01/18/2021 [facility] [place] Absolute K/uL 9:57 AM CDT LAB MIDS Absolute 0.5 0.4 - 1.5 01/18/2021 [facility] K/uL 9:57 AM CDT LAB Granulocytes/Omar 2.3 1.7 - 7.0 01/18/2021 [facility] trophils K/uL 9:57 AM CDT LAB Absolute Specimen Anatomical Collection Method Collection Time Receive d Time (Source) Location / / Volume Laterality Blood 01/18/2021 9:14 AM 9:14 CDT AM CDT Heidi Corona MD LAB BLOOD ORDERABLES Performing Organization Address City/State/ZIP Code Phon e Number [facility] [address] [place] [address] documented in this encounter Visit Diagnoses Diagnosis Mild intermittent asthma without complic ation - Primary Iron deficiency anemia, unspecified iron deficiency anemia type Diabetes mellitus screening Screening for diabetes mellitus Family history of thyroid disease Family history of other endocrine and me tabolic diseases documented in this encounter Care Teams Pier Hand Helper Relationship Specialty Start Date End Date Heidi Corona MD PCP - General Family Medicine 03/23/20 documented as of this encounter
--- OUTSIDE RECORDS SUMMARY | 2022-06-17 08:35 | XMS_ITS | Encounter Summary ---
:1990 Author Organization [facility] Address [address] [place] [address] Care Team Providers Name Role Phone Meghan Hernandez PA-C Primary Care Provider Encounter Details Date Type Department Care Team Description 07/04/2018 Lab [place] RLQ abdominal pain; [address] DANIELS Encounter for lipid screenin g for cardiovascular disease; [place] [id number] Abnormal laboratory test res ult [phone] Social History Tobacco Use Types Packs/Day Years [...] or relatives? How often do you attend mandaeism or More than 4 times per year 06/04/2018 muslim services? Do you belong to any clubs or Yes 06/04/2018 organizations such as mandaeism groups, unions, fraternal or athletic groups, or [...] abdominal pain Re sults for this PM HEAD RIGGER procedure are i n the results section. GLOMERULAR FILTRATION Routine 07/04/2018 1:00 RLQ abdominal pa in Results for this RATE PM HEAD RIGGER procedure are i n the results section. CBC BRANCH OFFICE Routine 07/04/2018 1:00 RLQ abdominal pain R esults for this W/DIFF PM HEAD RIGGER procedure are i n the results section. TSH Routine 07/04/2018 1:00 Abnormal laboratory Resul ts for this PM HEAD RIGGER test result procedure are i n the results section. LIPID PANEL Routine 07/04/2018 1:00 Encounter for lipid Resul ts for this PM HEAD RIGGER screening for procedure are in cardiovascular disease the r esults section. COMPREHENSIVE Routine 07/04/2018 1:00 RLQ abdominal pain Resul ts for this METABOLIC PANEL PM HEAD RIGGER procedure ar e in the results section. documented in this encounter Results , urine (07/04/2018 1:17 PM HEAD RIGGER) athologist Signature NEGATIVE Negative 07/04/2018 [facility] Test, Urine 1:20 [facility] Specimen Anatomical Collection Method Collection Time Receive d Time (Source) Location / / Volume Laterality Urine 07/04/2018 1:17 PM 8 1:18 HEAD RIGGER PM HEAD RIGGER Meghan Hernandez PA-C LAB URINE ORDERABLES Performing Organization Address City/State/ZIP Code Phon e Number [facility] [address] [place] [address] Glomerular filtration rate (GFR) (07/04/2018 1:00 PM HEAD RIGGER) athologist Signature GFR >60 07/05/2018 [facility] 1:53 PM [facility] >60 07/05/2018 [facility] [place] GFR 1:53 PM [facility] Comment: GFR calculated from serum creatinine v alue Chronic Kidney Disease less than 60 mL/m in/1.73 m2 Kidney Failure less than 15 mL/min/1.73 m2 Note: effective 12/20/06 IDMS-Traceable MDRD Study Equation used. Specimen Anatomical Collection Method Collection Time Receive d Time (Source) Location / / Volume Laterality 07/04/2018 1:00 PM 8 1:00 HEAD RIGGER PM HEAD RIGGER Meghan Hernandez PA-C LAB BLOOD ORDERABLES Performing Organization Address [facility] e Number [facility] [address] [place] [phone] TSH (07/04/2018 1:00 PM HEAD RIGGER) athologist Signature TSH, Sensitive 2.30 0.46 - 07/05/2018 [facility] 4.68 mIU/L 4:31 PM [facility] Comment: The results from this [...] Laterality Blood 07/04/2018 1:00 PM 8 1:03 HEAD RIGGER PM HEAD RIGGER Meghan Hernandez PA-C LAB BLOOD ORDERABLES Performing Organization Address City/[facility] Phon e Number [facility] [address] [place] [address] Lipid panel (07/04/2018 1:00 PM HEAD RIGGER) athologist Signature Cholesterol 140 0 - 199 07/05/2018 [facility] mg/dL 1:53 PM [facility] Comment: Recommended by National Cholesterol Education Program (ATP III) -------- Cholesterol Ranges -------- <200 ? Desirable 200-239 ? Borderline high >=240 ? High Triglycerides 49 0 - 149 mg/dL 07/05/2018 1:53 PM [facility] Comment: -------- TRIG Ranges -------- <150 ?Normal 150-199 ? Borderline high 200-499 ? High >=500 ? Very high HDL 60 40 - 60 mg/dL 07/05/2018 1:53 PM [facility] Comment: -------- HDL Ranges -------- <40 ?Low 40-59 ?Normal >=60 ? Optimal LDL Calculated 70 0 - 99 mg/dL 07/05/2018 1:53 PM [facility] Comment: -------- LDL Ranges -------- <100 ? Optimal 100-129 ?Near optimal/above op timal 130-159 ?Borderline high 160-189 ?High >=190 ?Very high Specimen Anatomical Collection Method Collection Time Receive d Time (Source) Location / / Volume Laterality Blood 07/04/2018 1:00 PM 8 1:02 HEAD RIGGER PM HEAD RIGGER Meghan Hernandez PA-C LAB BLOOD ORDERABLES Performing Organization Address City/State/ZIP Code Phon e Number [facility] [address] [place] [address] (ABNORMAL) Comprehensive metabolic panel (07/04/2018 1:00 PM HEAD RIGGER) [facility] gist Method Time Signature Total Protein 8.2 6.3 - 8.2 07/05/2018 [place] g/dL 1:53 PM [facility] Albumin, Serum 5.0 3.5 - 5.0 07/05/2018 [place] g/dL 1:53 PM [facility] Total Bilirubin <0.7 0.1 - 1.0 07/05/2018 [place] mg/dL 1:53 PM [facility] AST 59 (H) 8 - 43 U/L 07/05/2018 [place] 1:53 PM [facility] Alkaline 56 38 - 128 07/05/2018 [place] Phosphatase U/L 1:53 PM [facility] ALT (SGPT) 148 (H) 25 - 45 07/05/2018 [place] U/L 1:53 PM [facility] Comment: . Sodium 140 135 - 145 mEq/L 07/05/2018 1:53 PM [facility] Potassium 4.0 3.5 - 5.1 mEq/L 07/05/2018 1:53 PM [facility] Chloride 104 98 - 107 mEq/L 07/05/2018 1:53 PM [facility] CO2 24 22 - 29 mmol/L 07/05/2018 1:53 PM [facility] BUN 9 5 - 25 mg/dL 07/05/2018 1:53 PM [facility] Creatinine 0.6 0.4 - 1.2 mg/dL 07/05/2018 1:53 PM [facility] Glucose 90 70 - 100 mg/dL 07/05/2018 1:53 PM [facility] Calcium, Total,S 9.6 8.4 - 10.2 mg/dL 07/05/2018 1:53 PM [facility] Fasting? Yes 07/04/2018 1:03 PM [facility] Specimen Anatomical Collection Method Collection Time Receive d Time (Source) Location / / Volume Laterality Blood 07/04/2018 1:00 PM 8 1:02 HEAD RIGGER PM HEAD RIGGER Meghan Hernandez PA-C LAB BLOOD ORDERABLES Performing Organization Address City/State/ZIP Code Phon e Number [facility] [address] [place] [address] CBC Branch Off w/Diff (07/04/2018 1:00 PM [facility]) P athologist Signature WBC 5.5 3.5 - 10.5 07/04/2018 [facility] K/uL 1:10 PM [facility] RBC 4.27 3.90 - 07/04/2018 [facility] 5.00 M/uL 1:10 PM [facility] Hemoglobin 12.8 12.0 - 07/04/2018 [facility] 15.5 g/dL 1:10 PM [facility] Hematocrit 38.3 35.0 - 07/04/2018 [facility] 44.0 % 1:10 PM [facility] Platelets 248 150 - 450 07/04/2018 [facility] K/uL 1:10 PM [facility] MCV 89.7 81.6 - 07/04/2018 [facility] 98.3 fL 1:10 PM [facility] MCH 30.0 26.0 - 07/04/2018 [facility] 32.0 pg 1:10 PM [facility] MCHC 33.4 32.0 - 07/04/2018 [facility] 36.0 g/dL 1:10 PM [facility] RDW 12.0 11.9 - 07/04/2018 [facility] 15.5 % 1:10 PM [facility] Lymphocytes % 40.0 18.0 - 07/04/2018 [facility] 45.0 % 1:10 PM [facility] Mid-size Cells 9.6 3.3 - 10.1 07/04/2018 [facility] % 1:10 PM [facility] Granulocytes/Omar 50.4 45.8 - 07/04/2018 [facility] trophils 73.7 % 1:10 PM [facility] Lymphocytes 2.2 0.9 - 2.9 07/04/2018 [facility] Absolute K/uL 1:10 PM [facility] MIDS Absolute 0.5 0.2 - 0.8 07/04/2018 [facility] K/uL 1:10 PM [facility] Granulocytes/Omar 2.8 2.1 - 8.7 07/04/2018 [facility] trophils K/uL 1:10 PM [facility] Absolute Specimen Anatomical Collection Method Collection Time Receive d Time (Source) Location / / Volume Laterality Blood 07/04/2018 1:00 PM 8 1:03 HEAD RIGGER PM HEAD RIGGER Meghan Hernandez PA-C LAB BLOOD ORDERABLES Performing Organization Address City/State/ZIP Code Phon e Number [facility] [address] [place] [address] documented in this encounter Visit Diagnoses Diagnosis RLQ abdominal pain Abdominal pain, right lower quadrant Encounter for lipid screening for cardio vascular disease Abnormal laboratory test result Other abnormal clinical finding documented in this encounter Care Teams Lead Software Developer Relationship Specialty Start Date End Date Meghan Hernandez PA-C PCP - General Family Medicine 05/03/18 03/22/[address] [facility] [place] [place] [address] documented as of this encounter
--- OUTSIDE RECORDS SUMMARY | 2022-06-17 08:35 | XMS_ITS | Encounter Summary ---
:1990 Author Organization [facility] Address [address] [place] [address] Care Team Providers Name Role Phone Meghan Hernandez PA-C Primary Care Provider Encounter Details Date Type Department Care Team Description 07/05/2018 Lab [place] Diarrhea, unspecified type [address] [place] [address] Social History Tobacco Use Types Packs/Day Years [...] or relatives? How often do you attend shinto or More than 4 times per year 06/04/2018 caodaism services? Do you belong to any clubs or Yes 06/04/2018 organizations such as shinto groups, unions, fraternal or athletic groups, or [...] Results for this CONCENTRATE & SMEAR, PM DIESEL PLANT OPERATOR unspecified type pro cedure are in MICROSCOPY, FECES the result s section. GIARDIA / Routine 07/04/2018 7:00 Diarrhea, Results for this CRYPTOSPORIDIUM PM DIESEL PLANT OPERATOR unspecified type procedur e are in ANTIGENS, FECES the results section. CLOSTRIDIUM DIFFICILE Routine 07/04/2018 7:00 Diarrhea, Res ults for this TOXIN PM DIESEL PLANT OPERATOR unspecified type procedure a re in the results section. STOOL CULTURE Routine 07/04/2018 7:00 Diarrhea, Results for this PM DIESEL PLANT OPERATOR unspecified type procedure a re in the results section. documented in this encounter Results Stool culture (07/04/2018 7:00 PM [facility]) [facility] gist Method Time Signature Stool Culture Negative for Salmonella, Shigella, Campy lobacter, E coli O157:H7, 07/08/2018 [place] Yersinia. Negative for other Shiga toxin producing E. coli . 7:09 AM [facility] (Expected result is negative in the absence of Shiga toxin p roducing E. coli). Specimen Anatomical Collection Method Collection Time Receive d Time (Source) Location / / Volume Laterality Stool 07/04/2018 7:00 PM 8 DIESEL PLANT OPERATOR 12:31 PM DIESEL PLANT OPERATOR Narrative [facility] - 09/2017 7:09 AM DIESEL PLANT OPERATOR Patient does not have an Amoxicillin or PCN allergy Meghan Hernandez PA-C LAB MICROBIOLOGY - GENERAL O RDERABLES Performing Organization Address City/State/ZIP Code Phon e Number [facility] [address] [place] [address] Parasitic Evaluation (07/04/2018 7:00 PM [facility]) P athologist Signature Ova + Parasite =- 07/07/2018 [facility] Exam 10:02 AM [facility] Comment: SOURCE: STOOL PARASITIC EXAMINATION ?FINAL No parasites seen. Cryptosporidium, Cyclospora, and microsp oridia are not readily detected by this method. Single negative specimen does not rule o ut parasitic infection. Test Performed by: [facility] [address] [place] [address] Source STOOL 07/05/2018 1:45 PM DIESEL PLANT OPERATOR [facility] Specimen Anatomical Collection Method Collection Time Receive d Time (Source) Location / / Volume Laterality Stool 07/04/2018 7:00 PM 8 1:47 DIESEL PLANT OPERATOR PM DIESEL PLANT OPERATOR Meghan BURROWSC LAB BODY FLUIDS AND STOOLS O RDERABLES Performing Organization Address City/State/ZIP Code Phon e Number [facility] see result attachment for specific address Clostridium difficile toxin (07/04/2018 7:00 PM DIESEL PLANT OPERATOR) Analysis Performed At Patho logist Time Signature Toxigenic C. NEGATIVE Negative 07/06/2018 [place] Diff 4:56 PM [facility] Comment: Test performed using [employer] GeneXpert (real-time PCR targeting the Toxin B gen e) Specimen Anatomical Collection Method Collection Time Receive d Time (Source) Location / / Volume Laterality Stool 07/04/2018 7:00 PM 8 DIESEL PLANT OPERATOR 12:47 PM DIESEL PLANT OPERATOR Meghan MARTI-C LAB BODY FLUIDS AND STOOLS O RDERABLES Performing Organization Address City/[facility]/ZIP Code Phon e Number [facility] [address] [place] [address] Cryptosporidium/Giardia antigen, feces (07/04/2018 7:00 PM DIESEL PLANT OPERATOR) Patholo gist Method Time Signature Cryptosporidium NEGATIVE Negative 07/06/2018 [place] 4:07 PM [facility] Comment: . Giardia lamblia NEGATIVE Negative 07/06/2018 4:07 PM [facility] Comment: . Specimen Anatomical Collection Method Collection Time Receive d Time (Source) Location / / Volume Laterality Stool 07/04/2018 7:00 PM 8 DIESEL PLANT OPERATOR 12:31 PM DIESEL PLANT OPERATOR Meghan MARTI-C LAB BODY FLUIDS AND STOOLS O RDERABLES Performing Organization Address City/State/ZIP Code Phon e Number [facility] [address] [place] [address] documented in this encounter Visit Diagnoses Diagnosis Diarrhea, unspecified type documented in this encounter Care Teams Field Pipe Lines Supervisor Relationship Specialty Start Date End Date Meghan Hernandez PA-C PCP - General Family Medicine 05/03/18 03/22/[address] [place] [address] documented as of this encounter
--- OUTSIDE RECORDS SUMMARY | 2022-06-17 08:35 | XMS_ITS | Encounter Summary ---
:1990 Author Organization [facility] Address [address] [place] [address] Care Team Providers Name Role Phone Meghan Hernandez PA-C Primary Care Provider Reason for Visit Imaging (Routine) - Closed Specialty Diagnoses / Procedures Referred By Contact Refer red To Contact Radiology Diagnoses RLQ abdominal pain Meghan Hernandez PA-C Procedures CT abdomen pelvis w and wo IV contrast [address] [place] [address] Referral ID Status Reason Start Date Expiration Date Visits Requ ested Visits Authorized [id number] Closed 07/04/2018 12/31/2018 1 1 Encounter Details Date Type Department Care Team Description 07/04/2018 Hospital Encounter [facility] Hospital CT Scan [address] [place], [place] [id number] Social History Tobacco Use Types Packs/Day Years [...] or relatives? How often do you attend christian or More than 4 times per year 06/04/2018 jain services? Do you belong to any clubs or Yes 06/04/2018 organizations such as christian groups, unions, fraternal or athletic groups, or [...] 3:43 PM Re sults for this [facility] procedure are i n the results section. documented in this encounter Results CT abdomen pelvis w IV contrast (07/04/2018 3:43 PM HOSPITAL SCIENTIST) Anatomical Region Laterality Modality Body Computed Tomography Specimen (Source) Anatomical Collection Method Collection Time Re ceived Time Location / / Volume Laterality 07/04/2018 3:43 PM HOSPITAL SCIENTIST Impressions 07/04/2018 4:09 PM HOSPITAL SCIENTIST IMPRESSION: Normal appendix. Fluid in the left colon consistent with diarrheal illness. Remainder of the exam is unremarkable. These findings were called to Meghan Adam at 4:07 p.m. on July 04, 2018. Please note that all CT scans at this [facility] use dose modulation, iterative reconstruction, and/or weight- based dosing when appropriate to reduce radiation dose to as low as reaso nably achievable. Dictated by Hortensia Larose MD @ Jul 04 2018 ??4:09PM Signed by Dr. Hortensia Larose @ Jul 04 2018 ??4:09PM Narrative 07/04/2018 4:09 PM HOSPITAL SCIENTIST INDICATION: Decreased appetite, right lower quadrant pain [...] on filedocumented in this encounter Care Teams Field Service Tech Relationship Specialty Start Date End Date Meghan Hernandez PA-C PCP - General Family Medicine 05/03/18 03/22/20 [address] [place] [address] documented as of this encounter
--- OUTSIDE RECORDS SUMMARY | 2022-06-17 08:35 | XMS_ITS | Clinical Summary ---
:1990 Author Organization [facility] Address [address] [place] [address] Care Team Providers Name Role Phone Unavailable Primary Care Provider Unavailable Source Comments Patient records contain information from all sites at [facility]. For routine questions regarding patient records, call [phone] during business hours, M-F 8:00 AM - 5:00 PM Central Time. Record requests for emergency care only can be directed to [phone] at any time.[facility] Immunizations Name Administration Dates Next Due [...] AM CDT Pulse 92 06/26/2014 3:11 PM AMMONIUM NITRATE NEUTRALIZER Temperature - - Respiratory Rate 20 11/29/2012 [...] Typ e / Group Dates NORA MELENDEZ [id number] 2019-Pres [phone] [place] TIFFANIE ent [address] [place] [phone] [address] [place] G[place] [id number]
--- OUTSIDE RECORDS SUMMARY | 2022-06-17 08:35 | XMS_ITS | Encounter Summary ---
:1990 Author Organization [facility] Address [address] [place] [address] Care Team Providers Name Role Phone Meghan Hernandez PA-C Primary Care Provider Reason for Visit Reason Comments Annual Exam Encounter Details Date Type Department Care Team Description 06/04/2018 Office Visit Meghan Dean Well adult exam (Primary Dx) ; [address] JEREMIAH Aguayo PA-C Immunization due; [place] [phone] Encounter for lipid screenin g for cardiovascular disease; [phone] Abnormal laboratory test result; [place] Moderate persis tent asthma without complication; [id number] Dysmenorrhea Social History Tobacco Use Types Packs/Day [...] having been seen by other providers and [facility], is in today for physical examination. She has some questions in regards to conception. OVERCASTER history . 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 Tobacco Use ??? Smoking status: Never [...] encounter Results Lipid panel (07/04/2018 1:00 PM [facility]) P athologist Signature Cholesterol 140 0 - 199 07/05/2018 [facility] mg/dL 1:53 PM [facility] Comment: Recommended by National Cholesterol Education Program (ATP III) -------- Cholesterol Ranges -------- <200 ? Desirable 200-239 ? Borderline high >=240 ? High Triglycerides 49 0 - 149 mg/dL 07/05/2018 1:53 PM [facility] Comment: -------- TRIG Ranges -------- <150 ?Normal 150-199 ? Borderline high 200-499 ? High >=500 ? Very high HDL 60 40 - 60 mg/dL 07/05/2018 1:53 PM [facility] Comment: -------- HDL Ranges -------- <40 ?Low 40-59 ?Normal >=60 ? Optimal LDL Calculated 70 0 - 99 mg/dL 07/05/2018 1:53 PM [facility] Comment: -------- LDL Ranges -------- <100 ? Optimal 100-129 ?Near optimal/above op timal 130-159 ?Borderline high 160-189 ?High >=190 ?Very high Specimen Anatomical Collection Method Collection Time Receive d Time (Source) Location / / Volume Laterality Blood 07/04/2018 1:00 PM 8 1:02 [facility] PM [facility] DIP[facility] Meghan Hernandez PA-C LAB BLOOD ORDERABLES Performing Organization Address City/State/ZIP Code Phon e Number [facility] [address] [place] [address] TSH (07/04/2018 1:00 PM REED DIPPER) athologist Signature TSH, Sensitive 2.30 0.46 - 07/05/2018 [facility] 4.68 mIU/L 4:31 PM [facility] Comment: The results from this [...] Laterality Blood 07/04/2018 1:00 PM 8 1:03 [facility] PM [facility] Meghan Hernandez PA-C LAB BLOOD ORDERABLES Performing Organization Address City/State/ZIP Code Phon e Number [facility] [address] [place] [address] documented in this encounter Visit Diagnoses Diagnosis Well adult exam - Primary Routine general medical examination at a health care facility Immunization due Encounter for lipid screening for cardio vascular disease Abnormal laboratory test result Other abnormal clinical finding Moderate persistent asthma without compl ication Dysmenorrhea documented in this encounter Care Teams Press Clipper Relationship Specialty Start Date End Date Meghan Hernandez PA-C PCP - General Family Medicine 05/03/18 03/22/20 [address] [place] [address] documented as of this encounter
--- OUTSIDE RECORDS SUMMARY | 2022-06-17 08:35 | XMS_ITS | Encounter Summary ---
:1990 Author Organization [facility] Address [address] [place] [address] Care Team Providers Name Role Phone Meghan Hernandez PA-C Primary Care Provider Encounter Details Date Type Department Care Team Description 07/17/2018 [facility] [place] Abnormal blood chemistry dea t [address] [place] [address] Social History Tobacco Use Types Packs/Day Years [...] or relatives? How often do you attend voodoo or More than 4 times per year 06/04/2018 uatsdin services? Do you belong to any clubs or Yes 06/04/2018 organizations such as voodoo groups, unions, fraternal or athletic groups, or [...] Abnormal blood Res ults for this PANEL DRAWER IN HAND chemistry test procedure are in the results section. documented in this encounter Results (ABNORMAL) Liver panel (07/17/2018 3:37 PM DRAWER IN HAND) Analysis Performed At Patho logist Time Signature Total Protein 7.7 6.3 - 8.2 07/18/2018 [place] g/dL 12:55 PM [facility] Albumin, Serum 4.7 3.5 - 5.0 07/18/2018 [place] g/dL 12:55 PM [facility] Total Bilirubin <0.7 0.1 - 1.0 07/18/2018 [place] mg/dL 12:55 PM [facility] Bilirubin, <0.1 0.0 - 0.3 07/18/2018 [place] Direct mg/dL 12:55 PM [facility] AST 32 8 - 43 U/L 07/18/2018 [place] 12:55 PM [facility] Alkaline 51 38 - 128 07/18/2018 [place] Phosphatase U/L 12:55 PM [facility] ALT (SGPT) 71 (H) 25 - 45 07/18/2018 [place] U/L 12:55 PM [facility] Comment: . Specimen Anatomical Collection Method Collection Time Receive d Time (Source) Location / / Volume Laterality Blood 07/17/2018 3:37 PM 8 DRAWER IN HAND 12:32 PM DRAWER IN HAND Meghan Hernandez PA-C LAB BLOOD ORDERABLES Performing Organization Address City/State/ZIP Code Phon e Number [facility] [address] [place] [address] documented in this encounter Visit Diagnoses Diagnosis Abnormal blood chemistry test documented in this encounter Care Teams Poker Supervisor Relationship Specialty Start Date End Date Meghan Hernandez PA-C PCP - General Family Medicine 05/03/18 03/22/[address] [place] [address] documented as of this encounter
--- OUTSIDE RECORDS SUMMARY | 2022-06-17 08:35 | XMS_ITS | Encounter Summary ---
:[address] [facility] Address [address] [place] [address] Care Team Providers Name Role Phone Unavailable Primary Care Provider Unavailable Encounter Details Date Type Department Care Team Description 12/01/2020 Orders Only RST PCP [facility] Elan Lainez Jr., M.D. [address] [place] [phone] (Wo rk) Social History Tobacco Use Types Packs/Day Years Used Date Smoking Tobacco: Never Sex Assigned at Date Recorded Not on file documented as of this encounter Plan of Treatment Not on filedocumented as of this encounter Visit Diagnoses Not on filedocumented in this encounter
--- OUTSIDE RECORDS SUMMARY | 2022-06-17 08:35 | XMS_ITS | Encounter Summary ---
:1990 Author Organization [facility] [place] Address [address] [place] [address] Care Team Providers Name Role Phone Heidi Corona MD Primary Care Provider Unavailable Reason for Visit Reason Onset Date Comments ACT and PHQ-9 questionaires 11/23/2020 Encounter Details Date Type Department Care Team Description 11/23/2020 Telephone Heidi Loco ACT and PHQ-[address] [place] [address] [place] [address] Social History Tobacco Use Types Packs/Day Years [...] or relatives? How often do you attend protestant or More than 4 times per year 06/04/2018 mormonism services? Do you belong to any clubs or Yes 06/04/2018 organizations such as protestant groups, unions, fraternal or athletic groups, or [...] on filedocumented in this encounter Care Teams Anesthesia Director Relationship Specialty Start Date End Date Heidi Corona MD PCP - General Family Medicine 03/23/20 documented as of this encounter
--- OUTSIDE RECORDS SUMMARY | 2022-06-17 08:35 | XMS_ITS | Encounter Summary ---
:1990 Author Organization [facility] Address [address] [place] [address] Care Team Providers Name Role Phone Unavailable Primary Care Provider Unavailable Reason for Visit Reason Comments COVID Nurse Line Encounter Details Date Type Department Care Team Description 10/26/2020 Clinical Communication Division of Lenore Marquez COVI D Nurse Line [facility] Internal R.N. Medicine, [facility], in [place], [place] [address] [place] [address] Social History Tobacco Use Types Packs/Day Years Used Date Smoking Tobacco: Never Sex Assigned at Date Recorded Not on file documented as of this encounter Miscellaneous Notes Telephone Encounter - Lenore Marquez, R.N. - 10/26/2020 8:12 AM CDT COVID-19 Nurse Line Screening Known Exposure 10/17 Quarantine 10/31 Asymptomatic Testing required for work ASSESSMENT Region Select appropriate region: : [place] Age Pathway Select approprite pathway: : Adult [...] water are not available, use a hand installer interior assemblies -Avoid touching your eyes, nose and mouth. [...] care: Yes The following references were used: [facility] novel coronavirus (COVID- 19) resources Nursing judgement documented in this encounter Plan of Treatment Not on filedocumented as of this encounter Visit Diagnoses Not on filedocumented in this encounter
--- OUTSIDE RECORDS SUMMARY | 2022-06-17 08:35 | XMS_ITS | Encounter Summary ---
:1990 Author Organization [facility] Address [address] [place] [address] Care Team Providers Name Role Phone Meghan Hernandez PA-C Primary Care Provider Encounter Details Date Type Department Care Team Description 11/09/2018 Abstract SE Family Med Meghan Hernandez PA-C [address] [facility] [address] [place] [address] [place] [address] (Wo rk) Social History Tobacco Use Types [...] or relatives? How often do you attend caodaism or More than 4 times per year 06/04/2018 mosque services? Do you belong to any clubs or Yes 06/04/2018 organizations such as caodaism groups, unions, fraternal or athletic groups, or [...] on filedocumented in this encounter Care Teams Tree Faller Relationship Specialty Start Date End Date Meghan Hernandez PA-C PCP - General Family Medicine 05/03/18 03/22/[address] [place] [address] documented as of this encounter
--- OUTSIDE RECORDS SUMMARY | 2022-06-17 08:35 | XMS_ITS | Encounter Summary ---
:1990 Author Organization [facility] Address [address] [place] [address] Care Team Providers Name Role Phone Meghan Hernandez PA-C Primary Care Provider Encounter Details Date Type Department Care Team Description 05/30/2018 Abstract Meghan Dean PA-C [address] DANIELS [address] [place] [address] [place] [address] [phone] (Wo rk) Social History Tobacco Use Types [...] or relatives? How often do you attend presybeterian or More than 4 times per year 06/04/2018 restoration services? Do you belong to any clubs or Yes 06/04/2018 organizations such as presybeterian groups, unions, fraternal or athletic groups, or [...] on filedocumented in this encounter Care Teams Fabric Awning Repairer Relationship Specialty Start Date End Date Meghan Hernandez PA-C PCP - General Family Medicine 05/03/18 03/22/[address] [place] [address] documented as of this encounter
--- OUTSIDE RECORDS SUMMARY | 2022-06-17 08:35 | XMS_ITS | Encounter Summary ---
:1990 Author Organization [facility] Address [address] [place] [address] Care Team Providers Name Role Phone Meghan Hernandez PA-C Primary Care Provider Encounter Details Date Type Department Care Team Description 07/15/2018 Orders Only Meghan Dean, Abnormal blood [address] JEREMIAH GARCIA chemistry test (Primary [place] [phone]) [phone] [place] [phone] Social History Tobacco Use Types Packs/Day Years [...] More than 4 times per year 06/04/2018 rastafarian services? Do you belong to any clubs [...] LFT panel. Is she still having symptoms? LLENCE CONSULTANT Sergio Wasserman RN - 07/15/2018 5:53 PM CST LMTCB LLENCE CONSULTANT Kar Batres LPN - 07/15/2018 5:53 PM CST LMTCB at home number. LLENCE CONSULTANT Arti Preston MA - 07/15/2018 5:53 PM CST Pt notified and agrees. She is not having pain as often but is still having light headedness and diarrhea. She is having a BM about 1 hr after eating every meal. Pt will try to come in tomorrow for LFTpanel. LLENCE CONSULTANT documented in this encounter Plan of Treatment Not on filedocumented as of this encounter Results (ABNORMAL) Liver panel (07/17/2018 3:37 PM EXCELLENCE CONSULTANT) Analysis Performed At Patho logist Time Signature Total Protein 7.7 6.3 - 8.2 07/18/2018 [place] g/dL 12:55 PM [facility] Albumin, Serum 4.7 3.5 - 5.0 07/18/2018 [place] g/dL 12:55 PM [facility] Total Bilirubin <0.7 0.1 - 1.0 07/18/2018 [place] mg/dL 12:55 PM [facility] Bilirubin, <0.1 0.0 - 0.3 07/18/2018 [place] Direct mg/dL 12:55 PM [facility] AST 32 8 - 43 U/L 07/18/2018 [place] 12:55 PM [facility] Alkaline 51 38 - 128 07/18/2018 [place] Phosphatase U/L 12:55 PM [facility] ALT (SGPT) 71 (H) 25 - 45 07/18/2018 [place] U/L 12:55 PM [facility] Comment: . Specimen Anatomical Collection Method Collection Time Receive d Time (Source) Location / / Volume Laterality Blood 07/17/2018 3:37 PM 8 EXCELLENCE CONSULTANT 12:32 PM EXCELLENCE CONSULTANT Meghan Hernandez PA-C LAB BLOOD ORDERABLES Performing Organization Address City/State/ZIP Code Phon e Number [facility] [address] [place] [address] documented in this encounter Visit Diagnoses Diagnosis Abnormal blood chemistry test - Primary documented in this encounter Care Teams Locker Operator Relationship Specialty Start Date End Date Meghan Hernandez PA-C PCP - General Family Medicine 05/03/18 03/22/[address] [place] [address] documented as of this encounter
--- OUTSIDE RECORDS SUMMARY | 2022-06-17 08:35 | XMS_ITS | Encounter Summary ---
:1990 Author Organization [facility] Address [address] [place] [address] Care Team Providers Name Role Phone Unavailable Primary Care Provider Unavailable Encounter Details Date Type Department Care Team Description 10/26/2020 Admin Visit Department of Family Medicine, [address] [address] Social History Tobacco Use Types Packs/Day Years [...]
--- OUTSIDE RECORDS SUMMARY | 2022-06-17 08:35 | XMS_ITS | Encounter Summary ---
:[address] [facility] Address [address] [place] [address] Care Team Providers Name Role Phone Meghan Hernandez PA-C Primary Care Provider Reason for Referral Imaging (Routine) - Closed Specialty Diagnoses / Procedures Referred By Contact Refer red To Contact Radiology Diagnoses RLQ abdominal pain Meghan Hernandez PA-C Procedures CT abdomen pelvis w and wo IV contrast [address] [place] [address] Referral ID Status Reason Start Date Expiration Date Visits Requ ested Visits Authorized [id number] Closed 07/04/2018 12/31/2018 1 1 AL TUBE WINDER Reason for Visit Reason Comments Abdominal Pain Back Pain Encounter Details Date Type Department Care Team Description 07/04/2018 Office Visit Meghan Dean, RLQ abdominal pain (Primary Dx); [address] JEREMIAH GARCIA Diarrhea, unspecified type [place] [address] [phone] [place] [address] Social History [...] or relatives? How often do you attend alevism or More than 4 times per year 06/04/2018 shinto services? Do you belong to any clubs or Yes 06/04/2018 organizations such as alevism groups, unions, fraternal or athletic groups, or [...] Comments Blood Pressure 110/68 07/04/2018 12:37 PM SPIRAL TUBE WINDER Pulse 72 07/04/2018 12:37 PM SPIRAL TUBE WINDER Temperature 37.3 ??C (99.2 ??F) 07/04/2018 12:37 PM SPIRAL TUBE WINDER Respiratory Rate 12 07/04/2018 12:37 PM SPIRAL TUBE WINDER Oxygen Saturation - - Inhaled Oxygen Concentration - - Weight 82.5 kg (181 lb 12.8 oz) 07/04/2018 12:37 PM SPIRAL TUBE WINDER Height - - Body Mass Index 31.5 [...] fluid intake. Further follow-up pending test results. AL TUBE WINDER documented in this encounter Plan of Treatment Not on filedocumented as of this encounter Procedures Procedure Name Priority Date/Time Associated Diagnosis Comme nts CT ABDOMEN PELVIS W STAT 07/04/2018 3:43 PM Re sults for this CONTRAST SPIRAL TUBE WINDER procedure are i n the results section. documented in this encounter Results Cryptosporidium/Giardia antigen, feces (07/04/2018 7:00 PM SPIRAL TUBE WINDER) Patholo gist Method Time Signature Cryptosporidium NEGATIVE Negative 07/06/2018 [place] 4:07 PM [facility] Comment: . Giardia lamblia NEGATIVE Negative 07/06/2018 4:07 PM C [facility] Comment: . Specimen Anatomical Collection Method Collection Time Receive d Time (Source) Location / / Volume Laterality Stool 07/04/2018 7:00 PM 8 SPIRAL TUBE WINDER 12:31 PM SPIRAL TUBE WINDER Meghan Hernandez PA-C LAB BODY FLUIDS AND STOOLS O RDERABLES Performing Organization Address City/State/ZIP Code Phon e Number [facility] [address] [place] [phone] Clostridium difficile toxin (07/04/2018 7:00 PM SPIRAL TUBE WINDER) Analysis Performed At Patho logist Time Signature Toxigenic C. NEGATIVE Negative 07/06/2018 [place] Diff 4:56 PM [facility] Comment: Test performed using echoecho GeneXpert (real-time PCR targeting the Toxin B gen e) Specimen Anatomical Collection Method Collection Time Receive d Time (Source) Location / / Volume Laterality Stool 07/04/2018 7:00 PM 8 SPIRAL TUBE WINDER 12:47 PM SPIRAL TUBE WINDER Meghan Hernandez PA-C LAB BODY FLUIDS AND STOOLS O RDERABLES Performing Organization Address City/State/ZIP Code Phon e Number [facility] [address] [place] [address] Parasitic Evaluation (07/04/2018 7:00 PM SPIRAL TUBE WINDER) P athologist Signature Ova + Parasite =- 07/07/2018 [facility] 10:02 AM [facility] Comment: SOURCE: STOOL PARASITIC EXAMINATION ?FINAL No parasites seen. Cryptosporidium, Cyclospora, and microsp oridia are not readily detected by this method. Single negative specimen does not rule o ut parasitic infection. Test Performed by: [facility] [address] [place] [address] Source STOOL 07/05/2018 1:[address] [facility] Specimen Anatomical Collection Method Collection Time Receive d Time (Source) Location / / Volume Laterality Stool 07/04/2018 7:00 PM 8 1:47 SPIRAL TUBE WINDER PM SPIRAL TUBE WINDER Meghan Hernandez PA-C LAB BODY FLUIDS AND STOOLS O RDPRASHANT Performing Organization Address City/State/ZIP Code Phon e Number [facility] see result attachment for specific address Stool culture (07/04/2018 7:00 PM SPIRAL TUBE WINDER) [facility] gist Method Time Signature Stool Culture Negative for Salmonella, Shigella, Campy lobacter, E coli O157:H7, 07/08/2018 [place] Yersinia. Negative for other Shiga toxin producing E. coli . 7:09 AM [facility] (Expected result is negative in the absence of Shiga toxin p roducing E. coli). Specimen Anatomical Collection Method Collection Time Receive d Time (Source) Location / / Volume Laterality Stool 07/04/2018 7:00 PM 8 SPIRAL TUBE WINDER 12:31 PM SPIRAL TUBE WINDER Narrative [facility] - 09/2017 7:09 AM SPIRAL TUBE WINDER Patient does not have an Amoxicillin or PCN allergy Meghan Hernandez PA-C LAB MICROBIOLOGY - GENERAL O [place]LOE Performing Organization Address City/[facility]/ZIP Code Phon e Number [facility] [address] [place] [phone] abdomen pelvis w IV contrast (07/04/2018 3:43 PM SPIRAL TUBE WINDER) Anatomical Region Laterality Modality Body Computed Tomography Specimen (Source) Anatomical Collection Method Collection Time Re ceived Time Location / / Volume Laterality 07/04/2018 3:43 PM SPIRAL TUBE WINDER Impressions 07/04/2018 4:09 PM SPIRAL TUBE WINDER IMPRESSION: Normal appendix. Fluid in the left colon consistent with diarrheal illness. Remainder of the exam is unremarkable. These findings were called to Meghan Adam at 4:07 p.m. on July 04, 2018. Please note that all CT scans at this [facility] use dose modulation, iterative reconstruction, and/or weight- based dosing when appropriate to reduce radiation dose to as low as reaso nably achievable. Dictated by Hortensia Larose MD @ Jul 04 2018 ??4:09PM Signed by Dr. Hortensia Larose @ Jul 04 2018 ??4:09PM Narrative 07/04/2018 4:09 PM SPIRAL TUBE WINDER INDICATION: Decreased appetite, right lower quadrant pain [...] note that all CT scans at this [facility] use dose modulation, iterative reconstruction, and/or weight- based dosing when appropriate to reduce radiation dose to as low as reaso nably achievable. Dictated by Hortensia Larose MD @ Jul 04 2018 4:09PM Signed by Dr. Hortensia Larose @ Jul 04 2018 4:09PM Meghan Hernandez PA-C IMG CT PROCEDURES Creatinine, Serum (07/04/2018 2:04 PM SPIRAL TUBE WINDER) athologist Signature Creatinine 0.6 0.4 - 1.2 07/04/2018 [facility] mg/dL 3:08 PM [facility] Specimen Anatomical Collection Method Collection Time Receive d Time (Source) Location / / Volume Laterality Blood 07/04/2018 2:04 PM 8 2:04 SPIRAL TUBE WINDER PM SPIRAL TUBE WINDER Meghan Hernandez PA-C LAB BLOOD ORDERABLES Performing Organization Address City/State/ZIP Code Phon e Number [facility] [address] [place] [phone] , urine (07/04/2018 1:17 PM SPIRAL TUBE WINDER) athologist Signature NEGATIVE Negative 07/04/2018 [facility] Test, Urine 1:20 PM [facility] Specimen Anatomical Collection Method Collection Time Receive d Time (Source) Location / / Volume Laterality Urine 07/04/2018 1:17 PM 8 1:18 SPIRAL TUBE WINDER PM SPIRAL TUBE WINDER Meghan Hernandez PA-C LAB URINE ORDERABLES Performing Organization Address City/State/ZIP Code Phon e Number [facility] [address] [place] [address] CBC Branch Off w/Diff (07/04/2018 1:00 PM SPIRAL TUBE WINDER) athologist Signature WBC 5.5 3.5 - 10.5 07/04/2018 [facility] K/uL 1:10 PM [facility] RBC 4.27 3.90 - 07/04/2018 [facility] 5.00 M/uL 1:10 PM [facility] Hemoglobin 12.8 12.0 - 07/04/2018 [facility] 15.5 g/dL 1:10 PM [facility] Hematocrit 38.3 35.0 - 07/04/2018 [facility] 44.0 % 1:10 PM [facility] Platelets 248 150 - 450 07/04/2018 [facility] K/uL 1:10 PM [facility] MCV 89.7 81.6 - 07/04/2018 [facility] 98.3 fL 1:10 PM [facility] MCH 30.0 26.0 - 07/04/2018 [facility] 32.0 pg 1:10 PM [facility] MCHC 33.4 32.0 - 07/04/2018 [facility] 36.0 g/dL 1:10 PM [facility] RDW 12.0 11.9 - 07/04/2018 [facility] 15.5 % 1:10 PM [facility] Lymphocytes % 40.0 18.0 - 07/04/2018 [facility] 45.0 % 1:10 PM [facility] Mid-size Cells 9.6 3.3 - 10.1 07/04/2018 [facility] % 1:10 PM [facility] Granulocytes/Omar 50.4 45.8 - 07/04/2018 [facility] trophils 73.7 % 1:10 PM [facility] Lymphocytes 2.2 0.9 - 2.9 07/04/2018 [facility] Absolute K/uL 1:10 PM [facility] MIDS Absolute 0.5 0.2 - 0.8 07/04/2018 [facility] K/uL 1:10 PM [facility] Granulocytes/Omar 2.8 2.1 - 8.7 07/04/2018 [facility] trophils K/uL 1:10 PM [facility] Absolute Specimen Anatomical Collection Method Collection Time Receive d Time (Source) Location / / Volume Laterality Blood 07/04/2018 1:00 PM 8 1:03 SPIRAL TUBE WINDER PM SPIRAL TUBE WINDER Meghan Hernandez PA-C LAB BLOOD ORDERABLES Performing Organization Address City/State/ZIP Code Phon e Number [facility] [address] [place] [address] (ABNORMAL) Comprehensive metabolic panel (07/04/2018 1:00 PM SPIRAL TUBE WINDER) [facility] gist Method Time Signature Total Protein 8.2 6.3 - 8.2 07/05/2018 [place] g/dL 1:53 PM [facility] Albumin, Serum 5.0 3.5 - 5.0 07/05/2018 [place] g/dL 1:53 PM [facility] Total Bilirubin <0.7 0.1 - 1.0 07/05/2018 [place] mg/dL 1:53 PM [facility] AST 59 (H) 8 - 43 U/L 07/05/2018 [place] 1:53 PM [facility] Alkaline 56 38 - 128 07/05/2018 [place] Phosphatase U/L 1:53 PM [facility] ALT (SGPT) 148 (H) 25 - 45 07/05/2018 [place] U/L 1:53 PM [facility] Comment: . Sodium 140 135 - 145 mEq/L 07/05/2018 1:53 PM [facility] Potassium 4.0 3.5 - 5.1 mEq/L 07/05/2018 1:53 PM [facility] Chloride 104 98 - 107 mEq/L 07/05/2018 1:53 PM [facility] CO2 24 22 - 29 mmol/L 07/05/2018 1:53 PM [facility] BUN 9 5 - 25 mg/dL 07/05/2018 1:53 PM [facility] Creatinine 0.6 0.4 - 1.2 mg/dL 07/05/2018 1:53 PM [facility] Glucose 90 70 - 100 mg/dL 07/05/2018 1:53 PM [facility] Calcium, Total,S 9.6 8.4 - 10.2 mg/dL 07/05/2018 1:53 PM [facility] Fasting? Yes 07/04/2018 1:03 PM [facility] Specimen Anatomical Collection Method Collection Time Receive d Time (Source) Location / / Volume Laterality Blood 07/04/2018 1:00 PM 8 1:02 SPIRAL TUBE WINDER PM SPIRAL TUBE WINDER Meghan Hernandez PA-C LAB BLOOD ORDERABLES Performing Organization Address City/State/ZIP Code Phon e Number [facility] [address] [place] [address] documented in this encounter Visit Diagnoses Diagnosis RLQ abdominal pain - Primary Abdominal pain, right lower quadrant Diarrhea, unspecified type Diarrhea, unspecified type documented in this encounter Care Teams Motor Block Mechanic Relationship Specialty Start Date End Date Meghan Hernandez PA-C PCP - General Family Medicine 05/03/18 03/22/[address] [place] [address] documented as of this encounter
--- OUTSIDE RECORDS SUMMARY | 2022-06-17 08:35 | XMS_ITS | Encounter Summary ---
:1990 Author Organization [facility] Address [address] [place] [address] Care Team Providers Name Role Phone Meghan Hernandez PA-C Primary Care Provider Encounter Details Date Type Department Care Team Description 07/04/2018 Lab [facility] [address] [place] [address] Social History Tobacco Use Types [...] or relatives? How often do you attend latter-day or More than 4 times per year 06/04/2018 jainism services? Do you belong to any clubs or Yes 06/04/2018 organizations such as latter-day groups, unions, fraternal or athletic groups, or [...] on filedocumented in this encounter Care Teams Food Critic Relationship Specialty Start Date End Date Meghan Hernandez PA-C PCP - General Family Medicine 05/03/18 03/22/20 [address] [place] [address] [facility] [place] [phone] documented as of this encounter
--- OUTSIDE RECORDS SUMMARY | 2022-06-17 08:35 | XMS_ITS | Encounter Summary ---
:1990 Author Organization [facility] Address [address] [place] [address] Care Team Providers Name Role Phone Meghan Hernandez PA-C Primary Care Provider Reason for Visit Reason Onset Date Comments test results 07/09/2018 Encounter Details Date Type Department Care Team Description 07/09/2018 Telephone Meghan Dean PA-C test results [address] [place] [address] [place] [address] [place] [address] [phone] (Wo rk) Social History Tobacco Use Types [...] PM CST Pt informed of the above. SITTER Telephone Encounter - Arti Preston MA - 07/20/2018 12:04 PM CST LMTCB SITTER Telephone Encounter - Dennys Garcia MD - 07/20/2018 10:45 AM CST If a cyst burst, then pain usually improves. Ovarian cysts usually don't lead to heavy menses. Sounds like she has a resolved viral gastroenteritis with diarrhea, hot/cold sxs. SITTER Telephone Encounter - Arti Preston MA - [...] she still have the pain? Please advise. SITTER Telephone Encounter - Arti Preston MA - 07/10/2018 1:42 PM CST Left detailed message. SITTER Telephone Encounter - Dennys Garcia MD - 07/10/2018 1:11 PM CST Please notify pt that her CT was normal. Some fluid in her colon consistent with the diarrhea she was experiencing. SITTER Telephone Encounter - Amparo Vargas MA - 07/10/2018 12:25 PM CST Please review lab and CT results and advise in PCP absence. SITTER Telephone Encounter - Mary Ansari - 07/09/2018 3:20 PM CST Pt calling for test results. 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 SITTER documented in this encounter Plan of Treatment Not on filedocumented as of this encounter Visit Diagnoses Not on filedocumented in this encounter Care Teams Fbi Field Agent Relationship Specialty Start Date End Date Meghan Hernandez PA-C PCP - General Family Medicine 05/03/18 03/22/[address] [place] [address] documented as of this encounter
--- OUTSIDE RECORDS SUMMARY | 2022-06-17 08:35 | XMS_ITS | Encounter Summary ---
:1990 Author Organization [facility] Address [address] [place] [address] Care Team Providers Name Role Phone Heidi Corona MD Primary Care Provider Unavailable Encounter Details Date Type Department Care Team Description 03/25/2020 Telemedicine Heidi [place] mood disturbance (Primary Dx); [address] Hitesh Ayala MD Mild intermittent [place] [address] Social History Tobacco Use Types Packs/Day Years [...] or relatives? How often do you attend synagogue or More than 4 times per year 06/04/2018 hoahaoism services? Do you belong to any clubs or Yes 06/04/2018 organizations such as synagogue groups, unions, fraternal or athletic groups, or [...] the upcoming school year. 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 Her daughter, Rosendo, has been healthy though has had frequent visits to hide splitter for some possible allergies. She is doing [...] ation documented in this encounter Care Teams Claims Assistant Relationship Specialty Start Date End Date Heidi Corona MD PCP - General Family Medicine 03/23/20 documented as of this encounter
--- OUTSIDE RECORDS SUMMARY | 2022-06-17 08:35 | XMS_ITS | Encounter Summary ---
:1990 Author Organization [facility] Address [address] [place] [address] Care Team Providers Name Role Phone Unavailable Primary Care Provider Unavailable Encounter Details Date Type Department Care Team Description 06/26/[address] [facility] Haider Barron M.D. [address] [place] [phone] (Wo rk) Social History Tobacco Use Types Packs/Day Years Used Date Smoking Tobacco: Never Assessed Sex Assigned at Date Recorded Not on file documented as of this encounter Last Filed Vital Signs Vital Sign Reading Time Taken Comments Blood Pressure 126/78 06/26/2014 3:11 PM GAS PUMPING STATION OPERATOR Pulse 92 06/26/2014 3:11 PM GAS PUMPING STATION OPERATOR Temperature - - Respiratory Rate - - Oxygen Saturation - - Inhaled Oxygen Concentration - - Weight 77 kg (169 lb 12.1 oz) 06/26/2014 3:11 PM GAS PUMPING STATION OPERATOR Height 162 cm (5' 3.78) 06/26/2014 3:11 PM GAS PUMPING STATION OPERATOR Body Mass Index 29.34 06/26/2014 3:11 PM GAS PUMPING STATION OPERATOR documented in this encounter Progress Notes Rick Feliciano M.D. - 06/26/2014 2:52 PM CST [id number] CHIEF COMPLAINT/REASON FOR VISIT Cough. HISTORY OF [...] LANDRY MD On: 07/07/2014 08:12 AM Source: [facility] MHSDOLBEYNONRADSYS Document Id: [id number] PUMPING STATION OPERATOR documented in this encounter Miscellaneous Notes Miscellaneous - Rick Feliciano M.D. - 06/26/2014 3:45 PM CST Ambulatory Patient Summary [address] [id number] Visit Information Name: NANCY ALBERTO [facility] Number: [id number] Current Date: 06/26/2014 15:45:15 [...] directed x 5 day(s) New Routed to [address] [id number] benzonatate (benzonatate 100 mg oral capsule) 1 cap, Oral, three times a day x 7 day(s) New Routed to [facility] [address] [place], [place] [id number] cetirizine (ZyrTEC) Oral, once a day drospirenone-ethinyl [...] appointment detail needed. Your Goals/Additional instructions: Source: [facility] POWERCHART Document Id: [id number] PUMPING STATION OPERATOR Miscellaneous - Rick Feliciano M.D. - 06/26/2014 3:45 PM CST Ambulatory Discharge Medication List [address] [id number] Visit Information Name: NANCY ALBERTO [facility] Number: [id number] Visit Date: 06/26/2014 15:45:14 [...] directed x 5 day(s) New Routed to [address] [id number] benzonatate (benzonatate 100 mg oral capsule) 1 cap, Oral, three times a day x 7 day(s) New Routed to [address] [id number] cetirizine (ZyrTEC) Oral, once a day drospirenone-ethinyl [...] MD Signed On:26-JUN-2014 15:45:09 Additional Information: Source: [facility] POWERCHART Document Id: [id number] PUMPING STATION OPERATOR Miscellaneous - Conversion, Historical Provider Ser - 06/26/2014 3:11 PM GAS PUMPING STATION OPERATOR Adult Circus Supervisor Intake/History Adult Circus Supervisor Intake/History Entered On: 06/26/2014 15:14 GAS PUMPING STATION OPERATOR Performed On: 06/26/2014 15:11 GAS PUMPING STATION OPERATOR by ALPHONSO POLANCO LPN Intake SpO2 : 100 % Oxygen Therapy : Room air ALPHONSO POLANCO LPN - 06/26/2014 15:14 GAS PUMPING STATION OPERATOR Chief Complaint : cough, congestion, tired [...] kg/m2 ALPHONSO POLANCO LPN - 06/26/2014 15:11 GAS PUMPING STATION OPERATOR General Info Information Given By : Patient Preferred Communication Mode : Verbal Languages : Mexican Is Patient Female and 13-50 no hysterectomy : Yes Status : Patient denies Are you ? : No ALPHONSO POLANCO LPN - 06/26/2014 15:11 GAS PUMPING STATION OPERATOR Subjective Pain Symptoms : No ALPHONSO POLANCO LPN - 06/26/2014 15:11 GAS PUMPING STATION OPERATOR Dependent Habits Tobacco Use/Currently Using : No Exposure to Tobacco Smoke : Other: NONE Smoking Status : Never smoker ALPHONSO POLANCO LPN - 06/26/2014 15:11 GAS PUMPING STATION OPERATOR Tobacco Use Grid Type : Other: NONE ALPHONSO POLANCO LPN - 06/26/2014 15:11 GAS PUMPING STATION OPERATOR Caffeine Use Grid Caffeine Use : Current Type : Coffee Frequency : Weekly ALPHONSO POLANCO LPN - 06/26/2014 15:11 GAS PUMPING STATION OPERATOR Recreational Drug Use Grid Drug Use : None PERLAALPHONSO BARBA Gustabo VIRGEN - 06/26/2014 15:11 GAS PUMPING STATION OPERATOR ID Screen Travel Within Last 21 Days : No PERLAALPHONSO BARBA PARAM - 06/26/2014 15:11 GAS PUMPING STATION OPERATOR Source: [facility] [employer] Document Id: [id number] GAS PUMPING STATION OPERATOR!4 documented in this encounter Plan of Treatment Not on filedocumented as of this encounter Visit Diagnoses Not on filedocumented in this encounter
--- OUTSIDE RECORDS SUMMARY | 2022-06-17 08:36 | XMS_ITS | Encounter Summary ---
:1990 Author Organization [facility] Address [address] [place] [address] Care Team Providers Name Role Phone Unavailable Primary Care Provider Unavailable Encounter Details Date Type Department Care Team Description 04/27/2011 Hospital En[facility] Milton Newberry M.D. [address] [place] [address] (Wo rk) Social History Tobacco Use Types Packs/Day Years Used Date Smoking Tobacco: Never Assessed Sex Assigned at Date Recorded Not on file documented as of this encounter Progress Notes Milton Newberry M.D. - 04/27/2011 3:29 PM CDT [id number] REASON FOR VISIT Vaginal bleeding and abdominal pain. SUBJECTIVE Eoepuedm-[id number] female who presents with three day history [...] by Dr. Newberry. Sophie Galeas MD, Preceptor #[id number] cc: Electronically Signed By: MILTON NEWBERRY MD On: 04/28/2011 03:51 PM Modified by and Electronically Signed by: MILTON NEWBERRY MD On: 04/28/2011 03:50 PM Co-Signed By: SOPHIE GALEAS MD On: 04/29/2011 08:20 AM Source: [facility] FSHDICTAPHONESYS Document Id: [id number] documented in this encounter Miscellaneous Notes Miscellaneous - Milton Newberry M.D. - 04/27/2011 6:04 PM CDT Ambulatory Patient Summary [address] [id number] Visit Information Name: NANCY ALBERTO Current Date: [...] No Appointments found Your Goals/Additional instructions: [facility] Document Id: [id number] Margaret - Milton Newberry M.D. - 04/27/2011 6:04 PM CDT Ambulatory [place] [address] Visit Information Name: NANCY ALBERTO Current Date: [...] to the patient and/or family, guardian/caregiver. Source: [facility] Document Id: [id number] Margaret - Ofelia Hess L.P.N. - 04/27/2011 3:48 PM CDT Adult Medical Artist Intake/History Adult Medical Artist Intake/History Entered On: 04/27/2011 15:51 CDT Performed [...] By: Patient Preferred Communication Mode: Verbal Languages: Portuguese OFELIA HESS MA - 04/27/2011 15:48 CDT [...] No Exposure to Tobacco Smoke: Other: NONE OEFLIA HESS MA 04/27/2011 15:48 CDT Tobacco Use [...] MA; Reviewed Date: 04/27/2011 15:46 CDT Source: [employer] Document Id: [id number] documented in this encounter Plan of Treatment Not on filedocumented as of this encounter Visit Diagnoses Not on filedocumented in this encounter
--- OUTSIDE RECORDS SUMMARY | 2022-06-17 08:36 | XMS_ITS | Encounter Summary ---
:1990 Author Organization [facility] Address [address] [place] [address] Care Team Providers Name Role Phone Unavailable [...]
--- OUTSIDE RECORDS SUMMARY | 2022-06-17 08:36 | XMS_ITS | Encounter Summary ---
:1990 Author Organization [facility] Address [address] [place] [address] Care Team Providers Name Role Phone Unavailable Primary Care Provider Unavailable Encounter Details Date Type Department Care Team Description 06/22/2001 Hospital Encounter HX [facility] Jocelyne Reinoso M.D. [address] [facility] [place] [address] (Wo rk) Social History Tobacco Use Types Packs/Day Years Used Date Smoking Tobacco: Never Assessed Sex Assigned at Date Recorded Not on file documented as of this encounter Plan of Treatment Not on filedocumented as of this encounter Visit Diagnoses Not on filedocumented in this encounter
--- OUTSIDE RECORDS SUMMARY | 2022-06-17 08:36 | XMS_ITS | Encounter Summary ---
:1990 Author Organization [facility] Address [address] [place] [address] Care Team Providers Name Role Phone Unavailable [...]
--- OUTSIDE RECORDS SUMMARY | 2022-06-17 08:36 | XMS_ITS | Encounter Summary ---
:1990 Author Organization [facility] Address [address] [place] [address] Care Team Providers Name Role Phone Unavailable Primary Care Provider Unavailable Encounter Details Date Type Department Care Team Description 04/27/2011 Hospital Encounter HX [facility] Melecio Deleon M.D. Social History Tobacco Use [...] Stephan Patterson 04/27/2011 5:15 PM CDT RAD^^^LASF HUMAN RESOURCES COMMUNICATIONS MANAGER 04/27/2011 17:15:00 Impressions 04/27/2011 5:36 PM CDT [...] free fluid in the pelvis. Transcribed by: ??[id number] on Apr 27 2011 ??5:49P ?? Read by: ? TOMASZ Delgado (MORY) ??on Apr 27 2011 ??5:49P ?? Signed by: TOMASZ STEIN (MORY) on 2010 ??5:49P ? Narrative 04/27/2011 5:36 PM CDT INDICATION: ??LOWER LEFT QUAD PAIN, BLEEDING ACCESSION No: ? [id number] DATE OF EXAM: Apr 27 2011 ??17:36 EXAM CODE and DESCRIPTION: F1U ?? 8859 - ?? US TRANSVAGINAL(NON-OB) RESULT: Pelvic ultrasound 04/27/2011. ?? Transabdominal and transvaginal imaging. ?? Procedure Note Tomasz Stein M.D. / Provider, Paulie olsen M.D. - 12/28/2016 INDICATION: LOWER LEFT QUAD PAIN, BLEEDI NG ACCESSION No: [id number] DATE OF EXAM: Apr 27 2011 17:36 [...] free fluid in the pelvis. Transcribed by: [id number] on Apr 27 2011 5: 49P Read by: TOMASZ STEIN (MORY) on Apr 27 2011 5:49P Signed by: TOMASZ STEIN (MORY) on 2010 5:49P Tomasz Stein M.D. IMG US PROCEDURES documented in this encounter Visit Diagnoses Not on filedocumented in this encounter
--- OUTSIDE RECORDS SUMMARY | 2022-06-17 08:36 | XMS_ITS | Encounter Summary ---
:1990 Author Organization [facility] Address [address] [place] [address] Care Team Providers Name Role Phone Unavailable Primary Care Provider Unavailable Encounter Details Date Type Department Care Team Description 11/23/2011 Hospital Encounter HX [facility] Provider, Histori lima Social History [...] 11/23/2011 9:24 PM CDT ED Discharge Instructions [address] [address] Name: CECILIO ALBERTO Date of : 1990 12:00 PM Visit Date: 11/23/2011 8:17 PM [facility] [address] [facility] [phone] Primary Care Provider: MARIA ALEJANDRA BURRELL IMPORTANT: [facility] [place] would like to thank you for allowing [...] With: Address: When: MARIA ALEJANDRA BURRELL [address] [place] [address] Business (1) Within As Needed Comments: If symptoms worsen Patient Education Materials: [id number] ALLERGIC REACTION,GENERALIZED [Other] You are having an [...] throat -- Dizziness, weakness or fainting ?? [phone] [employer], [address] [place] [address]. All rights reserved. This information is not intended as a substitute for professional medical care. Always follow your healthcare professional's instructions. [id number] PHARYNGITIS: STREP [Presumed] Your illness has the [...] breathing ?? Muffled voice New rash ?? [phone] [employer], [address] [place] [address], [place] [address]. All rights reserved. This information is not [...] be released to my employer or employers claim representative. I understand that restrictions apply both [...] arrange a ride home with a responsible constitution party. Patient Signature Date/Time Responsible Person Signature [...] be released to my employer or employers claim representative. I understand that restrictions apply both [...] arrange a ride home with a responsible constitution party. Patient Signature Date/Time Responsible Person Signature (as appropriate)/Relationship Date/Time BETOMEL CECILIO ERIN or Responsible Person has received this information and tells me that all questions have been answered. Provider Signature Date/Time This document has images extracted. Please consider using [employer] for all your patient education needs. Source: [employer] Document Id: [id number] Conversion, Historical Provider Ser - 11/23/2011 9:24 PM CDT ED Depart Summary [facility] Emergency Department Clinical Discharge Summary PERSON INFORMATION Name CECILIO ALBERTO Age 20 Years 1990 12:00 PM Sex Female Language Thai PCP MARIA ALEJANDRA BURRELL Marital Status Single Visit Id Visit Reason Throat pain - Adult; THROAT PAIN, BODY ACHES, LIGHT HEADED & HEADACHE Specialty Enc Type Emergency Med Service Emergency Medicine Referred by Track Group LAS ED/FT Discharge 11/23/2011 9:24 PM Tracking Id [id number] Checkout 11/23/2011 9:24 PM Checkin 11/23/2011 8:17 PM Acuity 4 -Less Urgent Dispo Type * Discharged to Home or Self Care Arrival 11/23/2011 8:17 PM Reg Status LOS 000 01:07 Address: [address] [place] [phone] Comment: PROVIDER INFORMATION Provider Role Provider Contact Time HALIMA CAICEDO ED Provider 11/23/11 20:36 WILIAN MORTON PREPARED [employer]ODS PRODUCTION TEAM MEMBER Nurse 11/23/11 20:54 DIAGNOSIS Comment: ORDERS INFORMATION Start Time Order Type Status Stop Time Provider 11/23/2011 9:18 PM Discharge Patient Patient Care Ordered 11/23/2011 9:18 PM HALIMA CAICEDO PATIENT EDUCATION INFORMATION Instructions: ALLERGIC REACTION, Other (General); PHARYNGITIS, Strep (Presumed) Follow up: With: Address: When: MARIA ALEJANDRA BURRELL [address] [place], [place] [phone] Business (1) Within As Needed Comments: If symptoms worsen Source: [employer] Document Id: [id number] documented in this encounter Nursing Notes Conversion, Historical Provider Ser - 11/23/2011 9:24 PM CDT ED Pain Assessment ED Pain Assessment Entered On: 11/23/2011 21:24 CDT Performed On: 11/23/2011 21:24 CDT by WILIAN MORTON RN Pain Assessment Pain Symptoms : Yes Pain Medication Requested : No WILIAN MORTON RN - 11/23/2011 21:24 CDT Source: [employer] Document Id: [id number] CDT!4 Conversion, Historical Provider Ser - 11/23/2011 [...] Medical ; Code: 1231 ; Contributor System: [email or web address] ; Last Updated: 05/16/2007 0:00 CDT ; Life Cycle Date: 02/23/2007 ; Life Cycle Status: Active ; Vocabulary: ICD-9-CM Diagnoses(Active) Throat pain - Adult Date: 11/23/2011 ; Diagnosis Type: Reason For Visit ; Confirmation: Complaint of; Clinical Dx: Throat pain - Adult ; Classification: Medical ; Clinical Service: Emergency medicine ; Code: PNED ; Probability: 0 ; Diagnosis Code: [id number] Pain Assessment Pain Symptoms : Yes WILIAN [...] Farzad RN - 11/23/2011 20:58 CDT Source: [employer] Document Id: [id number] CDT!26 documented in this encounter ED Notes [...] MORTON RN - 11/23/2011 21:24 CDT Source: [employer] Document Id: [id number] CDT!6 Conversion, Historical Provider Ser - 11/23/2011 [...] Condition: Stable. Dispositioned: To home. Prescriptions: Prescription [employer]. Patient Care: Discharge Patient (Order Processing): 11/23/2011 [...] HALIMA CAICEDO On: 11/23/2011 10:46 PM Source: [facility] POWERCHART Document Id: [id number]} Ruby Dobson RRadha - 11/23/2011 8:30 PM [...] PNED ; Probability: 0 ; Diagnosis Code: [id number] Triage Chief Complaint Description : approx 2 days of sore throat, body aches, headache, light headed at times when standing. Hot and cold at times. Eating/drinking . No nausea/vomiting Information Given By : Patient Accompanied By : Alone Mode of Arrival ED : Private vehicle Track : Medical Languages : Thai Vital Signs Assessed : Yes RUBY DOBSON [...] MA; Reviewed Date: 04/27/2011 15:46 CDT [facility] - innovate | mentor | invest Document Id: [id number] CDT!31 documented in this encounter Plan of Treatment Not on filedocumented as of this encounter Visit Diagnoses Not on filedocumented in this encounter"
--- OUTSIDE RECORDS SUMMARY | 2022-06-17 08:36 | XMS_ITS | Encounter Summary ---
:1990 Author Organization [facility] Address [address] [place] [address] Care Team Providers Name Role Phone Unavailable [...]
--- OUTSIDE RECORDS SUMMARY | 2022-06-17 08:36 | XMS_ITS | Encounter Summary ---
:1990 Author Organization [facility] Address [address] [place] [address] Care Team Providers Name Role Phone Unavailable [...]
--- OUTSIDE RECORDS SUMMARY | 2022-06-17 08:36 | XMS_ITS | Encounter Summary ---
:1990 Author Organization [facility] Address [address] [place] [address] Care Team Providers Name Role Phone Unavailable Primary Care Provider Unavailable Encounter Details Date Type Department Care Team Description 11/29/2012 [facility] Danny Vazquez PPaulineALogan. [address] [place] [address] [phone] (Wo rk) Social History Tobacco [...] 11/29/2012 3:45 PM CDT ED Discharge Instructions [address] [address] Name: CECILIO ALBERTO Date of : 1990 12:00 AM Visit Date: 11/29/2012 3:[address] [facility] Number: [id number] Address: [address] [place] [phone] Primary Care Provider: MARIA ALEJANDRA BURRELL IMPORTANT: [facility] would like to thank you for allowing [...] Instructions: With: Address: When: MARIA ALEJANDRA BURRELL [address] [place], [place] [phone] Business (1) Within As Needed Comments: Patient Education Materials: [id number] SEASONAL ALLERGY Seasonal Allergy is also called [...] may take Claritin (loratadine). This is an afpa-ake-xltagpk non-sedating antihistamine. It does not make you [...] with lots of colored sputum (mucus) ?? [phone] [employer], [address] [place] [address], [place] [address]. All rights reserved. This information is not [...] be released to my employer or employers event sales representative. I understand that restrictions apply [...] home with a responsible republican. Patient Signature or Responsible Republican/Relationship Date Time CECILIO ALBERTO or Responsible Person [...] be released to my employer or employers event sales representative. I understand that restrictions apply [...] home with a responsible republican. Patient Signature or Responsible Republican/Relationship Date Time CECILIO ALBERTO or Responsible Person has received this information and tells me that all questions have been answered. Provider Signature Date Time This document has images extracted. Please consider using [employer] for all your patient education needs. Source: [facility] [employer] Document Id: [id number] Conversion, Historical Provider Ser - 11/29/2012 3:45 PM CDT ED Depart Summary [facility] Emergency Department Clinical Discharge Summary PERSON INFORMATION Name CECILIO ALBERTO Age 21 Years 1990 12:00 AM Sex Female Language Slovenian PCP MARIA ALEJANDRA BURRELL Marital Status Single Visit Id Visit Reason Upper respiratory infection; ALLERGIES, COLD, ASTHMA, FEELING BAD Specialty Enc Type Emergency Med Service Emergency Medicine Referred by Track Group [facility] ED/FT Discharge 11/29/2012 3:45 PM Tracking Id [id number] Checkout 11/29/2012 3:45 PM Checkin 11/29/2012 3:02 PM Acuity 4 -Less Urgent Dispo Type * Discharged to Home or Self Care Arrival 11/29/2012 3:02 PM Reg Status LOS 000 00:43 Address: [address] [place] [phone] Comment: PROVIDER INFORMATION Provider Role Provider Contact Time AUGUSTO ANAYA EVENT SALES REPRESENTATIVE Nurse 11/29/12 15:08 DANYELL VAZQUEZ PA-C ED Provider 11/29/12 15:22 DIAGNOSIS Comment: ORDERS INFORMATION Start Time Order Type Status Stop Time Provider 11/29/2012 3:38 PM Discharge Patient Patient Care Ordered 11/29/2012 3:38 PM DANYELL VAZQUEZ PA-C PATIENT EDUCATION INFORMATION Instructions: SEASONAL ALLERGY Follow up: With: Address: When: MARIA ALEJANDRA BURRELL [address] [place] [address] Business (1) Within As Needed Comments: Source: [facility] POWERCHART Document Id: [id number] documented in this encounter Nursing Notes Conversion, [...] PNED ; Probability: 0 ; Diagnosis Code: [id number] Triage Mode of Arrival ED : Private vehicle Track : Medical Languages : Slovenian AUGUSTO ANAYA RN - 11/29/2012 15:20 CDT [...] ANAYA RN - 11/29/2012 15:20 CDT Source: [facility] POWERCHART Document Id: [id number] CDT!39 documented in this encounter ED Notes [...] Lisa RN - 11/29/2012 15:42 CDT Source: [facility] [employer] Document Id: [id number] CDT!7 Yogesh Madrigal RRadha - 11/29/2012 3:12 [...] PNED ; Probability: 0 ; Diagnosis Code: [id number] Triage Chief Complaint Description : Pt c/o runny nose, cough and congestion for a few weeks. c/o frequent headaches and the chills. Hx. of asthma, but denies SOB. Stated I did need my rescue inhaler last week though. Information Given By : Patient Mode of Arrival ED : Private vehicle Track : Medical Languages : Slovenian Vital Signs Assessed : Yes GCS Assessed [...] YOGESH MADRIGAL RN - 11/29/2012 15:12 CDT [place] Coma Eye Opening Response [place] : Spontaneously Best Verbal Response [place] : Oriented Best Motor Response [place] : Obeys simple commands [place] Coma Score : 15 YOGESH MADRIGAL RN [...] RN; Reviewed Date: 11/29/2012 15:16 CDT Source: [facility] [employer] Document Id: [id number] CDT!34 Danyell Vazquez P.A.-C. - 11/29/2012 3:02 PM CDT 1-16EUCC MR# [id number] [facility] DATE: 11/29/2012 PRIMARY CARE PROVIDER PCP, JENNIFER LEONARD CHIEF COMPLAINT/REASON FOR VISIT This is 21-year-old female with a chief complaint of cough, congestion, and runny nose. She says that she feels like her allergies are flaring up. HISTORY OF PRESENT ILLNESS She says normally she takes wgdl-jwn-ikpgqgn Zyrtec but sometimes has to come in and get additional medication to help control her allergies now that the allergy season is starting. Denies nausea, vomiting. Denies fevers. PHYSICAL EXAMINATION GENERAL: Well-developed female, alert and oriented, pleasant. HEAD: Nasal passage is erythematous and boggy, decreased patency. She does sound congested. Oropharynx pink. Tongue moist. TMs pearly ayala. NECK: Neck soft without lymphadenopathy. [id number] CHEST: Lungs clear to auscultation. Heart regular [...] workup as deemed necessary. Danyell Vazquez PA-C//lynnette #[id number] cc: Electronically Signed By: DANYELL VAZQUEZ PA-C On: 12/08/2012 01:57 PM Source: [facility] [employer] Document Id: [id number] documented in this encounter Plan of Treatment Not on filedocumented as of this encounter Visit Diagnoses Not on filedocumented in this encounter
--- OUTSIDE RECORDS SUMMARY | 2022-06-17 08:36 | XMS_ITS | Encounter Summary ---
:1990 Author Organization [facility] Address [address] [place] [address] Care Team Providers Name Role Phone Unavailable [...]
--- OUTSIDE RECORDS SUMMARY | 2022-06-17 08:36 | XMS_ITS | Encounter Summary ---
:1990 Author Organization [facility] Address [address] [place] [address] Care Team Providers Name Role Phone Unavailable [...]
--- OUTSIDE RECORDS SUMMARY | 2022-06-17 08:36 | XMS_ITS | Encounter Summary ---
:1990 Author Organization [facility] Address [address] [place] [address] Care Team Providers Name Role Phone Unavailable [...]
--- OUTSIDE RECORDS SUMMARY | 2022-06-17 08:36 | XMS_ITS | Encounter Summary ---
:1990 Author Organization [facility] Address [address] [place] [address] Care Team Providers Name Role Phone Unavailable [...]
--- OUTSIDE RECORDS SUMMARY | 2022-06-17 08:36 | XMS_ITS | Encounter Summary ---
:1990 Author Organization [facility] Address [address] [place] [address] Care Team Providers Name Role Phone Unavailable [...]
--- OUTSIDE RECORDS SUMMARY | 2022-06-17 08:36 | XMS_ITS | Encounter Summary ---
:1990 Author Organization [facility] Address [address] [place] [address] Care Team Providers Name Role Phone Unavailable [...]
--- OUTSIDE RECORDS SUMMARY | 2022-06-17 08:36 | XMS_ITS | Encounter Summary ---
:[address] [facility] Address [address] [place] [address] Care Team Providers Name Role Phone Unavailable [...]
--- OUTSIDE RECORDS SUMMARY | 2022-06-17 08:36 | XMS_ITS | Encounter Summary ---
:1990 Author Organization [facility] Address [address] [place] [address] Care Team Providers Name Role Phone Unavailable [...]
--- OUTSIDE RECORDS SUMMARY | 2022-06-17 08:36 | XMS_ITS | Encounter Summary ---
:1990 Author Organization [facility] Address [address] [place] [address] Care Team Providers Name Role Phone Unavailable [...]
--- OUTSIDE RECORDS SUMMARY | 2022-06-17 08:36 | XMS_ITS | Encounter Summary ---
:1990 Author Organization [facility] Address [address] [place] [address] Care Team Providers Name Role Phone Unavailable [...]
--- OUTSIDE RECORDS SUMMARY | 2022-06-17 08:36 | XMS_ITS | Encounter Summary ---
:1990 Author Organization [facility] Address [address] [place] [address] Care Team Providers Name Role Phone Unavailable [...]
--- OUTSIDE RECORDS SUMMARY | 2022-06-17 08:37 | XMS_ITS | Clinical Summary ---
:[address] [facility] [place] [address] Care Team Providers Name Role Phone Myla Beltran Primary Care Provider [phone] Allergies Active Allergy Reactions Severity Noted Date [...] Unspecified asthma(493.90) fluticasone (50 mcg Inhale 1 [place] 1 Bottle 0 06/05/2017 Active per actuation) [...] syndrome 10/01/2006 Overview: slow transit, fructose intolerance ([facility]) Unspecified asthma(493.90) 10/01/2006 Other acne 06/15/2006 [...] Type Group [employer] [id number] 2017-Present [address] [place] [address] [employer]OSS BL[employer] OF [id number] 2020-Presen [address] [place] [phone] ([address]) [place] [address] Care Teams Nurse Chemical Dependency Relationship Specialty Start Date End Date Myla Beltran PA PCP - General Family Practice 01/25/16 [address] [place] [address]
[2022-06-17 08:42] LABS: Glucose Fasting Check 79 mg/dl (60-115)
[2022-06-17 15:15] LABS: Glucose GTT-Gestational 3 Hr 128 mg/dl (70-140)
[2022-06-17 15:15] LABS: Glucose 1 Hour Gest 142 mg/dl (70-180)
== END 2022-06-17 15:39 | disposition home or self-care (01) ==
PROVIDERS: Visit Provider Physician Assistant
DX: Z34.90 Encounter for supervision of normal pregnancy, unspecified, unspecified trimester (principal)
CPT/HCPCS: 82951; 82952

== ENCOUNTER 2022-07-21 14:17 | Outpatient (CLI) | payer BC, SELFPAY ==
[2022-07-21 15:05] LABS: Appearance Urine Clear (Clear); Bilirubin Urine Negative (Negative); Blood Urine Negative (Negative); Color Urine Yellow (Yellow); Glucose Urine Negative (Negative); Ketones Urine Negative (Negative); Leukocyte Esterase Urine 1+ (Negative); Nitrite Urine Negative (Negative); Protein Urine Negative (Negative); Urobilinogen Urine 0.2 (0.2-1.0)
[2022-07-21 22:14] LABS: Basophils Absolute Auto 0.02 K/uL (0.00-0.30); Basophils Percent Auto 0.2 % (0.0-3.0); Eosinophils Absolute Auto 0.02 K/uL (0.00-0.50); Eosinophils Percent Auto 0.2 % (0.0-7.0); Hematocrit 33.7 % (33.0-51.0); Immature Granulocytes Abs Auto 0.39 K/uL (0.00-0.30); Immature Granulocytes Pct Auto 3.8 %; Lymphocytes Percent Auto 18.5 % (20-44); Mean Corpuscular HGB Conc 33 gm/dL (32-36); Mean Corpuscular Hemoglobin 30 pg (26-34); Mean Corpuscular Volume 92 fL (80-100); Monocytes Percent Auto 5.5 % (0.0-11.0); Neutrophils Absolute Auto 7.34 K/uL (1.7-7.0); Neutrophils Percent Auto 71.8 % (42.0-72.0); Platelet Count* 234 K/uL (140-440); RDW Coefficient of Variation % 13.9 % (11.5-15.5); Red Blood Count 3.66 m/uL (4.00-5.20); White Blood Count* 10.22 K/uL (4.50-11.00)
[2022-07-21 22:23] LABS: Slide Review Reflex No
[2022-07-21 22:24] LABS: Chloride* 110 mmol/L (96-114); Potassium* 4.1 mmol/L (3.6-5.1); Sodium* 137 mmol/L (135-149)
[2022-07-21 22:27] LABS: Blood Urea Nitrogen* 7 mg/dL (5-24); Carbon Dioxide* 18 mmol/L (20-32); Creatinine* 0.5 mg/dL (0.5-1.5); Estimated Glomerular Filt Rate 130 ml/min; Glucose* 94 mg/dL (60-115)
[2022-07-21 22:28] LABS: Calcium* 8.9 mg/dL (8.4-10.6); Magnesium* 1.8 mg/dL (1.5-2.6)
[2022-07-21 22:42] LABS: Bacteria Urine Moderate; RBC Urine 0-2 (0-2); Squamous Epithelial Cell Urine Moderate (None-Few); WBC Urine 0-2 (0-5)
== END 2022-07-21 14:18 | disposition home or self-care (01) ==
PROVIDERS: Visit Provider Nurse Practitioner Family
DX: R42 Dizziness and giddiness (principal)
CPT/HCPCS: 80048; 81003; 81015; 83735; 84443; 85025; 87086

== ENCOUNTER 2022-07-26 13:40 | Outpatient (CLI) | payer BC, SELFPAY ==
--- NOTE | 2022-07-26 14:00 | CRLHL7_ITS ---
For Patients: As a result of the Century Cures Act, medical imaging exams and procedure reports are released immediately into your electronic medical record. You may view this report before your referring provider. If you have questions, please contact your health care provider. INDICATION: COVID in TECHNIQUE: Real time ayala scale imaging of the fetus was performed. COMPARISON: 04/26/2022 FINDINGS: Sonographic imaging demonstrates a single living intrauterine gestation. Fetus demonstrates a regular cardiac rate of 132 beats per minute. Fetus has a vertex position. The placenta lies posteriorly. Amniotic fluid volume appears normal and there is a single deepest pocket of 4.0 cm. The estimated weight is 2581gm which lies at the 75th %. On the prior OB ultrasound dated 04/26/2022 the estimated weight was at the 75th percentile. BPD 66th percentile. HC 38th percentile. AC 86th percentile. FL 62nd percentile. The fetus was active and demonstrated normal breathing movements. There was normal flexion and extension of the trunk and extremities. IMPRESSION: Normal biophysical profile score 8/8. Sonographic gestational age 35 weeks 0 days and sonographic due date 08/30/2022. Sonographic age is 1 week ahead of the clinical age. Estimated weight 75th percentile. Abdominal circumference 86th percentile. Dictated by Tuan Gutierrez MD @ 07/26/2022 2:56:40 PM (Electronically Signed)
== END 2022-07-26 13:41 | disposition home or self-care (01) ==
LOC: US 13:41
PROVIDERS: PCP Nurse Practitioner Family; Visit Provider Nurse Practitioner Family
DX: O98.513 Other viral diseases complicating pregnancy, third trimester (principal); Z3A.35 35 weeks gestation of pregnancy
CPT/HCPCS: 76816; 76819; 93225; 93226

== ENCOUNTER 2022-08-04 09:50 | Outpatient (CLI) | payer BC, SELFPAY ==
[2022-08-04] VITALS (12 sets, daily range): BP systolic 120; BP diastolic 75; PULSE 97–129; O2SAT 98–100
--- NOTE | 2022-08-04 10:35 | CRLHL7_ITS ---
For Patients: As a result of the Cures Act, medical imaging exams and procedure reports are released immediately into your electronic medical record. You may view this report before your referring provider. If you have questions, please contact your health care provider. INDICATION: abdominal pain, eval cervix, placenta and fluidimages: 25previous:OB BPP W/ FOLLOW UP 07/26/22 images: 15OB > 14 WEELS 04/26/22 images: 71 Indication: Pain, evaluate cervix placenta and amniotic fluid Technique: Ultrasound OB pelvis limited Comparison: 07/26/2022 Findings: Single intrauterine gestation with heart rate of 150 beats per minute and vertex presentation. Cervical length 4.8 centimeters and closed. Single deepest amniotic fluid pocket 5.8 centimeters. Placenta is posterior left with no definitive evidence for previa. Impression: Single intrauterine gestation with cephalic presentation heart rate of 150 beats per minute. Cervical length 4.8 centimeters and closed. Posterior left placenta with no evidence for previa. Single deepest pocket of amniotic fluid 5.8 centimeters. Dictated by Tuan Danielle MD @ 08/04/2022 12:17:30 PM Dictated by: Tuan Danielle MD @ 08/04/2022 12:17:38 (Electronically Signed)
[2022-08-04 11:23] LABS: INR 0.95 (0.91-1.10); Prothrombin Time 13.3 Seconds
[2022-08-04 11:24] LABS: Fibrinogen* 477 mg/dL (200-450)
[2022-08-04 11:36] LABS: Appearance Urine Clear (Clear); Bilirubin Urine Negative (Negative); Blood Urine Negative (Negative); Color Urine Yellow (Yellow); Glucose Urine Negative (Negative); Ketones Urine Negative (Negative); Leukocyte Esterase Urine Negative (Negative); Nitrite Urine Negative (Negative); Protein Urine Negative (Negative); Specific Gravity Urine 1.015 (1.000-1.030); Urobilinogen Urine 0.2 (0.2-1.0)
[2022-08-04 11:45] LABS: Basophils Absolute Auto 0.01 K/uL (0.00-0.30); Basophils Percent Auto 0.1 % (0.0-3.0); Eosinophils Absolute Auto 0.05 K/uL (0.00-0.50); Eosinophils Percent Auto 0.5 % (0.0-7.0); Hematocrit 34.3 % (33.0-51.0); Hemoglobin* 11.2 gm/dL (12.0-16.0); Immature Granulocytes Abs Auto 0.47 K/uL (0.00-0.30); Immature Granulocytes Pct Auto 4.6 %; Lymphocytes Percent Auto 17.2 % (20-44); Mean Corpuscular HGB Conc 33 gm/dL (32-36); Mean Corpuscular Hemoglobin 30 pg (26-34); Mean Corpuscular Volume 92 fL (80-100); Monocytes Percent Auto 6.7 % (0.0-11.0); Neutrophils Absolute Auto 7.25 K/uL (1.7-7.0); Neutrophils Percent Auto 70.9 % (42.0-72.0); Platelet Count* 258 K/uL (140-440); RDW Coefficient of Variation % 14.1 % (11.5-15.5); Red Blood Count 3.74 m/uL (4.00-5.20); White Blood Count* 10.23 K/uL (4.50-11.00)
[2022-08-04 12:33] LABS: Slide Review Reflex No
--- NOTE | 2022-08-04 16:18 | PC.OBNST ---
NST Note NST Note Start: 08/04/22 09:05 Freq: ONCE Status: Active Protocol: Document 08/04/22 16:16 AM (Rec: 08/04/22 16:18 AM [id number]) NST Note 2 Para (# of births) 1 EDC 09/06/22 Gestational Age In Weeks & Days 35 Weeks & 2 Days Patient Presented with Complaint(s) of Decreased movement,Pain If Pain, describe location abd pain Reactive Yes Appropriate for Gestational Age Yes RN Neisha RNC Date 08/04/22 Reactive Yes Appropriate for Gestational Age Yes RN Milagros RNC Date 08/04/22 OB NST charge Yes Complete NST Note via Write Note Yes The provider's electronic signature indicates the NST is reactive/appropriate for gestational age. *Note to provider: If an addendum is required, open the patient's chart and click on the note under the Nurse/Allied Health tab.
== END 2022-08-04 14:30 | disposition home or self-care (01) ==
LOC: OB OUT 09:51 → OB 09:51
PROVIDERS: PCP Nurse Practitioner Family; Visit Provider Obstetrics & Gynecology
DX: O36.8130 Decreased fetal movements, third trimester, not applicable or unspecified (principal); Z3A.35 35 weeks gestation of pregnancy
CPT/HCPCS: 36415; 59025; 76815; 81003; 85025; 85384; 85610; 99213

== ENCOUNTER 2022-08-04 14:57 | Outpatient (CLI) | payer BC, SELFPAY | END 2022-08-04 14:58 | disposition home or self-care (01) | LOC: RAD 14:58 | PROVIDERS: PCP Nurse Practitioner Family; Visit Provider Nurse Practitioner Family | DX: R01.1 Cardiac murmur, unspecified (principal); I51.7 Cardiomegaly; I31.39 Other pericardial effusion (noninflammatory); R42 Dizziness and giddiness | CPT/HCPCS: 36415; 59025; 76815; 81003; 85025; 85384; 85610; 93306; 99213 ==

== ENCOUNTER 2022-08-11 14:03 | Outpatient (CLI) | payer BC, SELFPAY ==
[2022-08-12 14:40] LABS: Strep B DNA Probe Negative (Negative); Strep B Pen/Amox Allergy No
== END 2022-08-11 14:04 | disposition home or self-care (01) ==
LOC: NFLDREF 14:03
PROVIDERS: PCP Nurse Practitioner Family; Visit Provider Physician Assistant
DX: Z34.90 Encounter for supervision of normal pregnancy, unspecified, unspecified trimester (principal)
CPT/HCPCS: 87081; 87653

== ENCOUNTER 2022-08-30 04:52 | Inpatient (IN) | payer BC, SELFPAY ==
[2022-08-30] VITALS (32 sets, daily range): BP systolic 100–123; BP diastolic 58–85; PULSE 60–88; RESP 16; TEMP 36.3–36.9; O2SAT 96–100; BMI 38.5
[2022-08-30] MEDS: LACTATED RINGERS 1000 ML 1,000 ML IV (05:30)
[2022-08-30 05:44] LABS: Hemoglobin* 12.3 gm/dL (12.0-16.0)
[2022-08-30 05:49] LABS: Basophils Absolute Auto 0.01 K/uL (0.00-0.30); Basophils Percent Auto 0.1 % (0.0-3.0); Eosinophils Absolute Auto 0.13 K/uL (0.00-0.50); Eosinophils Percent Auto 1.3 % (0.0-7.0); Hematocrit 37.8 % (33.0-51.0); Hemoglobin* 12.4 gm/dL (12.0-16.0); Immature Granulocytes Abs Auto 0.13 K/uL (0.00-0.30); Immature Granulocytes Pct Auto 1.3 %; Lymphocytes Absolute Auto 2.97 K/uL (0.90-2.90); Lymphocytes Percent Auto 30.6 % (20-44); Mean Corpuscular HGB Conc 33 gm/dL (32-36); Mean Corpuscular Hemoglobin 30 pg (26-34); Mean Corpuscular Volume 92 fL (80-100); Monocytes Percent Auto 7.9 % (0.0-11.0); Neutrophils Percent Auto 58.8 % (42.0-72.0); Platelet Count* 215 K/uL (140-440); RDW Coefficient of Variation % 15.2 % (11.5-15.5); Red Blood Count 4.11 m/uL (4.00-5.20); White Blood Count* 9.71 K/uL (4.50-11.00)
[2022-08-30 06:04] LABS: Slide Review Reflex No
[2022-08-30] MEDS: LACTATED RINGERS 1000 ML 1,000 ML 125 ML IV ×3 (06:30→10:57)
[2022-08-30 06:42] LABS: SARS PCR* Negative SARS-CoV-2 (Negative)
--- NOTE | 2022-08-30 06:49 | W.ANESCHARGE ---
Anesthesia Charges Start Date/Time Anesthesia Start Date: 08/30/22 Anesthesia Start Time: 08:20 Stop Date/Time Anesthesia Stop Date: 08/30/22 Anesthesia Stop Time: 09:50 Summary Emergency: No
--- NOTE | 2022-08-30 08:40 | W.PM.NB ---
Nerve Block Nerve Block Time Seen by Provider: 09:40 Date Seen: 08/30/22 Type of block requested by surgeon for post-operative analgesia: TAP Side: bilateral Time out performed: Yes Verification of patient name: Yes Verification of date of : Yes Site marking: site marked Name of person performing procedure: Sukumar Continuous monitoring Was continuous monitoring of O2 sat, B/P, accounting manager, recorded every 15 minutes?: Yes Procedure Checklist: sterile prep, needles and gloves Ultrasound guided. Images saved: Yes Medications given in 5ml increments after negative aspiration: Marcaine %: 0.25 mL: 30 Needle gauge: 20 and Exparel mL: 10 Patient tolerated procedure well: Yes Additional comments: Needle noted adjacent to nerve Block Charges Block Charge (with Pro Fee): TAP Bilateral Use of Ultrasound Machine for Block: Yes- US Guidance/pain block
--- NOTE | 2022-08-30 09:27 | P.OBPRC_ITS ---
Procedure Pre-op/Post-op diagnoses: Pre-Op/Post-Op Diagnoses 1. Intrauterine at 39 weeks 0 days 2. Previous delivery x 1, desiring repeat Procedure Done: Global Procedure Details: Procedures Operation Date: 08/30/22 07:00 Actual Procedure Side Surgeon p Repeat Section Not Applicable Oriana Alas MD Yard Clerk: Anum Graves Estimated blood loss (mL): 415 Disposition: floor Anesthesia type: Spinal Complications: None Narrative: PREOPERATIVE DIAGNOSES: 1. Intrauterine at 39 0/7 weeks' gestation. 2. History of prior low transverse section x1, desiring repeat. POSTOPERATIVE DIAGNOSES: 1. Intrauterine at 39 0/7 weeks' gestation. 2. History of prior low transverse section x1, desiring repeat. NAME OF PROCEDURE: Repeat low transverse section. Lysis of adhesions. ANESTHESIA: Spinal. COMPLICATIONS: None. QUANTITATIVE BLOOD LOSS: 415 mL. DRAINS: Wong to gravity. FINDINGS: Live-born female , cephalic presentation, Apgars 9 and 9 at 1 and 5 minutes respectively. weight 8 pounds 7 ounces. Normal appearing uterus, tubes, and ovaries. Thin adhesions between fascia, rectus muscles, lower uterine segment, bladder. PROCEDURE: After obtaining informed consent, the patient was taken to the operating room where spinal anesthesia was obtained and found to be adequate. She was prepared and draped in the normal sterile fashion in the dorsal supine position with a leftward tilt. A Pfannenstiel skin incision was made with a scalpel along the line of the patient's previous Pfannenstiel scar. This incision was carried down to the underlying layer of fascia with the Bovie and scalpel. The fascia was incised in the midline and the incision extended late rally. The superior and inferior aspects of the fascial incision were grasped with Atif clamps, elevated and the underlying rectus muscles dissected off sharply and with electrocautery. The rectus muscles were then in the midline. The adhesions between the bladder and lower uterine segment were taken down sharply with Metzenbaum scissors. The Efren O retractor was then placed into the incision. The lower uterine segment was then incised in a transverse fashion with the scalpel. Upon entry into the uterus, clear amniotic fluid was noted. The uterine incision was extended cephalo caudally with blunt finger fractionation. The infant's head was delivered atraumatically, followed by the remainder of the infant's body. The nose and mouth were suctioned with the bulb suction. The cord was doubly clamped and cut after at least 30 seconds of delayed cord clamping, and the infant was handed off the field to [facility] for evaluation. The placenta was delivered spontaneously with umbilical cord traction and fundal massage. The uterus was cleared of all clots and debris. The uterine incision was reapproximated in a running locking fashion with a 0 Vicryl suture. A 2nd layer of the same suture was used to imbricate in horizontal fashion. The gutters were inspected and cleared of blood clots. All instruments and retractors were removed. The subfascial tissues were carefully inspected and hemostasis assured. Anterior fascia at the midline was noted to have a defect of about 1 cm, this was reapproximated with interrupted sutures of Vicryl 3-0. The fascia was reapproximated in a running fashion with a looped 0 Vicryl suture. The subcutaneous tissues were copiously irrigated. Hemostasis was assured. The subcutaneous fat layer was reapproximated with interrupted sutures of 3-0 Vicryl. The skin was closed in a subcuticular fashion with 4-0 Monocryl. LiquiBand and dressing were applied. The patient tolerated the procedure well. Sponge, lap, needle, and instrument counts were reported as correct x2. The patient was taken to the recovery room, awake, and in stable condition. She did receive 2 grams of IV Ancef preoperatively. Infant total score - 1 minute: 9 total score - 5 minute: 9
--- NOTE | 2022-08-30 09:29 | W.PM.LDBA ---
Subjective History of Present Illness Date Seen: 08/30/22 Narrative: Patient is being admitted to Labor and Delivery for repeat delivery. She is a 31 year old at 39 0/7 weeks gestation. Her full history and physical was dictated by Dr. KAPLAN on 08/17/22. Please see this for details. 1. History of due to arrest of descent.? * 11/05/[address] Torres, double layer closure *Patient favors repeat , considering TOLAC if she labors prior to scheduled *Likelihood of success 47.9%.? *TOLAC consent given for review 02/15/22. desires repeat LTCS Scheduled for 08/30/[address] Shine 2. BMI 31.9.? Hemoglobin A1c: 5.2% 3. Recommended daily baby aspirin due to obesity and patient's mother with history of preeclampsia 4. First OB u/s: Focal area of decreased echogenicity within the posterior endocervical myometrium measuring 1.5 cm, likely representing fibroid. Attention at anatomic survey suggested. Consider repeat u/s again close to due date to evaluate fibroid again? 5.? Unremitting nausea and vomiting, continuing into 2nd trimester.? Promethazine and omeprazole prescribed 03/18/22. 6. Elevated 1 hour GTT:? 140 3 hour GTT:? entirely normal.? 7. Anemia, hemoglobin 10.1 at 28 weeks Ferrous sulfate 325mg Hemoglobin at 36 weeks: 11.2 8. Covid positive 07/14/22, s/sx 07/13/22, out of quarantine 07/22/22. - Growth US on 07/26/22:? EFW: 75 percentile, vertex, amniotic fluid volume is normal with a single deepest pocket of 4.0 cm.? BPD: 66 percentile, HC:? 38th percentile, abdominal circumference 86 percentile, femur length 62 percentile.? BPP 03/14. -patient prefers weekly testing to start at 36 weeks until delivery. 9. Episodes of heart racing, chest discomfort and lightheadedness. Cardiology consultation 08/11/2021: Reviewed on 08/23/22: No indication to change delivery date. No suspicion of a primary cardiac condition. Okay with proceeding with scheduled c section on 08/30/22. OB - Problem Based A/P Additional Plan (1) : Status: Acute Plan Repeat delivery. OB Exam Physical Exam Vital signs: Pulse BP 88 118/61 08/30/22 05:43 08/30/22 05:43 Narrative: NST: 130bpm/positive accelerations/negative decelerations/moderate variability/no uterine contractions
[2022-08-30] MEDS: KETOROLAC 30 MG/ML inj IVP ×3 (09:45→21:30)
--- NOTE | 2022-08-30 09:59 | W.ANESCHARGE ---
Anesthesia Charges Start Date/Time Anesthesia Start Date: 08/30/22 Anesthesia Start Time: 08:20 Stop Date/Time Anesthesia Stop Date: 08/30/22 Anesthesia Stop Time: 09:50 Summary Emergency: No
[2022-08-30] MEDS: ONDANSETRON 2 MG/ML inj 4 MG IVP ×2 (14:15→19:05)
[2022-08-30] MEDS: ACETAMINOPHEN 500 MG TABLET 1000 MG PO (21:24)
[2022-08-31] VITALS (11 sets, daily range): BP systolic 101–111; BP diastolic 67–73; PULSE 73–94; RESP 16; TEMP 36.4–36.9; O2SAT 97
[2022-08-31] MEDS: LACTATED RINGERS 1000 ML 1,000 ML 125 ML IV (01:56)
[2022-08-31] MEDS: KETOROLAC 30 MG/ML inj IVP ×2 (03:06→09:30)
[2022-08-31] MEDS: ACETAMINOPHEN 500 MG TABLET 1000 MG PO ×4 (03:07→22:35)
[2022-08-31] MEDS: OXYCODONE 5 MG TABLET PO ×5 (03:16→21:07)
[2022-08-31 07:37] LABS: Hemoglobin* 11.9 gm/dL (12.0-16.0)
[2022-08-31] MEDS: DOCUSATE SODIUM 100 MG CAPSULE PO (07:51)
--- NOTE | 2022-08-31 08:21 | PM.OBPNCS1 ---
OB - PN: A/P Assessment and Plan (1) care and examination immediately after delivery: Status: Acute (2) Lactating mother: Status: Acute Plan day: 1 Plan: routine postop care Comments: May see if desired. Anticipate discharge, POD 2 or 3. OB - PN: Subj Subjective Date Seen: 08/31/22 Narrative: Nancy is a at 39 weeks sp uncomplicated repeat section. The patient feels well.? The pain is well controlled with current medications.? She has no new complaints.? Urinary output is adequate and she is voiding without difficulty.? Has a good appetite, is tolerating a general diet, is passing flatus, and has not yet had a bowel movement.? Has scant amount of rubra lochia.? She is ambulating well. She is and reports it is going well.? OB - PN: Obj Exam Physical Exam: Vital signs: Temp Pulse Resp BP Pulse Ox O2 Del Method 98.4 F 81 16 110/73 97 08/31/22 07:40 08/31/22 07:40 08/31/22 07:40 08/31/22 07:40 08/31/22 07:40 08/31/22 07:40 Narrative: GENERAL APPEARANCE:? normal affect, alert, no distress? MOOD:? appropriate? CHEST:? clear to auscultation? HEART:? regular rate and rhythm? ABDOMEN:? soft, non-tender the uterine fundus At Umbilicus, Midline and is appropriate for the stage of recovery.?Low transverse incision is clean dry with glue intact, bruising present at both edges. Lochia: scant EXTREMITIES:? normal and no edema? Urinary Catheter Management: 2-way Urethral: Cath placed during this visit: yes, but has since been removed by the nurse Reason for continuing: surgical procedure Insertion date: 08/30/22 Insertion time: 08:35 Removal date: 08/31/22 Removal time: 01:04 OB - PN: Obj Data Labs Labs: Laboratory Results - last 24 hr 08/31/22 07:28 Hgb 11.9 L
[2022-08-31] MEDS: IBUPROFEN 600 MG TABLET PO ×2 (13:34→19:44)
[2022-08-31] MEDS: SIMETHICONE 80 MG TAB.CHEW PO ×2 (13:39→19:45)
[2022-08-31] MEDS: LANOLIN CREAM 1 APPLIC TOPICAL (16:03)
[2022-09-01 00:45] VITALS: BP 116/73; PULSE 75; RESP 16; TEMP 36.8; O2SAT 98
[2022-09-01] MEDS: IBUPROFEN 600 MG TABLET PO ×4 (05:23→23:52)
[2022-09-01 08:15] VITALS: BP 121/79; PULSE 88; RESP 18; TEMP 36.8; O2SAT 99
[2022-09-01] MEDS: ACETAMINOPHEN 500 MG TABLET 1000 MG PO ×3 (08:27→20:37)
[2022-09-01] MEDS: DOCUSATE SODIUM 100 MG CAPSULE PO (08:27)
[2022-09-01] MEDS: SIMETHICONE 80 MG TAB.CHEW PO ×2 (08:36→14:11)
--- NOTE | 2022-09-01 08:44 | PM.OBDSCS1 ---
DS: Providers Provider Time Seen by Provider: 08:45 Date Seen: 09/01/22 Date of admission: 08/30/22 04:52 Primary care physician: Deana Ferrara APRN, CLINICAL ADMINISTRATIVE COORDINATOR Admitting Clinician: Saniya Shine MD Attending Physician on discharge: Jennifer Colon CNM Date of Discharge: 09/01/22 DS: Diagnosis Discharge Diagnosis (1) Status post repeat low transverse section: Status: Acute (2) state: Status: Acute (3) Lactating mother: Status: Acute Exam Narrative: Exam Narrative: Objective: VSS, afebrile GENERAL APPEARANCE: ?normal affect, alert, no distress MOOD: ?appropriate HEENT: normocephalic, neck supple, full ROM CHEST: ?Symmetrical chest wall movement. ?Normal respiratory effort. ?Clear to auscultation HEART: ?regular rate and rhythm ABDOMEN: ?soft, non-tender. Uterine fundus is firm, at Umbilicus, Midline and is appropriate for the stage of recovery. ?Bowel sounds present. SKIN: Warm, dry. Incision is well approximated, no bleeding or drainage. EXTREMITIES: ?normal and +1 edema Const: Vital Signs, click to edit/add: Vital Signs - 24 hr 08/31/22 15:57 09/01/22 00:45 Temperature 98.2 F Pulse Rate [Pulse Oximeter] 94 75 Respiratory Rate 16 16 Blood Pressure [Ri ght Arm] 111/71 116/73 Pulse Oximetry 97 98 Oxygen Delivery Me thod Room Air Room Air Documenting provider has reviewed patient's vital signs: yes OB - DS: Summary Hospital Course Hospital Course: Subjective: Nancy is a 31 y.o. G2 now P2 who was admitted to L & D for Repeat Section. ?She had an uncomplicated . The patient feels well. ?The pain is well controlled with current medications. ?She has no new complaints. ?She is breast feeding and reports things are going well.? the patient has done well.? Vitals have been stable.? She has remained afebrile.? Has a good appetite, is tolerating a general diet. ?She is voiding without difficulty.? She is passing gas and has not had a bowel movement.? She is ambulating and denies any dizziness.? Has small amount of rubra lochia. She is undecided on a plan for prevention. Nancy reports that she had anxiety at 6 months with her first daughter, and is concerned about the possibility of mood disorders now. Discussed that for the first 2 weeks baby blues are very common, but if they become extreme or concerning to her she should call. Pt agreeable to reassessing at 2 week visit and possibly starting medication at that time. Assessment: G2 now P2 Post- Lactating Mother History of anxiety plan: Discharge home with baby. Follow up in 2 weeks and 6 weeks. , may follow up with if needed Reassess for mood disorders at 2 week appointment, or sooner if needed, consider medication Peripartum Data Procedures: Procedures Operation Date: 08/30/22 07:00 Actual Procedure Side Surgeon p Repeat Section Not Applicable Oriana Alas MD complications: none [place] Infant Gender: Female (Jessica) Infant Discharge Plan: Home Status at Discharge Functional status at discharge: independent ambulation Overall status at discharge: patient is progressing back to baseline Time Spent with Patient Time attestation: Total time spent providing and/or coordinating discharge services: Time spent: Less than 30 minutes Discharge Plan Discharge Disposition: Home, Self-Care Date of Admission: 08/30/22 04:52 Attending Provider on Discharge: Jennifer Colon Primary Care Provider: Deana Ferrara Condition: Stable Anticipated Discharge Date/Time: 09/01/22 15:01 Discharge Medications: New docusate sodium 100 mg Capsule 100 mg PO BID Qty: 100 0RF ibuprofen 600 mg Tablet 600 mg PO Q6H PRN (Reason: Pain) Qty: 60 0RF oxycodone 5 mg Tablet 5 - 10 mg PO Q4H PRN (Reason: Pain) Qty: 20 0RF Continued magnesium 250 mg tablet 2,000 mg PO QDAY prenat.vits,lima,[id number]-[id number] Tablet 1 tab PO QDAY ferrous sulfate 325 mg (65 mg iron) tablet,delayed release (DR/EC) 325 mg PO QDAY Qty: 90 1RF albuterol sulfate 90 mcg/actuation HFA aerosol inhaler INHALATION PRN Pulmicort Flexhaler 180 mcg/actuation aerosol powdr breath activated INHALATION Label Comments: INHALE 1-2 PUFFS TWO TIMES A DAY - RINSE AFTER USE TRY ONE PUFF TWICE DAILY. IF NEEDED INCREASE TO 2 PUFFS TWICE DAILY. No Action omeprazole 20 mg capsule,delayed release(DR/EC) 20 mg PO QDAY Qty: 30 6RF promethazine 12.5 mg tablet See Rx Instructions .ROUTE .COMPLEX Qty: 60 0RF Dose Instruction: TAKE 1 TO 2 TABLETS BY MOUTH EVERY 6 HOURS NEEDED Rx Instructions: TAKE 1 TO 2 TABLETS BY MOUTH EVERY 6 HOURS NEEDED Discharge Orders: Discharge Order (Routine); Ordered 09/01/22 Ordered By: Jennifer Colon Consulting provider completed their portion of the discharge: Yes Patient Education: OB Over the Counter Medication Information, OB /Breast Feeding Activity Level: Activity as Tolerated Discharge Diet: Regular Follow Up Appointments: Deana Ferrara, GANG PLANK WORKMAN, CLINICAL ADMINISTRATIVE COORDINATOR [Primary Care Provider] - Forms: [facility] Info Instructions
[2022-09-01] MEDS: OXYCODONE 5 MG TABLET PO ×2 (12:43→20:38)
[2022-09-01 16:40] VITALS: BP 119/75; PULSE 74; RESP 16; TEMP 36.8; O2SAT 99
[2022-09-01 23:30] VITALS: BP 124/84; PULSE 77; RESP 14; TEMP 36.7; O2SAT 98
[2022-09-02] MEDS: ACETAMINOPHEN 500 MG TABLET 1000 MG PO (06:05)
[2022-09-02] MEDS: OXYCODONE 5 MG TABLET PO ×2 (06:06→12:12)
--- NOTE | 2022-09-02 08:37 | PM.OBDSCS1 ---
DS: Providers Provider Date Seen: 09/02/22 Date of admission: 08/30/22 04:52 Primary care physician: Deana Ferrara APRN, GOSPEL WORKER Admitting Clinician: Saniya Shine MD Attending Physician on discharge: Lubna Chase CNM DS: Diagnosis Discharge Diagnosis (1) care and examination immediately after delivery: Status: Acute (2) Status post repeat low transverse section: Status: Acute (3) Lactating mother: Status: Acute Exam Const: Vital Signs, click to edit/add: Vital Signs - 24 hr 09/01/22 16:40 09/01/22 23:30 Temperature 98.2 F 98.0 F Pulse Rate [Pulse Oximeter] 74 77 Respiratory Rate 16 14 Blood Pressure [Ri ght Arm] 119/75 124/84 Pulse Oximetry 99 98 Oxygen Delivery Me thod Room Air Documenting provider has reviewed patient's vital signs: yes Common normals: no apparent distress, oriented x3, healthy appearing and alert HENMT: Common normals: normocephalic Head and scalp: normocephalic Eye: Common normals: PERRL Pupil: PERRL Neck & C-Spine: Common normals: full ROM and supple Chest: Common normals: inspection of chest normal Resp: Common normals: normal respiratory effort and clear to auscultation bilaterally Auscultation: clear to auscultation bilaterally Cardio: Common normals: regular rate and regular rhythm Rate: regular rate Rhythm: regular rhythm GI: Common normals: soft to palpation Inspection: incision (Abd. Lower Transverse: well approximated, bruising present, glue intact) Inspection of incision: healing well Palpation: soft : Uterus: U/U Lochia: scant Back & Pelvis: Common normals: thoraco-lumbar ROM normal Extremity: Common normals: normal to inspection and full ROM Neuro: Common normals: oriented x3 Sensorium/orientation: alert Speech: speech normal Psych: Common normals: mental status grossly normal, thought process normal, speech normal and activity/motor behavior normal Speech: normal speech Thought process: normal thought process Skin: Common normals: no rashes or lesions noted General skin exam: no rashes or lesions noted OB - DS: Summary Hospital Course Hospital Course: The patient is a 31 year old G [] P [] at [] weeks gestation that was admitted to the Center on 08/30/22 for []. She had an [uncomplicated/complicated] [vaginal/] delivery. She delivered a viable [male/female] . She is [breast/bottle] feeding. the patient has done well. Peripartum Data Procedures: Procedures Operation Date: 08/30/22 07:00 Actual Procedure Side Surgeon p Repeat Section Not Applicable Oriana Alas MD [place] Infant Gender: Female (Jessica) Infant Discharge Plan: Home Time Spent with Patient Time attestation: Total time spent providing and/or coordinating discharge services: Discharge Plan Discharge Disposition: Home, Self-Care Date of Admission: 08/30/22 04:52 Attending Provider on Discharge: Lubna Chase Primary Care Provider: Deana Ferrara Condition: Stable Anticipated Discharge Date/Time: 09/02/22 12:00 Discharge Medications: New docusate sodium 100 mg Capsule 100 mg PO BID Qty: 100 0RF ibuprofen 600 mg Tablet 600 mg PO Q6H PRN (Reason: Pain) Qty: 60 0RF oxycodone 5 mg Tablet 5 - 10 mg PO Q4H PRN (Reason: Pain) Qty: 20 0RF Continued magnesium 250 mg tablet 2,000 mg PO QDAY prenat.vits,lima,ycu-awcq-[id number] Tablet 1 tab PO QDAY ferrous sulfate 325 mg (65 mg iron) tablet,delayed release (DR/EC) 325 mg PO QDAY Qty: 90 1RF albuterol sulfate 90 mcg/actuation HFA aerosol inhaler 2 puff INHALATION PRN PRN Pulmicort Flexhaler 180 mcg/actuation aerosol powdr breath activated 2 inh INHALATION PRN Label Comments: INHALE 1-2 PUFFS TWO TIMES A DAY - RINSE AFTER USE TRY ONE PUFF TWICE DAILY. IF NEEDED INCREASE TO 2 PUFFS TWICE DAILY. No Action omeprazole 20 mg capsule,delayed release(DR/EC) 20 mg PO QDAY Qty: 30 6RF promethazine 12.5 mg tablet See Rx Instructions .ROUTE .COMPLEX Qty: 60 0RF Dose Instruction: TAKE 1 TO 2 TABLETS BY MOUTH EVERY 6 HOURS NEEDED Rx Instructions: TAKE 1 TO 2 TABLETS BY MOUTH EVERY 6 HOURS NEEDED Discharge Orders: Discharge Order (Routine); Ordered 09/02/22 Ordered By: Jennifer Colon Consulting provider completed their portion of the discharge: Yes Patient Education: OB Over the Counter Medication Information, OB /Breast Feeding Activity Level: Activity as Tolerated Discharge Diet: Regular Follow Up Appointments: [facility] [Provider Group] (2 and 6 weeks ) Forms: [employer] Info Instructions
[2022-09-02 08:58] VITALS: BP 114/74; PULSE 84; RESP 16; TEMP 36.7; O2SAT 99
[2022-09-02] MEDS: DOCUSATE SODIUM 100 MG CAPSULE PO (10:31)
[2022-09-02] MEDS: IBUPROFEN 600 MG TABLET PO (12:11)
[2022-09-02] MEDS: SENNOSIDES 1 TAB TABLET PO (12:12)
== END 2022-09-02 13:36 | disposition home or self-care (01) | DRG 540 ==
PROVIDERS: Admitting Provider Obstetrics & Gynecology; PCP Nurse Practitioner Family; Visit Provider Obstetrics & Gynecology
PROC: 10D00Z1 Extraction of Products of Conception, Low, Open Approach (ICD-10-PCS; CPT 59514; principal; 2022-08-30 07:00)
DX: O34.211 Maternal care for low transverse scar from previous cesarean delivery (principal); Z3A.39 39 weeks gestation of pregnancy; Z37.0 Single live birth
CPT/HCPCS: 01961; 36415; 64488; 76942; 85018; 85025; 86850; 86900; 86901; 87635; A9270; C9290; J1100; J1885; J2274; J2370; J2405; J2590; J3490; J7120

== ENCOUNTER 2022-09-21 09:35 | Outpatient (CLI) | payer BC, SELFPAY ==
--- NOTE | 2022-09-21 17:00 | W.PM.LAC.MC ---
Consult Note - Mom Date of Visit Date of visit: 09/21/22 applications development consultant: Bethanie Gil Visit Code: Visit Patient's Information Phone number: [phone] : 2 Para: 2 Allergies minocycline Allergy (Unknown, Verified 09/14/22 13:12) Bruising on legs and gums Sulfa (Sulfonamide Antibiotics) Allergy (Verified 09/14/22 13:12) Mother's Medical History: Medical History (Updated 09/10/22 @ 00:01 by ) GERD (gastroesophageal reflux disease) anxiety Type of Contraception: considering OCP's Delivery Information Delivery type: Repeat Section Weeks Gestation: 39.0 Gestational Age: AGA Weight: 3.827 kg Discharge Weight: 3.526 kg Baby's Information Baby's Age at Visit: 3 weeks Baby's Provider or Clinic: Dr. Obando Jaundice: No Reason for Consult Reason for Consult: concern for milk transfer, milk supply, weight gain Past Experience Past Experience: Yes (nursed & pumped for older child, but also had to offer formula d/t supply) Current Frequency of Day Feedings: about every 2 - 3 hours around the clock, cluster feeds in the evening Both Breasts: Yes Suck: not aggressive for long Latch: wide Length of Time: 5 - 10 minutes/side Goals: would like to avoid formula Pumping Pumping: Yes (about 6 times/24 hours) Quantity Pumped: .5 - 2.5 oz total each time Supplementing EMB Supplement: Yes (supplements baby with 2 - 2.5 oz if she doesn't breastfeed) Formula Supplement: No Baby Elimination Number of Wet Diapers a Day: 5 - 7 Number of BM a Day: 1 - 2 Breast/Nipple Condition Breast Information: WNL Maternal Nipple Condition - Left: Common Nipple Maternal Nipple Condition - Right: Common Nipple Sore Nipples: No Onsite Pre-Feed weight: 3.872 kg Post-Feed weight: 3.954 kg Milk Transferred (mL): 82 Pre-Nursing Left Nipple: Within Normal Limits Pre-Nursing Right Nipple: Within Normal Limits Post-Nursing Left Nipple: Within Normal Limits Post-Nursing Right Nipple: Within Normal Limits Assessments/Interventions Assessments/Interventions: Met with mom and this now 3 week old ex- term AGA baby for consult.? Mom is concerned about her supply and baby's weight gain; would also like to know how much baby is transferring when she nurses.? Mom is 1 - 2 times/day and sessions are about 10 minutes (mom reports taking her off after about 5 minutes if she starts slowing down or doing more pacifying).? She supplements with EBM after nursing if baby doesn't seem content, and offers 2 - 2.5 oz EBM when she doesn't nurse.? States baby eats about 8 times/24 hours.? Mom has several different pumps (Bethany hand pump, Freemie, [place], and Spectra).? She uses the hand pump and the [place] most often and gets .5 - 2.5 oz total every pumping session.? Breast WNL- symmetrical with rounded lower quadrants, intramammary distance is < 2.5 inches.? Nipples are everted and don't flatten or retract on compression; no damage noted.? She reports some breast changes during .? Reports inadequate supply with her first child- she was able to offer breast milk for 16 months but used mostly formula. Baby has gained 15.5 grams/day since her last visit with PCP on 09/19/22 and she's only 45 grams above BW at 3 weeks.? Per mom she had a slight caput at delivery, but has equal ROM when turning her head and moving her extremities.? Her palate is WNL.? Her upper lip is difficult to flange and the frenulum is a little thicker than normal.? The tongue extends over the gumline and cups around the finger; there is canoeing when moving laterally.? The lower frenulum is visible and thin, but may be a little posterior.? During this assessment baby consistently turned her head to the right. Mom latched baby to the right side in the football hold and baby appeared to have a wide latch, lips were neutral or flanged and mom was comfortable.? She had nutritive suckling for about five minutes and then became more passive and sleepy; mom did a good job rousing her and she was encouraged to keep baby actively nursing for about 10 minutes.? When mom took her off baby was weighed and had transferred 40 ml.? Mom then offered the left side in the cross cradle hold and again baby appeared to have a wide latch.? When baby began to more passively suckle on this side mom was shown hand expression as a way to keep her interested and suckling more nutritively.? After about 15 minutes she was weighed and had transferred another 40 ml for a total of 80 ml.? She was still hungry so mom supplemented with 40 ml EBM (upper lip didn't flange easily with the bottle).? Pump flange size was assessed and it was suggested mom use the 21 mm flange and could consider going to 18 mm.? She tried the [place] in clinic and after 10 - 15 minutes did not get anything but got about 15 ml when she used her hand pump.? Plan: 1. Increase the number of times mom puts baby to breast daily.? Offer both sides and try to keep her actively nursing for 20 - 30 minutes; try breast compression and alternating her back and forth.? Also suggested a minute or so of breast massage before nursing. 2. Supplement with 1 - 1.5 oz after nursing.? If mom doesn't nurse will offer 3 - 4 oz. 3. Encouraged her to keep up her pumping schedule of 6 times/24 hours (always ok to do more but needs to balance mental health).? Suggested she supplement baby while pumping to hopefully save some time and to finish her pumping session with a few minutes of hand expression.? Suggested for now she use the Spectra most often.? A flange fit guide was given. 4. Could consider craniosacral or wound care rn as well as an evaluation from a pediatric dentist and handouts were given. 5. Will f/u on 10/12/22 for a pre and post weight check.? Meds Home Medications and Allergies Home Medications Medication Instructions Recorded Confirmed Type magnesium 250 mg tablet 2,000 mg PO QDAY 02/15/22 09/14/22 History prenat.vits,lima,orj-xoxw-ybfnn 1 tab PO QDAY 02/15/22 09/14/22 History albuterol sulfate 90 mcg/actuation 2 puff inhalation PRN PRN 08/30/22 09/14/22 History aerosol inhaler budesonide 180 mcg/actuation 2 inh inhalation PRN 08/30/22 09/14/22 History breath activated powder inhaler (Pulmicort Flexhaler) Allergies Allergy/AdvReac Type Severity Reaction Status Date / Time minocycline Allergy Unknown Bruising Verified 09/14/22 13:12 on legs and gums Sulfa (Sulfonamide Allergy Verified 09/14/22 13:12 Antibiotics)
== END 2022-09-21 09:36 | disposition home or self-care (01) ==
LOC: OB LAC 09:35
PROVIDERS: PCP Nurse Practitioner Family; Visit Provider Nurse Practitioner Family
DX: Z39.1 Encounter for care and examination of lactating mother (principal)
CPT/HCPCS: 99211

== ENCOUNTER 2023-02-03 09:00 | Outpatient (RCR) | payer BC, SELFPAY | END 2023-06-03 23:59 | disposition home or self-care (01) | PROVIDERS: PCP Nurse Practitioner Family; Visit Provider Registered Nurse | DX: M62.81 Muscle weakness (generalized) (principal); L90.5 Scar conditions and fibrosis of skin; R27.8 Other lack of coordination; Z51.89 Encounter for other specified aftercare | CPT/HCPCS: 97110; 97112; 97140; 97162 ==

== ENCOUNTER 2024-09-10 15:43 | Outpatient (CLI) | payer BC, SELFPAY ==
--- NOTE | 2024-09-10 15:45 | CRLHL7_ITS ---
For Patients: As a result of the Century Cures Act, medical imaging exams and procedure reports are released immediately into your electronic medical record. You may view this report before your referring provider. If you have questions, please contact your health care provider. INDICATION: First trimester scan, establish dates. COMPARISON: None. TECHNIQUE: Real-time ayala-scale imaging of the pelvis was performed. FINDINGS: Sonographic imaging demonstrates a single living intrauterine gestation. The embryo demonstrates a regular cardiac rate measuring 178 beats per minute. The embryo`s crown-rump length measurement of 1.8 cm corresponds to a gestational age of 8 weeks 2 days with a sonographic due date of 04/20/2025. There is a normal-appearing yolk sac. There are no gross abnormalities noted within the embryo at this early state of development. The gestational sac has a normal appearance. There is a 2.8 x 1.3 x 2.4 cm perigestational hemorrhage. The amount of fluid within the sac appears appropriate for gestational age. The cervix is closed. The myometrium appears normal. The ovaries are of normal size. Corpus luteal cyst right ovary. There are no suspicious fluid collections noted in the cul-de-sac. IMPRESSION: Single living intrauterine with sonographic gestational age 8 weeks 2 days and sonographic due date 04/20/2025. Subchorionic hemorrhage measures 2.8 x 1.3 x 2.4 cm. Dictated by Tuan Gutierrez MD @ 09/10/2024 4:31:20 PM (Electronically Signed)
== END 2024-09-10 15:44 | disposition home or self-care (01) ==
LOC: US 15:44
PROVIDERS: PCP Nurse Practitioner Family; Visit Provider Midwife
DX: Z34.91 Encounter for supervision of normal pregnancy, unspecified, first trimester (principal); O20.9 Hemorrhage in early pregnancy, unspecified; Z3A.08 8 weeks gestation of pregnancy
CPT/HCPCS: 76817

== ENCOUNTER 2024-09-10 16:53 | Outpatient (CLI) | payer BC, SELFPAY ==
[2024-09-10 21:33] LABS: Chlamydia DNA Amplified* NOT DETECTED (No Detected); GC DNA Amplified* NOT DETECTED (No Detected)
== END 2024-09-10 16:54 | disposition home or self-care (01) ==
PROVIDERS: PCP Nurse Practitioner Family; Visit Provider Midwife
DX: Z34.81 Encounter for supervision of other normal pregnancy, first trimester (principal); Z36.89 Encounter for other specified antenatal screening; J45.20 Mild intermittent asthma, uncomplicated; R01.1 Cardiac murmur, unspecified; Z3A.08 8 weeks gestation of pregnancy
CPT/HCPCS: 83020; 83021; 85660; 86592; 86703; 86704; 86706; 86762; 86787; 86803; 86850; 86900; 86901; 87086; 87340; 87491; 87591

== ENCOUNTER 2024-10-08 17:27 | Outpatient (CLI) | payer BC, SELFPAY | END 2024-10-08 17:28 | disposition home or self-care (01) | LOC: NFLDREF 17:27 | PROVIDERS: PCP Nurse Practitioner Family; Visit Provider Registered Nurse | DX: R33.9 Retention of urine, unspecified (principal) | CPT/HCPCS: 87086 ==

== ENCOUNTER 2024-11-04 14:08 | Emergency (ER) | payer BC, SELFPAY ==
--- OUTSIDE RECORDS SUMMARY | 2024-11-04 14:10 | XMS_ITS | Clinical Summary ---
Author Organization [employer] Address [address] [place] [id number] Care Team Providers Care Brake Repairer Railroad Name Role Phone Myla Beltran Primary Care Provider Allergies Active Allergy Reactions Criticality Noted Date Comments Fructose GI Upset 01/18/2007 Minocycline Ecchymosis 09/27/2006 Sulfa (Sulfonamide Antibiotics) Rash,Other - Describe In Comment Field 06/05/2017 Bruising on gums Medications ZYRTEC 10 MG TABIndications:A llergic rhinitis, cause unspecified take 1 tablet (10mg) by oral route once daily as needed for allergies 90 3 7 Active MAGNESIUM GLUCONATE 500 MG TAB 0 8 Active PROAIR HFA 90 MCG/ACTUATION AEROSOL INHALERIndicatio ns:Unspecified asthma(493.90) One puff every 4 to 6 hours as needed 2 6 8 Active fluticasone (50 mcg per actuation) nasal solution (FLONASE) Inhale 1 Kimberly into both nostrils once daily. 1 Bottle 7 Active montelukast (SINGULAIR) 10 mg tabletIndication s:Chronic seasonal allergic rhinitis, unspecified trigger Take 1 tablet by mouth once daily. 90 tablet 3 7 Active mometasone-formo terol (DULERA) 100-5 mcg/actuation inhalerIndicatio ns:Chronic seasonal allergic rhinitis, unspecified trigger Inhale 1 Puff by mouth once daily. 3 Inhaler 1 7 Active Active Problems Problem Noted Date Diagnosed Date Subluxation of patella, acquired 10/31/2008 Dysmenorrhea 03/20/2007 Headache(784.0) 03/20/2007 Irritable bowel syndrome 10/01/2006 Overview (10/01/2006): slow transit, fructose intolerance ([facility]) Unspecified asthma(493.90) 10/01/2006 Other acne 06/15/2006 Allergic rhinitis, cause unspecified 06/15/2006 Comments Yes Immunizations Immunization Administration Dates Next Due DTP 04/02/1998, 3,04/14/1993,02/10 DTaP 04/02/1998, 3,04/14/1993,02/10 HIB PRP-D (ProHIBIT) 04/02/1998,06/17/19 94,06/16/1993,04/15 Hepatitis B (Peds) 06/16/1993,02/10/1993, 993 Hepatitis B, Unspecified 06/16/1993,02/10/1993 Hib Conjugate, Unspecified 04/02/1998,,06/16/1993,04/15 Human Papilloma Virus Vaccine 01/28/2008, 008 Human Papilloma Virus Vaccin e, Unspecified 01/28/2008,11/28/2007 Inactivated Polio Vaccine 04/02/1998,06/1993,04/14/1993,02/10 Influenza Virus, Unspecified 08/27/2015,06/10/20 14 Influenza, IIV3 (Age 6-35 mos) 06/10/2014 Influenza, IIV3 (Age >=3 years) 05/23/20 12,05/17/2011,07/12/2010,04/14,06/18/2007,05/25/2006,05/23/2005 ,07/29/2004,07/11/2003,06/21/1999,05/07 Influenza, IIV4 06/13/2016, 6,05/07/2014,07/23 Influenza, IIV4 (=>6mos) MDV 06/05/2017 MMR 12/21/2004,04/02/1998,06/17/1994 Meningococcal Vaccine (Menactra) 03/13/2008 Pneumococcal Poly,23-Valent (Pneumovax) 07/29/2004,08/07/2003 Pneumococcal, Unspecified 07/29/2004 Td (Age >=7 Years) 12/21/2004 Tdap 03/30/2011 Family History Medical History Relation Name Comments Diabetes Maternal Grandfather Other Mother PCOS Other Sister 2 PRECOCIOUS PUBE RTY AND ARACHNOID CYST and hydrocephalus Relation Name Status Comments Father Alive Maternal Grandfather Alive Maternal Grandmother Alive Mother Alive Paternal Grandfather Alive Paternal Grandmother Alive Sister 1 Alive x1 Sister 2 Social History Tobacco Use Types Packs/Day Years Used Date Smoking Tobacco: Never Smokeless Tobacco: Never Tobacco Cessation:Counseling Given: Yes Alcohol Use Standard Drinks/Week Comments Yes 0 (1 standard drink = 0.6 oz pur e alcohol) casual use Social Connections Answer Date Recorded Frequency of Communication with Friends and Fami ly Not on file 08/11/2022 Comments Yes Sex and Gender Information Value Date Recorded Sex Assigned at Not on file Legal Sex Female 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 Gender Identity Not on file Sexual Orientation Not on file Obstetrics History Para Term AB IAB SAB Ectopic Multiple Livin g Live Births 1 Date Outcome GA Total Labor Labor/2nd/3rd Weight Sex Type Anes PTL Brianna A1 A5 Name Clin Current Last Filed Vital Signs Vital Sign Reading Time Taken Comments Blood Pressure 130/87 11/01/2022 10:50 AM CDT Pulse 80 11/01/2022 10:50 AM CDT Temperature 36.4 C (97.6 F) 06/05/2017 4:25 PM CDT Respiratory Rate 12 03/20/2007 11:14 AM CDT Oxygen Saturation 98% 11/01/2022 10:50 AM CDT Inhaled Oxygen Concentration - - Weight 96.2 kg (212 lb) 11/01/2022 10:50 AM CDT Height 162.6 cm (5' 4) 08/11/2022 9:54 AM FREIGHT CALLER Body Mass Index 36.39 08/11/2022 9:54 AM FREIGHT CALLER Plan of Treatment Health Maintenance Due Date Last Done Comments HIV for age 15-65 12/11/2007 Hepatitis C screening for age 18-79 2010 Depression screening for age 12+ 02/01/2017 02/02/2016 Tetanus booster 03/30/2021 03/30/2011, 12/21/2004 BMI (ht and wt on same day) for age 18+ 08/11/2023 08/11/2022, 06/05/2017, 02/02/2016 Pap test for age 21-65 02/09/2024 02/08/2021, 2016 COVID-19 vaccine series ( season) 2024 05/21/2021 Influenza Vaccine (#1) 2024 7, 06/13/2016, 08/27/2015, Additional history exists RSV vaccine for adults or (1 - 1-dose 75+ series) 12/11/2067 Pneumococcal series for age 6-49 Aged Out 07/29/2004, 07/29/2004, 08/07/2003 No longer eligible based on patient's age to complete this topic Tdap Completed 03/30/2011 Procedures Procedure Name Priority Date/Time Associated Diagnosis Comments COMMERCIAL GREEN BUILDING DESIGNER THIN PREP PAP SCREEN IMAGED Routine 02/08/2021 8:50 AM CDT from Last 3 Months or Most Recently Relevant to Health Maintenance Results * COMMERCIAL GREEN BUILDING DESIGNER THIN PREP PAP SCREEN IMAGED (02/08/2021 8:50 AM CDT) Case Report Gynecologic Cytology Report Case: [id number] Authorizing Provider: Unknown, Doctor Collected: 02/08/2021 0850 Ordering Location: [facility] Received: 02/09/2021 0736 First Screen: Mo Beasley Specimen: COMMERCIAL GREEN BUILDING DESIGNER ThinPrep Vial Screening, Cervical/Vaginal 02/17/2021 2:30 PM CDT [facility] INTERPRETATION/ RESULT NEGATIVE FOR INTRAEPITHELIAL LESION OR MALIGNANCY (NIL) (none) 02/17/2021 2:30 PM CDT [facility] IMEN ADEQUACY Satisfactory for evaluation Endocervical component present 02/17/2021 2:30 PM CDT [facility] HPV REQUEST HPV if ASCUS 02/17/2021 2:30 PM CDT [facility] Last Pap Date 02/17/2021 2:30 PM CDT [facility] Comment:Fall 2017 Additional Information 02/17/2021 2:30 PM CDT [facility] Comment: Interpreted at [facility] - [address], [place] [address] Automated Review Successful 02/17/2021 2:30 PM CDT [facility] Comment:Specimen processed s uccessfully by automated family court justice device, [email or web address] Imaging System, [employer] Note The pap test is a screening technique, not a diagnostic procedure. It is used primarily to screen for squamous cancers and precursor lesions. Published studies have shown that it is subject to both false negative and false positive results. The pap test should not be used as the sole means to diagnose or exclude pre-malignant and malignant lesions. 02/17/2021 2:30 PM CDT [facility] Other (Cervical/Vagina l) 02/08/2021 8:50 AM CDT 02/09/2021 7:36 AM CDT us Doctor Unknown PATHOLOGY/CYTOLOGY Final Result [facility] [address] [place] [address], from Last 3 Months or Most Recently Relevant to Health Maintenance Insurance [place] [id number] Care Teams Brake Repairer Railroad Relationship Specialty Start Date End Date Myla Beltran PA [address] [place] [address] PCP - General Family Practice 01/25/16
--- OUTSIDE RECORDS SUMMARY | 2024-11-04 14:10 | XMS_ITS | Clinical Summary ---
Author Organization [facility] Address [address], [place] [address] Care Team Providers Care Acid Mixer Name Role Phone Unavailable Primary Care Provider Unavailabl e Source Comments You are receiving this document as you are listed as the primary care provider,follow-up provider, or the patient has been referred to you for consultation.This is in compliance with the Medicare and[facility] EHR Incentive Program,which states Providers who transition their patient to another setting of careor provider of care or refers their patient to another provider of care shouldprovide summary care record for each transition of care or referral. [facility] Allergies No known active allergies Medications HYDROcodone-acet aminophen (NORCO) 5-325 MG tablet Take 1 Tablet by mouth two times daily as needed for Pain. 7 Tablet 11/16/2023 Active Social History Tobacco Use Types Packs/Day Years Used Date Smoking Tobacco: Never Assessed Comments Unknown Sex and Gender Information Value Date Recorded Sex Assigned at Not on file Legal Sex Female 4:48 PM COGNOS DEVELOPER Gender Identity Not on file Sexual Orientation Not on file Last Filed Vital Signs Vital Sign Reading Time Taken Comments Blood Pressure - - Pulse - - Temperature 36.5 C (97.7 F) 11/16/2023 6:37 PM CDT Respiratory Rate - - Oxygen Saturation - - Inhaled Oxygen Concentration - - Weight 90.2 kg (198 lb 14.4 oz) 11/16/2023 6:37 PM CDT Height 161 cm (5' 3.39) 11/16/2023 6:37 PM CDT Body Mass Index 34.81 11/16/2023 6:37 PM CDT Plan of Treatment Health Maintenance Due Date Last Done Comments Cervical Cancer Screening Due 1992 Hep C Screening (Preventive Services) 1992 HIV Screening (Preventive Services) 2008 Adult Preventive Visit 2010 HepB (1) 12/11/2011 COVID-19 Vaccine (2 - season) 2024 05/21/2021 Influenza (#1) 2024 05/30/2023, 11/03/2022, 06/15/2020, Additional history exists DTaP/Tdap/Td (3 - Tdap) 07/05/2032 07/05/2022, 08/23 Zoster/Shingles (1 of 2) 2042 HPV Vaccine Aged Out No longer eligi ble based on patient's age to complete this topic HepA Aged Out No longer eligi ble based on patient's age to complete this topic Hib Aged Out No longer eligi ble based on patient's age to complete this topic IPV (Polio) Aged Out No longer eligi ble based on patient's age to complete this topic MCV4 Aged Out No longer eligi ble based on patient's age to complete this topic Meningococcal B Aged Out No longer el igible based on patient's age to complete this topic Pneumococcal Aged Out No longer eligi ble based on patient's age to complete this topic Insurance [facility]
[2024-11-04 14:14] VITALS: BP 129/73; PULSE 90; RESP 18; TEMP 36.8; O2SAT 99; BMI 31.1
--- NOTE | 2024-11-04 14:50 | ED_ITS ---
HPI - General Adult General Chief complaint: Shortness of Breath/Dyspnea Stated complaint: Shortness of breath, dizzy, vomiting 16wks preg Time Seen by Provider: 11/04/24 14:43 History of Present Illness HPI narrative: This 33-year-old female is sent here from clinic because of upper epigastric abdominal pain. She is 16 weeks . She has been having some hyper emesis symptoms during this and takes Zofran occasionally. She is reporting worsening pain in her upper epigastric and right upper quadrant. She thinks that the pain seems to be worse when taking food. She arrives here with normal vital signs. Related Data Home Medications ?Medication ?Instructions ?Recorded ?Confirmed magnesium 250 mg tablet 2,000 mg PO QDAY 02/15/22 11/04/24 prenat.vits,lima,spx-vgbp-pdxxv 1 tab PO QDAY 02/15/22 11/04/24 albuterol sulfate 90 mcg/actuation 2 puff inhalation PRN PRN 08/30/22 11/04/24 aerosol inhaler budesonide 180 mcg/actuation 2 inh inhalation PRN 08/30/22 11/04/24 breath activated powder inhaler (Pulmicort Flexhaler) psyllium husk 0.4 gram capsule 0.4 g PO QDAY 06/25/24 11/04/24 (Daily Fiber) doxylamine succinate 25 mg tablet 25 mg PO QHS PRN 09/10/24 11/04/24 (Unisom (doxylamine)) pyridoxine (vitamin B6) 25 mg 25 mg PO QDAY 09/10/24 11/04/24 tablet Previous Rx's ?Medication ?Instructions ?Recorded ondansetron 4 mg disintegrating 4 mg PO Q6-8H #30 tabs 10/08/24 tablet Allergies Allergy/AdvReac Type Severity Reaction Status Date / Time minocycline Allergy Unknown Bruising Verified 11/04/24 14:32 on legs and gums Sulfa (Sulfonamide Allergy Verified 11/04/24 14:32 Antibiotics) Review of Systems Status of ROS: Reports: 10 or more systems reviewed and unremarkable except as noted in History and below Narrative: Constitutional: No fevers, no weight gain or loss. Eyes: No discharge. No vision changes. HENT: No congestion, no sore throat, no ear pain. Cardiovascular: No chest pain, no palpitations. Respiratory: No shortness of breath, no wheezes, no cough. Gastrointestinal: No diarrhea. Upper epigastric abdominal pain with nausea and vomiting. Genitourinary: No dysuria, no hematuria. Musculoskeletal: Normal range of motion. Skin: No rashes, no pruritis. Neurological: No dizziness, weakness, sensory change, speech change. Endo/Heme/Allergies: No bruising or bleeding. No polydipsia. Pysch: no suicidality, no anxiety, no insomnia. All other systems reviewed and are negative. [facility] Medical History (Updated 11/04/24 @ 16:41 by Felipe Martin MD) Shingles ?B02.9 - Zoster without complications (ICD-10) Asthma ?J45.909 - Unspecified asthma, uncomplicated (ICD-10) Cardiac murmur ?R01.1 - Cardiac murmur, unspecified (ICD-10) anxiety ?O99.345 - Other mental disorders complicating the puerperium (ICD-10) ?F41.8 - Other specified anxiety disorders (ICD-10) Palpitations ?R00.2 - Palpitations (ICD-10) GERD (gastroesophageal reflux disease) ?K21.9 - Gastro-esophageal reflux disease without esophagitis (ICD-10) Surgical History (Updated 09/10/24 @ 17:01 by Ale Kennedy CNM) History of delivery ?Z98.891 - History of uterine scar from previous surgery (ICD-10) Status post delivery (11/05/19) ?Z98.891 - History of uterine scar from previous surgery (ICD-10) Family History (Updated 02/02/22 @ 14:08 by Mari Samuels) Other Thyroid disease Social History (Updated 09/10/24 @ 16:43 by Haley Solano ~ DIGITAL ART DIRECTOR, DIGITAL ART DIRECTOR) What is your current living situation?: I presently have a place to live Problems where you live: no known problems In the past 12 months, utilities in danger of being shut off: no In past 12 months, lack of transportation kept you from medical appts, meetings, work, or getting things needed for daily living: no In the past 12 mos, have been you worried that your food would run out before you had money to buy more?: never true In the past 12 mos, the food you bought just didn't last and you didn't have mon ey to buy more?: never true Smoking Status: Never smoker How often do you have a drink containing alcohol: never AUDIT-C Alcohol total score: 0 Non-prescribed substance use: denies use How often does anyone, including family, friends and others, physically hurt you : never How often does anyone, including family, friends and others, insult or talk down to you: never How often does anyone, including family, friends and others, threaten you with harm: never How often does anyone, including family, friends and others, scream or curse at you: never Exam Narrative: Exam Narrative: Constitutional: Well-developed, well-nourished, no acute distress. HEENT: Normocephalic, atraumatic. Neck: Normal range of motion. Nontender. Supple. Heart: Regular. No murmurs. Normal rate. Intact distal pulses. Lungs: Clear to auscultation. No chest discomfort. No wheezes, rhonchi, or rales. Abdomen: Normal bowel sounds. No rebound tenderness. Gravid at 16 weeks gestation. Upper epigastric and right upper quadrant abdominal pain. Genitalia: Deferred. Back: No midline tenderness. Normal range of motion. Extremities: Normal range of motion. No injury. Skin: Intact. No rash. Warm. No erythema or pallor. Neurologic: No altered sensation. No weakness. Alert and oriented. Psychiatric: No suicidality. No anxiety or depression. No insomnia. Nursing notes and vitals signs are reviewed. Const: Vital Signs, click to edit/add: Vital Signs - 24 hr 11/04/24 14:14 11/04/24 15:50 Temperature 98.3 F 97.8 F Pulse Rate [Pulse Oximeter] 90 84 Respiratory Rate 18 18 Blood Pressure [Ri ght Upper Arm] 129/73 113/60 Pulse Oximetry 99 100 Oxygen Delivery Me thod Room Air Room Air Course Vital Signs Vital signs: Initial Vital Signs Respiratory Depth Normal 11/04/24 14:13 Vital Signs Temperature 98.3 F 11/04/24 14:14 Pulse Rate 90 11/04/24 14:14 Respiratory Rate 18 11/04/24 14:14 Blood Pressure 129/73 11/04/24 14:14 Pulse Oximetry 99 11/04/24 14:14 Oxygen Delivery Method Room Air 11/04/24 14:14 Temperature 97.8 F 11/04/24 15:50 Pulse Rate 84 11/04/24 15:50 Respiratory Rate 18 11/04/24 15:50 Blood Pressure 113/60 11/04/24 15:50 Pulse Oximetry 100 11/04/24 15:50 Oxygen Delivery Method Room Air 11/04/24 15:50 Medications Administered Medications: Discontinued Medications Generic Name Dose Route Start Last Admin Trade Name Alise PRN Reason Stop Dose Admin Sodium Chloride 1,000 mls @ 1,000 mls/hr 11/04/24 15:00 11/04/24 15:49 0.9 % Sodium Chloride 1000 Ml IV 11/04/24 15:59 Infused .Q1H ERIC Infusion Ondansetron HCl 4 mg 11/04/24 14:48 11/04/24 15:13 Ondansetron 2 Mg/Ml Inj IVP 11/04/24 14:49 4 mg ONCE ONE Administration Medical Decision Making MDM Narrative Medical decision making narrative: This patient comes in reporting upper epigastric abdominal pain and is 16 weeks . I did use bedside ultrasound to evaluate her gallbladder and upper abdomen and saw normal anatomy. An IV was established where she did receive a L of normal saline and 4 mg of Zofran. Later she received Toradol 15 mg in the IV to treat a headache. Lab results returned with reassuring findings. The patient is okay to be discharged home. She does have an appointment with her OB physician tomorrow. Lab Data Labs: Lab Results 11/04/24 Range/Units 15:03 WBC 4.64 (4.50-11.00) K/uL RBC 3.95 L (4.00-5.20) m/uL Hgb 12.0 (12.0-16.0) gm/dL Hct 35.8 (33.0-51.0) % MCV 91 (80-100) fL MCH 30 (26-34) pg MCHC 34 (32-36) gm/dL RDW Coeff of Adin 12.5 (11.5-15.5) % Plt Count 226 (140-440) K/uL Neut % (Auto) 68.3 (42.0-72.0) % Lymph % (Auto) 18.8 L (20-44) % Davison % (Auto) 10.8 (0.0-11.0) % Eos % (Auto) 0.4 (0.0-7.0) % Baso % (Auto) 0.0 (0.0-3.0) % Neut # (Auto) 3.17 (1.7-7.0) K/uL Lymph # (Auto) 0.90 (0.90-2.90) K/uL Davison # (Auto) 0.50 (0.00-0.90) K/UL Eos # (Auto) 0.02 (0.00-0.50) K/uL Baso # (Auto) 0.00 (0.00-0.30) K/uL Abs Immat Gran (auto) 0.08 (0.00-0.30) K/uL Imm/Tot Granulo (auto) 1.7 % Sodium 134 L (135-149) mmol/L Potassium 3.3 L (3.6-5.1) mmol/L Chloride 105 (96-114) mmol/L Carbon Dioxide 20 (20-32) mmol/L Anion Gap 9 (7-15) mEq/L BUN 13 (5-24) mg/dL Creatinine 0.5 (0.5-1.5) mg/dL Estimated Creat Clear 146.70 Estimated GFR 129 ml/min Glucose 85 (60-115) mg/dL Calcium 8.0 L (8.4-10.6) mg/dL Total Bilirubin 0.4 (0.1-1.5) mg/dL Direct Bilirubin 0.3 (0.0-0.5) mg/dL AST 33 (12-35) U/L ALT 29 (4-35) U/L Alkaline Phosphatase 51 (40-150) U/L Total Protein 6.8 (6.0-8.3) g/dL Albumin 3.9 (3.3-5.0) g/dL Lipase 93 (23-300) U/L Discharge Plan Discharge Clinical Impression: Abdominal pain during Patient Disposition: Home, Self-Care Condition: Stable Additional Instructions: Follow-up with OB clinic appointment tomorrow as scheduled for ongoing management. Return if worsening. Prescriptions: No Action ondansetron 4 mg tablet,disintegrating 4 mg PO Q6-8H Qty: 30 1RF magnesium 250 mg tablet 2,000 mg PO QDAY prenat.vits,lima,hut-shgx-xnrms Tablet 1 tab PO QDAY psyllium husk [Daily Fiber] 0.4 gram capsule 0.4 g PO QDAY Unisom (doxylamine) 25 mg tablet 25 mg PO QHS PRN pyridoxine (vitamin B6) 25 mg tablet 25 mg PO QDAY albuterol sulfate 90 mcg/actuation HFA aerosol inhaler 2 puff INHALATION PRN PRN Pulmicort Flexhaler 180 mcg/actuation aerosol powdr breath activated 2 inh INHALATION PRN Patient Comments: INHALE 1-2 PUFFS TWO TIMES A DAY - RINSE AFTER USE TRY ONE PUFF TWICE DAILY. IF NEEDED INCREASE TO 2 PUFFS TWICE DAILY. Follow Up/Referrals: Deana Ferrara, MUSTANGER, CROCHET MACHINE OPERATOR [Primary Care Provider] - Stand Alone Forms: [facility] Info Instructions Procedures Ultrasound Biliary exam #1: Anatomical areas examined: gallbladder, long and short axis and common bile duct Indications: RUQ/epigastric pain Exam type: limited abdominal ultrasound; RUQ Impression: normal exam
--- OUTSIDE RECORDS SUMMARY | 2024-11-04 14:59 | XMS_ITS | Clinical Summary ---
Author Organization [facility] Address [address], [place] [address] Care Team Providers Care Category Development Manager Name Role Phone Unavailable Primary Care Provider Unavailabl e Source Comments You are receiving this document as you are listed as the primary care provider,follow-up provider, or the patient has been referred to you for consultation.This is in compliance with the Medicare and[facility] EHR Incentive Program,which states Providers who transition their patient to another setting of careor provider of care or refers their patient to another provider of care shouldprovide summary care record for each transition of care or referral. [facility] Allergies No known active allergies Medications HYDROcodone-acet aminophen (NORCO) 5-325 MG tablet Take 1 Tablet by mouth two times daily as needed for Pain. 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
--- OUTSIDE RECORDS SUMMARY | 2024-11-04 14:59 | XMS_ITS | Clinical Summary ---
Author Organization [employer] Address [address] [place] [address] Care Team Providers Care Diamond Sorter Name Role Phone Myla Beltran Primary Care [...] per actuation) nasal solution (FLONASE) Inhale 1 Buford into both nostrils once daily. 1 Bottle [...] 10/01/2006 Overview (10/01/2006): slow transit, fructose intolerance ([facility]) Unspecified asthma(493.90) 10/01/2006 Other [...] on file Legal Sex Female 5:23 AM SERVICE SUPPORT REPRESENTATIVE Gender Identity Not on file Sexual Orientation [...] 162.6 cm (5' 4) 08/11/2022 9:54 AM SERVICE SUPPORT REPRESENTATIVE Body Mass Index 36.39 08/11/2022 9:54 AM SERVICE SUPPORT REPRESENTATIVE Plan of Treatment Health Maintenance Due Date [...] Procedure Name Priority Date/Time Associated Diagnosis Comments HAND PACKER/PACKAGER THIN PREP PAP SCREEN IMAGED Routine 02/08/2021 8:50 AM CDT from Last 3 Months or Most Recently Relevant to Health Maintenance Results * HAND PACKER/PACKAGER THIN PREP PAP SCREEN IMAGED (02/08/2021 8:50 AM CDT) Case Report Gynecologic Cytology Report Case: [id number] Authorizing Provider: Unknown, Doctor Collected: 02/08/2021 0850 Ordering Location: [facility] Received: 02/09/2021 0736 First Screen: Mo Beasley Specimen: HAND PACKER/PACKAGER ThinPrep Vial Screening, Cervical/Vaginal 02/17/2021 2:30 PM [facility] INTERPRETATION/ RESULT NEGATIVE FOR INTRAEPITHELIAL LESION OR MALIGNANCY (NIL) (none) 02/17/2021 2:30 PM CDT [facility] IMEN ADEQUACY Satisfactory for evaluation Endocervical component present 02/17/2021 2:30 PM CDT [facility] HPV REQUEST HPV if ASCUS 02/17/2021 2:30 PM CDT [facility] Last Pap Date 02/17/2021 2:30 PM CDT [facility] Comment:Fall 2017 Additional Information 02/17/2021 2:30 PM CDT [facility] Comment: Interpreted at [facility] - [address], [place] [address] Automated Review Successful 02/17/2021 2:30 PM CDT [facility] Comment:Specimen processed s uccessfully by automated senior litigation paralegal device, MePleasePrep Imaging System, [employer] Note The pap test is a [...] and malignant lesions. 02/17/2021 2:30 PM CDT [facility] Other (Cervical/Vagina l) 02/08/2021 8:50 AM CDT 02/09/2021 7:36 AM CDT us Doctor Unknown PATHOLOGY/CYTOLOGY Final Result [facility] [address] [place] [address], from Last 3 Months or Most Recently Relevant to Health Maintenance Insurance [place] [id number] Care Teams Diamond Sorter Relationship Specialty Start Date End Date Myla Beltran PA [address] [place] [address] PCP - General Family Practice 01/25/16
[2024-11-04] MEDS: ONDANSETRON 2 MG/ML inj 4 MG IVP (15:13)
[2024-11-04] MEDS: 0.9 % SODIUM CHLORIDE 1000 ml 1,000 ML IV (15:13)
[2024-11-04 15:19] LABS: Eosinophils Absolute Auto 0.02 K/uL (0.00-0.50); Eosinophils Percent Auto 0.4 % (0.0-7.0); Hematocrit 35.8 % (33.0-51.0); Immature Granulocytes Abs Auto 0.08 K/uL (0.00-0.30); Immature Granulocytes Pct Auto 1.7 %; Lymphocytes Percent Auto 18.8 % (20-44); Mean Corpuscular HGB Conc 34 gm/dL (32-36); Mean Corpuscular Hemoglobin 30 pg (26-34); Mean Corpuscular Volume 91 fL (80-100); Monocytes Percent Auto 10.8 % (0.0-11.0); Neutrophils Absolute Auto 3.17 K/uL (1.7-7.0); Neutrophils Percent Auto 68.3 % (42.0-72.0); Platelet Count* 226 K/uL (140-440); RDW Coefficient of Variation % 12.5 % (11.5-15.5); Red Blood Count 3.95 m/uL (4.00-5.20); White Blood Count* 4.64 K/uL (4.50-11.00)
[2024-11-04 15:22] LABS: Slide Review Reflex No
[2024-11-04 15:23] LABS: Albumin* 3.9 g/dL (3.3-5.0); Chloride* 105 mmol/L (96-114); Sodium* 134 mmol/L (135-149)
[2024-11-04 15:24] LABS: Potassium* 3.3 mmol/L (3.6-5.1)
[2024-11-04 15:26] LABS: Alanine Aminotransferase* 29 U/L (4-35); Alkaline Phosphatase* 51 U/L (40-150); Anion Gap 9 mEq/L (7-15); Aspartate Amino Transferase* 33 U/L (12-35); Bilirubin Direct* 0.3 mg/dL (0.0-0.5); Bilirubin Total* 0.4 mg/dL (0.1-1.5); Blood Urea Nitrogen* 13 mg/dL (5-24); Carbon Dioxide* 20 mmol/L (20-32); Creatinine* 0.5 mg/dL (0.5-1.5); Estimated Glomerular Filt Rate 129 ml/min; Glucose* 85 mg/dL (60-115); Lipase* 93 U/L (23-300); Total Protein* 6.8 g/dL (6.0-8.3)
[2024-11-04 15:50] VITALS: BP 113/60; PULSE 84; RESP 18; TEMP 36.6; O2SAT 100
[2024-11-04] MEDS: KETOROLAC 15 MG/ML inj IVP (16:56)
== END 2024-11-04 17:03 | disposition home or self-care (01) ==
PROVIDERS: Emergency Provider Emergency Medicine Emergency Medical Services; PCP Nurse Practitioner Family
DX: R10.13 Epigastric pain (principal); Z3A.16 16 weeks gestation of pregnancy
CPT/HCPCS: 36415; 76705; 80048; 80076; 83690; 85025; 96374; 96375; 99284; J1885; J2405; J7030

== ENCOUNTER 2024-12-06 12:04 | Outpatient (CLI) | payer BC, SELFPAY ==
--- NOTE | 2024-12-06 12:15 | CRLHL7_ITS ---
For Patients: As a result of the Century Cures Act, medical imaging exams and procedure reports are released immediately into your electronic medical record. You may view this report before your referring provider. If you have questions, please contact your health care provider. OBSTETRICAL ULTRASOUND ??? ANATOMY SURVEY INDICATION: anatomy survey. LMP: 07/14/2024 HUGO by LMP: 04/20/2025 GESTATIONAL AGE: 20 weeks 5 days TECHNIQUE: Real-time ayala-scale imaging of the fetus was performed transabdominal. FINDINGS: position: Breech Cervix: Visualized Technique: Transabdominal Length of closed cervix: 4.6 cm Placenta position: Anterior, Right Wall Technique: Transabdominal Placenta tip to internal os: 7.2 cm Umbilical cord: 3-vessel cord Placental insertion: Marginal Amniotic fluid: 3.2 cm SDP (greater than/equal to 2 to less than 8 cm) ANATOMY SURVEY: Observed Structures Cerebellum: 2.0 cm, 20 weeks 5 days Cisterna magna: 3.1 mm Nuchal fold: 4.2 mm Lateral ventricle: 5.6 mm CSP: Yes Midline falx: Yes Choroid plexus: Yes Spine: Yes Stomach: Yes Abdominal cord insert: Yes Urinary bladder: Yes Kidneys: Yes Diaphragm: Yes Nose/lips: Yes Orbital view: Yes Profile: Yes Upper extremities: Yes Lower extremities: Yes Hands: Yes Feet: Yes 4-chamber heart: Yes LVOT: Yes RVOT: Yes 3VV: Yes 3VTV: Yes BIOMETRY BPD: 4.5 cm, 19 weeks 3 days, 8.6% HC: 18.3 cm, 20 weeks 5 days, 40% AC: 15.7 cm, 20 weeks 6 days, 47% FL: 3.4 cm, 20 weeks 6 days, 44% FL/AC: 21.89 HC/AC Ratio: 1.17 heart rate: 139 bpm age by this ultrasound: 20 weeks 4 days HUGO by this ultrasound: 04/21/2025 Estimated weight: 374.32 grams (0 pound 13 ounces) Percentile by HUGO: 47% IMPRESSION: 1) Concordance of clinical and sonographic dating. 2) Normal anatomic survey. 3) Marginal placental cord insertion located 1.4 cm from the placental edge. TUAN OG M.D. Diagnostic Radiologist [email or web address] DW/Dictated by: Tuan Og MD @ 12/07/2024 5:33:00 PM (Electronically Signed)
== END 2024-12-06 12:05 | disposition home or self-care (01) ==
LOC: US 12:04
PROVIDERS: PCP Nurse Practitioner Family; Visit Provider Registered Nurse
DX: Z34.92 Encounter for supervision of normal pregnancy, unspecified, second trimester (principal); O43.192 Other malformation of placenta, second trimester; Z3A.20 20 weeks gestation of pregnancy
CPT/HCPCS: 76805

== ENCOUNTER 2025-01-31 07:43 | Outpatient (CLI) | payer BC, SELFPAY | END 2025-01-31 07:44 | disposition home or self-care (01) | LOC: NFLDREF 02-03 15:40 | PROVIDERS: PCP Nurse Practitioner Family; Referring Provider Nurse Practitioner Family; Visit Provider Obstetrics & Gynecology | DX: Z36.89 Encounter for other specified antenatal screening (principal); O09.293 Supervision of pregnancy with other poor reproductive or obstetric history, third trimester; O43.193 Other malformation of placenta, third trimester; O36.63X0 Maternal care for excessive fetal growth, third trimester, not applicable or unspecified; Z3A.28 28 weeks gestation of pregnancy | CPT/HCPCS: 76816; 86592 ==

== ENCOUNTER 2025-01-31 07:44 | Outpatient (CLI) | payer BC, SELFPAY ==
--- NOTE | 2025-01-31 08:00 | CRLHL7_ITS ---
For Patients: As a result of the Century Cures Act, medical imaging exams and procedure reports are released immediately into your electronic medical record. You may view this report before your referring provider. If you have questions, please contact your health care provider. OB ULTRASOUND LMP: 07/14/2024. HUGO by LMP: 04/20/2025. GA: 28 w, 5 d. Single. Comparison: 12/06/2024. INDICATION: Marginal cord insertion. TECHNIQUE: Real time grayscale imaging of the fetus was performed. Transabdominal. CERVIX: Not visualized. POSITIONING: Transverse. AMNIOTIC FLUID: 6.3 cm. SDP (N: greater than 2 x 1 cm) PLACENTA: Technique: Transabdominal. PLACENTA POSITION: Anterior. DOPPLER: heart rate: 131 bpm. BIOMETRY: BPD: 7.5 cm. 30 w, 1 d, 80 percent. HC: 29.1 cm. 32 w, 0 d, 96 percent. AC: 25.8 cm. 29 w, 6 d, 78 percent. FL: 5.3 cm. 28 w, 0 d, 18 percent. FL/AC ratio: 20.47 percent. HC/AC ratio: 1.13. EFW: 1407 g. Weight: 3 lbs, 2 oz. age by this US: 30 w, 0 d. HUGO by this US: 04/11/2025. Percentile by HUGO: 68 percent. IMPRESSION: 1. Sonographic gestational age 30 weeks 0 days and sonographic due date 04/11/2025. Sonographic age 9 days ahead of clinical age. 2. Estimated weight 68th percentile. Abdominal circumference 78th percentile. Tuan Gutierrez M.D. Diagnostic Radiologist [email or web address] AYE/anastasia oconnor/Dictated by: Tuan Gutierrez MD @ 01/31/2025 8:34:00 AM (Electronically Signed)
--- OUTSIDE RECORDS SUMMARY | 2025-02-01 00:29 | XMS_ITS | Clinical Summary ---
Author Organization [facility] Address [address] [address] Care Team Providers Care Boiler Tube Reamer Name Role Phone Unavailable Primary Care Provider Unavailabl e Source Comments You are receiving this document as you are listed as the primary care provider,follow-up provider, or the patient has been referred to you for consultation.This is in compliance with the Medicare and[facility] EHR Incentive Program,which states Providers who transition their patient to another setting of careor provider of care or refers their patient to another provider of care shouldprovide summary care record for each transition of care or referral. [facility] Allergies No known active allergies Medications HYDROcodone-acet aminophen (NORCO) 5-325 MG tablet Take 1 Tablet by mouth two times daily as needed for Pain. 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 Gender Identity Not on file Sexual Orientation [...] Services) 2008 Adult Preventive Visit 2010 HepB Vaccine (1) 12/11/2011 COVID-19 Vaccine (2 - season) 2024 05/21/2021 Influenza Vaccine (Season Ended) 2025 05/30/2023, 06/14/2022, 06/15/2020, Additional history exists DTaP/Tdap/Td Vaccine (3 - Tdap) 07/05/2032 07/05/2022, 08/23/2019 Zoster/Shingles Vaccine (1 of 2) 2042 HPV Vaccine Aged Out No longer eligi ble based on patient's age to complete this topic HepA Vaccine Aged Out No longer eligi ble based on patient's age to complete this topic Hib Vaccine Aged Out No longer eligi ble based on patient's age to complete this topic IPV (Polio) Vaccine Aged Out No longe r eligible based on patient's age to complete this topic MCV4 Vaccine Aged Out No longer eligi ble based on patient's age to complete this topic Meningococcal B Vaccine Aged Out No l onger eligible based on patient's age to complete this topic Pneumococcal Vaccine Aged Out No long er eligible based on patient's age to complete this topic Insurance [facility]
--- OUTSIDE RECORDS SUMMARY | 2025-02-01 00:29 | XMS_ITS | Clinical Summary ---
Author Organization [employer] [facility] [facility] Address [address] [place] [address] Care Team Providers Care Cycle Repairer Name Role Phone Myla Beltran Primary Care [...] per actuation) nasal solution (FLONASE) Inhale 1 Somers into both nostrils once daily. 1 Bottle [...] 10/01/2006 Overview (10/01/2006): slow transit, fructose intolerance (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 ENGINEER Gender Identity Not on file Sexual Orientation Not on file Obstetrics History Para Term AB IAB SAB Ectopic Multiple Livin g Live Births 1 Date Outcome GA Total Labor Labor/2nd/3rd Weight Sex Type Anes PTL Brianna A1 A5 Name Clin Last Filed Vital Signs Vital Sign Reading [...] 162.6 cm (5' 4) 08/11/2022 9:54 AM SALES ENGINEER Body Mass Index 36.39 08/11/2022 9:54 AM SALES ENGINEER Plan of Treatment Health Maintenance Due Date [...] series ( season) 2024 05/21/2021 Influenza Vaccine (Season Ended) 2025 06/05/2017, 06/13/2016, 08/27/2015, Additional history exists Hepatitis B series for 19+ Completed 06/16, 06/16/1993, 02/10/1993, Additional history exists Pneumococcal series for age 6-49 Aged Out 07/29/2004, 07/29/2004, 08/07/2003 No longer eligible based on patient's age to complete this topic Tdap Completed 03/30/2011 Procedures Procedure Name Priority Date/Time Associated Diagnosis Comments BRAND LEAD THIN PREP PAP SCREEN IMAGED Routine 02/08/2021 8:50 AM CDT from Last 3 Months or Most Recently Relevant to Health Maintenance Results * BRAND LEAD THIN PREP PAP SCREEN IMAGED (02/08/2021 8:50 AM CDT) Case Report Gynecologic Cytology Report Case: [id number] Authorizing Provider: Unknown, Doctor Collected: 02/08/2021 0850 Ordering Location: [facility] Received: 02/09/2021 0736 First Screen: Mo Beasley Specimen: BRAND LEAD ThinPrep Vial Screening, Cervical/Vaginal 02/17/2021 2:30 PM CDT [facility] LABORATORY-C ENTRAL LABORATORY INTERPRETATION/ RESULT NEGATIVE FOR INTRAEPITHELIAL LESION OR MALIGNANCY (NIL) (none) 02/17/2021 2:30 PM CDT [facility] LABORAT[facility]-C ENTRAL LABORATORY at 1430 CDT SPECIMEN ADEQUACY Satisfactory for evaluation Endocervical component present 02/17/2021 2:30 PM CDT [facility]AT[facility]-C ENTRAL LABORATORY HPV REQUEST HPV if ASCUS 02/17/2021 2:30 PM CDT [facility] Last Pap Date 02/17/2021 2:30 PM CDT [facility] Comment:Fall 2017 Additional Information 02/17/2021 2:30 PM CDT [facility] Comment: Interpreted at [facility] - [address], [place] [address] Automated Review Successful 02/17/2021 2:[address] [facility] Comment:Specimen processed s uccessfully by automated video player mechanic device, [employer]inPrep Imaging System, [employer] Note The pap test is a [...] and malignant lesions. 02/17/2021 2:[address] [facility] Other (Cervical/Vagina l) 02/08/2021 8:50 AM CDT 02/09/2021 7:36 AM CDT us Doctor Unknown PATHOLOGY/CYTOLOGY Final Result [facility] [address] [place] [address], [place] from Last 3 Months or Most Recently Relevant to Health Maintenance Insurance [facility] [place] [id number] Care Teams Cycle Repairer Relationship Specialty Start Date End Date Myla Beltran PA [address] [place] [address] PCP - General Family Practice 01/25/16
== END 2025-01-31 07:45 | disposition home or self-care (01) ==
LOC: US 07:44
PROVIDERS: PCP Nurse Practitioner Family; Visit Provider Obstetrics & Gynecology
DX: O43.193 Other malformation of placenta, third trimester (principal); O36.63X0 Maternal care for excessive fetal growth, third trimester, not applicable or unspecified; Z3A.28 28 weeks gestation of pregnancy
CPT/HCPCS: 76816

== ENCOUNTER 2025-02-24 10:07 | Outpatient (CLI) | payer BC, SELFPAY ==
--- NOTE | 2025-02-24 10:15 | CRLHL7_ITS ---
For Patients: As a result of the Century Cures Act, medical imaging exams and procedure reports are released immediately into your electronic medical record. You may view this report before your referring provider. If you have questions, please contact your health care provider. OB ULTRASOUND HUGO by LMP or US: 04/20/2025. GA: 32 w, 1 d. Single. Comparison: 01/31/2025, 12/06/2024. INDICATION: Marginal cord insertion. TECHNIQUE: Multiple transabdominal grayscale, color, and M-Mode Doppler images obtained. CERVIX: Not visualized. POSITIONING: Vertex. AMNIOTIC FLUID: 7.9 cm. SDP (N: greater than 2 x 1 cm) PLACENTA: Technique: Transabdominal. PLACENTA POSITION: Anterior. DOPPLER: heart rate: 124 bpm. BIOMETRY: BPD: 8.4 cm. 33 w, 4 d, 82 percent. HC: 32.3 cm. 36 w, 4 d, >97 percent. AC: 29.0 cm. 33 w, 0 d, 74 percent. FL: 6.0 cm. 31 w, 0 d, 12 percent. FL/AC ratio: 20.52 percent. HC/AC ratio: 1.11. EFW: 6 g. Weight: 4 lbs, 9 oz. age by this US: 33 w, 4 d. HUGO by this US: 04/10/2025. Percentile by HUGO: 62 percent. IMPRESSION: Estimated weight is at the 62nd percentile. Akil Salazar M.D. Body/Diagnostic Radiologist [email or web address] CELENA/anastasia oconnor/Dictated by: Akil Salazar MD @ 02/26/2025 9:46:00 AM (Electronically Signed)
== END 2025-02-24 10:08 | disposition home or self-care (01) ==
LOC: US 10:08
PROVIDERS: PCP Nurse Practitioner Family; Visit Provider Obstetrics & Gynecology
DX: O43.193 Other malformation of placenta, third trimester (principal); Z3A.32 32 weeks gestation of pregnancy
CPT/HCPCS: 76816

== ENCOUNTER 2025-03-12 08:30 | Outpatient (CLI) | payer BC, SELFPAY | END 2025-03-12 08:31 | disposition home or self-care (01) | LOC: NFLDREF 03-14 13:40 | PROVIDERS: PCP Nurse Practitioner Family; Referring Provider Nurse Practitioner Family; Visit Provider Obstetrics & Gynecology | DX: Z34.93 Encounter for supervision of normal pregnancy, unspecified, third trimester (principal); Z3A.34 34 weeks gestation of pregnancy | CPT/HCPCS: 82728 ==

== ENCOUNTER 2025-03-26 08:27 | Outpatient (CLI) | payer BC, SELFPAY | END 2025-03-26 08:28 | disposition home or self-care (01) | LOC: NFLDREF 03-31 16:47 | PROVIDERS: PCP Nurse Practitioner Family; Referring Provider Nurse Practitioner Family; Visit Provider Obstetrics & Gynecology | DX: Z34.93 Encounter for supervision of normal pregnancy, unspecified, third trimester (principal); Z3A.36 36 weeks gestation of pregnancy | CPT/HCPCS: 87081; 87653 ==

== ENCOUNTER 2025-04-11 05:46 | Inpatient (IN) | payer BC, SELFPAY ==
[2025-04-11] VITALS (22 sets, daily range): BP systolic 99–124; BP diastolic 55–82; PULSE 62–114; RESP 16–17; TEMP 36.4–37.1; O2SAT 97–100; BMI 36.7; BMI 36.6
[2025-04-11] MEDS: LACTATED RINGERS 1000 ML 1,000 ML 1100 ML IV (06:15)
[2025-04-11 06:20] LABS: Hemoglobin* 11.4 gm/dL (12.0-16.0)
[2025-04-11 06:50] LABS: Hematocrit 35.3 % (33.0-51.0); Hemoglobin* 11.3 gm/dL (12.0-16.0); Immature Granulocytes Abs Auto 0.23 K/uL (0.00-0.30); Immature Granulocytes Pct Auto 2.4 %; Lymphocytes Absolute Auto 2.52 K/uL (0.90-2.90); Mean Corpuscular HGB Conc 32 gm/dL (32-36); Mean Corpuscular Hemoglobin 28 pg (26-34); Mean Corpuscular Volume 88 fL (80-100); RDW Coefficient of Variation % 15.0 % (11.5-15.5); Red Blood Count 4.03 m/uL (4.00-5.20); White Blood Count* 9.61 K/uL (4.50-11.00)
[2025-04-11 06:52] LABS: Slide Review Reflex No
--- NOTE | 2025-04-11 07:10 | P.LDBA_ITS ---
Subjective History of Present Illness Narrative: Patient is being admitted to Labor and Delivery for repeat with bilateral salpingectomy. She is a 34 year old at 38 5/7 weeks gestation. Her full history and physical was dictated by Dr. Shine on 03/26. Please see this for details. She notes no changes in health since that time. Specific Issues/Plans G3 P 2001 Partner: Henry? Daughters: Jessica and Rosendo. It's a BOY!!! ?[facility] completed by Dr. Shine on 03/26? ? #Previous x 2, desires surgical sterilization Scheduling form sent out 01/31/25 for repeat section and bilateral salpingectomy, 04/11/25 at 38 5/7 weeks. #Probable vasovagal episodes * 02/24/25 several episodes: feels faint, sweaty, nauseated, shaky. Feels better when she sits or lays down and hydrates. * Never lost consciousness * Cardiac work-up in her 2nd was normal except for a murmur that spontaneously resolved. * 02/24/25: Zio patch - No significant arrhythmia. <1% ectopic beats. No cardiac work-up unless more frequent and worsening episodes. # Asthma, well managed on albuterol prn # Marginal cord insertion, 1.4 cm from placental edge. Growth US at 28 and 32 weeks: normal EFW as noted below #Anemia with Hb 10.7 on 03/12. Iron QOD # BMI 32: Encouraged 11-20# weight gain #Hep B non-immune- low risk. declines vaccine. # GBS positive ? Imaging:? 1st trimester: 09/10/2024: 8 weeks, 2 days with sonographic due date 04/20/2025. ERIC 2.8x1.3x2.4cm. Anatomy scan: 01/31/25: Transverse, SDP: 6.3 cm, BPD: 88th percentile, HC: 96 percentile, AC: 78 percentile, FL: 18 percentile. EFW: 1407 g, 68th percentile. 02/24/25: Vertex, SDP 7.9 cm. EFW 2056 g, 4 lb 9 oz, 62%. BPD 82%, HC > 97%, AC 74%, FL 12%. ? COVID:?declined Flu:?declined Tdap:?02/14/2025 RSV: n/a 32wk Mental Health:?PHQ-9: 2; MILADIS-7: 0 34wk hgb:?? Pap: 2020, due ? OB - Problem Based A/P Additional Plan (1) Previous delivery affecting : Status: Acute Delivery/Labor/Induction Plan Plan: Section OB Exam Physical Exam Vital signs: Temp Pulse BP Pulse Ox 97.5 F L 84 112/65 97 04/11/25 06:17 04/11/25 06:14 04/11/25 06:14 04/11/25 06:12 Narrative: Physical exam: General: No acute distress Psych: Alert and oriented x3, full affect HEENT: Normocephalic, atraumatic Heart: Regular rate and rhythm, no murmur rub or gallop Lungs: Clear to auscultation bilaterally Abdomen: Soft, nontender, gravid Lower extremities: No edema or erythema
[2025-04-11] MEDS: LACTATED RINGERS 1000 ML 1,000 ML 125 ML IV ×2 (07:14→08:30)
--- NOTE | 2025-04-11 08:19 | SUR.OPER ---
Dr. Shine stated to RN and Tech that placenta did not need to be sent to pathology
--- NOTE | 2025-04-11 09:08 | PM.OBPRCCS ---
Procedure Date of procedure: 04/11/25 Pre-op diagnosis: 38 weeks, 5 days gestation Two previous deliveries Undesired fertility Post-op diagnosis: other (Probable endometriosis; otherwise as above) Procedure Done: Global Will [facility] bill your pro fee for this procedure?: Yes Blood Loss Measurement Type: QBL (135) Bakri Used: No IV fluids (mL): 1,600 Urine Output (mL): 200 Surgeon: Saniya Shine MD Findings: 1. Male infant, cephalic OA presentation, Apgars of 9 and 10, weight 3685 g. 2. Adhesions of the bladder reflection to the anterior lower uterine segment. Whitened lacy scarred appearance of the posterior uterine serosa, and red-pink nodules over the surface of bilateral ovaries; suspect deciduosis. Otherwise normal appearance of bilateral tubes, ovaries, and uterus Procedure Name: Repeat low-transverse Bilateral salpingectomy Biopsy of right ovary Procedure Description: Patient was taken to the operating room with IV running. She received cefazolin in preoperative prophylaxis. Spinal anesthesia was administered. Wong catheter was inserted. She was prepped and draped in the usual sterile fashion. Anesthesia was tested and found to be adequate. A low-transverse skin incision was made with a scalpel and carried through to the underlying layer of fascia with the scalpel. The subcutaneous fat was dissected off the underlying fascia with Bovie. The fascia was nicked in the midline with a scalpel, and this incision was extended laterally with scissors. The fascia was dissected off the underlying rectus muscles inferiorly and superiorly using a combination of Bovie and sharp dissection. The rectus muscles were with scalpel in the midline. Peritoneum was identified and entered sharply. Bovie was used to widen this opening laterally. The adhesions of the bladder reflection to the anterior lower uterine segment were dissected off the uterus with a combination of Bovie and sharp dissection. Efren O retractor was inserted and tightened down, providing excellent visualization of the lower uterine segment. The bladder reflection was found to be well below the planned site for hysterotomy. Low-transverse uterine incision was made with a scalpel. Incision was widened bluntly. The 's head was grasped through the hysterotomy and delivered with the help of fundal pressure. The remainder of the body delivered without incident. Cord was clamped and cut after 30 seconds. Infant was handed off to attending nurses. The placenta was delivered with gentle traction on the cord. The uterus was cleaned of all clots and debris with the dry lap pad. The hysterotomy was reapproximated with 0 Vicryl in a running, locked fashion. Second layer of the same suture was used in the midportion of the hysterotomy in an imbricating fashion to obtain hemostasis. Uterus was exteriorized. Findings of posterior uterus and ovaries were as noted above. The right fallopian tube was grasped near the fimbriated edge with a Emily clamp and elevated. The LigaSure exact device was used to divide the distal blood supply of the tube. The mesosalpinx was divided with the LigaSure exact device, moving laterally to medially. The tube was amputated with device at the cornua. Hemostasis was noted. This procedure was repeated on the left side. One international account representative 1 mm red-pink nodule on the surface of the right ovary was amputated sharply. This was sent to pathology for analysis. Hemostasis was achieved with Bovie. The cul-de-sac and gutters were cleansed with dampened laparotomy sponge, removing any further clots and debris. The uterus was returned to the abdomen. The Efren O retractor was removed. The hysterotomy was reexamined and Bovie used to obtain hemostasis. The peritoneum was reapproximated with 2 0 Vicryl in a running fashion. The rectus muscles were examined and Bovie was used to obtain hemostasis. The fascia was reapproximated with 0 Vicryl in a running fashion. Subcutaneous fat was irrigated and Bovie used on oozing vessels. The subcutaneous fat was reapproximated with 2 0 plain gut suture in an interrupted fashion. The skin was closed with a subcuticular stitch of 4-0 Monocryl. Surgical glue was applied above this. Patient tolerated procedure well was taken to recovery area in stable condition. Complications: None Pathology: specimen obtained, sent to pathology (Bilateral fallopian tubes, biopsy of right ovary) Surgery Debrief Performed: Yes Surgery Debrief Comment: Postoperative debrief was verbalized with OR staff, including a verification of pathology specimens to be sent as described above. Disposition: floor
--- NOTE | 2025-04-11 09:23 | P.ANES_ITS ---
Anesthesia Charges Start Date/Time Anesthesia Start Date: 04/11/25 Anesthesia Start Time: 07:20 Stop Date/Time Anesthesia Stop Date: 04/11/25 Anesthesia Stop Time: 09:10 Coding CPT Codes CPT Codes: ANESTH CS DELIVERY - 51020 ([id number]) P2 - PATIENT W/MILD SYST DISEASE, QK - WIRE INSULATOR 2-4 CNCRNT ANES PROC, QX - SALES ENGINEERING MANAGER SVC W/ MD MED DIRECTION
--- NOTE | 2025-04-11 09:23 | W.PM.NB ---
Nerve Block Nerve Block Time Seen by Provider: 09:00 Date Seen: 04/11/25 Type of block requested by surgeon for post-operative analgesia: TAP Side: bilateral Time out performed: Yes Verification of patient name: Yes Verification of date of : Yes Site marking: site marked Name of person performing procedure: Joselo Patino Continuous monitoring Was continuous monitoring of O2 sat, B/P, awake overnight monitor, recorded every 15 minutes?: Yes Procedure Checklist: sterile prep, needles and gloves Ultrasound guided. Images saved: Yes Medications given in 5ml increments after negative aspiration: Marcaine %: 0.25 mL: 30 Needle gauge: 20 and Exparel mL: 10 Needle gauge: 20 Patient tolerated procedure well: Yes Additional comments: Injected in 5ml increments after negative aspiration Block Charges Block Charge (with Pro Fee): TAP Bilateral Use of Ultrasound Machine for Block: Yes- US Guidance/pain block
--- NOTE | 2025-04-11 09:23 | W.ANESCHARGE ---
Anesthesia Charges Start Date/Time Anesthesia Start Date: 04/11/25 Anesthesia Start Time: 07:20 Stop Date/Time Anesthesia Stop Date: 04/11/25 Anesthesia Stop Time: 09:10 Coding CPT Codes CPT Codes: ANESTH CS DELIVERY - 15759 ([id number]) P2 - PATIENT W/MILD SYST DISEASE, QK - EXCEPTIONAL CHILDREN'S TEACHER 2-4 CNCRNT ANES PROC, QX - MOLD CHECKER SVC W/ MD MED DIRECTION
--- NOTE | 2025-04-11 09:57 | P.ANES_ITS ---
Anesthesia Charges Start Date/Time Anesthesia Start Date: 04/11/25 Anesthesia Start Time: 07:20 Stop Date/Time Anesthesia Stop Date: 04/11/25 Anesthesia Stop Time: 09:10 Coding CPT Codes CPT Codes: ANESTH CS DELIVERY - 43296 ([id number]) QK - HAIR SALON MANAGER 2-4 CNCRNT ANES PROC, QX - HOUSEHOLD APPLIANCE INSTALLER SVC W/ MD MED DIRECTION, P2 - PATIENT W/MILD SYST DISEASE
--- NOTE | 2025-04-11 09:57 | W.ANESCHARGE ---
Anesthesia Charges Start Date/Time Anesthesia Start Date: 04/11/25 Anesthesia Start Time: 07:20 Stop Date/Time Anesthesia Stop Date: 04/11/25 Anesthesia Stop Time: 09:10 Coding CPT Codes CPT Codes: ANESTH CS DELIVERY - 10349 ([id number]) QK - ASBESTOS SIDING INSTALLER 2-4 CNCRNT ANES PROC, QX - RAKER BUFFING WHEEL SVC W/ MD MED DIRECTION, P2 - PATIENT W/MILD SYST DISEASE
[2025-04-11] MEDS: ACETAMINOPHEN 500 MG TABLET 1000 MG PO ×3 (10:50→23:25)
[2025-04-12 02:13] VITALS: BP 119/68; PULSE 72; RESP 16; TEMP 36.9; O2SAT 98
[2025-04-12 05:58] LABS: Hemoglobin* 10.8 gm/dL (12.0-16.0)
[2025-04-12 06:04] VITALS: BP 116/69; PULSE 75; RESP 16; TEMP 36.7; O2SAT 99
[2025-04-12] MEDS: ACETAMINOPHEN 500 MG TABLET 1000 MG PO ×3 (06:09→20:39)
[2025-04-12 08:15] VITALS: BP 113/74; PULSE 80; RESP 20; TEMP 36.7; O2SAT 99
[2025-04-12] MEDS: DOCUSATE SODIUM 100 MG CAPSULE PO (08:45)
--- NOTE | 2025-04-12 10:48 | PM.OBPNVD1 ---
OB - PN:Subj Subjective Time Seen by Provider: 10:48 Date Seen: 04/12/25 Patient comments OB post-: pain well controlled, tolerating diet and flatus present status: Narrative: Nancy is a 34 y.o. who was admitted to [facility] for repeat delivery. ?She had an uncomplicated .?The patient feels well. ?The pain is well controlled with current medications. ?She has no new complaints. ?She is breast feeding and reports things are going well.? the patient has done well.? Vitals have been stable.? She has remained afebrile.? Has a good appetite, is tolerating a general diet. ?She is voiding without difficulty.? She is passing gas and has not had a bowel movement.? She is ambulating and denies any dizziness.? Has Small amount of rubra lochia. ? OB - PN: Obj Exam Physical Exam: Vital signs: Temp Pulse Resp BP Pulse Ox O2 Del Method 98.1 F 80 20 113/74 99 Room Air 04/12/25 08:15 04/12/25 08:15 04/12/25 08:15 04/12/25 08:15 04/12/25 08:15 04/12/25 08:15 Narrative: GENERAL APPEARANCE:? normal affect, alert, no distress MOOD:? appropriate CHEST:? clear to auscultation HEART:? regular rate and rhythm ABDOMEN:? soft, non-tender the uterine fundus is At Umbilicus, Midline and is appropriate for the stage of recovery. EXTREMITIES:? normal and trace edema Incision: Covered by dressing clean and dry. OB - PN: Obj Data Labs Labs: Laboratory Results - last 24 hr 04/12/25 05:42 Hgb 10.8 L OB - PN: A/P Delivery Assessment and Plan (1) Previous delivery affecting : Status: Acute Plan day: 1 Plan: routine care
[2025-04-12 11:57] VITALS: BP 113/70; PULSE 72; RESP 18; TEMP 36.4; O2SAT 99
[2025-04-12 20:29] VITALS: BP 116/78; PULSE 74; RESP 19; TEMP 36.4; O2SAT 100
[2025-04-12] MEDS: IBUPROFEN 600 MG TABLET PO (23:41)
[2025-04-13 02:23] VITALS: BP 120/77; PULSE 76; RESP 16; TEMP 37; O2SAT 97
[2025-04-13] MEDS: ACETAMINOPHEN 500 MG TABLET 1000 MG PO ×2 (02:32→08:30)
[2025-04-13] MEDS: IBUPROFEN 600 MG TABLET PO ×2 (05:54→12:02)
[2025-04-13 08:21] VITALS: BP 139/81; PULSE 81; RESP 16; TEMP 36.6; O2SAT 98
[2025-04-13] MEDS: DOCUSATE SODIUM 100 MG CAPSULE PO (08:30)
--- NOTE | 2025-04-13 09:55 | PM.OBDSVD1 ---
DS: Providers Provider Time Seen by Provider: 09:55 Date Seen: 04/13/25 Date of admission: 04/11/25 05:46 Primary care physician: Deana Ferrara APRN, FLOATING OPERATOR Admitting Clinician: Saniya Shine MD Attending Physician on discharge: Ford Alas MD Date of Discharge: 04/13/25 DS: Diagnosis Discharge Diagnosis (1) S/P repeat low transverse : Status: Acute Problem details: and bilateral salpingectomy Exam Narrative: Exam Narrative: GENERAL APPEARANCE:? normal affect, alert, no distress MOOD:? appropriate CHEST:? clear to auscultation HEART:? regular rate and rhythm ABDOMEN:? soft, non-tender the uterine fundus is At Umbilicus, Midline and is appropriate for the stage of recovery. EXTREMITIES:? normal and no edema Incision: Healing well, no surrounding erythema, abnormal induration or discharge. Const: Vital Signs, click to edit/add: Vital Signs - 24 hr 04/12/25 11:57 04/12/25 20:29 04/13/25 02:23 Temperature 97.6 F 97.6 F 98.6 F Pulse Rate [Pulse Oximeter] 72 74 76 Respiratory Rate 18 19 16 Blood Pressure [Ri ght Arm] 113/70 116/78 120/77 Pulse Oximetry 99 100 97 Oxygen Delivery Me thod Room Air Room Air Room Air 04/13/25 08:21 Temperature 97.9 F Pulse Rate [Pulse Oximeter] 81 Respiratory Rate 16 Blood Pressure [Ri ght Arm] 139/81 Pulse Oximetry 98 Oxygen Delivery Me thod Room Air OB - DS: Summary Hospital Course Hospital Course: The patient is a 34 year old G 3 P 3003 at 385/7 weeks gestation that was admitted to the Center on 04/11/25 for repeat delivery and bilateral salpingectomy. She had an uncomplicated delivery. She delivered a viable male infant. She is breast feeding. the patient has done well. Peripartum Data Procedures: Procedures Operation Date: 04/11/25 07:15 Actual Procedure Side Surgeon p Repeat Section with Bilateral Salpingectomy and Biopsy of Right Ovary Saniya Shine MD Procedures: tubal ligation/salpingectomy complications: none [place] Infant Gender: Male Discharge Plan: Home Status at Discharge Functional status at discharge: independent ambulation Overall status at discharge: patient is progressing back to baseline Time Spent with Patient Time attestation: Total time spent providing and/or coordinating discharge services: Time spent: Less than 30 minutes Discharge Plan Discharge Disposition: Home, Self-Care Date of Admission: 04/11/25 05:46 Primary Care Provider: Deana Ferrara Condition: Stable Anticipated Discharge Date/Time: 04/13/25 09:58 Discharge Medications: New acetaminophen 500 mg Tablet 1,000 mg PO Q6H PRN (Reason: Pain) Qty: 30 0RF docusate sodium 100 mg Capsule 100 mg PO DAILY Qty: 14 0RF ibuprofen 600 mg Tablet 600 mg PO Q6H PRN (Reason: Pain) Qty: 30 0RF Continued calcium carbonate [Tums] 200 mg calcium (500 mg) tablet,chewable 200 mg PO BID polyethylene glycol 3350 [Miralax] 17 gram/dose powder 4 g PO ONCE prenat.vits,lima,uja-zmor-blumi Tablet 1 tab PO QDAY magnesium 250 mg tablet 1,000 mg PO QDAY psyllium husk [Daily Fiber] 0.4 gram capsule 0.4 g PO QDAY Unisom (doxylamine) 25 mg tablet 25 mg PO QHS PRN pyridoxine (vitamin B6) 25 mg tablet 25 mg PO QDAY ondansetron 4 mg tablet,disintegrating 4 mg PO Q6-8H Qty: 30 1RF ferrous sulfate 325 mg (65 mg iron) tablet 325 mg PO Q OTHER DAY Qty: 30 0RF albuterol sulfate 90 mcg/actuation HFA aerosol inhaler 2 puff INHALATION PRN PRN Pulmicort Flexhaler 180 mcg/actuation aerosol powdr breath activated 2 inh INHALATION PRN Patient Comments: INHALE 1-2 PUFFS TWO TIMES A DAY - RINSE AFTER USE TRY ONE PUFF TWICE DAILY. IF NEEDED INCREASE TO 2 PUFFS TWICE DAILY. Discharge Orders: Discharge Order (Routine); Ordered 04/13/25 Ordered By: Oriana Alas Patient Education: OB /Breast Feeding Activity Level: Activity as Tolerated and No Weight Bearing Activity Detail: Nothing vaginally for 6 weeks Discharge Diet: Regular Follow Up Appointments: Deana Ferrara, CHARGE MANAGER, FLOATING OPERATOR [Primary Care Provider, Family Practice] Forms: [facility], [facility] Instructions
== END 2025-04-13 13:20 | disposition home or self-care (01) | DRG 540 ==
PROVIDERS: Admitting Provider Obstetrics & Gynecology; PCP Nurse Practitioner Family; Visit Provider Obstetrics & Gynecology
PROC: 10D00Z1 Extraction of Products of Conception, Low, Open Approach (ICD-10-PCS; CPT 59514; principal; 2025-04-11 07:15)
DX: O34.211 Maternal care for low transverse scar from previous cesarean delivery (principal); O99.824 Streptococcus B carrier state complicating childbirth; N83.8 Other noninflammatory disorders of ovary, fallopian tube and broad ligament; G89.18 Other acute postprocedural pain; J45.909 Unspecified asthma, uncomplicated; O99.02 Anemia complicating childbirth; D64.9 Anemia, unspecified; Z30.2 Encounter for sterilization; Z3A.38 38 weeks gestation of pregnancy; Z37.0 Single live birth
CPT/HCPCS: 01961; 36415; 64488; 76942; 85018; 85025; 86592; 86850; 86900; 86901; 88302; 88305; A4314; A9270; J0690; J1100; J1885; J2371; J2405; J2590; J7120

== ENCOUNTER 2025-05-21 11:34 | Outpatient (CLI) | payer BC, SELFPAY ==
[2025-05-23 13:22] LABS: HPV Source Cervix
[2025-05-26 09:11] LABS: Pap Test Digital Imaging Done
== END 2025-05-21 11:35 | disposition home or self-care (01) ==
PROVIDERS: PCP Nurse Practitioner Family; Visit Provider Registered Nurse
DX: Z12.4 Encounter for screening for malignant neoplasm of cervix (principal)
CPT/HCPCS: 87624; 87625; 88141; 88142; 88175